=== PATIENT | male | born 1980 | race Caucasian/White ===

== ENCOUNTER → 2017-04-07 | Outpatient (CLI) | payer BC ==
--- NOTE | 2017-04-07 16:17 | CT ---
EXAMINATION TYPE: CT abdomen pelvis w con DATE OF EXAM: 04/07/2017 4:09 PM COMPARISON: NONE HISTORY: Patient complains of a pilonidal cyst with recurring infection. CT DLP: 2278 mGycm CONTRAST: CT scan of the abdomen and pelvis is performed without Oral Contrast and with IV Contrast, patient in jected with 100 mL of Omnipaque 300. FINDINGS: LUNG BASES-: No visible nodule. No infiltrate. Linear atelectasis left lung base. LIVER/GB: No calcified gallstones. No space occupying hepatic lesion. Biliary tree is of normal ca liber. PANCREAS: No inflammation. No distinct mass. SPLEEN: No splenic enlargement. No lesion seen. ADRENALS: No nodule. No thickening. KIDNEYS/BLADDER: No hydronephrosis. No nephrolithiasis. No disctinct renal mass. Urinary bladder g rossly unremarkable. BOWEL: Normal appendix. Normal bowel caliber. No inflammation. GENITAL ORGANS: Prostate calcifications identified. LYMPH NODES: No greater than 1cm abdominal or pelvic lymph nodes are appreciated. AORTA: No significant abnormality. OSSEOUS STRUCTURES: Mild degenerative change lower lumbar spine. OTHER: Mild stranding posterior to the sacrococcygeal junction without distinct cystic lesion. IMPRESSION: 1. Mild stranding posterior to the sacrococcygeal junction without distinct cystic lesion.
== END | disposition home or self-care (01) ==
LOC: RADCTMAIN 15:40
PROVIDERS: ATTEND Surgery
DX: L05.91 Pilonidal cyst without abscess (principal)
CPT/HCPCS: 74177; Q9967

== ENCOUNTER 2017-04-23 10:37 | Day surgery (SDC) | payer BC ==
[2017-04-17 14:49] VITALS: BMI 42.8
[~2017-04-23 10:37] MED LIST: CLINDAMYCIN 900 MG in DEXTROSE 5% IN WATER 50 ML IVPB ONE; DEXAMETHASONE SOD PHOSPHATE 10 MG/ML 1 ML VIAL IV ONE; HYDROmorphone 1 MG/ML 1 ML SYRINGE IVP PRN; LACTATED RINGERS 1,000 ML IV SCH; LIDOCAINE 1% 20 ML VIAL (10MG/ML) FOR IV START INTRADERMA PRN; ONDANSETRON 4 MG/2 ML VIAL IVP ONE; Pre Op ABX Message 1 EACH MISC MISCELLANE ONE; SCOPOLAMINE 1.5MG/72HR PATCH TRANSDERM ONE
[2017-04-23 11:01] VITALS: TEMP 97.8
[2017-04-23] MEDS ORDERED: MIDAZOLAM 2 MG/2 ML VIAL ONE (12:36)
[2017-04-23] MEDS ORDERED: PROPOFOL 10 MG/ML 20 ML VIAL IV ONE (12:36)
[2017-04-23] MEDS ORDERED: LIDOCAINE 1% INJ 10MG/ML (20 ML MDV) ONE (12:36)
[2017-04-23] MEDS ORDERED: fentaNYL (PF) 50 MCG/ML 2 ML AMP ONE (12:36)
[2017-04-23] MEDS ORDERED: SUCCINYLCHOLINE CHLORIDE VIAL 200 MG/10 ML VIAL IV ONE (12:36)
[2017-04-23] MEDS ORDERED: PHENYLEPHRINE-0.9% NACL SYG 1 MG/10 ML SYRINGE ONE (12:36)
[2017-04-23] MEDS ORDERED: GLYCOPYRROLATE 0.2 MG/ML 2 ML VIAL ONE (12:36)
[2017-04-23] MEDS ORDERED: LACTATED RINGERS 1,000 ML IV ONE ×2 (12:43→14:54)
[2017-04-23] MEDS ORDERED: BUPIVACAIN-EPI 0.25%-1:200,000 30 ML VIAL SQ ONE (13:04)
[2017-04-23 14:04] VITALS: RESP 20
--- NOTE | 2017-04-23 14:16 | P.OP ---
Date of Procedure: 04/23/17 Preoperative Diagnosis: Pilonidal abscess with sinus Postoperative Diagnosis: Pilonidal sinus with abscess Sebaceous cyst Procedure(s) Performed: Excision of the Pilonidal abscess and cyst Excision of sebaceous cyst Implants: Anesthesia: ALBERTO Surgeon: Evan Claros Pathology: other Condition: stable Disposition: PACU Indications for Procedure: painful lower back abscess that drain intermittently Operative Findings: Infected pilonidal cyst with abscess Mulitple Sinus openings Small sebaceous cyst (initially thought to be another sinus opening) Description of Procedure: Demetrio Taylor is a 36-year-old male who has had problems with draining pilonidal abscesses who is not responding to antibiotics and his symptoms have been worsening. Patient also had multiple sinus openings within the beth cleft as well as another laterally indurated area which potentially be a closed cyst. Patient has been recommended excision of the pilonidal abscess insists due to his worsening symptoms. Patient was identified in the preoperative operating holding area informed consent was obtained he was taken the operating room placed supine position and given general anesthesia with endotracheal intubation. The patient was then rolled over to be placed in a prone jackknife position after which the buttock cheeks were retracted with tape. The area was prepped and draped in the usual sterile surgical fashion. Appropriate timeout was called confirming SCDs for thromboprophylaxis and clindamycin for skin prophylaxis. The area was prepped and draped in the usual sterile surgical fashion. Elliptical incision was made starting superior to the area of indurated and draining infection and carried inferiorly just lateral on the left side of the nasal cleft. This was extended into place with the flow as to excise the sinus tracts. The deep and the skin and subcutaneous tissue all the way to the fascia and excised. Incision was made in the skin flaps itself was to advance it and decrease the acute angle of the beth cleft. Hemostasis was secured with the help of electrocautery. Wound was irrigated thoroughly. There is a small induration infralaterally and initially was thought to be a sinus tract and was excised it was found to be a sebaceous cyst once it was handed off. Subcu tissues tissue was partially closed with 0 Vicryl and 2-0 nylon. The cavity itself was packed with 45 x 2 cm Aquacel silver packing 4 x 4 and ABDs applied. Local anesthesia was infiltrated patient ordered procedure well though no complications and was extubated and taken to recovery room in stable condition. The wound itself measured 4 x 4 0.5 cm x 3.5 cm with 2 cm of undermining inferiorly and extends to the fascia. A second wound measured 1.5 x 0.8 cm x 0.3 cm Plan - Discharge Summary New Discharge Prescriptions: New HYDROcodone/APAP 7.5-325MG [[place] 7.5-325] 1 tab PO Q4H PRN #35 tab PRN Reason: Pain Ibuprofen [Motrin] 800 mg PO Q8HR PRN #40 tab PRN Reason: Pain Magnesium Hydroxide [Milk of Magnesia] 800 mg PO Q24HR PRN #600 ml PRN Reason: Constipation Discharge Medication List HYDROcodone/APAP 7.5-325MG [[place] 7.5-325] 1 tab PO Q4H PRN #35 tab 04/23/17 [Rx ] Ibuprofen [Motrin] 800 mg PO Q8HR PRN #40 tab 04/23/17 [Rx] Magnesium Hydroxide [Milk of Magnesia] 800 mg PO Q24HR PRN #600 ml 04/23/17 [Rx] Follow up Appointment(s)/Referral(s): Evan Claros MD [STAFF PHYSICIAN] - 04/28/17 (Patient to be seen in [facility] clinic at 1030 am) Patient Instructions/Handouts: Pilonidal Cyst (GEN) Activity/Diet/Wound Care/Special Instructions: Regular diet Use inflatable donut to sit on. Ok to use ice packs Ok to shower with wound covered Discharge Disposition: HOME SELF-CARE
[2017-04-23] MEDS ORDERED: ONDANSETRON 4 MG/2 ML VIAL IVP ONE (14:26)
[2017-04-23 16:09] VITALS: BP 116/64; PULSE 88
== END 2017-04-23 16:11 | disposition home or self-care (01) ==
LOC: OR 10:37
PROVIDERS: ATTEND Surgery
DX: L05.01 Pilonidal cyst with abscess (principal); L72.0 Epidermal cyst; F17.200 Nicotine dependence, unspecified, uncomplicated; Z79.2 Long term (current) use of antibiotics; Z88.0 Allergy status to penicillin
CPT/HCPCS: 88304; 87070; 87205; 87075; 11771; J2250; J0330; J1100; J2405; J2001; J3010; J1170; J2370; J2704

== ENCOUNTER → 2017-05-07 | Outpatient (CLI) | payer BC ==
--- NOTE | 2017-05-08 06:41 | MR ---
EXAMINATION TYPE: MR brain wo con, MR angio head wo con DATE OF EXAM: 05/07/2017 COMPARISON: None HISTORY: Syncope and TIA per order. Dizziness and fainting with possible seizures per patient. TECHNIQUE: Multiplanar, multisequence imaging of the brain and brainstem is performed without IV cont rast. [id number] images focusing on cervical of Alonso are performed without contrast. 2-D and 3- D postprocessing is required. FINDINGS: Diffusion weighted images demonstrate no evidence of a recent infarct or other diffusion abnormality. There is no extraaxial fluid collection or significant white matter signal abnormality. The ventricu lar system and cisternal spaces are normal in size and appearance. The brain volume is age appropria te. T2 coronal weighted images show hippocampal gyri to appear symmetric and felt within normal limit s. Midline structures demonstrate normal morphology. The craniocervical junction appears within normal limits. Normal vascular flow voids are present. The visualized sinuses are clear and the globes are i ntact. MRA imaging shows codominant vertebral basilar system. Vertebral arteries are patent to basilar junct ion. There is no significant focal stenosis or aneurysmal change in the posterior circulation. There is hypoplastic right posterior communicating artery. There is patent left posterior communicating art jevon identified. Images of the anterior circulation show patent anterior communicating artery. There is no significant focal stenosis or aneurysmal change seen. IMPRESSION: Unremarkable MRI/MRA of the brain.
== END | disposition home or self-care (01) ==
LOC: RADMRIMAIN 21:16
PROVIDERS: ATTEND Psychiatry & Neurology Neurology
DX: R55 Syncope and collapse (principal); G45.9 Transient cerebral ischemic attack, unspecified; Z88.0 Allergy status to penicillin
CPT/HCPCS: 70544; 70551

== ENCOUNTER 2017-06-09 13:04 | Day surgery (SDC) | payer BC ==
[2017-06-04 14:19] VITALS: BMI 44.1
[~2017-06-09 13:04] MED LIST changes: -CLINDAMYCIN 900 MG in DEXTROSE 5% IN WATER 50 ML IVPB ONE; +HEPARIN SODIUM,PORCINE 5,000 UNIT/ML 1 ML VIAL SQ ONE; -LIDOCAINE 1% 20 ML VIAL (10MG/ML) FOR IV START INTRADERMA PRN; -SCOPOLAMINE 1.5MG/72HR PATCH TRANSDERM ONE
[2017-06-09 13:21] VITALS: TEMP 97.9
[2017-06-09] MEDS ORDERED: LIDOCAINE 1% 20 ML VIAL (10MG/ML) FOR IV START INTRADERMA ONE (13:21)
[2017-06-09] MEDS ORDERED: PROPOFOL 10 MG/ML 20 ML VIAL IV ONE (14:40)
[2017-06-09] MEDS ORDERED: fentaNYL (PF) 50 MCG/ML 2 ML AMP ONE (14:40)
[2017-06-09] MEDS ORDERED: MIDAZOLAM 2 MG/2 ML VIAL ONE (14:40)
[2017-06-09] MEDS ORDERED: KETAMINE 10 MG/ML 20 ML VIAL ONE (14:40)
[2017-06-09] MEDS ORDERED: BUPIVACAINE (PF) 0.25% 30 ML VIAL SQ ONE ×3 (15:02)
[2017-06-09] MEDS ORDERED: SODIUM CHLORIDE 0.9% 50 ML with CLINDAMYCIN 900 MG IV ONE ×2 (15:06)
[2017-06-09] MEDS ORDERED: LACTATED RINGERS 1,000 ML IV ONE (15:14)
[2017-06-09 16:05] VITALS: RESP 16
--- NOTE | 2017-06-09 16:11 | P.OP ---
Date of Procedure: 06/09/17 Preoperative Diagnosis: Sebacesou cyst of the thigh (right medial thigh) Postoperative Diagnosis: Hidraadenitis Supparitiva of the thigh Procedure(s) Performed: Excision of hidraadenitis,with scalpel and electrocautery Implants: Anesthesia: MAC, local Surgeon: Evan Claros Estimated Blood Loss (ml): 20 Pathology: other Condition: stable Disposition: PACU Indications for Procedure: Operative Findings: Description of Procedure: 36-year-old gentleman who presents with right posterior thigh swelling which is intermittent and draining. It looked like distinct subcu sebaceous cysts on clinical exam. After placing him in antibiotics including of the infection he was recommended an excision. This was recommended because of the recurrence. The patient understood and gave consent. Patient underwent further preoperative operating holding area to the operating placement position given IV sedation. Areas were draped in usual scissors surgical fashion of appropriate timeout was called. He was anesthetized with 7 mL of local anesthesia and skin incision was made with the help of scalpel and deepened skin and subcutis tissue with the help of the electrocautery around the site of the swelling and the sinus pits. Dissection in the subcutaneous tissue and was taken off it but remained in the subcutaneous tissue plane and running medially the entire length of the cysts which were like a chain of lakes continued upwards and medially and posteriorly. The total length of the subcutaneous contiguous cysts measured approximately 10 cm. It was approximately 2 x 2 centimeters across and 0.5 cm deep. Posteriorly it extended even further but cyst was not transected site of previous scarring. Thoroughly irrigated irrigated and hemostasis secured. Subcu tissues tissue was closed with interrupted 2 and 3-0 Vicryl and skin was closed with 3-0 nylon. Patient will procedure well though no complications the patient awoke and was taken to recovery room stable condition Plan - Discharge Summary New Discharge Prescriptions: No Action HYDROcodone/APAP 7.5-325MG [[place] 7.5-325] 1 tab PO Q4H PRN #35 tab PRN Reason: Pain Divalproex [Depakote] 500 mg PO TID Sulfamethox-Tmp 800-160Mg [Bactrim DS 800-160 mg] 1 tab PO Q12HR Discharge Medication List HYDROcodone/APAP 7.5-325MG [[place] 7.5-325] 1 tab PO Q4H PRN #35 tab 04/23/17 [Rx ] Divalproex [Depakote] 500 mg PO TID 04/28/17 [History] Sulfamethox-Tmp 800-160Mg [Bactrim DS 800-160 mg] 1 tab PO Q12HR 06/02/17 [ History] Follow up Appointment(s)/Referral(s): Evan Claros MD [STAFF PHYSICIAN] - 1 Week Activity/Diet/Wound Care/Special Instructions: take off dressing in 48 hours. Keep clean and ddry , cover with 4x4 and tape. If it drains, becomes red please let physician know Complete antibiotic course as reccomended Discharge Disposition: HOME SELF-CARE
[2017-06-09] MEDS ORDERED: HYDROcodone/APAP 7.5-325MG 1 EACH TAB PO ONE (16:34)
[2017-06-09 17:05] VITALS: BP 114/65; PULSE 74
== END 2017-06-09 17:30 | disposition home or self-care (01) ==
LOC: OR 13:04
PROVIDERS: ATTEND Surgery
DX: L73.2 Hidradenitis suppurativa (principal); E66.01 Morbid (severe) obesity due to excess calories; Z88.0 Allergy status to penicillin; Z88.1 Allergy status to other antibiotic agents; Z87.891 Personal history of nicotine dependence
CPT/HCPCS: 11462; J2250; J1100; J2405; J3010; J2704; 88304

== ENCOUNTER → 2017-06-22 | Outpatient (CLI) | payer BC ==
[2017-06-22 13:09] LABS: ALT 30 U/L (21-72); AST 18 U/L (17-59); Alkaline Phosphatase 75 U/L (38-126); Anion Gap 11 mmol/L; Blood Urea Nitrogen 14 mg/dL (9-20); Calcium 9.2 mg/dL (8.4-10.2); Carbon Dioxide 25 mmol/L (22-30); Chloride 103 mmol/L (98-107); Cholesterol 204 mg/dL (<200); Glucose 101 mg/dL (74-99); HDL Cholesterol 40 mg/dL (40-60); Non-African American GFR(MDRD) >60 (>60 ml/min/1.73 sqM); Potassium 4.7 mmol/L (3.5-5.1); Sodium 139 mmol/L (137-145); Total Bilirubin 0.6 mg/dL (0.2-1.3); Total Protein 7.2 g/dL (6.3-8.2); Triglycerides 187 mg/dL (<150)
[2017-06-22 14:30] LABS: CH 29.3; CHCM 32.4; HCT 40.6 % (39.0-53.0); HDW 2.18; MCH 31.3 pg (25.0-35.0); MCHC 34.5 g/dL (31.0-37.0); MCV 90.7 fL (80.0-100.0); Mean Platelet Volume 8.8; RBC 4.47 m/uL (4.30-5.90); WBC 10.8 k/uL (3.8-10.6)
== END | disposition home or self-care (01) ==
LOC: LABWHC1 12:24
PROVIDERS: ATTEND Psychiatry & Neurology Neurology
DX: G45.9 Transient cerebral ischemic attack, unspecified (principal)
CPT/HCPCS: 36415; 80053; 80061; 83090; 85027

== ENCOUNTER 2017-07-01 18:28 | Emergency (ER) | payer BC ==
[2017-07-01] MEDS ORDERED: CLINDAMYCIN 600 MG in DEXTROSE 5% IN WATER 50 ML IVPB STA ×2 (19:44)
[2017-07-01] MEDS ORDERED: SODIUM CHLORIDE 0.9% 1,000 ML IV ONE (20:34)
--- NOTE | 2017-07-01 20:35 | ED ---
Wound/Laceration HPI - General Chief Complaint: Wound/Laceration Stated Complaint: rt thigh pain post op Time Seen by Provider: 07/01/17 19:26 Source: patient, RN notes reviewed, old records reviewed Mode of arrival: ambulatory Limitations: no limitations - History of Present Illness Initial Comments: 36-year-old male presents emergency Department chief complaint of pain over his incision site. Patient reports that he had an abscess and cyst removed from the right medial thigh. He was pulling up with the wound clinic. Reports that he missed his appointment 2 weeks ago. He states that he did have a visiting nurse come and they're concerned it might be infected. He was treated on Bactrim but didn't discontinue the Bactrim approximately 2 weeks ago as well. Patient states that he's had some fever and chills. Couple episodes of vomiting. - Related Data Home Medications Medication Instructions Recorded Confirmed Divalproex [Depakote] 500 mg PO TID 04/28/17 07/01/17 Divalproex [Depakote] 250 mg PO TID 07/01/17 07/01/17 Previous Rx's Medication Instructions Recorded Sulfamethox-Tmp 800-160Mg [Bactrim 1 tab PO Q12HR #20 tab 07/01/17 DS 800-160 mg] Allergies Allergy/AdvReac Type Severity Reaction Status Date / Time amoxicillin Allergy Anaphylaxis Verified 07/01/17 19:48 Penicillins Allergy Anaphylaxis Verified 07/01/17 19:48 Review of Systems ROS Statement: Those systems with pertinent positive or pertinent negative responses have been documented in the HPI. ROS Other: All systems not noted in ROS Statement are negative. Past Medical History Past Medical History: Pneumonia Additional Past Medical History / Comment(s): PILONIDAL CYST EXC 04/23/17, Has a small open wound that is covered. KIDNEY STONE PASSED X2 2016. rt sup,medial thigh abcess. History of Any Multi-Drug Resistant Organisms: None Reported Past Surgical History: Orthopedic Surgery, Tonsillectomy Additional Past Surgical History / Comment(s): RT KNEE SURG X3. EXC INFECTED PILONIDAL CYST W/ ABSCESS. last surgery was in April 2017. SURGICAL I& D RT SUP, MED THIGH 06/04/17 Past Anesthesia/Blood Transfusion Reactions: Motion Sickness Additional Past Anesthesia/Blood Transfusion Reaction / Comment(s): States size of his throat is smaller than normal. States anesthesia usually does not have any problem intubating him. Past Psychological History: Panic Disorder Smoking Status: Never smoker Past Alcohol Use History: Rare Past Drug Use History: None Reported - Past Family History Mother Family Medical History: No Reported History General Exam - General Exam Comments Initial Comments: Physical is a 36-year-old male. No acute distress. Limitations: no limitations General appearance: alert, in no apparent distress Head exam: Present: atraumatic, normocephalic, normal inspection Eye exam: Present: normal appearance, PERRL, EOMI. Absent: scleral icterus, conjunctival injection, periorbital swelling ENT exam: Present: normal exam, mucous membranes moist Neck exam: Present: normal inspection. Absent: tenderness, meningismus, lymphadenopathy Respiratory exam: Present: normal lung sounds bilaterally. Absent: respiratory distress, wheezes, rales, rhonchi, stridor Cardiovascular Exam: Present: regular rate, normal rhythm, normal heart sounds. Absent: systolic murmur, diastolic murmur, rubs, gallop, clicks GI/Abdominal exam: Present: soft, normal bowel sounds. Absent: distended, tenderness, guarding, rebound, rigid Extremities exam: Present: normal inspection, full ROM, normal capillary refill. Absent: tenderness, pedal edema, joint swelling, calf tenderness Back exam: Present: normal inspection Neurological exam: Present: alert, oriented X3, CN II-XII intact Psychiatric exam: Present: normal affect, normal mood Skin exam: Present: warm, dry, intact, normal color. Absent: rash Course Vital Signs 07/01/17 07/01/17 18:41 20:37 Temperature 98.4 F 97.6 F Pulse Rate 79 79 Respiratory 20 18 Rate Blood Pressure 132/76 118/66 O2 Sat by Pulse 98 98 Oximetry Medical Decision Making - Medical Decision Making 36-year-old male presents emergency Department chief complaint of pain over his incision site. Patient reports that he had an abscess and cyst removed from the right medial thigh. He was pulling up with the wound clinic. Reports that he missed his appointment 2 weeks ago. Patient's remaining sutures within the laceration. Worse post removed a week and a half ago. Discussed hysterectomy. Patient did receive 1 dose of clindamycin IV for concern for skin infection within the sutures. - Lab Data Result diagrams: 07/01/17 20:25 07/01/17 20:25 Lab Results 07/01/17 07/01/17 07/01/17 Range/Units 20:25 20:25 20:25 WBC 11.4 H (3.8-10.6) k/uL RBC 4.10 L (4.30-5.90) m/uL Hgb 12.3 L (13.0-17.5) gm/dL Hct 38.4 L (39.0-53.0) % MCV 93.9 (80.0-100.0) fL MCH 30.0 (25.0-35.0) pg MCHC 31.9 (31.0-37.0) g/dL RDW 15.2 (11.5-15.5) % Plt Count 224 (150-450) k/uL Neutrophils % 55 % Lymphocytes % 36 % Monocytes % 5 % Eosinophils % 2 % Basophils % 1 % Neutrophils # 6.3 (1.3-7.7) k/uL Lymphocytes # 4.1 (1.0-4.8) k/uL Monocytes # 0.6 (0-1.0) k/uL Eosinophils # 0.2 (0-0.7) k/uL Basophils # 0.1 (0-0.2) k/uL Sodium 141 (137-145) mmol/L Potassium 4.4 (3.5-5.1) mmol/L Chloride 109 H (98-107) mmol/L Carbon Dioxide 24 (22-30) mmol/L Anion Gap 8 mmol/L BUN 16 (9-20) mg/dL Creatinine 0.95 (0.66-1.25) mg/dL Est GFR (MDRD) Af Amer >60 (>60 ml/min/1.73 sqM) Est GFR (MDRD) Non-Af >60 (>60 ml/min/1.73 sqM) Glucose 105 H (74-99) mg/dL Plasma Lactic Acid [place] 1.2 (0.7-2.0) mmol/L Calcium 8.5 (8.4-10.2) mg/dL Total Bilirubin 0.3 (0.2-1.3) mg/dL AST 18 (17-59) U/L ALT 27 (21-72) U/L Alkaline Phosphatase 61 (38-126) U/L Total Protein 6.4 (6.3-8.2) g/dL Albumin 3.5 (3.5-5.0) g/dL Disposition Clinical Impression: Incisional pain Disposition: HOME SELF-CARE Condition: Good Instructions: Acute Wound Care (ED), Chronic Wound Care (ED) Additional Instructions: Patient has a follow-up appointment ocular care technician. Keep it covered. Take antibiotics as directed. Prescriptions: Sulfamethox-Tmp 800-160Mg [Bactrim DS 800-160 mg] 1 tab PO Q12HR #20 tab Referrals: Raysa Kline MD [Primary Care Provider] - 1-2 days Time of Disposition: 21:18
[2017-07-01 20:40] LABS: Basophils # (A) 0.1 k/uL (0-0.2); Basophils % (A) 1 %; CH 30.4; CHCM 32.5; Eosinophils # (A) 0.2 k/uL (0-0.7); Eosinophils % (A) 2 %; HCT 38.4 % (39.0-53.0); HDW 2.21; HGB 12.3 gm/dL (13.0-17.5); Luc # (Auto) 0.23; Luc % (Auto) 2; Lymphocytes # (A) 4.1 k/uL (1.0-4.8); Lymphocytes % (A) 36 %; MCHC 31.9 g/dL (31.0-37.0); MCV 93.9 fL (80.0-100.0); Mean Platelet Volume 8.4; Monocytes # (A) 0.6 k/uL (0-1.0); Monocytes % (A) 5 %; Neutrophils # (A) 6.3 k/uL (1.3-7.7); Neutrophils % (A) 55 %; RDW 15.2 % (11.5-15.5); WBC 11.4 k/uL (3.8-10.6); WBC (Perox) 11.67
[2017-07-01 20:42] VITALS: RESP 18
[2017-07-01 20:52] LABS: ALT 27 U/L (21-72); AST 18 U/L (17-59); Alkaline Phosphatase 61 U/L (38-126); Anion Gap 8 mmol/L; Blood Urea Nitrogen 16 mg/dL (9-20); Calcium 8.5 mg/dL (8.4-10.2); Carbon Dioxide 24 mmol/L (22-30); Chloride 109 mmol/L (98-107); Glucose 105 mg/dL (74-99); Non-African American GFR(MDRD) >60 (>60 ml/min/1.73 sqM); Potassium 4.4 mmol/L (3.5-5.1); Sodium 141 mmol/L (137-145); Total Bilirubin 0.3 mg/dL (0.2-1.3); Total Protein 6.4 g/dL (6.3-8.2)
[2017-07-01 21:40] VITALS: BP 118/58; PULSE 67; TEMP 98.2
== END 2017-07-01 21:48 | disposition home or self-care (01) ==
LOC: EC 18:28
DX: M79.651 Pain in right thigh (principal); G89.18 Other acute postprocedural pain; Z79.899 Other long term (current) drug therapy; Z88.0 Allergy status to penicillin
CPT/HCPCS: 36415; 80053; 83605; 85025; 87040; 96365; 99284

== ENCOUNTER 2017-08-08 14:28 | Emergency (ER) | payer OTHER, BC ==
[2017-08-08 14:40] VITALS: RESP 18
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
[2017-08-08 15:31] VITALS: BP 132/61; PULSE 80
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
[2017-08-08] MEDS ORDERED: KETOROLAC 30 MG/ML 1 ML VIAL IM STA (15:53)
[2017-08-08 16:09] VITALS: TEMP 98
== END 2017-08-08 16:09 | disposition home or self-care (01) ==
LOC: EC 14:28
DX: S51.811A Laceration without foreign body of right forearm, initial encounter (principal); S16.1XXA Strain of muscle, fascia and tendon at neck level, initial encounter; S09.90XA Unspecified injury of head, initial encounter; F41.0 Panic disorder [episodic paroxysmal anxiety]; Z79.82 Long term (current) use of aspirin; Z79.899 Other long term (current) drug therapy; Z88.0 Allergy status to penicillin; V87.7XXA Person injured in collision between other specified motor vehicles (traffic), initial encounter; Y92.410 Unspecified street and highway as the place of occurrence of the external cause
CPT/HCPCS: 71020; 73090; 72125; 70450; 99284; 96372; J1885

== ENCOUNTER 2017-08-10 18:53 | Emergency (ER) | payer OTHER, BC ==
[2017-08-10 19:07] VITALS: TEMP 98.2
[2017-08-10] MEDS ORDERED: ONDANSETRON 4 MG/2 ML VIAL IVP STA (19:25)
[2017-08-10] MEDS ORDERED: SODIUM CHLORIDE 0.9% 500 ML IV STA (19:25)
[2017-08-10] MEDS ORDERED: RX INFO: IV CONTRAST WAS GIVEN 1 EACH MISC MISCELLANE PRN (19:25)
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
[2017-08-10 20:12] LABS: Appearance,Urine Clear (Clear); Bilirubin,Urine Negative (Negative); Glucose,Urine (UA) Negative (Negative); Ketones,Urine 1+ (Negative); Leukocyte Esterase,Urine Negative (Negative); Nitrite,Urine Negative (Negative); Protein,Urine Trace (Negative); Specific Gravity,Urine 1.025 (1.001-1.035); UA Billing (MACRO vs. MICRO) CHEM
[2017-08-10 20:13] LABS: Basophils # (A) 0.1 k/uL (0-0.2); Basophils % (A) 1 %; CH 29.7; CHCM 32.5; Eosinophils # (A) 0.3 k/uL (0-0.7); Eosinophils % (A) 2 %; HDW 2.27; HGB 13.6 gm/dL (13.0-17.5); Luc # (Auto) 0.17; Luc % (Auto) 1; Lymphocytes # (A) 4.3 k/uL (1.0-4.8); Lymphocytes % (A) 34 %; MCH 31.2 pg (25.0-35.0); MCV 91.8 fL (80.0-100.0); Mean Platelet Volume 9.1; Monocytes # (A) 0.7 k/uL (0-1.0); Monocytes % (A) 5 %; Neutrophils # (A) 7.4 k/uL (1.3-7.7); Neutrophils % (A) 57 %; RBC 4.36 m/uL (4.30-5.90); RDW 13.9 % (11.5-15.5); WBC 12.9 k/uL (3.8-10.6); WBC (Perox) 12.64
[2017-08-10 20:21] LABS: ALT 49 U/L (21-72); AST 30 U/L (17-59); Alkaline Phosphatase 65 U/L (38-126); Amylase <30 U/L (30-110); Anion Gap 9 mmol/L; Blood Urea Nitrogen 14 mg/dL (9-20); Calcium 9.3 mg/dL (8.4-10.2); Carbon Dioxide 26 mmol/L (22-30); Chloride 104 mmol/L (98-107); Glucose 118 mg/dL (74-99); Non-African American GFR(MDRD) >60 (>60 ml/min/1.73 sqM); Potassium 4.2 mmol/L (3.5-5.1); Sodium 139 mmol/L (137-145); Total Bilirubin 0.3 mg/dL (0.2-1.3); Total Protein 6.6 g/dL (6.3-8.2)
[2017-08-10 20:22] LABS: Partial Thromboplastin Time 24.8 sec (22.0-30.0); Prothrombin Time 10.2 sec (9.0-12.0)
[2017-08-10] MEDS ORDERED: MORPHINE SULFATE 2 MG/ML SYRINGE IVP ONE (20:27)
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
[2017-08-10] MEDS ORDERED: ONDANSETRON 4 MG ODT STARTER PACK 2 TAB BTL PO STA (21:17)
[2017-08-10 21:23] VITALS: BP 129/58; PULSE 73; RESP 17
== END 2017-08-10 21:29 | disposition home or self-care (01) ==
LOC: EC 18:53
DX: S23.41XD Sprain of ribs, subsequent encounter (principal); R10.11 Right upper quadrant pain; R11.0 Nausea; Z79.82 Long term (current) use of aspirin; Z79.899 Other long term (current) drug therapy; Z88.0 Allergy status to penicillin; V89.2XXD Person injured in unspecified motor-vehicle accident, traffic, subsequent encounter; Y92.410 Unspecified street and highway as the place of occurrence of the external cause
CPT/HCPCS: 36415; 80053; 82150; 83690; 85025; 85610; 85730; 81003; 74177; 99284; 96374; 96375; 96361; J2405; J2270; Q9967; S0119

== ENCOUNTER → 2017-08-17 | Outpatient (CLI) | payer BC ==
[2017-08-17 11:00] LABS: ALT 86 U/L (21-72); AST 45 U/L (17-59); Alkaline Phosphatase 79 U/L (38-126); Anion Gap 11 mmol/L; Blood Urea Nitrogen 11 mg/dL (9-20); Calcium 9.4 mg/dL (8.4-10.2); Carbon Dioxide 22 mmol/L (22-30); Chloride 106 mmol/L (98-107); Cholesterol 197 mg/dL (<200); Glucose 110 mg/dL (74-99); HDL Cholesterol 37 mg/dL (40-60); Non-African American GFR(MDRD) >60 (>60 ml/min/1.73 sqM); Potassium 4.8 mmol/L (3.5-5.1); Sodium 139 mmol/L (137-145); Total Bilirubin 0.4 mg/dL (0.2-1.3); Total Protein 6.9 g/dL (6.3-8.2)
== END | disposition home or self-care (01) ==
LOC: LABWHC1 09:38
PROVIDERS: ATTEND Internal Medicine Cardiovascular Disease
DX: E78.2 Mixed hyperlipidemia (principal); G40.909 Epilepsy, unspecified, not intractable, without status epilepticus; Z51.81 Encounter for therapeutic drug level monitoring
CPT/HCPCS: 36415; 80053; 80061; 80164

== ENCOUNTER → 2017-09-05 | Outpatient (CLI) | payer BC ==
[2017-09-05 13:01] LABS: Hemoglobin A1C 6.2 % (4.2-6.1)
[2017-09-05 17:59] LABS: Treponemal Ab Non-Reactive (Non-Reactive)
[2017-09-05 20:24] LABS: HSV I IgG Interp NEGATIVE (NEGATIVE); HSV II IgG Interp NEGATIVE (NEGATIVE)
== END | disposition home or self-care (01) ==
LOC: LABWHC1 12:27
PROVIDERS: ATTEND Internal Medicine
DX: R79.89 Other specified abnormal findings of blood chemistry (principal); E66.9 Obesity, unspecified; Z20.2 Contact with and (suspected) exposure to infections with a predominantly sexual mode of transmission
CPT/HCPCS: 36415; 80074; 82947; 83036; 84439; 84443; 84481; 86695; 86696; 86780; 87390

== ENCOUNTER → 2018-01-16 | Outpatient (CLI) | payer BC, OTHER ==
[2018-01-16 08:02] LABS: Basophils # (A) 0.1 k/uL (0-0.2); Basophils % (A) 1 %; Eosinophils # (A) 0.2 k/uL (0-0.7); Eosinophils % (A) 2 %; HGB 13.6 gm/dL (13.0-17.5); Lymphocytes # (A) 4.3 k/uL (1.0-4.8); Lymphocytes % (A) 44 %; MCH 29.1 pg (25.0-35.0); MCHC 31.6 g/dL (31.0-37.0); MCV 92.1 fL (80.0-100.0); Mean Platelet Volume 8.3; Monocytes # (A) 0.6 k/uL (0-1.0); Monocytes % (A) 6 %; Neutrophils # (A) 4.6 k/uL (1.3-7.7); Neutrophils % (A) 46 %; Platelet Count 182 k/uL (150-450); RBC 4.67 m/uL (4.30-5.90); RDW 13.8 % (11.5-15.5); WBC 9.9 k/uL (3.8-10.6)
[2018-01-16 11:53] LABS: ALT 22 U/L (21-72); AST 13 U/L (17-59); Albumin 3.4 g/dL (3.5-5.0); Alkaline Phosphatase 63 U/L (38-126); Anion Gap 11 mmol/L; Blood Urea Nitrogen 13 mg/dL (9-20); Calcium 8.7 mg/dL (8.4-10.2); Carbon Dioxide 26 mmol/L (22-30); Chloride 105 mmol/L (98-107); Glucose 107 mg/dL (74-99); Potassium 4.2 mmol/L (3.5-5.1); Sodium 142 mmol/L (137-145); Total Bilirubin 0.3 mg/dL (0.2-1.3); Total Protein 6.4 g/dL (6.3-8.2)
[2018-01-16 12:11] LABS: T4, Free (Free Thyroxine) 1.47 ng/dL (0.78-2.19)
== END | disposition home or self-care (01) ==
LOC: LABWHC1 07:34
PROVIDERS: ATTEND Physician Assistant
DX: G40.909 Epilepsy, unspecified, not intractable, without status epilepticus (principal); R41.3 Other amnesia
CPT/HCPCS: 36415; 80053; 80164; 82607; 84439; 84443; 84481; 85025

== ENCOUNTER → 2020-02-07 | Outpatient (CLI) | payer BC, OTHER ==
--- NOTE | 2020-02-07 14:58 | MM ---
Reason for exam: clinical finding. Physical Findings: Nurse did not find any significant physical abnormalities on exam. MG Diagnostic Mammo w CAD JUAN LUIS Bilateral CC and MLO view(s) were taken. There are scattered fibroglandular densities. Benign bilateral axillary lymph nodes. These results were verbally communicated with the patient and result sheet given to the patient on 02/07/20. ASSESSMENT: Benign, BI-RAD 2 RECOMMENDATION: Clinical management. Manage patient on a clinical basis.
--- NOTE | 2020-02-07 15:00 | USB ---
Reason for exam: clinical finding. US Breast LT Left complete breast ultrasound includes all four quadrants, the retroareolar region and axilla. Finding demonstrates a 1.3 x 1.5 x 0.4cm oval, lobular, solid, hypoechoic lesion at axilla, inferior, medial, palpable. Benign subcentimeter lymph node. These results were verbally communicated with the patient and result sheet given to the patient on 02/07/20. ASSESSMENT: Benign, BI-RAD 2 RECOMMENDATION: Clinical management. Manage patient on a clinical basis.
== END | disposition home or self-care (01) ==
LOC: RADMAMWWP 13:24
PROVIDERS: ATTEND Family Medicine
DX: N63.20 Unspecified lump in the left breast, unspecified quadrant (principal)
CPT/HCPCS: 77066

== ENCOUNTER → 2021-11-05 | Outpatient (CLI) | payer OTHER ==
--- NOTE | 2021-11-05 16:15 | XR ---
EXAM TYPE: LUMBAR SPINE X RAY SERIES COMPARISON: NONE HISTORY: Pain TECHNIQUE: 3 views are submitted. FINDINGS: Alignment is anatomic. The pedicles are intact. The transverse processes are intact. There is no s pondylolisthesis. Surgical clips in the right upper quadrant. Facet arthropathy lower lumbar spine. No compression deformities. IMPRESSION: 1. No acute process. If symptoms persist consider MRI.
== END | disposition home or self-care (01) ==
LOC: RADXRMAIN 15:57
PROVIDERS: ATTEND Emergency Medicine
DX: M54.50 Low back pain, unspecified (principal)
CPT/HCPCS: 72100

== ENCOUNTER 2021-11-07 13:51 | Emergency (ER) | payer BC, OTHER ==
[2021-11-07 14:16] VITALS: TEMP 98.2
[2021-11-07] MEDS ORDERED: MORPHINE SULFATE 4 MG/ML SYRINGE IV STA (14:55)
[2021-11-07 15:33] LABS: Basophils # (A) 0.1 k/uL (0-0.2); Basophils % (A) 0 %; Eosinophils # (A) 0.2 k/uL (0-0.7); Eosinophils % (A) 1 %; HGB 14.3 gm/dL (13.0-17.5); Lymphocytes # (A) 4.6 k/uL (1.0-4.8); Lymphocytes % (A) 35 %; MCH 28.6 pg (25.0-35.0); MCHC 31.8 g/dL (31.0-37.0); MCV 89.9 fL (80.0-100.0); Mean Platelet Volume 8.6; Monocytes # (A) 0.6 k/uL (0-1.0); Monocytes % (A) 4 %; Neutrophils # (A) 7.5 k/uL (1.3-7.7); Neutrophils % (A) 57 %; Platelet Count 237 k/uL (150-450); RBC 5.01 m/uL (4.30-5.90); RDW 13.5 % (11.5-15.5)
[2021-11-07 16:04] LABS: ALT 22 U/L (4-49); AST 24 U/L (17-59); African American GFR (CKD) >90 (>60 ml/min/1.73 sqM); Albumin 3.9 g/dL (3.5-5.0); Alkaline Phosphatase 106 U/L (38-126); Anion Gap 9 mmol/L; Blood Urea Nitrogen 16 mg/dL (9-20); C Reactive Protein 1.8 mg/dL (<1.0); Calcium 9.3 mg/dL (8.4-10.2); Carbon Dioxide 24 mmol/L (22-30); Chloride 104 mmol/L (98-107); Glucose 104 mg/dL (74-99); Non-African American GFR(CKD) >90 (>60 ml/min/1.73 sqM); Potassium 4.1 mmol/L (3.5-5.1); Sodium 137 mmol/L (137-145); Total Bilirubin 0.4 mg/dL (0.2-1.3); Total Protein 7.2 g/dL (6.3-8.2)
--- NOTE | 2021-11-07 16:14 | ED ---
Back Pain HPI - General Source: patient, family, RN notes reviewed Limitations: no limitations <Leandro Ferguson - Last Filed: 11/07/21 16:47> <Jonathan Stoll - Last Filed: 11/07/21 17:49> - General Chief Complaint: Back Pain/Injury Stated Complaint: [facility]-Back Injury Time Seen by Provider: 11/07/21 14:36 - History of Present Illness Initial Comments: Patient is a 40-year-old male that presents to the emergency department complaining of a strained back injury at work on Thursday. He notes he was seen at [facility] on Thursday and was informed to return to work. He notes that today he started have some tingling in his testicles and has lost his bowel control. He notes that he came to the emergency room for further evaluation. He notes that his pain is approximate 7 out of 10 with no relief. He notes that it feels like his groin and pelvic region are tingly. Patient noted that his mechanism of injury was bending over and picking up objects. He notes this is typical for his daily work. He denied any other issues or complaints. He denied chest pain shortness of breath headache nausea vomiting diarrhea constipation fever fatigue chills. Patient notes that he is able to ambulate with no issue. He denied any weakness in his bilateral lower extremities. (Leandro Ferguson) - Related Data Home Medications Medication Instructions Recorded Confirmed Divalproex [Depakote] 500 mg PO TID 04/28/17 08/10/17 Divalproex [Depakote] 250 mg PO TID 07/01/17 08/10/17 Aspirin EC [Ecotrin Low Dose] 81 mg PO DAILY 08/08/17 08/10/17 Previous Rx's Medication Instructions Recorded HYDROcodone/APAP 5-325MG [[place] 1 tab PO Q6HR PRN #12 tab 08/08/17 5-325] Ibuprofen [Motrin] 600 mg PO Q8HR PRN #24 tab 08/08/17 Allergies Allergy/AdvReac Type Severity Reaction Status Date / Time amoxicillin Allergy Anaphylaxis Verified 11/07/21 14:16 Penicillins Allergy Anaphylaxis Verified 11/07/21 14:16 Review of Systems ROS Other: All systems not noted in ROS Statement are negative. <Leandro Ferguson - Last Filed: 11/07/21 16:47> ROS Other: All systems not noted in ROS Statement are negative. <Jonathan Stoll - Last Filed: 11/07/21 17:49> ROS Statement: Those systems with pertinent positive or pertinent negative responses have been documented in the HPI. Past Medical History Past Medical History: Pneumonia Additional Past Medical History / Comment(s): PILONIDAL CYST EXC 04/23/17, Has a small open wound that is covered. KIDNEY STONE PASSED X2 2015. rt sup,medial thigh abcess. History of Any Multi-Drug Resistant Organisms: None Reported Past Surgical History: Cholecystectomy, Orthopedic Surgery, Tonsillectomy Additional Past Surgical History / Comment(s): RT KNEE SURG X3. EXC INFECTED PILONIDAL CYST W/ ABSCESS. last surgery was in April 2017. SURGICAL I& D RT SUP,MED THIGH 06/04/17 Past Anesthesia/Blood Transfusion Reactions: Motion Sickness, Motion Sickness Additional Past Anesthesia/Blood Transfusion Reaction / Comment(s): States size of his throat is smaller than normal. States anesthesia usually does not have any problem intubating him. Past Psychological History: Anxiety, Depression, Panic Disorder, PTSD Smoking Status: Current every day smoker Past Alcohol Use History: None Reported Past Drug Use History: None Reported - Past Family History Mother Family Medical History: No Reported History <Leandro Ferguson - Last Filed: 11/07/21 16:47> General Exam Limitations: no limitations General appearance: alert, in no apparent distress, obese Head exam: Present: atraumatic, normocephalic, normal inspection Eye exam: Present: normal appearance, PERRL, EOMI. Absent: scleral icterus, conjunctival injection, periorbital swelling ENT exam: Present: normal exam, mucous membranes moist Neck exam: Present: normal inspection Respiratory exam: Present: normal lung sounds bilaterally. Absent: respiratory distress, wheezes, rales, rhonchi, stridor Cardiovascular Exam: Present: regular rate, normal rhythm, normal heart sounds. Absent: systolic murmur, diastolic murmur, rubs, gallop, clicks GI/Abdominal exam: Present: soft, normal bowel sounds. Absent: distended, tenderness, guarding, rebound, rigid Rectal exam: Present: normal inspection, decreased rectal tone. Absent: heme (- ) stool, black stool, bloody stool, fecal impaction, hemorrhoids, mass, tenderness Extremities exam: Present: normal inspection, full ROM, normal capillary refill. Absent: tenderness, pedal edema, joint swelling, calf tenderness Neurological exam: Present: alert, oriented X3 Psychiatric exam: Present: normal affect, normal mood Skin exam: Present: warm, dry, intact, normal color. Absent: rash <Leandro Ferguson - Last Filed: 11/07/21 16:47> Course Vital Signs 11/07/21 14:11 Temperature 98.2 F Pulse Rate 77 Respiratory 18 Rate Blood Pressure 144/82 O2 Sat by Pulse 98 Oximetry Medical Decision Making - Lab Data Result diagrams: 11/07/21 15:18 11/07/21 15:18 <Leandro Ferguson - Last Filed: 11/07/21 16:47> - Lab Data Result diagrams: 11/07/21 15:18 11/07/21 15:18 <Jonathan Stoll - Last Filed: 11/07/21 17:49> - Medical Decision Making 40-year-old male presents to the emergency department with low back pain injury on Thursday, numbness and tingling in his testicles and decreased rectal tone. Labs, 4 mg morphine, MRI of the lumbar spine ordered. Labs are unremarkable. Case and that also Dr. Stoll (Leandro Ferguson) Patient is sent out to me by previous shift physician contact center assistant, Clifford Ferguson. Briefly, patient is a 40-year-old male strained his back recently. Couple days after straining his back he developed symptoms of scrotal and groin paresthesias. Patient is evaluated by Clifford Ferguson's found to have symptoms concerning for saddle anesthesia and poor rectal tone. Plan cyanosis to follow- up with pending MRI. MRI was ordered and reviewed. There appears to be degenerative changes L5-S1 otherwise unremarkable study. No signs to suggest conus medullaris or cauda equina syndrome. Patient reevaluated bedside he does not have true saddle anesthesia but only has some scrotal tingling. He does feel me pinched when I pinch his scrotum states that he does feel it just feels strange. Patient has no urinary retention. His postvoid residual was 0. Patient not having any symptoms of stool incontinence. Case is discussed with orthopedic surgery, Dr. Samaniego who requests that patient follow up with spine surgery. Patient ambulating at bedside without any complications. He does not appear to be in significant distress. Patient agreeable with discharge. (Jonathan Stoll) - Lab Data Lab Results 11/07/21 11/07/21 Range/Units 15:18 15:18 WBC 13.0 H (3.8-10.6) k/uL RBC 5.01 (4.30-5.90) m/uL Hgb 14.3 (13.0-17.5) gm/dL Hct 45.0 (39.0-53.0) % MCV 89.9 (80.0-100.0) fL MCH 28.6 (25.0-35.0) pg MCHC 31.8 (31.0-37.0) g/dL RDW 13.5 (11.5-15.5) % Plt Count 237 (150-450) k/uL MPV 8.6 Neutrophils % 57 % Lymphocytes % 35 % Monocytes % 4 % Eosinophils % 1 % Basophils % 0 % Neutrophils # 7.5 (1.3-7.7) k/uL Lymphocytes # 4.6 (1.0-4.8) k/uL Monocytes # 0.6 (0-1.0) k/uL Eosinophils # 0.2 (0-0.7) k/uL Basophils # 0.1 (0-0.2) k/uL Sodium 137 (137-145) mmol/L Potassium 4.1 (3.5-5.1) mmol/L Chloride 104 (98-107) mmol/L Carbon Dioxide 24 (22-30) mmol/L Anion Gap 9 mmol/L BUN 16 (9-20) mg/dL Creatinine 0.73 (0.66-1.25) mg/dL Est GFR (CKD-EPI)AfAm >90 (>60 ml/min/1.73 sqM) Est GFR (CKD-EPI)NonAf >90 (>60 ml/min/1.73 sqM) Glucose 104 H (74-99) mg/dL Calcium 9.3 (8.4-10.2) mg/dL Total Bilirubin 0.4 (0.2-1.3) mg/dL AST 24 (17-59) U/L ALT 22 (4-49) U/L Alkaline Phosphatase 106 (38-126) U/L C-Reactive Protein 1.8 H (<1.0) mg/dL Total Protein 7.2 (6.3-8.2) g/dL Albumin 3.9 (3.5-5.0) g/dL Disposition <Leandro Ferguson - Last Filed: 11/07/21 16:47> Is patient prescribed a controlled substance at d/c from ED?: No <Jonathan Stoll - Last Filed: 11/07/21 17:49> Clinical Impression: Back pain Disposition: HOME SELF-CARE Condition: Fair Instructions (If sedation given, give patient instructions): Acute Low Back Pain (ED) Referrals: Quinten Aj DO [Doctor of Osteopathic Medicine] - 1-2 days
--- NOTE | 2021-11-07 16:50 | MR ---
EXAMINATION TYPE: MR lumbar spine wo con DATE OF EXAM: 11/07/2021 COMPARISON: Lumbar spine x-ray 2 days ago. HISTORY: Lower back pain/injury, decreased rectal tone. TECHNIQUE: Multiplanar, multisequence imaging of the lumbar spine is performed without IV contrast. FINDINGS: Sagittal images of the lumbar spine show vertebral body heights and alignment to appear sat isfactory. Disc desiccation with mild to moderate disc space narrowing L5-S1 level otherwise the inte rvertebral discs demonstrate normal heights and hydration. The conus medullaris is normal in positio n and signal ending at T12-L1 disc space level. The bone marrow signal intensity is within normal li mits. Tiny posterior disc herniation L5-S1 level axial image 3. Spinal canal preserved. Neural foramina pat ent bilaterally at all lumbar levels. Paraspinal muscle bulk is maintained. IMPRESSION: Some degenerative changes L5-S1 level otherwise unremarkable study.
[2021-11-07 18:07] VITALS: BP 144/88; PULSE 70; RESP 14
== END 2021-11-07 18:13 | disposition home or self-care (01) ==
LOC: EC 13:51
DX: M54.50 Low back pain, unspecified (principal); R20.2 Paresthesia of skin; E66.9 Obesity, unspecified; F32.A Depression, unspecified; F41.9 Anxiety disorder, unspecified; F17.200 Nicotine dependence, unspecified, uncomplicated; Z79.82 Long term (current) use of aspirin; Z79.1 Long term (current) use of non-steroidal anti-inflammatories (NSAID); Z79.899 Other long term (current) drug therapy; Z68.41 Body mass index [BMI] 40.0-44.9, adult
CPT/HCPCS: 36415; 80053; 85025; 86140; 72148; 99284; 96374; J2270

== ENCOUNTER 2021-12-16 12:32 | Emergency (ER) | payer BC, OTHER ==
--- NOTE | 2021-12-16 13:18 | ED ---
General Adult HPI - General Chief complaint: Upper Respiratory Infection Stated complaint: Covid exposure Time Seen by Provider: 12/16/21 12:40 Source: patient, RN notes reviewed, old records reviewed Mode of arrival: ambulatory Limitations: no limitations - History of Present Illness Initial comments: this is a 41-year-old male who presents emergency Department complaining of being exposed to cold last week and said he started having a fever and chills. Patient states took an at-home COVID test that was positive. Patient states he comes in today to get a real covert test because his work requires it. Patient also is interested in the monoclonal antibodies. Patient denies any difficulty breathing first breath per patient states he does have a cough. Patient denies any chest pain or palpitations. Patient denies any abdominal pain. - Related Data Home Medications Medication Instructions Recorded Confirmed Omeprazole 20 mg PO BID 11/07/21 12/16/21 Sertraline [Zoloft] 25 mg PO DAILY 11/07/21 12/16/21 Sertraline [Zoloft] 50 mg PO DAILY 11/07/21 12/16/21 Allergies Allergy/AdvReac Type Severity Reaction Status Date / Time amoxicillin Allergy Anaphylaxis Verified 12/16/21 13:53 Penicillins Allergy Anaphylaxis Verified 12/16/21 13:53 artificial sugar AdvReac seizure Uncoded 12/16/21 13:53 Review of Systems ROS Statement: Those systems with pertinent positive or pertinent negative responses have been documented in the HPI. ROS Other: All systems not noted in ROS Statement are negative. Past Medical History Past Medical History: Pneumonia Additional Past Medical History / Comment(s): PILONIDAL CYST EXC 04/23/17, Has a small open wound that is covered. KIDNEY STONE PASSED X2 2015. rt sup,medial thigh abcess. History of Any Multi-Drug Resistant Organisms: None Reported Past Surgical History: Cholecystectomy, Orthopedic Surgery, Tonsillectomy Additional Past Surgical History / Comment(s): RT KNEE SURG X3. EXC INFECTED PILONIDAL CYST W/ ABSCESS. last surgery was in April 2017. SURGICAL I& D RT SUP,MED THIGH 06/04/17 Past Anesthesia/Blood Transfusion Reactions: Motion Sickness, Motion Sickness Additional Past Anesthesia/Blood Transfusion Reaction / Comment(s): States size of his throat is smaller than normal. States anesthesia usually does not have any problem intubating him. Past Psychological History: Anxiety, Depression, Panic Disorder, PTSD Smoking Status: Current every day smoker Past Alcohol Use History: None Reported Past Drug Use History: None Reported - Past Family History Mother Family Medical History: No Reported History General Exam - General Exam Comments Initial Comments: GENERAL: Patient is well-developed and well-nourished. Patient is nontoxic and well- hydrated and is in mild distress. ENT: Neck is soft and supple. No significant lymphadenopathy is noted. Oropharynx is clear. Moist mucous membranes. Neck has full range of motion without eliciting any pain. EYES: The sclera were anicteric and conjunctiva were pink and moist. Extraocular movements were intact and pupils were equal round and reactive to light. Eyelids were unremarkable. PULMONARY: Unlabored respirations. Good breath sounds bilaterally. No audible rales rhonchi or wheezing was noted. CARDIOVASCULAR: There is a regular rate and rhythm without any murmurs gallops or rubs. ABDOMEN: Soft and nontender with normal bowel sounds. SKIN: Skin is clear with no lesions or rashes and otherwise unremarkable. NEUROLOGIC: Patient is alert and oriented x3. Cranial nerves II through XII are grossly intact. Motor and sensory are also intact. Normal speech, volume and content. Symmetrical smile. MUSCULOSKELETAL: Normal extremities with adequate strength and full range of motion. LYMPHATICS: No significant lymphadenopathy is noted PSYCHIATRIC: Normal psychiatric evaluation. Limitations: no limitations Course Vital Signs 12/16/21 12/16/21 12:39 15:33 Temperature 98.5 F 98.8 F Pulse Rate 94 76 Respiratory 20 18 Rate Blood Pressure 120/79 113/62 O2 Sat by Pulse 95 94 L Oximetry Medical Decision Making - Medical Decision Making Patient received monoclonal antibodies in the emergency department - Lab Data Lab Results 12/16/21 Range/Units 12:44 Coronavirus (PCR) Detected A (Not Detectd) Disposition Clinical Impression: COVID-19 Disposition: HOME SELF-CARE Instructions (If sedation given, give patient instructions): Coronavirus Disease 2019 (COVID-19) Is patient prescribed a controlled substance at d/c from ED?: No Referrals: Jose Hassan MD [Primary Care Provider] - 1-2 days
[2021-12-16] MEDS ORDERED: SODIUM CHLORIDE 0.9% 50 ML IVPB ONE (13:45)
[2021-12-16] MEDS ORDERED: SOTROVIMAB (EUA) 500 MG in SODIUM CHLORIDE 0.9% 100 ML IVPB ONE (13:45)
[2021-12-16 15:33] VITALS: BP 113/62; PULSE 76; RESP 18; TEMP 98.8
== END 2021-12-16 13:30 | disposition home or self-care (01) ==
LOC: EC 12:32
DX: U07.1 COVID-19 (principal); F41.9 Anxiety disorder, unspecified; F32.A Depression, unspecified; F43.10 Post-traumatic stress disorder, unspecified; F17.200 Nicotine dependence, unspecified, uncomplicated; Z88.0 Allergy status to penicillin; Z87.442 Personal history of urinary calculi; Z90.49 Acquired absence of other specified parts of digestive tract
CPT/HCPCS: 99283; 87635; Q0247

== ENCOUNTER 2022-08-30 16:01 | Emergency (ER) | payer OTHER ==
[2022-08-30 16:13] VITALS: RESP 16; TEMP 97.9
--- NOTE | 2022-08-30 17:03 | ED ---
SOB HPI - General Chief Complaint: Shortness of Breath Stated Complaint: SOB numbness Time Seen by Provider: 08/30/22 16:34 Source: patient Mode of arrival: wheelchair Limitations: no limitations - History of Present Illness Initial Comments: This is a pleasant 41-year-old male presents to emergency department stating that he has generalized body aching, fatigue, and generalized tingling sensation. Patient states this started earlier today after his daughter's birthday democrat. Patient really denying any pain. No cough. No fever. No ill contacts. No headache, no fever or chills, no changes in vision or hearing, no sore throat or difficulty with speech, no neck pain, no chest pain, no abdominal pain, no nausea or vomiting, no changes in urination or bowel movements,, no extremity pain, no skin rashes or lesions. Past medical, surgical, social, and family history reviewed. - Related Data Home Medications Medication Instructions Recorded Confirmed Omeprazole 20 mg PO BID 11/07/21 12/16/21 Sertraline [Zoloft] 25 mg PO DAILY 11/07/21 12/16/21 Sertraline [Zoloft] 50 mg PO DAILY 11/07/21 12/16/21 Previous Rx's Medication Instructions Recorded Levofloxacin [Levaquin] 750 mg PO DAILY 1 Days #4 tab 08/30/22 metroNIDAZOLE [Flagyl] 500 mg PO TID #15 tab 08/30/22 Allergies Allergy/AdvReac Type Severity Reaction Status Date / Time amoxicillin Allergy Anaphylaxis Verified 08/30/22 16:11 Penicillins Allergy Anaphylaxis Verified 08/30/22 16:11 artificial sugar AdvReac seizure Uncoded 08/30/22 16:11 Review of Systems ROS Statement: Those systems with pertinent positive or pertinent negative responses have been documented in the HPI. ROS Other: All systems not noted in ROS Statement are negative. Past Medical History Past Medical History: Pneumonia Additional Past Medical History / Comment(s): PILONIDAL CYST EXC 04/23/17, Has a small open wound that is covered. KIDNEY STONE PASSED X2 2016. rt sup,medial thigh abcess. History of Any Multi-Drug Resistant Organisms: None Reported Past Surgical History: Cholecystectomy, Orthopedic Surgery, Tonsillectomy Additional Past Surgical History / Comment(s): RT KNEE SURG X3. EXC INFECTED PILONIDAL CYST W/ ABSCESS. last surgery was in April 2017. SURGICAL I& D RT LEW P,MED THIGH 06/04/17 Past Anesthesia/Blood Transfusion Reactions: Motion Sickness, Motion Sickness Additional Past Anesthesia/Blood Transfusion Reaction / Comment(s): States size of his throat is smaller than normal. States anesthesia usually does not have any problem intubating him. Past Psychological History: Anxiety, Depression, Panic Disorder, PTSD Smoking Status: Current every day smoker Past Alcohol Use History: None Reported Past Drug Use History: None Reported - Past Family History Mother Family Medical History: No Reported History General Exam - General Exam Comments Initial Comments: Patient does not appear to be ill or toxic. Does not appear to be in any significant distress. However false oximetry in triage was 93% on room air. Patient also has feeling of shortness of breath. No adventitious lung sounds noted Limitations: no limitations General appearance: alert, in no apparent distress Head exam: Present: atraumatic, normocephalic, normal inspection Eye exam: Present: normal appearance, PERRL, EOMI. Absent: scleral icterus, conjunctival injection, periorbital swelling ENT exam: Present: normal exam, mucous membranes moist Neck exam: Present: normal inspection. Absent: tenderness, meningismus, lymphadenopathy Respiratory exam: Present: normal lung sounds bilaterally. Absent: respiratory distress, wheezes, rales, rhonchi, stridor Cardiovascular Exam: Present: regular rate, normal rhythm, normal heart sounds. Absent: systolic murmur, diastolic murmur, rubs, gallop, clicks GI/Abdominal exam: Present: soft, normal bowel sounds. Absent: distended, tenderness, guarding, rebound, rigid Extremities exam: Present: normal inspection, full ROM, normal capillary refill. Absent: tenderness, pedal edema, joint swelling, calf tenderness Back exam: Present: normal inspection Neurological exam: Present: alert, oriented X3, CN II-XII intact Psychiatric exam: Present: normal affect, normal mood Skin exam: Present: warm, dry, intact, normal color. Absent: rash Course Vital Signs 08/30/22 08/30/22 08/30/22 16:11 17:14 18:45 Temperature 97.9 F 97.9 F Pulse Rate 74 75 75 Respiratory 16 16 16 Rate Blood Pressure 138/90 134/79 115/64 O2 Sat by Pulse 93 L 100 100 Oximetry - Reevaluation(s) Reevaluation #1: 10/08/22 20:39 Medical record is reviewed Symptoms are improved here in the emergency department Patient is informed of results and questions answered Patient in no distress Patient then tells me he wonders if his diverticulitis could be a problem. Apparently the patient had diverticulitis a few years ago and has had pain ever since. However he states the pain is not increased from usual. Given that finding, I was going to place the patient antibiotics for possible atypical pneumonia. We'll use Levaquin and metronidazole for 5 days. I did reevaluate the patient's abdomen, no specific tenderness out of ordinary for the patient. Patient states it definitely is not increased from baseline. We'll have the patient follow up with both his oncologist who is been following with 4 leukocy tosis and anemia. Patient's hemoglobin today was normal. White blood cell count was somewhat elevated from previously. There was also evidence of elevated lymphocytes. Patient instructed to follow-up with his oncologist and his regular physician. Patient was told to return to the ER for any signs or symptoms worsen. Told to return immediately if any other problems arise. All questions answered. Treatment plan discussed. Patient in agreement Every effort has been made to ensure accuracy of this dictation. However, due to the limitations of electronic medical records and dictation devices, errors in charting still occur. The case was discussed in detail with ED attending physician. Presentation, findings, treatment plan discussed in detail. Retail Helper Dr. Saleem Medical Decision Making - Medical Decision Making Patient presents with nonspecific symptomology of body aching, generalized feeling of "tingling. "Pulse oximetry of 93% on room air in triage. However the remainder of the vital signs are essentially stable. Including heart rate. Patient's COVID-19 test was negative. Repeat pulse oximetry on room air was 100% - Lab Data Result diagrams: 08/30/22 17:24 08/30/22 17:24 Lab Results 08/30/22 08/30/22 08/30/22 Range/Units 17:05 17:05 17:24 WBC 17.4 H (3.8-10.6) k/uL RBC 4.91 (4.30-5.90) m/uL Hgb 14.0 (13.0-17.5) gm/dL Hct 43.3 (39.0-53.0) % MCV 88.1 (80.0-100.0) fL MCH 28.4 (25.0-35.0) pg MCHC 32.3 (31.0-37.0) g/dL RDW 13.6 (11.5-15.5) % Plt Count 200 (150-450) k/uL MPV 9.8 Neutrophils % 63 % Lymphocytes % 29 % Monocytes % 5 % Eosinophils % 1 % Basophils % 0 % Neutrophils # 11.0 H (1.3-7.7) k/uL Lymphocytes # 5.0 H (1.0-4.8) k/uL Monocytes # 0.8 (0-1.0) k/uL Eosinophils # 0.2 (0-0.7) k/uL Basophils # 0.1 (0-0.2) k/uL D-Dimer (<0.60) mg/L FEU Sodium (137-145) mmol/L Potassium (3.5-5.1) mmol/L Chloride (98-107) mmol/L Carbon Dioxide (22-30) mmol/L Anion Gap mmol/L BUN (9-20) mg/dL Creatinine (0.66-1.25) mg/dL Est GFR (CKD-EPI)AfAm (>60 ml/min/1.73 sqM) Est GFR (CKD-EPI)NonAf (>60 ml/min/1.73 sqM) Glucose (74-99) mg/dL Calcium (8.4-10.2) mg/dL Magnesium (1.6-2.3) mg/dL Total Bilirubin (0.2-1.3) mg/dL AST (17-59) U/L ALT (4-49) U/L Alkaline Phosphatase (38-126) U/L Troponin I (0.000-0.034) ng/mL C-Reactive Protein (<1.0) mg/dL NT-Pro-B Natriuret Pep pg/mL Total Protein (6.3-8.2) g/dL Albumin (3.5-5.0) g/dL Coronavirus (PCR) Not Detected (Not Detectd) Influenza Type A RNA Not Detected (Not Detectd) Influenza Type B (PCR) Not Detected (Not Detectd) 08/30/22 08/30/22 08/30/22 Range/Units 17:24 17:24 17:24 WBC (3.8-10.6) k/uL RBC (4.30-5.90) m/uL Hgb (13.0-17.5) gm/dL Hct (39.0-53.0) % MCV (80.0-100.0) fL MCH (25.0-35.0) pg MCHC (31.0-37.0) g/dL RDW (11.5-15.5) % Plt Count (150-450) k/uL MPV Neutrophils % % Lymphocytes % % Monocytes % % Eosinophils % % Basophils % % Neutrophils # (1.3-7.7) k/uL Lymphocytes # (1.0-4.8) k/uL Monocytes # (0-1.0) k/uL Eosinophils # (0-0.7) k/uL Basophils # (0-0.2) k/uL D-Dimer (<0.60) mg/L FEU Sodium 139 (137-145) mmol/L Potassium 4.3 (3.5-5.1) mmol/L Chloride 106 (98-107) mmol/L Carbon Dioxide 22 (22-30) mmol/L Anion Gap 11 mmol/L BUN 13 (9-20) mg/dL Creatinine 0.73 (0.66-1.25) mg/dL Est GFR (CKD-EPI)AfAm >90 (>60 ml/min/1.73 sqM) Est GFR (CKD-EPI)NonAf >90 (>60 ml/min/1.73 sqM) Glucose 99 (74-99) mg/dL Calcium 9.3 (8.4-10.2) mg/dL Magnesium 2.0 (1.6-2.3) mg/dL Total Bilirubin 0.2 (0.2-1.3) mg/dL AST 22 (17-59) U/L ALT 23 (4-49) U/L Alkaline Phosphatase 81 (38-126) U/L Troponin I <0.012 (0.000-0.034) ng/mL C-Reactive Protein 1.9 H (<1.0) mg/dL NT-Pro-B Natriuret Pep 28 pg/mL Total Protein 6.9 (6.3-8.2) g/dL Albumin 3.9 (3.5-5.0) g/dL Coronavirus (PCR) (Not Detectd) Influenza Type A RNA (Not Detectd) Influenza Type B (PCR) (Not Detectd) 08/30/22 Range/Units 17:24 WBC (3.8-10.6) k/uL RBC (4.30-5.90) m/uL Hgb (13.0-17.5) gm/dL Hct (39.0-53.0) % MCV (80.0-100.0) fL MCH (25.0-35.0) pg MCHC (31.0-37.0) g/dL RDW (11.5-15.5) % Plt Count (150-450) k/uL MPV Neutrophils % % Lymphocytes % % Monocytes % % Eosinophils % % Basophils % % Neutrophils # (1.3-7.7) k/uL Lymphocytes # (1.0-4.8) k/uL Monocytes # (0-1.0) k/uL Eosinophils # (0-0.7) k/uL Basophils # (0-0.2) k/uL D-Dimer 1.08 H (<0.60) mg/L FEU Sodium (137-145) mmol/L Potassium (3.5-5.1) mmol/L Chloride (98-107) mmol/L Carbon Dioxide (22-30) mmol/L Anion Gap mmol/L BUN (9-20) mg/dL Creatinine (0.66-1.25) mg/dL Est GFR (CKD-EPI)AfAm (>60 ml/min/1.73 sqM) Est GFR (CKD-EPI)NonAf (>60 ml/min/1.73 sqM) Glucose (74-99) mg/dL Calcium (8.4-10.2) mg/dL Magnesium (1.6-2.3) mg/dL Total Bilirubin (0.2-1.3) mg/dL AST (17-59) U/L ALT (4-49) U/L Alkaline Phosphatase (38-126) U/L Troponin I (0.000-0.034) ng/mL C-Reactive Protein (<1.0) mg/dL NT-Pro-B Natriuret Pep pg/mL Total Protein (6.3-8.2) g/dL Albumin (3.5-5.0) g/dL Coronavirus (PCR) (Not Detectd) Influenza Type A RNA (Not Detectd) Influenza Type B (PCR) (Not Detectd) 08/30/22 17:09 EKG done at 1704 and repetitive ED attending physician reveals sinus rhythm with a rate of 72. Normal intervals. Normal axis. No acute ST or T-wave changes. Normal QRS morphology. No comparison study. Disposition Clinical Impression: Dyspnea, Leukocytosis, Chronic abdominal pain, History of diverticulitis Disposition: HOME SELF-CARE Condition: Good Additional Instructions: Follow-up with your regular physician as directed. Return to the ER immediately if any symptoms worsen, new symptoms arise, or any other problems develop. Call at 8 AM Thursday morning for follow-up appointment with your regular doctor. Also follow-up with your game author within the next 3-4 days. Is patient prescribed a controlled substance at d/c from ED?: No Referrals: Jose Hassan MD [Primary Care Provider] - 1-2 days Time of Disposition: 20:41
[2022-08-30 17:14] VITALS: PULSE 75
--- NOTE | 2022-08-30 17:49 | XR ---
EXAMINATION TYPE: XR chest 1V portable DATE OF EXAM: 08/30/2022 COMPARISON: 08/08/2017 HISTORY: Short of breath TECHNIQUE: Single view FINDINGS: There is no heart failure nor confluent pneumonic infiltrate. Costophrenic angles are clear . There are no hilar masses. Bony thorax is intact. IMPRESSION: No active cardiopulmonary disease. Normal heart. No adverse change.
[2022-08-30 18:06] LABS: ALT 23 U/L (4-49); AST 22 U/L (17-59); African American GFR (CKD) >90 (>60 ml/min/1.73 sqM); Albumin 3.9 g/dL (3.5-5.0); Alkaline Phosphatase 81 U/L (38-126); Anion Gap 11 mmol/L; Blood Urea Nitrogen 13 mg/dL (9-20); C Reactive Protein 1.9 mg/dL (<1.0); Calcium 9.3 mg/dL (8.4-10.2); Carbon Dioxide 22 mmol/L (22-30); Chloride 106 mmol/L (98-107); Glucose 99 mg/dL (74-99); Non-African American GFR(CKD) >90 (>60 ml/min/1.73 sqM); Potassium 4.3 mmol/L (3.5-5.1); Sodium 139 mmol/L (137-145); Total Bilirubin 0.2 mg/dL (0.2-1.3); Total Protein 6.9 g/dL (6.3-8.2)
[2022-08-30 18:07] LABS: Basophils # (A) 0.1 k/uL (0-0.2); Basophils % (A) 0 %; Eosinophils # (A) 0.2 k/uL (0-0.7); Eosinophils % (A) 1 %; HCT 43.3 % (39.0-53.0); Lymphocytes % (A) 29 %; MCH 28.4 pg (25.0-35.0); MCHC 32.3 g/dL (31.0-37.0); MCV 88.1 fL (80.0-100.0); Mean Platelet Volume 9.8; Monocytes # (A) 0.8 k/uL (0-1.0); Monocytes % (A) 5 %; Neutrophils % (A) 63 %; Platelet Count 200 k/uL (150-450); RBC 4.91 m/uL (4.30-5.90); RDW 13.6 % (11.5-15.5); WBC 17.4 k/uL (3.8-10.6)
[2022-08-30 18:45] VITALS: BP 115/64
--- NOTE | 2022-08-30 20:09 | CT ---
EXAMINATION TYPE: CT chest angio for PE DATE OF EXAM: 08/30/2022 COMPARISON: None HISTORY: chest pain, SOB CT DLP: 944.3 mGycm Automated exposure control for dose reduction was used. CONTRAST: Performed with IV Contrast, patient injected with 100 mL of Isovue 370. Images obtained from the thoracic inlet to the diaphragm with the IV contrast. There are Three-D post processed images. The lungs are clear of infiltrate. No pulmonary mass. No pleural effusion. There is mild subsegmental atelectasis in the posterior lung delaney. Heart size is normal. No pericardial effusion. There are n o hilar masses. No mediastinal adenopathy. No pericardial effusion There is no evidence of filling defect in the pulmonary arteries. The thoracic aorta is intact. No an eurysm or dissection. The thoracic spine is intact. Sternum is intact. IMPRESSION: No evidence of pulmonary embolism. Minimal subsegmental atelectasis at the lung bases.
[2022-08-30] MEDS ORDERED: metroNIDAZOLE 500 MG TAB PO STA (20:36)
[2022-08-30] MEDS ORDERED: LEVOFLOXACIN 750 MG TAB PO STA (20:36)
== END 2022-08-30 20:58 | disposition home or self-care (01) ==
LOC: EC 16:01
DX: R06.00 Dyspnea, unspecified (principal); D72.829 Elevated white blood cell count, unspecified; R10.9 Unspecified abdominal pain; G89.29 Other chronic pain; Z88.0 Allergy status to penicillin; Z88.1 Allergy status to other antibiotic agents; Z91.048 Other nonmedicinal substance allergy status; Z87.19 Personal history of other diseases of the digestive system; Z20.822 Contact with and (suspected) exposure to COVID-19
CPT/HCPCS: 36415; 93005; 85379; 83880; 80053; 83735; 84484; 85025; 86140; 87502; 87635; 71045; 71275; 99285; Q9967

== ENCOUNTER → 2022-10-08 | Outpatient (CLI) | payer OTHER ==
[2022-10-08 09:40] VITALS: BP 136/95; PULSE 82; RESP 18; TEMP 98
--- NOTE | 2022-10-08 14:41 | P.PAINPG ---
PQRS Measure Charge Sheet Comment: HISTORY OF PRESENT ILLNESS: 41 yr old male as a referral from Dr Jacobs presents today w severe and chronic secondary to for evaluation. Pt states pain level is at 8/10 in intensity, constant, localized in the lumbar spine, burning in character w shooting pain towards the BLEs. Pain is provoked by walking/standing for periods of 20 min, or sitting for periods of 2 hrs or more. Pain is alleviated by PT x 8 wks which ended 6mo ago, home exercise regimen, heat, ice, meds (Ibu, Lidocaine topical), laying supine, repositioning and rest. PMH: Pneumonia, Anxiety, Depression, Panic Disorder, PTSD PSH: Pilonidal Cycstectomy (2017) w would debridement, Nephrolithasis x 2 (2016), Cholecystectomy, R Knee Surgery x3, Tonsillectomy, LESIs (02/11, 03/14) SH: Daily tobacco user, FH: Mo- No Reported History All: See list Meds: See list REVIEW OF ORGAN SYSTEMS: CONSTITUTIONAL: No fevers or chills. No recent weight loss. NEUROLOGICAL: + numbness and tingling along the distal extremities. No seizure disorders or headaches. MUSCULOSKELETAL: + pain PSYCHIATRIC: Denies current depression or suicidal thoughts. Physical Examinations : Constitutional : Cooperative , not in acute distress . Neurologic : Cranial nerve II to XII intact. No focal neurological deficits. Psychiatric : alert & oriented x 3. Matching mood & appropriate affect. Judgment & insight intact. Musculoskeletal : Cervical Spine Motor strength in the deltoid and biceps: Normal right side. Normal Left side Motor strength biceps and the wrist extensors: Normal right side . Normal left side Motor strength in the triceps muscle: Normal right side. Normal left side Deep tendon reflexes: Normal at the biceps. Normal at Brachioradialis. Normal at triceps Vertebral body tenderness to deep palpation over Cervical facet loading test: positive bilaterally Spurling test: positive bilaterally Neck distraction test: positive bilaterally Margaret sign: positive bilaterally Lumbar spine Motor strength lower extremities ,thigh and legs 5/5 Right side , 5/5 Left side Deep tendon reflexes : Normal Knee Jerk. Normal Ankle Jerk Vertebral body tenderness over L5 Lumbar facet Loading Test: positive Right / positive Left Range of motion of the lumbar spine Flexion 30 degrees, extension 10 degrees Straight Leg Raise test: Left/ Right positive at degree Devante test: positive right / positive left. Severe tenderness over the Sacroiliac joint on the Right / Left sides Gaenslen test: positive bilaterally Seated flexion test: positive bilaterally. Sacral spine : Severe tenderness over the Sacroiliac joint: right side / left side Range of motion: Flexion of the lumbar spine <60 degrees Range of motion: Extension of the lumbar spine <20 degrees Gaenslen's Test positive Jim's Test positive Devante test: positive right side / left side Thigh Thrust Test Sacral Thrust Test Imaging: MRI without contrast of the lumbar spine from 11/07/21 reviewed Assessment/ Plan : Lumbar DDD, Lumbar spondylosis Recommendation of R TFESI L5-S1. May need a series of injections, up to 4 wihtin a 12 mo period, for optimal pain relief. Risks, benefits of procedure discussed and patient verbalized understanding. Admits to aspirin or anti- coagulant use or medical history of diabetes. Protocol for discontinuation/ continuation of medications becca procedure discussed. All questions answered. I have spent greater than 30 minutes on patient care today. Dr Alonso was available by phone for the evaluation of this patient. The time was used to review the medical records including relevant urine studies and Prescription history (MAPs), review of the available imaging, evaluation and examination of the patient, coordination of care with the medical staff and if applicable referring physicians, as well as creation of the medical record PQRS Narrative: Smoking Status Never smoker Home Medications: Ambulatory Orders Omeprazole 20 mg PO BID 11/07/21 Sertraline [Zoloft] 100 mg PO DAILY 09/17/22 Controlled Substance Measures - Controlled Substance Measures Is patient prescribed a controlled substance at discharge?: No
== END | disposition home or self-care (01) ==
LOC: PNWHC3 08:49
PROVIDERS: ATTEND Specialist
DX: M47.896 Other spondylosis, lumbar region (principal); M51.36 Other intervertebral disc degeneration, lumbar region
CPT/HCPCS: 99211

== ENCOUNTER 2022-10-18 20:47 | Emergency (ER) | payer OTHER ==
[2022-10-18] MEDS ORDERED: MORPHINE SULFATE 4 MG/ML SYRINGE IV STA (22:40)
[2022-10-18] MEDS ORDERED: ONDANSETRON 4 MG/2 ML VIAL IVP STA (22:40)
[2022-10-18] MEDS ORDERED: SODIUM CHLORIDE 0.9% 1,000 ML IV STA (22:40)
[2022-10-18] MEDS ORDERED: KETOROLAC 15 MG/ML 1 ML VIAL IVP STA (22:40)
--- NOTE | 2022-10-18 22:40 | ED ---
Abdominal Pain HPI - General Chief Complaint: Abdominal Pain Stated Complaint: Abd pain Time Seen by Provider: 10/18/22 22:39 Source: patient, RN notes reviewed, old records reviewed Mode of arrival: ambulatory Limitations: no limitations - History of Present Illness Initial Comments: This is a 41-year-old male to the emergency department for evaluation. Patient resents today for evaluation regards to severe abdominal pain epigastric abdominal pain left lower quadrant abdominal pain shortness of breath. Fever. Patient has history of diverticulitis, has had his gallbladder removed. Otherwise patient has no travel history no sick contacts no other known complaints. Positive nausea no active vomiting. MD Complaint: abdominal pain -: days(s) Location: diffuse, LLQ, epigastric Radiation: epigastric, L flank Migration to: L flank Severity: moderate Severity scale (1-10): 7 Quality: fullness, sharp Consistency: intermittent Improves With: nothing Worsens With: vomiting Associated Symptoms: nausea, vomiting Treatments Prior to Arrival: other (0) - Related Data Home Medications Medication Instructions Recorded Confirmed Omeprazole 20 mg PO BID 11/07/21 10/08/22 Sertraline [Zoloft] 100 mg PO DAILY 09/17/22 10/08/22 Allergies Allergy/AdvReac Type Severity Reaction Status Date / Time amoxicillin Allergy Anaphylaxis Verified 10/18/22 21:01 Penicillins Allergy Anaphylaxis Verified 10/18/22 21:01 artificial sugar AdvReac seizure Uncoded 10/18/22 21:01 Review of Systems ROS Statement: Those systems with pertinent positive or pertinent negative responses have been documented in the HPI. ROS Other: All systems not noted in ROS Statement are negative. Past Medical History Past Medical History: Pneumonia Additional Past Medical History / Comment(s): PILONIDAL CYST EXC 04/23/17, Has a small open wound that is covered. KIDNEY STONE PASSED X2 2016. rt sup,medial thigh abcess. History of Any Multi-Drug Resistant Organisms: None Reported Past Surgical History: Cholecystectomy, Orthopedic Surgery, Tonsillectomy Additional Past Surgical History / Comment(s): RT KNEE SURG X3. EXC INFECTED PILONIDAL CYST W/ ABSCESS. last surgery was in April 2017. SURGICAL I& D RT SUP,MED THIGH 06/04/17 Past Anesthesia/Blood Transfusion Reactions: Motion Sickness, Motion Sickness Additional Past Anesthesia/Blood Transfusion Reaction / Comment(s): States size of his throat is smaller than normal. States anesthesia usually does not have any problem intubating him. Past Psychological History: Anxiety, Depression, Panic Disorder, PTSD Smoking Status: Current every day smoker Past Alcohol Use History: None Reported Past Drug Use History: None Reported - Past Family History Mother Family Medical History: No Reported History General Exam Limitations: no limitations General appearance: alert, in no apparent distress, obese Head exam: Present: atraumatic, normocephalic, normal inspection Eye exam: Present: normal appearance, PERRL, EOMI. Absent: scleral icterus, conjunctival injection, periorbital swelling ENT exam: Present: normal exam, mucous membranes dry Neck exam: Present: normal inspection. Absent: tenderness, meningismus, lymphadenopathy Respiratory exam: Present: normal lung sounds bilaterally. Absent: respiratory distress, wheezes, rales, rhonchi, stridor Cardiovascular Exam: Present: normal rhythm, tachycardia, normal heart sounds. Absent: systolic murmur, diastolic murmur, rubs, gallop, clicks GI/Abdominal exam: Present: soft, normal bowel sounds. Absent: distended, tenderness, guarding, rebound, rigid Extremities exam: Present: normal inspection, full ROM, normal capillary refill. Absent: tenderness, pedal edema, joint swelling, calf tenderness Back exam: Present: normal inspection Neurological exam: Present: alert, oriented X3, CN II-XII intact Psychiatric exam: Present: normal affect, normal mood Skin exam: Present: warm, dry, intact, normal color. Absent: rash Course Vital Signs 10/18/22 10/18/22 10/18/22 21:02 23:15 23:25 Temperature 99.7 F H 102.4 F H Pulse Rate 114 H 103 H Respiratory 24 22 Rate Blood Pressure 127/73 134/82 O2 Sat by Pulse 94 L 87 L 93 L Oximetry 10/19/22 00:29 Temperature 99.4 F Pulse Rate 82 Respiratory 24 Rate Blood Pressure 135/84 O2 Sat by Pulse 94 L Oximetry - Reevaluation(s) Reevaluation #1: 10/18/22 23:36 Medical record is reviewed Reevaluation #2: 10/19/22 02:10 Patient symptoms are improved here in the ER Reevaluation #3: 10/19/22 02:10 patient informed of results and questions answered Medical Decision Making - Medical Decision Making 41 male DEL with abdominal pain and fever. Patient is negative for flu negative computed tomography scan of abdomen and pelvis labwork is normal. Symptoms improved here in the ER patient still with fever likely viral in nature patient can be discharged home - Lab Data Result diagrams: 10/18/22 23:15 10/18/22 23:15 Lab Results 10/18/22 10/18/22 10/18/22 Range/Units 23:15 23:15 23:15 WBC 13.5 H (3.8-10.6) k/uL RBC 5.48 (4.30-5.90) m/uL Hgb 16.0 (13.0-17.5) gm/dL Hct 48.0 (39.0-53.0) % MCV 87.7 (80.0-100.0) fL MCH 29.2 (25.0-35.0) pg MCHC 33.3 (31.0-37.0) g/dL RDW 14.6 (11.5-15.5) % Plt Count 163 (150-450) k/uL MPV 8.7 Neutrophils % 82 % Lymphocytes % 11 % Monocytes % 3 % Eosinophils % 2 % Basophils % 1 % Neutrophils # 11.1 H (1.3-7.7) k/uL Lymphocytes # 1.5 (1.0-4.8) k/uL Monocytes # 0.5 (0-1.0) k/uL Eosinophils # 0.2 (0-0.7) k/uL Basophils # 0.1 (0-0.2) k/uL Sodium 134 L (137-145) mmol/L Potassium 3.9 (3.5-5.1) mmol/L Chloride 101 (98-107) mmol/L Carbon Dioxide 22 (22-30) mmol/L Anion Gap 11 mmol/L BUN 10 (9-20) mg/dL Creatinine 0.92 (0.66-1.25) mg/dL Est GFR (CKD-EPI)AfAm >90 (>60 ml/min/1.73 sqM) Est GFR (CKD-EPI)NonAf >90 (>60 ml/min/1.73 sqM) Glucose 153 H (74-99) mg/dL Plasma Lactic Acid Gaetano 1.1 (0.7-2.0) mmol/L Calcium 8.8 (8.4-10.2) mg/dL Total Bilirubin 0.6 (0.2-1.3) mg/dL AST 39 (17-59) U/L ALT 39 (4-49) U/L Alkaline Phosphatase 99 (38-126) U/L Total Protein 7.5 (6.3-8.2) g/dL Albumin 4.2 (3.5-5.0) g/dL Amylase <30 L (30-110) U/L Lipase 29 (23-300) U/L Influenza Type A RNA (Not Detectd) Influenza Type B (PCR) (Not Detectd) 10/19/22 Range/Units 01:48 WBC (3.8-10.6) k/uL RBC (4.30-5.90) m/uL Hgb (13.0-17.5) gm/dL Hct (39.0-53.0) % MCV (80.0-100.0) fL MCH (25.0-35.0) pg MCHC (31.0-37.0) g/dL RDW (11.5-15.5) % Plt Count (150-450) k/uL MPV Neutrophils % % Lymphocytes % % Monocytes % % Eosinophils % % Basophils % % Neutrophils # (1.3-7.7) k/uL Lymphocytes # (1.0-4.8) k/uL Monocytes # (0-1.0) k/uL Eosinophils # (0-0.7) k/uL Basophils # (0-0.2) k/uL Sodium (137-145) mmol/L Potassium (3.5-5.1) mmol/L Chloride (98-107) mmol/L Carbon Dioxide (22-30) mmol/L Anion Gap mmol/L BUN (9-20) mg/dL Creatinine (0.66-1.25) mg/dL Est GFR (CKD-EPI)AfAm (>60 ml/min/1.73 sqM) Est GFR (CKD-EPI)NonAf (>60 ml/min/1.73 sqM) Glucose (74-99) mg/dL Plasma Lactic Acid Gaetano (0.7-2.0) mmol/L Calcium (8.4-10.2) mg/dL Total Bilirubin (0.2-1.3) mg/dL AST (17-59) U/L ALT (4-49) U/L Alkaline Phosphatase (38-126) U/L Total Protein (6.3-8.2) g/dL Albumin (3.5-5.0) g/dL Amylase (30-110) U/L Lipase (23-300) U/L Influenza Type A RNA Not Detected (Not Detectd) Influenza Type B (PCR) Not Detected (Not Detectd) - Radiology Data Radiology results: report reviewed (CT of the abdomen and pelvis negative for acute disease), image reviewed Disposition Clinical Impression: Abdominal pain, Fever, Viral infection Disposition: HOME SELF-CARE Condition: Good Instructions (If sedation given, give patient instructions): Abdominal Pain (ED), Fever in Adults (ED) Is patient prescribed a controlled substance at d/c from ED?: No Referrals: Jose Hassan MD [Primary Care Provider] - 1-2 days Time of Disposition: 02:10
[2022-10-18 23:31] LABS: Basophils # (A) 0.1 k/uL (0-0.2); Basophils % (A) 1 %; Eosinophils # (A) 0.2 k/uL (0-0.7); Eosinophils % (A) 2 %; Lymphocytes # (A) 1.5 k/uL (1.0-4.8); Lymphocytes % (A) 11 %; MCH 29.2 pg (25.0-35.0); MCHC 33.3 g/dL (31.0-37.0); MCV 87.7 fL (80.0-100.0); Mean Platelet Volume 8.7; Monocytes # (A) 0.5 k/uL (0-1.0); Monocytes % (A) 3 %; Neutrophils # (A) 11.1 k/uL (1.3-7.7); Neutrophils % (A) 82 %; Platelet Count 163 k/uL (150-450); RBC 5.48 m/uL (4.30-5.90); RDW 14.6 % (11.5-15.5); WBC 13.5 k/uL (3.8-10.6)
[2022-10-18] MEDS ORDERED: ACETAMINOPHEN IV (For NPO) 1,000 MG in EMPTY BAG 1 BAG IVPB STA (23:33)
[2022-10-18 23:40] LABS: ALT 39 U/L (4-49); AST 39 U/L (17-59); African American GFR (CKD) >90 (>60 ml/min/1.73 sqM); Albumin 4.2 g/dL (3.5-5.0); Alkaline Phosphatase 99 U/L (38-126); Amylase <30 U/L (30-110); Anion Gap 11 mmol/L; Blood Urea Nitrogen 10 mg/dL (9-20); Calcium 8.8 mg/dL (8.4-10.2); Carbon Dioxide 22 mmol/L (22-30); Chloride 101 mmol/L (98-107); Glucose 153 mg/dL (74-99); Lipase 29 U/L (23-300); Non-African American GFR(CKD) >90 (>60 ml/min/1.73 sqM); Potassium 3.9 mmol/L (3.5-5.1); Sodium 134 mmol/L (137-145); Total Bilirubin 0.6 mg/dL (0.2-1.3); Total Protein 7.5 g/dL (6.3-8.2)
--- NOTE | 2022-10-19 00:29 | CT ---
EXAMINATION TYPE: CT abdomen pelvis w con DATE OF EXAM: 10/19/2022 COMPARISON: 08/10/2017 HISTORY: abd pain & fever since . h/o cholecystectomy CT DLP: 2952.1 mGycm Automated exposure control for dose reduction was used. CONTRAST: Performed with IV Contrast, patient injected with 100 mL of Isovue 300. Images obtained from the diaphragm to the floor the pelvis with the IV contrast. There is some patchy atelectasis at the lung bases. Heart size is probably normal. There is some fatt y infiltration of the liver. There are clips from cholecystectomy. The bile ducts are not dilated. Sp clay stomach and pancreas appear intact. There is no adrenal mass. Kidneys show satisfactory contrast opacification. No hydronephrosis. Append ix is posterior and appears normal. No retroperitoneal adenopathy. Ureters are not dilated. Bladder d istends smoothly. No inguinal hernia. No free fluid in the pelvis. There are numerous sigmoid diverti cula. No diverticulitis. The lumbar vertebrae have normal alignment. No compression fracture. Bony pelvis is intact. The hip j oints are intact. Sacroiliac joints are intact. There is no mesenteric edema. No ascites or free air. No sign of a bowel obstruction. IMPRESSION: There is atelectasis at the lung bases which is new compared to old exam. There is fatty infiltration of the liver which is mostly new compared to the old exam.
--- NOTE | 2022-10-19 00:31 | XR ---
EXAMINATION TYPE: XR chest 1V portable DATE OF EXAM: 10/19/2022 COMPARISON: 09/09/2022 HISTORY: Hypoxemia TECHNIQUE: FINDINGS: Heart and mediastinum are normal. There is some mild linear infiltrate and atelectasis at the lung ba ses. No pleural effusion. No heart failure. IMPRESSION: Some mild infiltrate and atelectasis at the lung bases which is increased compared to old exam. Normal heart.
[2022-10-19 00:32] VITALS: PULSE 82
[2022-10-19 02:31] VITALS: BP 124/82; RESP 20; TEMP 98.2
== END 2022-10-19 02:31 | disposition home or self-care (01) ==
LOC: EC 20:47
DX: B34.9 Viral infection, unspecified (principal); F17.200 Nicotine dependence, unspecified, uncomplicated; Z88.1 Allergy status to other antibiotic agents; Z88.0 Allergy status to penicillin; Z91.018 Allergy to other foods
CPT/HCPCS: 36415; 80053; 82150; 83605; 83690; 85025; 87040; 87502; 71045; 74177; 99284; 96374; 96375; 96361; J2270; J2405; J0131; J1885; Q9967

== ENCOUNTER 2022-10-19 10:20 | Inpatient (IN) | payer OTHER ==
--- NOTE | 2022-10-19 11:04 | ED ---
General Adult HPI - General Chief complaint: Abdominal Pain Stated complaint: Vomiting, revisit Time Seen by Provider: 10/19/22 10:39 Source: patient Mode of arrival: ambulatory Limitations: no limitations - History of Present Illness Initial comments: Dictation was produced using [employer] dictation software. please excuse any grammatical, word or spelling errors. Chief Complaint: 41-year-old male presents to the emergency department for epigastric abdominal pain History of Present Illness: Patient is 41-year-old male presents to emergency department again for epigastric abdominal pain. Patient was seen here last night where extensive work was performed. Yesterday he had normal labs and normal CT. Patient states he is here today because he feels like his pain is worse. Patient states that his pain has not gone away. States that this pain is chronic and ongoing for several months. He reports that he had a endoscopy recently for evaluation of GI bleed. Case was told that his endoscopy results were normal. The ROS documented in this emergency department record has been reviewed and confirmed by me. Those systems with pertinent positive or negative responses have been documented in the HPI. All other systems are other negative and/or noncontributory. PHYSICAL EXAM: General Impression: Alert and oriented x3, not in acute distress HEENT: Normocephalic atraumatic, extra-ocular movements intact, pupils equal and reactive to light bilaterally, mucous membranes moist. Cardiovascular: Heart regular rate and rhythm Chest: Able to complete full sentences, no retractions, no tachypnea Abdomen: abdomen soft, non-tender, non-distended, no organomegaly Musculoskeletal: Pulses present and equal in all extremities, no peripheral edema Motor: no focal deficits noted Neurological: CN II-XII grossly intact, no focal motor or sensory deficits noted Skin: Intact with no visualized rashes Psych: Normal affect and mood ED course: 41-year-old male presents emergency department again for abdominal pain. He states reason for coming here was his symptoms not improving. [Vital signs upon arrival are within acceptable limits. Chart review was performed Previous visit shows that he had workup and CT imaging performed ultrasound to be unremarkable for any emergent processes. There was comment about fatty liver . My EKG interpretation: Ventricular rate 93, sinus rhythm,. Interval 149, QS 110, QTc 400. No MT prolongation, no QTC prolongation, no ST or T-wave changes noted. EKG compared to 08/30/2022 showing no changes. Overall, this EKG is unremarkable Laboratory evaluation obtained. Patient has a leukocytosis of 17.0. Rest of labs unremarkable. Lipase and abdominal labs are otherwise normal. Given the patient is leukocytosis U be admitted observation with consultation to general surgery. This point is not clear what is causing patient's symptoms. Patient agreeable to plan[facility] - Related Data Home Medications Medication Instructions Recorded Confirmed Omeprazole 20 mg PO BID 11/07/21 10/08/22 Sertraline [Zoloft] 100 mg PO DAILY 09/17/22 10/08/22 Allergies Allergy/AdvReac Type Severity Reaction Status Date / Time amoxicillin Allergy Anaphylaxis Verified 10/18/22 21:01 Penicillins Allergy Anaphylaxis Verified 10/18/22 21:01 artificial sugar AdvReac seizure Uncoded 10/18/22 21:01 Review of Systems ROS Statement: Those systems with pertinent positive or pertinent negative responses have been documented in the HPI. ROS Other: All systems not noted in ROS Statement are negative. Past Medical History Past Medical History: Pneumonia Additional Past Medical History / Comment(s): PILONIDAL CYST EXC 04/23/17, Has a small open wound that is covered. KIDNEY STONE PASSED X2 2016. rt sup,medial thigh abcess. History of Any Multi-Drug Resistant Organisms: None Reported Past Surgical History: Cholecystectomy, Orthopedic Surgery, Tonsillectomy Additional Past Surgical History / Comment(s): RT KNEE SURG X3. EXC INFECTED PILONIDAL CYST W/ ABSCESS. last surgery was in April 2017. SURGICAL I& D RT SUP,MED THIGH 06/04/17 Past Anesthesia/Blood Transfusion Reactions: Motion Sickness, Motion Sickness Additional Past Anesthesia/Blood Transfusion Reaction / Comment(s): States size of his throat is smaller than normal. States anesthesia usually does not have any problem intubating him. Past Psychological History: Anxiety, Depression, Panic Disorder, PTSD Smoking Status: Current every day smoker Past Alcohol Use History: None Reported Past Drug Use History: None Reported - Past Family History Mother Family Medical History: No Reported History General Exam Limitations: no limitations Course Vital Signs 10/19/22 10/19/22 10:34 11:33 Temperature 98.9 F 98.1 F Pulse Rate 103 H 90 Respiratory 22 18 Rate Blood Pressure 134/73 112/76 O2 Sat by Pulse 95 90 L Oximetry Medical Decision Making - Lab Data Result diagrams: 10/19/22 11:16 10/19/22 11:16 Lab Results 10/19/22 10/19/22 Range/Units 11:16 11:16 WBC 17.0 H (3.8-10.6) k/uL RBC 5.10 (4.30-5.90) m/uL Hgb 15.2 (13.0-17.5) gm/dL Hct 45.0 (39.0-53.0) % MCV 88.3 (80.0-100.0) fL MCH 29.8 (25.0-35.0) pg MCHC 33.8 (31.0-37.0) g/dL RDW 14.7 (11.5-15.5) % Plt Count 129 L (150-450) k/uL MPV 8.8 Neutrophils % 93 % Lymphocytes % 4 % Monocytes % 2 % Eosinophils % 1 % Basophils % 0 % Neutrophils # 15.7 H (1.3-7.7) k/uL Lymphocytes # 0.6 L (1.0-4.8) k/uL Monocytes # 0.3 (0-1.0) k/uL Eosinophils # 0.2 (0-0.7) k/uL Basophils # 0.0 (0-0.2) k/uL Sodium 134 L (137-145) mmol/L Potassium 3.2 L (3.5-5.1) mmol/L Chloride 104 (98-107) mmol/L Carbon Dioxide 22 (22-30) mmol/L Anion Gap 8 mmol/L BUN 13 (9-20) mg/dL Creatinine 0.93 (0.66-1.25) mg/dL Est GFR (CKD-EPI)AfAm >90 (>60 ml/min/1.73 sqM) Est GFR (CKD-EPI)NonAf >90 (>60 ml/min/1.73 sqM) Glucose 224 H (74-99) mg/dL Calcium 8.6 (8.4-10.2) mg/dL Total Bilirubin 0.9 (0.2-1.3) mg/dL AST 58 (17-59) U/L ALT 52 H (4-49) U/L Alkaline Phosphatase 112 (38-126) U/L Total Protein 6.9 (6.3-8.2) g/dL Albumin 3.9 (3.5-5.0) g/dL Lipase 34 (23-300) U/L Disposition Clinical Impression: Abdominal pain Disposition: ADMITTED IP TO THIS HOSP Condition: Fair Referrals: Jose Hassan MD [Primary Care Provider] - 1-2 days Decision Time: 13:18
[2022-10-19 11:41] LABS: Basophils % (A) 0 %; Eosinophils # (A) 0.2 k/uL (0-0.7); Eosinophils % (A) 1 %; HGB 15.2 gm/dL (13.0-17.5); Lymphocytes # (A) 0.6 k/uL (1.0-4.8); Lymphocytes % (A) 4 %; MCH 29.8 pg (25.0-35.0); MCHC 33.8 g/dL (31.0-37.0); MCV 88.3 fL (80.0-100.0); Mean Platelet Volume 8.8; Monocytes # (A) 0.3 k/uL (0-1.0); Monocytes % (A) 2 %; Neutrophils # (A) 15.7 k/uL (1.3-7.7); Neutrophils % (A) 93 %; Platelet Count 129 k/uL (150-450); RDW 14.7 % (11.5-15.5)
[2022-10-19 11:48] LABS: Potassium 3.2 mmol/L (3.5-5.1)
[2022-10-19 11:49] LABS: ALT 52 U/L (4-49); AST 58 U/L (17-59); African American GFR (CKD) >90 (>60 ml/min/1.73 sqM); Albumin 3.9 g/dL (3.5-5.0); Alkaline Phosphatase 112 U/L (38-126); Anion Gap 8 mmol/L; Blood Urea Nitrogen 13 mg/dL (9-20); Calcium 8.6 mg/dL (8.4-10.2); Carbon Dioxide 22 mmol/L (22-30); Chloride 104 mmol/L (98-107); Glucose 224 mg/dL (74-99); Lipase 34 U/L (23-300); Non-African American GFR(CKD) >90 (>60 ml/min/1.73 sqM); Sodium 134 mmol/L (137-145); Total Bilirubin 0.9 mg/dL (0.2-1.3); Total Protein 6.9 g/dL (6.3-8.2)
[2022-10-19] MEDS ORDERED: NALOXONE 0.4 MG/ML 1 ML VIAL IV PRN (13:15)
--- NOTE | 2022-10-19 13:22 | P.HPIM ---
History of Present Illness This is a pleasant 41 years old male with no significant past medical history. He has past psychiatric history of depression, anxiety, PTSD. He is every day smoker. He had previous cholecystectomy. He presents because of abdominal pain and fever 2 nights ago, he had CT of the abdomen and discharge home Her chest today with nausea vomiting and diarrhea with generalized abdominal pain and fever and chills at home Patient states that his pain in the epigastrium about 7/10 since yesterday felt like sharp, nonradiating associated with vomiting was this morning with no blood. Patient has poor appetite not eating and drinking well over the last 2 days. He has watery bowel movement about twice today. No blood. Associated with little headache. He denies any other symptoms, no dysuria or urgency. No chest pain or dyspnea or coughing. No weakness or numbness or dizziness. Usually he smokes half pack per day and he was counseled to quit and he agrees but declines nicotine patch. No alcohol or illicit drugs. Vitals are stable, afebrile here, however yesterday he had a fever of 102 Lap showing leukocytosis of 17,000 however patient has chronic leukocytosis of 10-17,000. W see yesterday were 13.5. Rest of CBC is unremarkable Mild hyponatremic with 34 and hypokalemic 3.2. Creatinine normal at 0.9. Glucose elevated 2-4. Platelet count slightly low at 129 EKG showing normal sinus rhythm at 90 mL with no significant ST-T changes. amylase and lipase yesterday were negative and the flow was at this was negative liver enzymes not elevated CT of the abdomen and pelvis done with contrast yesterday showing atelectasis of the lung bases which is new compared to old exam. There is fatty infiltration of the liver which was fully new compared to old exam. There is cholecystectomy. Numerous sigmoid diverticula with no diverticulitis. No signs of bowel obstruction Review of Systems Review of systems CONSTITUTIONAL: No fever, no malaise, no fatigue. HEENT: No recent visual problems or hearing problems. Denied any sore throat. CARDIOVASCULAR: No orthopnea, PND, no palpitations, no syncope. PULMONARY: No shortness of breath, no cough, no hemoptysis. GASTROINTESTINAL: As above NEUROLOGICAL: No headaches, no weakness, no numbness. HEMATOLOGICAL: Denies any bleeding or petechiae. GENITOURINARY: Denies any burning micturition, frequency, or urgency. MUSCULOSKELETAL/RHEUMATOLOGICAL: Denies any joint pain, swelling, or any muscle pain. ENDOCRINE: Denies any polyuria or polydipsia. Past Medical History Past Medical History: Pneumonia Additional Past Medical History / Comment(s): PILONIDAL CYST EXC 04/23/17, Has a small open wound that is covered. KIDNEY STONE PASSED X2 2016. rt sup,medial thigh abcess. History of Any Multi-Drug Resistant Organisms: None Reported Past Surgical History: Cholecystectomy, Orthopedic Surgery, Tonsillectomy Additional Past Surgical History / Comment(s): RT KNEE SURG X3. EXC INFECTED PILONIDAL CYST W/ ABSCESS. last surgery was in April 2017. SURGICAL I& D RT SUP,MED THIGH 06/04/17 Past Anesthesia/Blood Transfusion Reactions: Motion Sickness, Motion Sickness Additional Past Anesthesia/Blood Transfusion Reaction / Comment(s): States size of his throat is smaller than normal. States anesthesia usually does not have any problem intubating him. Past Psychological History: Anxiety, Depression, Panic Disorder, PTSD Smoking Status: Current every day smoker Past Alcohol Use History: None Reported Past Drug Use History: None Reported - Past Family History Mother Family Medical History: No Reported History Medications and Allergies Home Medications Medication Instructions Recorded Confirmed Type Omeprazole 20 mg PO BID 11/07/21 10/08/22 History Sertraline [Zoloft] 100 mg PO DAILY 09/17/22 10/08/22 History Allergies Allergy/AdvReac Type Severity Reaction Status Date / Time amoxicillin Allergy Anaphylaxis Verified 10/18/22 21:01 Penicillins Allergy Anaphylaxis Verified 10/18/22 21:01 artificial sugar AdvReac seizure Uncoded 10/18/22 21:01 Physical Exam Vitals: Vital Signs Temp Pulse Resp BP Pulse Ox 10/19/22 11:33 98.1 F 90 18 112/76 90 L 10/19/22 10:34 98.9 F 103 H 22 134/73 95 Intake and Output 10/18/22 10/19/22 10/19/22 22:59 06:59 14:59 Other: Weight 149.685 kg GENERAL: The patient is alert and oriented x3, not in any acute distress. Well developed, well nourished. HEENT: Pupils are round and equally reacting to light. EOMI. No scleral icterus. No conjunctival pallor. Normocephalic, atraumatic. No pharyngeal erythema. No thyromegaly. CARDIOVASCULAR: S1 and S2 present. No murmurs, rubs, or gallops. PULMONARY: Chest is clear to auscultation, no wheezing or crackles. -ABDOMEN: Soft, epigastric tenderness, no guarding or rebound tenderness, nondistended, normoactive bowel sounds. No palpable organomegaly. MUSCULOSKELETAL: No joint swelling or deformity. EXTREMITIES: No cyanosis, clubbing, or pedal edema. NEUROLOGICAL: Gross neurological examination did not reveal any focal deficits. SKIN: No rashes. no petechiae. Results CBC & Chem 7: 10/19/22 11:16 10/19/22 11:16 Labs: Abnormal Lab Results - Last 24 Hours (Table) 10/19/22 10/19/22 Range/Units 11:16 11:16 WBC 17.0 H (3.8-10.6) k/uL Plt Count 129 L (150-450) k/uL Neutrophils # 15.7 H (1.3-7.7) k/uL Lymphocytes # 0.6 L (1.0-4.8) k/uL Sodium 134 L (137-145) mmol/L Potassium 3.2 L (3.5-5.1) mmol/L Glucose 224 H (74-99) mg/dL ALT 52 H (4-49) U/L Assessment and Plan Assessment: Abdominal pain, most likely acute infectious gastroenteritis, infectious since nature Sepsis with worsening leukocytosis and fever Nicotine dependence History of depression, PTSD and bipolar, not an active issue Plan: start Cipro and Flagyl Continue with bowel rest IV hydration Pain medication Surgery team consult Check stool studies and C. diff. Labs and medication were reviewed.. Continue same treatment. Continue with symptomatic treatment. Resume home medication. Monitor labs and vitals. DVT and GI prophylaxis. Further recommendations as per clinical course of the patient DVT prophylaxis: Subcutaneous heparin GI Prophylaxis: Pepcid Prognosis is guarded
[2022-10-19] MEDS: SODIUM CHLORIDE 0.9% 1,000 ML IV SCH ×2 (14:11→23:01)
[2022-10-19] MEDS: metroNIDAZOLE-NS PMX 500 MG in SALINE 1 100ML.BAG IVPB SCH ×2 (14:11→23:01)
[2022-10-19] MEDS: FAMOTIDINE 20 MG/2 ML VIAL IV SCH ×2 (14:30→21:30)
[2022-10-19] MEDS: LEVOFLOXACIN 500MG-D5W PMX 500 MG in DEXTROSE/WATER 1 100ML.BAG IVPB SCH (14:31)
--- NOTE | 2022-10-19 15:02 | XR ---
EXAMINATION TYPE: XR chest 2V DATE OF EXAM: 10/19/2022 COMPARISON: The HISTORY: Pain TECHNIQUE: 2 views FINDINGS: There is some infiltrate and atelectasis at both lung bases. No heart failure. Heart size i s normal. There are no hilar masses. No pleural effusion. IMPRESSION: Bilateral pulmonary basilar infiltrates and atelectasis. Normal heart. No change compared to exam earlier today.
--- NOTE | 2022-10-19 15:03 | XR ---
EXAMINATION TYPE: XR abdomen 1V DATE OF EXAM: 10/19/2022 COMPARISON: NONE HISTORY: Abdominal pain TECHNIQUE: 2 views upright FINDINGS: There is no sign of intestinal obstruction or pneumoperitoneum. Fecal pattern is normal. No sign of a mass. No pathologic calcification over the kidneys. There are clips from cholecystectomy. IMPRESSION: Nonacute abdomen.
[2022-10-19] MEDS: ACETAMINOPHEN TAB 325 MG TAB PO PRN (18:27)
[2022-10-19] MEDS: HYDROcodone/APAP 5-325MG 1 EACH TAB PO PRN (18:53)
[2022-10-19] MEDS: HEPARIN SODIUM,PORCINE/PF 5,000 UNIT/0.5 ML SYRINGE SQ SCH (21:30)
[2022-10-19] MEDS ORDERED: Potassium Replacement Protocol 1 EACH MISC MISCELLANE PRN (22:07)
[2022-10-19] MEDS ORDERED: Magnesium Replacement Protocol 1 EACH MISC MISCELLANE PRN (22:07)
[2022-10-19] MEDS: POTASSIUM CHLORIDE ER 20 MEQ TAB.ER PO SCH (23:01)
[2022-10-20] MEDS: POTASSIUM CHLORIDE ER 20 MEQ TAB.ER PO SCH (00:08)
[2022-10-20] MEDS: HYDROcodone/APAP 5-325MG 1 EACH TAB PO PRN ×2 (01:28→10:04)
[2022-10-20] MEDS: SODIUM CHLORIDE 0.9% 1,000 ML IV SCH ×3 (06:22→21:33)
[2022-10-20] MEDS: FAMOTIDINE 20 MG/2 ML VIAL IV SCH ×2 (07:56→21:34)
[2022-10-20] MEDS: SERTRALINE 100 MG TAB PO SCH (07:56)
[2022-10-20] MEDS: metroNIDAZOLE-NS PMX 500 MG in SALINE 1 100ML.BAG IVPB SCH ×2 (07:56→17:51)
[2022-10-20] MEDS: HEPARIN SODIUM,PORCINE/PF 5,000 UNIT/0.5 ML SYRINGE SQ SCH ×2 (07:56→21:33)
[2022-10-20] MEDS: SERTRALINE 25 MG TAB PO SCH (07:56)
[2022-10-20 10:44] LABS: Basophils # (A) 0.02 X 10*3/uL (0.00-0.10); Basophils % (A) 0.2 %; Eosinophils # (A) 0 X 10*3/uL (0.04-0.35); Eosinophils % (A) 0 %; HCT 43.7 % (39.6-50.0); HGB 13.8 g/dL (13.0-17.0); Immature Grans, Automated 0.7 %; Lymphocytes % (A) 6.2 %; MCHC 31.6 g/dL (32.0-37.0); MCV 88.6 fL (80.0-97.0); Mean Platelet Volume 11.8 fL (9.5-12.2); Monocytes # (A) 0.74 X 10*3/uL (0.20-1.00); Monocytes % (A) 5.8 %; NRBC Per 100 WBC 0 /100 WBCS (0.0-0.0); Neutrophils # (A) 11.18 X 10*3/uL (1.80-7.70); Neutrophils % (A) 87.1 %; Platelet Count 117 X 10*3/uL (140-440); RBC 4.93 X 10*6/uL (4.40-5.60); RDW 16.5 % (11.5-14.5); WBC 12.83 X 10*3/uL (4.50-10.00)
[2022-10-20 11:07] LABS: African American GFR (CKD) 124.3 (60.0-200.0); Anion Gap 14.2 mmol/L (10.00-18.00); BUN/Creat Ratio 14.56 Ratio (12.00-20.00); Blood Urea Nitrogen 13.1 mg/dL (9.0-27.0); Calcium 8.5 mg/dL (8.7-10.3); Carbon Dioxide 18.8 mmol/L (20.0-27.5); Magnesium 1.7 mg/dL (1.5-2.4); Non-African American GFR(CKD) 107.2 (60.0-200.0); Potassium 3.6 mmol/L (3.5-5.5)
[2022-10-20] MEDS: HYDROmorphone 0.5 MG/0.5 ML SYRINGE IVP PRN ×2 (11:14→21:42)
--- NOTE | 2022-10-20 11:36 | P.PN ---
Subjective This is a pleasant 41 years old male with no significant past medical history. He has past psychiatric history of depression, anxiety, PTSD. He is every day smoker. He had previous cholecystectomy. He presents because of abdominal pain and fever 2 nights ago, he had CT of the abdomen and discharge home Her chest today with nausea vomiting and diarrhea with generalized abdominal pain and fever and chills at home Patient states that his pain in the epigastrium about 7/10 since yesterday felt like sharp, nonradiating associated with vomiting was this morning with no blood. Patient has poor appetite not eating and drinking well over the last 2 days. He has watery bowel movement about twice today. No blood. Associated with little headache. He denies any other symptoms, no dysuria or urgency. No chest pain or dyspnea or coughing. No weakness or numbness or dizziness. Usually he smokes half pack per day and he was counseled to quit and he agrees but declines nicotine patch. No alcohol or illicit drugs. Vitals are stable, afebrile here, however yesterday he had a fever of 102 Lap showing leukocytosis of 17,000 however patient has chronic leukocytosis of 10-17,000. W see yesterday were 13.5. Rest of CBC is unremarkable Mild hyponatremic with 34 and hypokalemic 3.2. Creatinine normal at 0.9. Glucose elevated 2-4. Platelet count slightly low at 129 EKG showing normal sinus rhythm at 90 mL with no significant ST-T changes. amylase and lipase yesterday were negative and the flow was at this was negative liver enzymes not elevated CT of the abdomen and pelvis done with contrast yesterday showing atelectasis of the lung bases which is new compared to old exam. There is fatty infiltration of the liver which was fully new compared to old exam. There is cholecystectomy. Numerous sigmoid diverticula with no diverticulitis. No signs of bowel obstruction 10/20/2012 Patient still nothing by mouth, he has mild infraumbilical pain and tenderness, [place] 5 does not control well therefore will increase it to [place] 10 mg, risks and benefits are explained for the patient and he agrees. Vitals were stable, he had 99.9 temperature this morning. He still has frequent diarrhea and triggers every 20 minutes as watery diarrhea as he states. Procalcitonin is elevated to 38.8 he is still nothing by mouth this morningm . Surgery team was consulted. Also consult GI team patient remains on normal saline with 30 mL per hour plus Levaquin and Flagyl. C. diff negative. Objective - Vital Signs Vital signs: Vital Signs Temp 99.9 F H 10/20/22 05:50 Pulse 114 H 10/20/22 05:50 Resp 20 10/20/22 05:50 BP 116/75 10/20/22 05:50 Pulse Ox 94 L 10/20/22 05:50 FiO2 Intake & Output 10/19/22 10/20/22 10/20/22 18:59 06:59 18:59 Intake Total 0 Balance 0 Weight 149.685 kg 149.685 kg Intake: Oral 0 Other: # Voids 4 - Exam -GENERAL: The patient is alert and oriented x3, not in any acute distress. Obese HEENT: Pupils are round and equally reacting to light. EOMI. No scleral icterus. No conjunctival pallor. Normocephalic, atraumatic. No pharyngeal erythema. No thyromegaly. CARDIOVASCULAR: S1 and S2 present. No murmurs, rubs, or gallops. PULMONARY: Chest is clear to auscultation, no wheezing or crackles. -ABDOMEN: Soft, mild periumbilical tenderness, nondistended, normoactive bowel sounds. No palpable organomegaly. MUSCULOSKELETAL: No joint swelling or deformity. EXTREMITIES: No cyanosis, clubbing, or pedal edema. NEUROLOGICAL: Gross neurological examination did not reveal any focal deficits. SKIN: No rashes. no petechiae. - Labs CBC & Chem 7: 10/20/22 06:13 10/20/22 06:13 Labs: Abnormal Lab Results - Last 24 Hours (Table) 10/19/22 10/19/22 10/20/22 Range/Units 11:16 11:16 06:13 WBC 17.0 H (3.8-10.6) k/uL MCHC (32.0-37.0) g/dL RDW (11.5-14.5) % Plt Count 129 L (150-450) k/uL Immature Gran # (0.00-0.04) X 10*3/uL Neutrophils # 15.7 H (1.3-7.7) k/uL Lymphocytes # 0.6 L (1.0-4.8) k/uL Eosinophils # (0.04-0.35) X 10*3/uL Sodium 134 L (137-145) mmol/L Potassium 3.2 L (3.5-5.1) mmol/L Carbon Dioxide (20.0-27.5) mmol/L Glucose 224 H (74-99) mg/dL Hemoglobin A1c (0.0-6.0) % Calcium (8.7-10.3) mg/dL ALT 52 H (4-49) U/L Procalcitonin 38.80 H (0.02-0.09) ng/mL 10/20/22 10/20/22 10/20/22 Range/Units 06:13 06:13 06:13 WBC 12.83 H (3.8-10.6) k/uL MCHC 31.6 L (32.0-37.0) g/dL RDW 16.5 H (11.5-14.5) % Plt Count 117 L (150-450) k/uL Immature Gran # 0.09 H (0.00-0.04) X 10*3/uL Neutrophils # 11.18 H (1.3-7.7) k/uL Lymphocytes # 0.80 L (1.0-4.8) k/uL Eosinophils # 0 L (0.04-0.35) X 10*3/uL Sodium (137-145) mmol/L Potassium (3.5-5.1) mmol/L Carbon Dioxide 18.8 L (20.0-27.5) mmol/L Glucose 149 H (74-99) mg/dL Hemoglobin A1c 7.6 H (0.0-6.0) % Calcium 8.5 L (8.7-10.3) mg/dL ALT (4-49) U/L Procalcitonin (0.02-0.09) ng/mL Microbiology - Last 24 Hours (Table) 10/19/22 17:01 Stool Culture - Preliminary Stool Assessment and Plan Assessment: Abdominal pain, most likely acute infectious gastroenteritis, infectious since nature Sepsis with worsening leukocytosis and fever Nicotine dependence History of depression, PTSD and bipolar, not an active issue Plan: start Cipro and Flagyl , follow-up stool studies Continue with bowel rest IV hydration Pain medication Surgery and GI team consult Labs and medication were reviewed.. Continue same treatment. Continue with symptomatic treatment. Resume home medication. Monitor labs and vitals. DVT and GI prophylaxis. Further recommendations as per clinical course of the patient DVT prophylaxis: Subcutaneous heparin GI Prophylaxis: Pepcid Prognosis is guarded
--- NOTE | 2022-10-20 12:06 | P.CONS ---
History of Present Illness - Reason for Consult Consult date: 10/20/22 Gastroenteritis Requesting physician: Navdeep E Sheet - Chief Complaint Abdominal pain - History of Present Illness This is a pleasant 41-year-old male who presented to the emergency department yesterday morning then again yesterday evening with complaints of severe abdomin al pain. Patient was initially seen in the emergency department had workup with a CT of the abdomen and pelvis with no acute findings and sent home. Patient states pain worsened and he returned back to the emergency department. He states symptoms initially started on Thursday with abdominal pain, diarrhea and nausea and vomiting. He also states he has severe degenerative disease in his back and is supposed to have epidural injection. States he has severe pain in his back makes it difficult for him to walk at times. He also states abdominal pain has been chronic going on for several months including diarrhea up to 6-7 times a day, abdominal pain usually occurs after eating however doesn't matter what he eats. He does have a history of previous cholecystectomy for gallbladder disease. He did have some nausea with vomiting initially but none since. Abdominal pain is intermittent, sharp. States diarrhea is watery was a dark green yellow. He denies any fevers or chills. States he was having some shaking this morning possibly due to pain. This morning patient did have a low-grade temp of 99.9. Yesterday patient had a white count of 17, repeat today 12.8. Influenza, coronavirus and C. diff were all negative. Patient recently underwent EGD and colonoscopy for evaluation of chronic abdominal pain, diarrhea with Dr. Valentin at [facility] on 09/26/2022 according to the patient everything was normal. No report available at this time. He denies any recent sick contacts or recent travel. Labs WBC 12.8 hemoglobin 13.8 hematocrit 43 platelet count 117,000, neutrophils 11 sodium 137 potassium 3.6E 113 creatinine 0.9 glucose 149 total bilirubin 0.9 AST 58 ALT 52 alkaline phosphatase 112 lipase 34 pro calcitonin 38 Imaging Abdominal x-ray: Nonacute abdomen CT abdomen and pelvis with contrast: Atelectasis in the lung bases which is new compared to old exam. Fatty infiltration of the liver which is mostly new compared to old exam Review of Systems REVIEW OF SYSTEMS: CARDIOPULMONARY: No chest pain or shortness of breath. Gastrointestinal: Upper abdominal pain that radiated down to mid and lower abdomen. Intermittent, sharp. No nausea or vomiting. No hematemesis, coffee- ground emesis. No rectal bleeding, or melena. GENITOURINARY: No dysuria or hematuria. MUSCULOSKELETAL: Reports normal range of motion. SKIN: No rashes. No jaundice. ENDOCRINE: No chills, fevers. No excessive weight gain or loss. No polydipsia or polyuria. PSYCHIATRIC: Unremarkable. NEUROLOGY: No change in mental status. Denies dizziness, headache. Degenerative joint disease in his back, severe pain. ENT: Vision unremarkable. CONSTITUTIONAL: No recent weight loss. No fever, chills, night sweats. Past Medical History Past Medical History: Pneumonia Additional Past Medical History / Comment(s): PILONIDAL CYST EXC 04/23/17, Has a small open wound that is covered. KIDNEY STONE PASSED X2 2015. rt sup,medial thigh abcess. Diverticulitis. Iron deficient anemia-recent EGD/Colonoscopy on 10/14/22. History of Any Multi-Drug Resistant Organisms: None Reported Past Surgical History: Cholecystectomy, Orthopedic Surgery, Tonsillectomy Additional Past Surgical History / Comment(s): RT KNEE SURG X3. EXC INFECTED PILONIDAL CYST W/ ABSCESS. last surgery was in April 2017. SURGICAL I& D RT SUP,MED THIGH 06/04/17. EGD/Colonoscopy 10/14/22-negative for bleeding. Past Anesthesia/Blood Transfusion Reactions: No Reported Reaction, Motion Sickness, Motion Sickness Additional Past Anesthesia/Blood Transfusion Reaction / Comm: States size of his throat is smaller than normal. States anesthesia usually does not have any problem intubating him. Smoking Status: Current every day smoker - Past Family History Mother Family Medical History: Thyroid Disorder Father History Unknown: Yes Medications and Allergies Home Medications Medication Instructions Recorded Confirmed Type Omeprazole 20 mg PO BID 11/07/21 10/19/22 History Sertraline [Zoloft] 100 mg PO DAILY 09/17/22 10/19/22 History Acetaminophen Tab [Tylenol Tab] 1,000 mg PO Q6HR PRN 10/19/22 10/19/22 History Ferrous Sulfate [Feosol] 325 mg PO DAILY 10/19/22 10/19/22 History Ibuprofen [Advil] 600 mg PO Q8HR PRN 10/19/22 10/19/22 History Sertraline [Zoloft] 25 mg PO DAILY 10/19/22 10/19/22 History Allergies Allergy/AdvReac Type Severity Reaction Status Date / Time amoxicillin Allergy Anaphylaxis Verified 10/19/22 13:23 Penicillins Allergy Anaphylaxis Verified 10/19/22 13:23 artificial sugar AdvReac seizure Uncoded 10/18/22 21:01 Physical Exam Vitals: Vital Signs Temp Pulse Pulse Pulse Resp BP BP 10/20/22 05:50 99.9 F H 114 H 20 116/75 10/20/22 00:10 82 10/19/22 20:00 99.1 F 124 H 20 134/83 10/19/22 17:41 97.2 F L 81 20 121/78 10/19/22 17:05 84 18 109/56 10/19/22 16:00 83 24 130/89 10/19/22 15:00 81 24 125/69 10/19/22 14:00 89 24 124/79 10/19/22 13:00 86 24 10/19/22 12:00 89 24 112/76 Pulse Ox 10/20/22 05:50 94 L 10/20/22 00:10 97 10/19/22 20:00 93 L 10/19/22 17:41 97 10/19/22 17:05 95 10/19/22 16:00 90 L 10/19/22 15:00 90 L 10/19/22 14:00 90 L 10/19/22 13:00 89 L 10/19/22 12:00 89 L Intake and Output 10/19/22 10/20/22 10/20/22 22:59 06:59 14:59 Intake Total 0 Balance 0 Intake: Oral 0 Other: # Voids 4 Weight 149.685 kg General appearance: The patient is alert, oriented, appears in no acute dist ress. Obese. HET: Head is normocephalic and atraumatic. Conjunctiva pink. Sclera anicteric. Neck: Supple without lymphadenopathy. Trachea midline. Heart: S1 S2. Regular rate and rhythm. Lungs: Clear to auscultation. Abdomen: Soft, obese, nontender, nondistended with bowel sounds. No guarding or rigidity. Skin: No rashes. No jaundice. Extremities: Normal skin color and turgor. No pedal edema. Neurological: No focal deficits. Alert and oriented x3. Results CBC & Chem 7: 10/20/22 06:13 10/20/22 06:13 Labs: Abnormal Lab Results - Last 24 Hours (Table) 10/19/22 10/19/22 10/20/22 Range/Units 11:16 11:16 06:13 WBC 17.0 H (3.8-10.6) k/uL MCHC (32.0-37.0) g/dL RDW (11.5-14.5) % Plt Count 129 L (150-450) k/uL Immature Gran # (0.00-0.04) X 10*3/uL Neutrophils # 15.7 H (1.3-7.7) k/uL Lymphocytes # 0.6 L (1.0-4.8) k/uL Eosinophils # (0.04-0.35) X 10*3/uL Sodium 134 L (137-145) mmol/L Potassium 3.2 L (3.5-5.1) mmol/L Carbon Dioxide (20.0-27.5) mmol/L Glucose 224 H (74-99) mg/dL Hemoglobin A1c (0.0-6.0) % Calcium (8.7-10.3) mg/dL ALT 52 H (4-49) U/L Procalcitonin 38.80 H (0.02-0.09) ng/mL 10/20/22 10/20/22 10/20/22 Range/Units 06:13 06:13 06:13 WBC 12.83 H (3.8-10.6) k/uL MCHC 31.6 L (32.0-37.0) g/dL RDW 16.5 H (11.5-14.5) % Plt Count 117 L (150-450) k/uL Immature Gran # 0.09 H (0.00-0.04) X 10*3/uL Neutrophils # 11.18 H (1.3-7.7) k/uL Lymphocytes # 0.80 L (1.0-4.8) k/uL Eosinophils # 0 L (0.04-0.35) X 10*3/uL Sodium (137-145) mmol/L Potassium (3.5-5.1) mmol/L Carbon Dioxide 18.8 L (20.0-27.5) mmol/L Glucose 149 H (74-99) mg/dL Hemoglobin A1c 7.6 H (0.0-6.0) % Calcium 8.5 L (8.7-10.3) mg/dL ALT (4-49) U/L Procalcitonin (0.02-0.09) ng/mL Microbiology - Last 24 Hours (Table) 10/19/22 17:01 Stool Culture - Preliminary Stool Assessment and Plan (1) Gastroenteritis Narrative/Plan: 41-year-old male presented to the emergency department with complaints of abdominal pain and diarrhea. Patient is having 6-7 loose stools daily and severe intermittent abdominal pain. Initially associated with some nausea and vomiting but none in the last day or so. He also states that this abdominal pain has been going on for the past several months as well as diarrhea. He recently underwent EGD and colonoscopy last week with Dr. Valentin at [facility] with findings of mild mild gastritis on EGD and normal colonoscopy. Biopsy results just showing some mild inflammation, gastritis. Patient did present with leukocytosis, has elevated [id number] with slight temp of 99.9 this morning. Patient likely has underlying gastroenteritis, likely infectious. Stool for C. diff was negative, rotavirus as well as influenza negative. No plans at this time for any endoscopic evaluation continue IV Levaquin and Flagyl. Current Visit: Yes Status: Acute Code(s): K52.9 - NONINFECTIVE GA STROENTERITIS AND COLITIS, UNSPECIFIED SNOMED Code(s): 79823218 (2) Abdominal pain Narrative/Plan: Patient likely has some underlying IBS, exacerbated at this time by a possible infectious gastroenteritis. Current Visit: Yes Status: Acute Code(s): R10.9 - UNSPECIFIED ABDOMINAL PAIN SNOMED Code(s): 63767708 Plan: 1. Continue symptomatic and supportive care 2. Patient may have clear liquid diet 3. Will attempt to get records from [facility] for EGD colonoscopy 4. Continue IV antibiotics 5. Antiemetics as needed 6. Protonix 40 mg daily for GI prophylaxis 7. Stool cultures pending 8. Imodium as needed Thank you for this consultation, we'll continue to follow. Dr. Saleem Valentin I agree with the dictator's note, documented as a scribe by Felicita Jacome.
[2022-10-20] MEDS ORDERED: LOPERAMIDE 2 MG CAP PO PRN (12:08)
--- NOTE | 2022-10-20 12:31 | P.GSCN ---
History of Present Illness Consult date: 10/20/22 History of present illness: CHIEF COMPLAINT: Abdominal pain and diarrhea HISTORY OF PRESENT ILLNESS: This is a 41-year-old male with a known history of chronic diarrhea. He presents to the hospital with complaints of initially epigastric pain that moved to lower abdominal pain. Patient reports the pain started after Thanksgiving dinner. He does report having chills with nausea. He is having loose, watery stools every 15 minutes. He reports no blood in the stools. He denies any sick contacts. He recently had EGD and colonoscopy at [facility] with Dr. Valentin last Thursday for evaluation of anemia. Per patient results were normal. Patient did have elevated white count, tachycardic and low grade temp of 99.9. Computed tomography scan abdomen revealed fatty liver. Stool for C. diff negative. Stool cultures pending. Patient denies any history of colitis. He is on IV antibiotics. PAST MEDICAL HISTORY: See below PAST SURGICAL HISTORY: See below MEDICATIONS: See below ALLERGIES: See below SOCIAL HISTORY: No illicit drug use. REVIEW OF SYSTEMS: CONSTITUTIONAL: Denies fever or chills. HEENT: Denies blurred vision, vision changes, or eye pain. Denies hemoptysis CARDIOVASCULAR: Denies chest pain or pressure. RESPIRATORY: No shortness of breath. GASTROINTESTINAL: See HPI for pertinent findings HEMATOLOGIC: Denies bleeding disorders. GENITOURINARY: Denies any blood in urine or increased urinary frequency. SKIN: Denies pruitis. Denies rash. PHYSICAL EXAM: VITAL SIGNS: Reviewed GENERAL: Well-developed in no acute distress. HEENT: No sclera icterus. Extraocular movements grossly intact. Moist buccal mucosa. Head is atraumatic, normocephalic. No nasal drainage. ABDOMEN: Soft. Obese. Nondistended. Diffuse tenderness NEUROLOGIC: Alert and oriented. Cranial nerves II through XII grossly intact. LABORATORY DATA: WBC 17-12.8 hgb 13.8 plt 117 Sodium is 137 potassium 3.6 creatinine 0.9 A1c 7.6 Total bilirubin 0.9 AST 58 ALT 52 alk phos 112 Lipase 34 Procalcitonin level 38.8 Stool lactoferrin positive C. diff negative COVID-19 not detected IMAGING: Computed tomography scan abdomen and pelvis from 10/19/2022 there is atelectasis at the lung bases which is new compared to old exam. There is fatty infiltration of the liver which is mostly new compared to old exam Abdominal x-ray nonacute abdomen ASSESSMENT: 1. Abdominal pain with diarrhea 2. Possible gastroenteritis 3. Leukocytosis PLAN: -Further recommendations forthcoming per surgeon -Follow up on stool cultures -Obtain prior EGD and colonoscopy results from last week -Continue antibiotics -Continue IV fluids -Continue supportive care -Continue with pain medication as needed Physician Joiner Apprentice note has been reviewed by physician. Signing provider agrees with the documented findings, assessment, and plan of care. I have personally seen and examined the patient, reviewed the ONLINE [employer]IA [employer]ER /PAs history, exam and MDM and agree with the assessment and plan as written. Based on total visit time, I have performed more than 50% of the visit. As above: Patient with abdominal pain and diarrhea. On presentation patient had white blood cell count of 17 and elevated pro-calcitonin level. Stool cultures negative thus far. One blood culture positive for gram-positive cocci. Patient with history of chronic abdominal pain and chronic diarrhea. Underwent recent endoscopy by GI. CAT scan reviewed. There may be mild thickening of the mid sigmoid colon. When asked however the patient says his pain is more in the left upper to mid abdomen. Etiology for the patient's symptoms certainly includes gastroenteritis, localized colitis, mild diverticulitis. Patient on appropriate antibiotics. Await stool studies. We'll follow. Past Medical History Past Medical History: Pneumonia Additional Past Medical History / Comment(s): PILONIDAL CYST EXC 04/23/17, Has a small open wound that is covered. KIDNEY STONE PASSED X2 2016. rt sup,medial thigh abcess. Diverticulitis. Iron deficient anemia-recent EGD/Colonoscopy on 10/14/22. History of Any Multi-Drug Resistant Organisms: None Reported Past Surgical History: Cholecystectomy, Orthopedic Surgery, Tonsillectomy Additional Past Surgical History / Comment(s): RT KNEE SURG X3. EXC INFECTED PILONIDAL CYST W/ ABSCESS. last surgery was in April 2017. SURGICAL I& D RT SUP,MED THIGH 06/04/17. EGD/Colonoscopy 10/14/22-negative for bleeding. Past Anesthesia/Blood Transfusion Reactions: No Reported Reaction, Motion Sickness, Motion Sickness Additional Past Anesthesia/Blood Transfusion Reaction / Comm: States size of his throat is smaller than normal. States anesthesia usually does not have any problem intubating him. Smoking Status: Current every day smoker - Past Family History Mother Family Medical History: Thyroid Disorder Father History Unknown: Yes Medications and Allergies Home Medications Medication Instructions Recorded Confirmed Type Omeprazole 20 mg PO BID 11/07/21 10/19/22 History Sertraline [Zoloft] 100 mg PO DAILY 09/17/22 10/19/22 History Acetaminophen Tab [Tylenol Tab] 1,000 mg PO Q6HR PRN 10/19/22 10/19/22 History Ferrous Sulfate [Feosol] 325 mg PO DAILY 10/19/22 10/19/22 History Ibuprofen [Advil] 600 mg PO Q8HR PRN 10/19/22 10/19/22 History Sertraline [Zoloft] 25 mg PO DAILY 10/19/22 10/19/22 History Allergies Allergy/AdvReac Type Severity Reaction Status Date / Time amoxicillin Allergy Anaphylaxis Verified 10/19/22 13:23 Penicillins Allergy Anaphylaxis Verified 10/19/22 13:23 artificial sugar AdvReac seizure Uncoded 10/18/22 21:01 Surgical - Exam Vital Signs Temp Pulse Resp BP Pulse Ox 98.9 F 103 H 22 134/73 95 10/19/22 10:34 10/19/22 10:34 10/19/22 10:34 10/19/22 10:34 10/19/22 10:34 Results - Labs 10/20/22 06:13 10/20/22 06:13 Abnormal Lab Results - Last 24 Hours (Table) 10/19/22 10/19/22 Range/Units 11:16 11:16 WBC 17.0 H (3.8-10.6) k/uL Plt Count 129 L (150-450) k/uL Neutrophils # 15.7 H (1.3-7.7) k/uL Lymphocytes # 0.6 L (1.0-4.8) k/uL Sodium 134 L (137-145) mmol/L Potassium 3.2 L (3.5-5.1) mmol/L Glucose 224 H (74-99) mg/dL ALT 52 H (4-49) U/L Microbiology - Last 24 Hours (Table) 10/19/22 17:01 Stool Culture - Preliminary Stool Diabetes panel 10/19/22 Range/Units 11:16 Sodium 134 L (137-145) mmol/L Potassium 3.2 L (3.5-5.1) mmol/L Chloride 104 (98-107) mmol/L Carbon Dioxide 22 (22-30) mmol/L BUN 13 (9-20) mg/dL Creatinine 0.93 (0.66-1.25) mg/dL Glucose 224 H (74-99) mg/dL Calcium 8.6 (8.4-10.2) mg/dL AST 58 (17-59) U/L ALT 52 H (4-49) U/L Alkaline Phosphatase 112 (38-126) U/L Total Protein 6.9 (6.3-8.2) g/dL Albumin 3.9 (3.5-5.0) g/dL Calcium panel 10/19/22 Range/Units 11:16 Calcium 8.6 (8.4-10.2) mg/dL Albumin 3.9 (3.5-5.0) g/dL Pituitary panel 10/19/22 Range/Units 11:16 Sodium 134 L (137-145) mmol/L Potassium 3.2 L (3.5-5.1) mmol/L Chloride 104 (98-107) mmol/L Carbon Dioxide 22 (22-30) mmol/L BUN 13 (9-20) mg/dL Creatinine 0.93 (0.66-1.25) mg/dL Glucose 224 H (74-99) mg/dL Calcium 8.6 (8.4-10.2) mg/dL Adrenal panel 10/19/22 Range/Units 11:16 Sodium 134 L (137-145) mmol/L Potassium 3.2 L (3.5-5.1) mmol/L Chloride 104 (98-107) mmol/L Carbon Dioxide 22 (22-30) mmol/L BUN 13 (9-20) mg/dL Creatinine 0.93 (0.66-1.25) mg/dL Glucose 224 H (74-99) mg/dL Calcium 8.6 (8.4-10.2) mg/dL Total Bilirubin 0.9 (0.2-1.3) mg/dL AST 58 (17-59) U/L ALT 52 H (4-49) U/L Alkaline Phosphatase 112 (38-126) U/L Total Protein 6.9 (6.3-8.2) g/dL Albumin 3.9 (3.5-5.0) g/dL
[2022-10-20] MEDS ORDERED: DICYCLOMINE 20 MG TAB PO PRN (13:05)
[2022-10-20] MEDS: LEVOFLOXACIN 500MG-D5W PMX 500 MG in DEXTROSE/WATER 1 100ML.BAG IVPB SCH (13:21)
[2022-10-20] MEDS: MAGNESIUM SULFATE-D5W PMX 1 GM in DEXTROSE/WATER 1 100ML.BAG IVPB SCH ×2 (14:43→16:14)
[2022-10-20] MEDS ORDERED: POTASSIUM CHLORIDE ER 20 MEQ TAB.ER PO SCH (15:00)
[2022-10-20] MEDS: HYDROcodone/APAP 10-325MG 1 EACH TAB PO PRN ×2 (16:17→23:00)
--- NOTE | 2022-10-20 22:52 | P.CONS ---
History of Present Illness - Reason for Consult Consult date: 10/20/22 Bacteremia Requesting physician: Navdeep E Sheet - Chief Complaint Abdominal pain x few days - History of Present Illness Patient is a 41-year-old male with a past medical he significant for anxiety depression PTSD presenting to the ER yesterday morning for evaluation of abdominal pain and fever patient symptom has been going on for 2 days before presentation to the hospital describing the pain to be in the mid lower abdominal area describing it to be more of a sharp pain intensity 7-8 out of 10 no radiation patient did have associated nausea but denies any vomiting and did have some diarrhea patient on presentation to the hospital was afebrile he did have a low-grade fever of 99.9 F this morning patient is afebrile since then patient did have white count of 17,000 which is down to 12,000 creatinine has been normal stool for C. difficile was negative COVID testing was negative patient did have blood culture drawn coming back positive with gram-positive cocci that has prompted this infectious disease consultation patient did have a chest x-ray bilateral pulmonary basilar infiltrate atelectasis normal heart patient did have a CT abdominal pelvis on the at the left lung base red infiltration of the liver no acute interabdominal pathology patient is currently being treated with the Levaquin and Flagyl because of his penicillin allergy Review of Systems Positive point has been mentioned in the HPI rest of the systems are negative Past Medical History Past Medical History: Pneumonia Additional Past Medical History / Comment(s): PILONIDAL CYST EXC 04/23/17, Has a small open wound that is covered. KIDNEY STONE PASSED X2 2016. rt sup,medial thigh abcess. Diverticulitis. Iron deficient anemia-recent EGD/Colonoscopy on 10/14/22. History of Any Multi-Drug Resistant Organisms: None Reported Past Surgical History: Cholecystectomy, Orthopedic Surgery, Tonsillectomy Additional Past Surgical History / Comment(s): RT KNEE SURG X3. EXC INFECTED PILONIDAL CYST W/ ABSCESS. last surgery was in April 2017. SURGICAL I& D RT SUP,MED THIGH 06/04/17. EGD/Colonoscopy 10/14/22-negative for bleeding. Past Anesthesia/Blood Transfusion Reactions: No Reported Reaction, Motion Sickness, Motion Sickness Additional Past Anesthesia/Blood Transfusion Reaction / Comm: States size of his throat is smaller than normal. States anesthesia usually does not have any problem intubating him. Smoking Status: Current every day smoker - Past Family History Mother Family Medical History: Thyroid Disorder Father History Unknown: Yes Medications and Allergies Home Medications Medication Instructions Recorded Confirmed Type Omeprazole 20 mg PO BID 11/07/21 10/19/22 History Sertraline [Zoloft] 100 mg PO DAILY 09/17/22 10/19/22 History Acetaminophen Tab [Tylenol] 1,000 mg PO Q6HR PRN 10/19/22 10/19/22 History Ferrous Sulfate [Iron (65 MG 325 mg PO DAILY 10/19/22 10/19/22 History Elemental)] Sertraline [Zoloft] 25 mg PO DAILY 10/19/22 10/19/22 History Ciprofloxacin HCl [Cipro] 500 mg PO Q12HR 7 Days #14 tab 10/24/22 Rx metroNIDAZOLE [Flagyl] 500 mg PO TID #30 tab 10/24/22 Rx Allergies Allergy/AdvReac Type Severity Reaction Status Date / Time amoxicillin Allergy Anaphylaxis Verified 10/19/22 13:23 Penicillins Allergy Anaphylaxis Verified 10/19/22 13:23 artificial sugar AdvReac seizure Uncoded 10/18/22 21:01 Physical Exam Vitals: Vital Signs Temp Pulse Resp BP Pulse Ox 10/20/22 19:20 98.1 F 96 17 127/77 92 L 10/20/22 12:25 98.2 F 110 H 20 117/74 96 10/20/22 05:50 99.9 F H 114 H 20 116/75 94 L 10/20/22 00:10 82 97 Intake and Output 10/20/22 10/20/22 10/20/22 06:59 14:59 22:59 Intake Total 0 240 Balance 0 240 Intake: Oral 0 240 Other: # Voids 4 2 GENERAL DESCRIPTION: Middle-aged male lying in bed, no distress. No tachypnea or accessory muscle of respiration use. HEENT: Shows Pallor , no scleral icterus. Oral mucous membrane is dry. No pharyngeal erythema or thrush NECK: Trachea central, no thyromegaly. LUNGS: Unlabored breathing. Clear to auscultation anteriorly. No wheeze or crackle. HEART: S1, S2, regular rate and rhythm. No loud murmur ABDOMEN: Soft, mild abdominal tenderness , no guarding or rigidity, no organomegaly EXTREMITIES: No edema of feet. SKIN: No rash, no masses palpable. NEUROLOGICAL: The patient is awake, alert, oriented x3, mood and affect normal. Results CBC & Chem 7: 10/24/22 05:48 10/24/22 05:48 Labs: Abnormal Lab Results - Last 24 Hours (Table) 10/19/22 10/20/22 10/20/22 Range/Units 17:01 06:13 06:13 WBC (4.50-10.00) X 10*3/uL MCHC (32.0-37.0) g/dL RDW (11.5-14.5) % Plt Count (140-440) X 10*3/uL Immature Gran # (0.00-0.04) X 10*3/uL Neutrophils # (1.80-7.70) X 10*3/uL Lymphocytes # (0.90-5.00) X 10*3/uL Eosinophils # (0.04-0.35) X 10*3/uL Carbon Dioxide (20.0-27.5) mmol/L Glucose (70-110) mg/dL Hemoglobin A1c 7.6 H (0.0-6.0) % Calcium (8.7-10.3) mg/dL Procalcitonin 38.80 H (0.02-0.09) ng/mL Stool Lactoferrin POSITIVE A (NEGATIVE) 10/20/22 10/20/22 Range/Units 06:13 06:13 WBC 12.83 H (4.50-10.00) X 10*3/uL MCHC 31.6 L (32.0-37.0) g/dL RDW 16.5 H (11.5-14.5) % Plt Count 117 L (140-440) X 10*3/uL Immature Gran # 0.09 H (0.00-0.04) X 10*3/uL Neutrophils # 11.18 H (1.80-7.70) X 10*3/uL Lymphocytes # 0.80 L (0.90-5.00) X 10*3/uL Eosinophils # 0 L (0.04-0.35) X 10*3/uL Carbon Dioxide 18.8 L (20.0-27.5) mmol/L Glucose 149 H (70-110) mg/dL Hemoglobin A1c (0.0-6.0) % Calcium 8.5 L (8.7-10.3) mg/dL Procalcitonin (0.02-0.09) ng/mL Stool Lactoferrin (NEGATIVE) Microbiology - Last 24 Hours (Table) 10/18/22 23:15 Blood Culture Gram Stain - Preliminary Blood Blood Culture - Preliminary 10/19/22 13:58 Blood Culture - Preliminary Blood No Growth after 24 hours 10/19/22 13:58 Blood Culture - Preliminary Blood No Growth after 24 hours 10/19/22 17:01 Stool Culture - Preliminary Stool Assessment and Plan (1) Bacteremia Current Visit: Yes Status: Acute Code(s): R78.81 - BACTEREMIA SNOMED Code(s): 5082350 Plan: 1patient with a positive blood culture with gram-positive cocci with ID sensitivities pending patient presented to hospital predominantly with GI symptoms abdominal pain and nausea vomiting and diarrhea with question of possible gastroenteritis with a gram-positive cocci possible skin contamination versus true pathogen. However patient seem to have shown clinical improvement with white count trending down with the Levaquin and Flagyl 2blood cultures will be repeated to document clearance of bacteremia 3stool cultures will be requested 4continue the patient on Levaquin and Flagyl in view of clinical response We will follow on clinical condition and cultures to further adjust medication if needed Thank you for this consultation will follow this patient along with you Time with Patient: Greater than 30
[2022-10-21] MEDS: HYDROmorphone 0.5 MG/0.5 ML SYRINGE IVP PRN ×2 (01:36→13:16)
[2022-10-21] MEDS: metroNIDAZOLE-NS PMX 500 MG in SALINE 1 100ML.BAG IVPB SCH ×4 (01:44→23:45)
[2022-10-21] MEDS: SODIUM CHLORIDE 0.9% 1,000 ML IV SCH ×3 (06:26→21:37)
[2022-10-21] MEDS ORDERED: ONDANSETRON 4 MG/2 ML VIAL IVP PRN (08:08)
[2022-10-21] MEDS: SERTRALINE 25 MG TAB PO SCH (08:09)
[2022-10-21] MEDS: PANTOPRAZOLE 40 MG/10 ML VIAL IVP SCH (08:09)
[2022-10-21] MEDS: SERTRALINE 100 MG TAB PO SCH (08:09)
[2022-10-21] MEDS: HEPARIN SODIUM,PORCINE/PF 5,000 UNIT/0.5 ML SYRINGE SQ SCH ×2 (08:42→21:33)
[2022-10-21 09:17] LABS: African American GFR (CKD) 109.4 (60.0-200.0); Anion Gap 12.5 mmol/L (10.00-18.00); BUN/Creat Ratio 12.3 Ratio (12.00-20.00); Blood Urea Nitrogen 12.3 mg/dL (9.0-27.0); Calcium 8.4 mg/dL (8.7-10.3); Carbon Dioxide 21.5 mmol/L (20.0-27.5); Non-African American GFR(CKD) 94.4 (60.0-200.0); Potassium 3.4 mmol/L (3.5-5.5)
[2022-10-21] MEDS: POTASSIUM CHLORIDE ER 20 MEQ TAB.ER PO SCH ×2 (09:50→11:41)
[2022-10-21 10:32] LABS: Basophils # (A) 0.15 X 10*3/uL (0.00-0.10); Basophils % (A) 0.7 %; Eosinophils # (A) 0.04 X 10*3/uL (0.04-0.35); Eosinophils % (A) 0.2 %; HCT 44.8 % (39.6-50.0); HGB 13.7 g/dL (13.0-17.0); Lymphocytes % (A) 3.9 %; MCH 28.1 pg (27.0-32.0); MCHC 30.6 g/dL (32.0-37.0); MCV 91.8 fL (80.0-97.0); Mean Platelet Volume 12.6 fL (9.5-12.2); Monocytes # (A) 0.55 X 10*3/uL (0.20-1.00); Monocytes % (A) 2.7 %; NRBC Per 100 WBC 0 /100 WBCS (0.0-0.0); Neutrophils # (A) 18.81 X 10*3/uL (1.80-7.70); Neutrophils % (A) 91.5 %; Platelet Count 100 X 10*3/uL (140-440); RBC 4.88 X 10*6/uL (4.40-5.60); RDW 17.4 % (11.5-14.5); WBC 20.55 X 10*3/uL (4.50-10.00)
--- NOTE | 2022-10-21 13:12 | P.PN ---
Subjective Progress Note Date: 10/21/22 CHIEF COMPLAINT: Abdominal pain and diarrhea HISTORY OF PRESENT ILLNESS: Patient reports improvement in his abdominal pain and diarrhea. He reports that his stools are coming less frequent and more formed. He reports that his abdominal pain is better than yesterday. He does report some pain on the right side of the abdomen near the umbilicus. He denies any nausea or vomiting. He complains of more lower back pain and has a history of degenerative disc disease of lumbar spine. He is tolerating full liquids. Afebrile. Tachycardia improved. WBC did go up from 12.83-20.55. Hgb 13.7 platelets 100 sodium 133 potassium is 4.2 creatinine 1.0 magnesium 2.0. Stool cultures pending. Repeat blood cultures showing no growth. Patient did have one positive blood culture with gram-positive cocci likely contamination. Followed by infectious disease. GI service added imodium. PHYSICAL EXAM: VITAL SIGNS: Reviewed. GENERAL: Well-developed in no acute distress. HEENT: No sclera icterus. Extraocular movements grossly intact. Moist buccal mucosa. Head is atraumatic, normocephalic. ABDOMEN: Soft. Nondistended. Mild tenderness with the patient of the right side mid abdomen NEUROLOGIC: Alert and oriented. Cranial nerves II through XII grossly intact. ASSESSMENT: 1. Abdominal pain with diarrhea 2. Possible gastroenteritis, colitis or diverticulitis 3. Leukocytosis 4. Mild thickening mid sigmoid colon noted on CAT scan PLAN: -Continue antibiotics -Continue IV fluids -GI service advance diet to full liquids -Follow up on stool cultures -Repeat CBC -Obtain EGD and Colonoscopy from [facility] from last week Physician Exhaust And Muff[employer] Fitter note has been reviewed by physician. Signing provider agrees with the documented findings, assessment, and plan of care. I have personally seen and examined the patient, reviewed the [employer]ER /PAs history, exam and MDM and agree with the assessment and plan as written. Based on total visit time, I have performed more than 50% of the visit. As above: Patient still having some abdominal pain but improved. Tachycardia has resolved. Leukocytosis did increase however. Tolerating liquids. Stool cultures remain negative. Repeat blood cultures remain negative. Continue liquid diet. Follow cultures. If symptoms persist consider repeat CT abdomen and pelvis with oral and IV contrast. We'll follow. Objective - Vital Signs Vital signs: Vital Signs Temp 97.8 F 10/21/22 11:25 Pulse 82 10/21/22 11:25 Resp 18 10/21/22 11:25 BP 125/80 10/21/22 11:25 Pulse Ox 92 L 10/21/22 11:25 FiO2 Intake & Output 10/20/22 10/21/22 10/21/22 18:59 06:59 18:59 Intake Total 240 Output Total 2 Balance 240 -2 Intake: Oral 240 Output: Urine 2 Other: # Voids 2 - Labs CBC & Chem 7: 10/21/22 06:07 10/21/22 12:16 Labs: Abnormal Lab Results - Last 24 Hours (Table) 10/21/22 10/21/22 Range/Units 06:07 06:07 WBC 20.55 H (4.50-10.00) X 10*3/uL MCHC 30.6 L (32.0-37.0) g/dL RDW 17.4 H (11.5-14.5) % Plt Count 100 L (140-440) X 10*3/uL Plt Count Comment DECREASED A MPV 12.6 H (9.5-12.2) fL Immature Gran # 0.20 H (0.00-0.04) X 10*3/uL Neutrophils # 18.81 H (1.80-7.70) X 10*3/uL Lymphocytes # 0.80 L (0.90-5.00) X 10*3/uL Basophils # 0.15 H (0.00-0.10) X 10*3/uL Sodium 133 L (135-145) mmol/L Potassium 3.4 L (3.5-5.5) mmol/L Glucose 147 H (70-110) mg/dL Calcium 8.4 L (8.7-10.3) mg/dL Microbiology - Last 24 Hours (Table) 10/18/22 23:15 Blood Culture Gram Stain - Preliminary Blood Blood Culture - Preliminary 10/19/22 13:58 Blood Culture - Preliminary Blood No Growth after 24 hours 10/19/22 13:58 Blood Culture - Preliminary Blood No Growth after 24 hours
[2022-10-21] MEDS: LEVOFLOXACIN 500MG-D5W PMX 500 MG in DEXTROSE/WATER 1 100ML.BAG IVPB SCH (13:15)
--- NOTE | 2022-10-21 13:35 | P.PN ---
Subjective Progress Note Date: 10/21/22 Principal diagnosis: Abdominal pain Patient seen and examined today in for follow-up for abdominal pain, likely infectious gastroenteritis. Patient states abdominal pain improving. Now pain is only in his back. Diarrhea has significantly improved as well. He'll he states he had one episode this morning. Nonbloody. Patient is afebrile. White count was elevated today 20.5, hemoglobin 13, platelet count 100,000, sodium 133 potassium 3.4. Blood cultures to come back with gram-positive cocci. Infectious disease is following, no changes to IV antibiotics as of yesterday. Objective - Vital Signs Vital signs: Vital Signs Temp 98.6 F 10/21/22 07:50 Pulse 95 10/21/22 07:50 Resp 16 10/21/22 07:50 BP 104/65 10/21/22 07:50 Pulse Ox 95 10/21/22 07:50 FiO2 Intake & Output 10/20/22 10/21/22 10/21/22 18:59 06:59 18:59 Intake Total 240 Output Total 2 Balance 240 -2 Intake: Oral 240 Output: Urine 2 Other: # Voids 2 - Exam General appearance: The patient is alert, oriented, appears in no acute distress. HET: Head is normocephalic and atraumatic. Conjunctiva pink. Sclera anicteric. Neck: Supple without lymphadenopathy. Abdomen: Soft, Obese, nontender, nondistended with bowel sounds. No guarding or rigidity. Extremities: Normal skin color and turgor. No pedal edema Skin: No rashes, no jaundice Neurological: No focal deficits. Alert and oriented. - Labs CBC & Chem 7: 10/21/22 06:07 10/21/22 12:16 Labs: Abnormal Lab Results - Last 24 Hours (Table) 10/19/22 10/20/22 10/20/22 Range/Units 17:01 06:13 06:13 WBC (4.50-10.00) X 10*3/uL MCHC (32.0-37.0) g/dL RDW (11.5-14.5) % Plt Count (140-440) X 10*3/uL Immature Gran # (0.00-0.04) X 10*3/uL Neutrophils # (1.80-7.70) X 10*3/uL Lymphocytes # (0.90-5.00) X 10*3/uL Eosinophils # (0.04-0.35) X 10*3/uL Carbon Dioxide (20.0-27.5) mmol/L Glucose (70-110) mg/dL Hemoglobin A1c 7.6 H (0.0-6.0) % Calcium (8.7-10.3) mg/dL Procalcitonin 38.80 H (0.02-0.09) ng/mL Stool Lactoferrin POSITIVE A (NEGATIVE) 10/20/22 10/20/22 Range/Units 06:13 06:13 WBC 12.83 H (4.50-10.00) X 10*3/uL MCHC 31.6 L (32.0-37.0) g/dL RDW 16.5 H (11.5-14.5) % Plt Count 117 L (140-440) X 10*3/uL Immature Gran # 0.09 H (0.00-0.04) X 10*3/uL Neutrophils # 11.18 H (1.80-7.70) X 10*3/uL Lymphocytes # 0.80 L (0.90-5.00) X 10*3/uL Eosinophils # 0 L (0.04-0.35) X 10*3/uL Carbon Dioxide 18.8 L (20.0-27.5) mmol/L Glucose 149 H (70-110) mg/dL Hemoglobin A1c (0.0-6.0) % Calcium 8.5 L (8.7-10.3) mg/dL Procalcitonin (0.02-0.09) ng/mL Stool Lactoferrin (NEGATIVE) Microbiology - Last 24 Hours (Table) 10/18/22 23:15 Blood Culture Gram Stain - Preliminary Blood Blood Culture - Preliminary 10/19/22 13:58 Blood Culture - Preliminary Blood No Growth after 24 hours 10/19/22 13:58 Blood Culture - Preliminary Blood No Growth after 24 hours Assessment and Plan (1) Gastroenteritis Narrative/Plan: 41-year-old male presented to the emergency department with complaints of abdominal pain and diarrhea. Patient is having 6-7 loose stools daily and severe intermittent abdominal pain. Initially associated with some nausea and vomiting but none in the last day or so. He also states that this abdominal pain has been going on for the past several months as well as diarrhea. He recently underwent EGD and colonoscopy last week with Dr. Valentin at [facility] with findings of mild mild gastritis on EGD and normal colonoscopy. Biopsy results just showing some mild inflammation, gastritis. Patient did present with leukocytosis, has elevated [id number] with slight temp of 99.9 this morning. Patient likely has underlying gastroenteritis, likely infectious. Stool for C. diff was negative, rotavirus as well as influenza negative. No plans at this time for any endoscopic evaluation continue IV Levaquin and Flagyl. Continue with recommendations from infectious disease. Patient showing gram-positive cocci growth and his blood cultures. Current Visit: Yes Status: Acute Code(s): K52.9 - NONINFECTIVE GASTROENTERITIS AND COLITIS, UNSPECIFIED SNOMED Code(s): 35049883 (2) Abdominal pain Narrative/Plan: Patient likely has some underlying IBS, exacerbated at this time by a possible infectious gastroenteritis. Current Visit: Yes Status: Acute Code(s): R10.9 - UNSPECIFIED ABDOMINAL PAIN SNOMED Code(s): 23237039 Plan: 1. Continue symptomatic and supportive care 2. Patient may advance to full liquid diet 3. Continue IV antibiotics 4. Antiemetics as needed 5. Protonix 40 mg daily for GI prophylaxis 6. Stool cultures pending 7. Agree with the potassium replacement, daily BMP Thank you for this consultation, we'll continue to follow. Dr. Saleem Valentin I agree with the dictator's note, documented as a scribe by Felicita Jacome.
[2022-10-21] MEDS: HYDROcodone/APAP 10-325MG 1 EACH TAB PO PRN ×2 (16:21→23:48)
[2022-10-21] MEDS: FAMOTIDINE 20 MG/2 ML VIAL IV SCH (21:33)
--- NOTE | 2022-10-21 22:05 | P.PN ---
Subjective This is a pleasant 41 years old male with no significant past medical history. He has past psychiatric history of depression, anxiety, PTSD. He is every day smoker. He had previous cholecystectomy. He presents because of abdominal pain and fever 2 nights ago, he had CT of the abdomen and discharge home Her chest today with nausea vomiting and diarrhea with generalized abdominal pain and fever and chills at home Patient states that his pain in the epigastrium about 7/10 since yesterday felt like sharp, nonradiating associated with vomiting was this morning with no blood. Patient has poor appetite not eating and drinking well over the last 2 days. He has watery bowel movement about twice today. No blood. Associated with little headache. He denies any other symptoms, no dysuria or urgency. No chest pain or dyspnea or coughing. No weakness or numbness or dizziness. Usually he smokes half pack per day and he was counseled to quit and he agrees but declines nicotine patch. No alcohol or illicit drugs. Vitals are stable, afebrile here, however yesterday he had a fever of 102 Lap showing leukocytosis of 17,000 however patient has chronic leukocytosis of 10-17,000. W see yesterday were 13.5. Rest of CBC is unremarkable Mild hyponatremic with 34 and hypokalemic 3.2. Creatinine normal at 0.9. Glucose elevated 2-4. Platelet count slightly low at 129 EKG showing normal sinus rhythm at 90 mL with no significant ST-T changes. amylase and lipase yesterday were negative and the flow was at this was negative liver enzymes not elevated CT of the abdomen and pelvis done with contrast yesterday showing atelectasis of the lung bases which is new compared to old exam. There is fatty infiltration of the liver which was fully new compared to old exam. There is cholecystectomy. Numerous sigmoid diverticula with no diverticulitis. No signs of bowel obstruction 10/20/2012 Patient still nothing by mouth, he has mild infraumbilical pain and tenderness, [place] 5 does not control well therefore will increase it to Sh[place] 10 mg, risks and benefits are explained for the patient and he agrees. Vitals were stable, he had 99.9 temperature this morning. He still has frequent diarrhea and triggers every 20 minutes as watery diarrhea as he states. Procalcitonin is elevated to 38.8 he is still nothing by mouth this morningm . Surgery team was consulted. Also consult GI team patient remains on normal saline with 30 mL per hour plus Levaquin and Flagyl. C. diff negative. 10/21/2022 Patient was with severe nausea this morning, Zofran is added. Diet is going to be advanced today into full liquid diet He had quite a bit of diarrhea yesterday however this morning looks better His abdominal pain looks controlled as well. Leukocytosis with 20,000, Hemoglobin A1c is 7.6%, patient with no history of diabetes and will be informed. ID team consult for gram-positive blood culture Continue with Flagyl and Levaquin and normal saline at 1:30 milliliter Objective - Vital Signs Vital signs: Vital Signs Temp 97.8 F 10/21/22 11:25 Pulse 82 10/21/22 11:25 Resp 18 10/21/22 11:25 BP 125/80 10/21/22 11:25 Pulse Ox 92 L 10/21/22 11:25 FiO2 Intake & Output 10/20/22 10/21/22 10/21/22 18:59 06:59 18:59 Intake Total 240 Output Total 2 Balance 240 -2 Intake: Oral 240 Output: Urine 2 Other: # Voids 2 - Exam -GENERAL: The patient is alert and oriented x3, not in any acute distress. Obese HEENT: Pupils are round and equally reacting to light. EOMI. No scleral icterus. No conjunctival pallor. Normocephalic, atraumatic. No pharyngeal erythema. No thyromegaly. CARDIOVASCULAR: S1 and S2 present. No murmurs, rubs, or gallops. PULMONARY: Chest is clear to auscultation, no wheezing or crackles. -ABDOMEN: Soft, mild periumbilical tenderness, nondistended, normoactive bowel sounds. No palpable organomegaly. MUSCULOSKELETAL: No joint swelling or deformity. EXTREMITIES: No cyanosis, clubbing, or pedal edema. NEUROLOGICAL: Gross neurological examination did not reveal any focal deficits. SKIN: No rashes. no petechiae. - Labs CBC & Chem 7: 10/21/22 06:07 10/21/22 12:16 Labs: Abnormal Lab Results - Last 24 Hours (Table) 10/21/22 10/21/22 Range/Units 06:07 06:07 WBC 20.55 H (4.50-10.00) X 10*3/uL MCHC 30.6 L (32.0-37.0) g/dL RDW 17.4 H (11.5-14.5) % Plt Count 100 L (140-440) X 10*3/uL Plt Count Comment DECREASED A MPV 12.6 H (9.5-12.2) fL Immature Gran # 0.20 H (0.00-0.04) X 10*3/uL Neutrophils # 18.81 H (1.80-7.70) X 10*3/uL Lymphocytes # 0.80 L (0.90-5.00) X 10*3/uL Basophils # 0.15 H (0.00-0.10) X 10*3/uL Sodium 133 L (135-145) mmol/L Potassium 3.4 L (3.5-5.5) mmol/L Glucose 147 H (70-110) mg/dL Calcium 8.4 L (8.7-10.3) mg/dL Microbiology - Last 24 Hours (Table) 10/18/22 23:15 Blood Culture Gram Stain - Preliminary Blood Blood Culture - Preliminary 10/19/22 13:58 Blood Culture - Preliminary Blood No Growth after 24 hours 10/19/22 13:58 Blood Culture - Preliminary Blood No Growth after 24 hours Assessment and Plan Assessment: acute infectious gastroenteritis Sepsis with worsening leukocytosis and fever Gram-positive bacteremia Possible new-onset diabetes with hemoglobin A1c 7.6% Nicotine dependence History of depression, PTSD and bipolar, not an active issue Plan: start Cipro and Flagyl , follow-up stool studies Continue with bowel rest advance diet as tolerated IV hydration Pain medication Surgery and GI team consult ID team consult for postoperative blood culture Labs and medication were reviewed.. Continue same treatment. Continue with symptomatic treatment. Resume home medication. Monitor labs and vitals. DVT and GI prophylaxis. Further recommendations as per clinical course of the patient DVT prophylaxis: Subcutaneous heparin GI Prophylaxis: Pepcid Prognosis is guarded
[2022-10-22] MEDS: SODIUM CHLORIDE 0.9% 1,000 ML IV SCH ×3 (02:08→19:52)
[2022-10-22] MEDS: ACETAMINOPHEN TAB 325 MG TAB PO PRN (02:10)
--- NOTE | 2022-10-22 07:15 | P.PN ---
Subjective Progress Note Date: 10/21/22 Principal diagnosis: Bacteremia Patient is a 41-year-old male presenting to the hospital with abdominal pain and fever 2 days and also have a positive blood culture. On today's evaluation that is 10/21/2022 patient denies having any fever or chills, patient did have improvement in his abdominal pain no further nausea or vomiting no chest pain shortness of breath or cough no urinary symptoms Objective - Vital Signs Vital signs: Vital Signs Temp 98.6 F 10/21/22 07:50 Pulse 95 10/21/22 07:50 Resp 16 10/21/22 07:50 BP 104/65 10/21/22 07:50 Pulse Ox 95 10/21/22 07:50 FiO2 Intake & Output 10/20/22 10/21/22 10/21/22 18:59 06:59 18:59 Intake Total 240 Output Total 2 Balance 240 -2 Intake: Oral 240 Output: Urine 2 Other: # Voids 2 - Exam GENERAL DESCRIPTION: Middle-aged male lying in bed in no distress RESPIRATORY SYSTEM: Unlabored breathing , decreased breath sounds at bases HEART: S1 S2 regular rate and rhythm , ABDOMEN: Soft , no tenderness EXTREMITIES: No edema feet - Labs CBC & Chem 7: 10/21/22 06:07 10/21/22 12:16 Labs: Abnormal Lab Results - Last 24 Hours (Table) 10/19/22 10/21/22 10/21/22 Range/Units 17:01 06:07 06:07 WBC 20.55 H (4.50-10.00) X 10*3/uL MCHC 30.6 L (32.0-37.0) g/dL RDW 17.4 H (11.5-14.5) % Plt Count 100 L (140-440) X 10*3/uL Plt Count Comment DECREASED A MPV 12.6 H (9.5-12.2) fL Immature Gran # 0.20 H (0.00-0.04) X 10*3/uL Neutrophils # 18.81 H (1.80-7.70) X 10*3/uL Lymphocytes # 0.80 L (0.90-5.00) X 10*3/uL Basophils # 0.15 H (0.00-0.10) X 10*3/uL Sodium 133 L (135-145) mmol/L Potassium 3.4 L (3.5-5.5) mmol/L Glucose 147 H (70-110) mg/dL Calcium 8.4 L (8.7-10.3) mg/dL Stool Lactoferrin POSITIVE A (NEGATIVE) Microbiology - Last 24 Hours (Table) 10/18/22 23:15 Blood Culture Gram Stain - Preliminary Blood Blood Culture - Preliminary 10/19/22 13:58 Blood Culture - Preliminary Blood No Growth after 24 hours 10/19/22 13:58 Blood Culture - Preliminary Blood No Growth after 24 hours Assessment and Plan (1) Bacteremia Current Visit: Yes Status: Acute Code(s): R78.81 - BACTEREMIA SNOMED Code(s): 2512710 Plan: 1patient with a positive blood culture with gram-positive cocci with ID sensitivities pending patient presented to hospital predominantly with GI symptoms abdominal pain and nausea vomiting and diarrhea with question of possi ble gastroenteritis with a gram-positive cocci possible skin contamination versus true pathogen. 2blood cultures has been repeated to document clearance of bacteremia 3stool cultures currently pending 4patient to continue the patient on Levaquin and Flagyl in view of clinical response Time with Patient: Less than 30
[2022-10-22] MEDS: metroNIDAZOLE-NS PMX 500 MG in SALINE 1 100ML.BAG IVPB SCH ×3 (08:41→23:20)
[2022-10-22] MEDS: HEPARIN SODIUM,PORCINE/PF 5,000 UNIT/0.5 ML SYRINGE SQ SCH ×2 (08:44→19:56)
[2022-10-22] MEDS: SERTRALINE 25 MG TAB PO SCH (08:44)
[2022-10-22] MEDS: PANTOPRAZOLE 40 MG/10 ML VIAL IVP SCH (08:44)
[2022-10-22] MEDS: SERTRALINE 100 MG TAB PO SCH (08:44)
[2022-10-22 09:01] LABS: Magnesium 1.7 mg/dL (1.5-2.4)
[2022-10-22 09:17] LABS: African American GFR (CKD) 124.3 (60.0-200.0); Anion Gap 13.2 mmol/L (10.00-18.00); BUN/Creat Ratio 12.33 Ratio (12.00-20.00); Blood Urea Nitrogen 11.1 mg/dL (9.0-27.0); Calcium 8.3 mg/dL (8.7-10.3); Carbon Dioxide 20.8 mmol/L (20.0-27.5); Non-African American GFR(CKD) 107.2 (60.0-200.0); Potassium 3.4 mmol/L (3.5-5.5)
[2022-10-22] MEDS: HYDROmorphone 0.5 MG/0.5 ML SYRINGE IVP PRN ×2 (09:35→23:21)
[2022-10-22 09:47] LABS: Basophils # (A) 0.06 X 10*3/uL (0.00-0.10); Basophils % (A) 0.3 %; Eosinophils # (A) 0.01 X 10*3/uL (0.04-0.35); Eosinophils % (A) 0.1 %; HCT 40.3 % (39.6-50.0); HGB 12.8 g/dL (13.0-17.0); Immature Grans, Automated 1.1 %; Immature Platelet Fraction 16.8 % (1.1-6.1); Lymphocytes # (A) 1.17 X 10*3/uL (0.90-5.00); Lymphocytes % (A) 6.1 %; MCH 28.6 pg (27.0-32.0); MCHC 31.8 g/dL (32.0-37.0); MCV 90.2 fL (80.0-97.0); Mean Platelet Volume 13.3 fL (9.5-12.2); Monocytes # (A) 0.93 X 10*3/uL (0.20-1.00); Monocytes % (A) 4.9 %; NRBC Per 100 WBC 0 /100 WBCS (0.0-0.0); Neutrophils # (A) 16.78 X 10*3/uL (1.80-7.70); Neutrophils % (A) 87.5 %; Platelet Count 75 X 10*3/uL (140-440); RBC 4.47 X 10*6/uL (4.40-5.60); RDW 17.6 % (11.5-14.5); WBC 19.16 X 10*3/uL (4.50-10.00)
[2022-10-22] MEDS: POTASSIUM CHLORIDE ER 20 MEQ TAB.ER PO SCH ×2 (10:19→12:00)
[2022-10-22] MEDS: MAGNESIUM SULFATE-D5W PMX 1 GM in DEXTROSE/WATER 1 100ML.BAG IVPB SCH ×2 (10:20→12:01)
[2022-10-22 11:24] LABS: Total Bilirubin 2.6 mg/dL (0.2-1.3)
[2022-10-22 11:46] LABS: Appearance,Urine Clear (Clear); Bilirubin,Urine 2+ (Negative); Blood,Urine Moderate (Negative); Color,Urine Dark Yellow; Glucose,Urine (UA) Negative (Negative); Ketones,Urine 2+ (Negative); Leukocyte Esterase,Urine Negative (Negative); Mucus,Urine Rare /hpf; Nitrite,Urine Negative (Negative); Protein,Urine 1+ (Negative); RBC,Urine 29 /hpf (0-5); Specific Gravity,Urine 1.022 (1.001-1.035); Squamous Epithelial Cell,Urine <1 /hpf (0-4); Urobilinogen,Urine <2.0 mg/dL (<2.0); WBC,Urine 1 /hpf (0-5)
[2022-10-22] MEDS: HYDROcodone/APAP 10-325MG 1 EACH TAB PO PRN ×2 (12:12→19:51)
--- NOTE | 2022-10-22 12:50 | P.PN ---
Subjective Progress Note Date: 10/22/22 Principal diagnosis: Abdominal pain Patient seen and examined today in for follow-up for abdominal pain and diarrhea. He states diarrhea has resolved his bowel movements are now formed. He states the abdominal pain has significantly improved. He states that he had a mild tenderness and discomfort in his right lower abdomen as well as more in the epigastric region. He denies any nausea or vomiting. He has been tolerating his diet. He remains on IV Levaquin and Flagyl. Today's labs WBC 19 hemoglobin 12.8 platelet count 75,000 sodium 133 potassium 3.4 BUN 11 creatinine 0.9 total bilirubin 2.6 AST 162 ALT 77 alkaline phosphatase 157. Patient denies any history of alcohol abuse or known liver disease. Objective - Vital Signs Vital signs: Vital Signs Temp 97.9 F 10/22/22 04:30 Pulse 93 10/22/22 04:30 Resp 19 10/22/22 04:30 BP 123/75 10/22/22 04:30 Pulse Ox 92 L 10/22/22 04:30 FiO2 Intake & Output 10/21/22 10/22/22 10/22/22 18:59 06:59 18:59 Intake Total 1860 560 Output Total 850 Balance 1860 -290 Intake: Intake, IV Titration 1860 Amount Levofloxacin 500Mg-D5w 100 Pmx 500 mg In Dextrose/ Water 1 100ml.bag @ 100 mls/hr IVPB DAILY@1400 [facility] Rx#:[id number] Sodium Chloride 0.9% 1, 1560 000 ml @ 130 mls/hr IV . Q7H42M [facility] Rx#:[id number] metroNIDAZOLE-NS PMX 500 200 mg In Saline 1 100ml.bag @ 100 mls/hr IVPB Q8HR [facility] Rx#:[id number] Oral 560 Output: Urine 850 Other: Voiding Method Toilet # Voids 4 # Bowel Movements 1 - Exam General appearance: The patient is alert, oriented, appears in no acute distress. HET: Head is normocephalic and atraumatic. Conjunctiva pink. Sclera anicteric. Neck: Supple without lymphadenopathy. Abdomen: Soft, Obese, mild tenderness right lower quadrant, right upper quadrant/epigastric, nondistended with bowel sounds. No guarding or rigidity. Extremities: Normal skin color and turgor. No pedal edema Skin: No rashes, no jaundice Neurological: No focal deficits. Alert and oriented. - Labs CBC & Chem 7: 10/22/22 03:20 10/22/22 03:20 Labs: Abnormal Lab Results - Last 24 Hours (Table) 10/22/22 10/22/22 10/22/22 Range/Units 03:20 03:20 03:20 WBC 19.16 H (4.50-10.00) X 10*3/uL Hgb 12.8 L (13.0-17.0) g/dL MCHC 31.8 L (32.0-37.0) g/dL RDW 17.6 H (11.5-14.5) % Plt Count 75 L (140-440) X 10*3/uL Plt Count Comment DECREASED A MPV 13.3 H (9.5-12.2) fL Immature Gran # 0.21 H (0.00-0.04) X 10*3/uL Neutrophils # 16.78 H (1.80-7.70) X 10*3/uL Eosinophils # 0.01 L (0.04-0.35) X 10*3/uL Immature Plt Fraction 16.8 H (1.1-6.1) % Sodium 133 L (135-145) mmol/L Potassium 3.4 L (3.5-5.5) mmol/L Glucose 144 H (70-110) mg/dL Calcium 8.3 L (8.7-10.3) mg/dL Procalcitonin 46.00 H (0.02-0.09) ng/mL Microbiology - Last 24 Hours (Table) 10/19/22 17:01 Stool Culture - Preliminary Stool 10/19/22 13:58 Blood Culture - Preliminary Blood No Growth after 48 hours 10/19/22 13:58 Blood Culture - Preliminary Blood No Growth after 48 hours Assessment and Plan (1) Gastroenteritis Narrative/Plan: 41-year-old male presented to the emergency department with complaints of abdominal pain and diarrhea. Patient is having 6-7 loose stools daily and severe intermittent abdominal pain. Initially associated with some nausea and vomiting but none in the last day or so. He also states that this abdominal pain has been going on for the past several months as well as diarrhea. He recently underwent EGD and colonoscopy last week with Dr. Valentin at [facility] with findings of mild mild gastritis on EGD and normal colonoscopy. Biopsy results just showing some mild inflammation, gastritis. Patient did present with leukocytosis, has elevated [id number] with slight temp of 99.9 this morning. Patient likely has underlying gastroenteritis, likely infectious. Stool for C. diff was negative, rotavirus as well as influenza negative. No plans at this time for any endoscopic evaluation continue IV Levaquin and Flagyl. Continue with recommendations from infectious disease. Patient showing gram-positive cocci growth and his blood cultures. Current Visit: Yes Status: Acute Code(s): K52.9 - NONINFECTIVE GASTROENTERITIS AND COLITIS, UNSPECIFIED SNOMED Code(s): 48406232 (2) Abdominal pain Narrative/Plan: Patient likely has some underlying IBS, exacerbated at this time by a possible infectious gastroenteritis. Current Visit: Yes Status: Acute Code(s): R10.9 - UNSPECIFIED ABDOMINAL PAIN SNOMED Code(s): 41689712 (3) Elevated LFTs Narrative/Plan: Patient with elevated LFTs, unclear etiology could be medication induced. Patient denies any previous history of alcohol abuse or underlying liver disease. Patient is obese Have some underlying hepatic steatosis. Will order liver ultrasound Current Visit: Yes Status: Acute Code(s): R79.89 - OTHER SPECIFIED ABNORMAL FINDINGS OF BLOOD CHEMISTRY SNOMED Code(s): 170642571 (4) Bacteremia Current Visit: Yes Status: Acute Code(s): R78.81 - BACTEREMIA SNOMED Code(s): 3636408 (5) Thrombocytopenia Narrative/Plan: Patient denies any history of underlying liver disease no alcohol history. Cons ider possible heparin-induced thrombocytopenia, patient has been on heparin since admission. Current Visit: Yes Status: Acute Code(s): D69.6 - THROMBOCYTOPENIA, UNSPECIFIED SNOMED Code(s): 555548991 Plan: 1. Continue symptomatic and supportive care 2. Continue full liquid diet, advance as tolerated 3. Continue IV antibiotics 4. Antiemetics as needed 5. Protonix 40 mg daily for GI prophylaxis 6. Stool cultures negative to date 7. Agree with the potassium replacement 8. Liver ultrasound ordered 9. Daily CBC CMP 10. Further recommendations forthcoming based on clinical course Thank you for this consultation, we'll continue to follow. Dr. Saleem Valentin I agree with the dictator's note, documented as a scribe by Felicita Hale
[2022-10-22 13:22] LABS: Amylase 73 U/L (30-110); Lipase 391 U/L (23-300)
--- NOTE | 2022-10-22 13:22 | P.PN ---
Subjective Progress Note Date: 10/22/22 CHIEF COMPLAINT: Abdominal pain and diarrhea HISTORY OF PRESENT ILLNESS: Patient reports overall still not feeling well. He complains of some mild epigastric pain this morning. His diarrhea has resolved. His stool was almost formed this morning. He denies any nausea or vomiting. His urine is very dark. Patient looked a little jaundiced. He complains mostly of lower back pain. He did have one episode of burning with urination yesterday. Afebrile. WBC is down from 20.55-19.16 platelets are 75 sodium 133 potassium 3.4 and magnesium 1.7 total bilirubin 2.6 AST 162 ALT 77 alk phos 157 pro calcitonin is up from 38 to 46. Stool culture negative so far. One positive blood culture likely a skin contaminant. Repeat blood cultures are negative PHYSICAL EXAM: VITAL SIGNS: Reviewed. GENERAL: Well-developed in no acute distress. HEENT: No sclera icterus. Extraocular movements grossly intact. Moist buccal mucosa. Head is atraumatic, normocephalic. ABDOMEN: Soft. Nondistended. Mild tenderness epigastric area NEUROLOGIC: Alert and oriented. Cranial nerves II through XII grossly intact. ASSESSMENT: 1. Abdominal pain with diarrhea 2. Possible gastroenteritis 3. Leukocytosis 4. Mild thickening mid sigmoid colon noted on CAT scan 5. Elevated LFTs and total bilirubin PLAN: -Liver ultrasound ordered due to elevated LFTs. Discussed with GI service. Patient has history of cholecystectomy -Check urinalysis -Continue antibiotics -Continue IV fluids -Continue full liquids -Follow up on stool cultures Physician Laborer [place] note has been reviewed by physician. Signing provider agrees with the documented findings, assessment, and plan of care. Patient doing better today. His pain is improved. His urine is darker in color and bilirubin and transaminases elevated. Pain has never been localized in the right upper quadrant. We will check liver and gallbladder ultrasound at this time. Objective - Vital Signs Vital signs: Vital Signs Temp 98.1 F 10/22/22 11:32 Pulse 95 10/22/22 11:32 Resp 18 10/22/22 11:32 BP 125/79 10/22/22 11:32 Pulse Ox 92 L 10/22/22 11:32 FiO2 Intake & Output 10/21/22 10/22/22 10/22/22 18:59 06:59 18:59 Intake Total 1860 560 Output Total 850 Balance 1860 -290 Intake: Intake, IV Titration 1860 Amount Levofloxacin 500Mg-D5w 100 Pmx 500 mg In Dextrose/ Water 1 100ml.bag @ 100 mls/hr IVPB DAILY@1400 [facility] Rx#:[id number] Sodium Chloride 0.9% 1, 1560 000 ml @ 130 mls/hr IV . Q7H42M [facility] Rx#:[id number] metroNIDAZOLE-NS PMX 500 200 mg In Saline 1 100ml.bag @ 100 mls/hr IVPB Q8HR [facility] Rx#:[id number] Oral 560 Output: Urine 850 Other: Voiding Method Toilet Toilet Urinal # Voids 4 # Bowel Movements 1 - Labs CBC & Chem 7: 10/22/22 03:20 10/22/22 14:25 Labs: Abnormal Lab Results - Last 24 Hours (Table) 10/22/22 10/22/22 10/22/22 Range/Units 03:20 03:20 03:20 WBC 19.16 H (4.50-10.00) X 10*3/uL Hgb 12.8 L (13.0-17.0) g/dL MCHC 31.8 L (32.0-37.0) g/dL RDW 17.6 H (11.5-14.5) % Plt Count 75 L (140-440) X 10*3/uL Plt Count Comment DECREASED A MPV 13.3 H (9.5-12.2) fL Immature Gran # 0.21 H (0.00-0.04) X 10*3/uL Neutrophils # 16.78 H (1.80-7.70) X 10*3/uL Eosinophils # 0.01 L (0.04-0.35) X 10*3/uL Immature Plt Fraction 16.8 H (1.1-6.1) % Sodium 133 L (135-145) mmol/L Potassium 3.4 L (3.5-5.5) mmol/L Glucose 144 H (70-110) mg/dL Calcium 8.3 L (8.7-10.3) mg/dL Total Bilirubin (0.2-1.3) mg/dL AST (17-59) U/L ALT (4-49) U/L Alkaline Phosphatase (38-126) U/L Procalcitonin 46.00 H (0.02-0.09) ng/mL Urine Protein (Negative) Urine Ketones (Negative) Urine Blood (Negative) Urine Bilirubin (Negative) Urine RBC (0-5) /hpf Urine Mucus (None) /hpf 10/22/22 10/22/22 Range/Units 03:20 11:15 WBC (4.50-10.00) X 10*3/uL Hgb (13.0-17.0) g/dL MCHC (32.0-37.0) g/dL RDW (11.5-14.5) % Plt Count (140-440) X 10*3/uL Plt Count Comment MPV (9.5-12.2) fL Immature Gran # (0.00-0.04) X 10*3/uL Neutrophils # (1.80-7.70) X 10*3/uL Eosinophils # (0.04-0.35) X 10*3/uL Immature Plt Fraction (1.1-6.1) % Sodium (135-145) mmol/L Potassium (3.5-5.5) mmol/L Glucose (70-110) mg/dL Calcium (8.7-10.3) mg/dL Total Bilirubin 2.6 H (0.2-1.3) mg/dL AST 162 H (17-59) U/L ALT 77 H (4-49) U/L Alkaline Phosphatase 157 H (38-126) U/L Procalcitonin (0.02-0.09) ng/mL Urine Protein 1+ H (Negative) Urine Ketones 2+ H (Negative) Urine Blood Moderate H (Negative) Urine Bilirubin 2+ H (Negative) Urine RBC 29 H (0-5) /hpf Urine Mucus Rare H (None) /hpf Microbiology - Last 24 Hours (Table) 10/19/22 17:01 Stool Culture - Preliminary Stool 10/19/22 13:58 Blood Culture - Preliminary Blood No Growth after 48 hours 10/19/22 13:58 Blood Culture - Preliminary Blood No Growth after 48 hours
--- NOTE | 2022-10-22 14:20 | US ---
EXAMINATION TYPE: US abdomen complete DATE OF EXAM: 10/22/2022 COMPARISON: CT abdomen and pelvis 4 days earlier CLINICAL HISTORY: elevated LFT. TECHNIQUE: Multiple sonographic images of the abdomen are obtained. FINDINGS: EXAM MEASUREMENTS: Liver Length: 22.9 cm Gallbladder Wall: Surgically absent CBD: Not visualized Spleen: 12.9 cm Right Kidney: Not well visualized Left Kidney: Not well visualized RECORD CENTER SPECIALIST NOTES: Severely limited by overlying bowel gas and body habitus. Pancreas: Obscured by bowel gas Liver: Increased attenuation, decreased visualization of vessels suggestive of fatty infiltrate. En larged right lobe Gallbladder: Surgically absent Evidence for sonographic [place]'s sign: No CBD: Obscured by overlying bowel gas Spleen: limited but wnl Right Kidney: Obscured by overlying bowel gas Left Kidney: Obscured by overlying bowel gas Upper IVC: Obscured by overlying bowel gas Abd Aorta: Obscured by overlying bowel gas Exam markedly suboptimal due to body habitus and overlying bowel gas. Suboptimal evaluation of the ao rta along with the pancreas and the abdominal aorta. Visualized liver markedly heterogeneously hypere choic. No obvious biliary dilatation. Gallbladder surgically absent. Nonvisualization of either kidne y. Only portion of spleen seen. IMPRESSION: Markedly suboptimal study. Diffuse fatty infiltration of liver noted on recent CT.
[2022-10-22] MEDS: LEVOFLOXACIN 500MG-D5W PMX 500 MG in DEXTROSE/WATER 1 100ML.BAG IVPB SCH (16:09)
[2022-10-22] MEDS ORDERED: POTASSIUM CHLORIDE ER 20 MEQ TAB.ER PO SCH (19:00)
[2022-10-22] MEDS ORDERED: DEXTROSE 50% SYRINGE 50 ML IVP PRN ×2 (19:28)
--- NOTE | 2022-10-22 19:31 | P.PN ---
Subjective This is a pleasant 41 years old male with no significant past medical history. He has past psychiatric history of depression, anxiety, PTSD. He is every day smoker. He had previous cholecystectomy. He presents because of abdominal pain and fever 2 nights ago, he had CT of the abdomen and discharge home Her chest today with nausea vomiting and diarrhea with generalized abdominal pain and fever and chills at home Patient states that his pain in the epigastrium about 7/10 since yesterday felt like sharp, nonradiating associated with vomiting was this morning with no blood. Patient has poor appetite not eating and drinking well over the last 2 days. He has watery bowel movement about twice today. No blood. Associated with little headache. He denies any other symptoms, no dysuria or urgency. No chest pain or dyspnea or coughing. No weakness or numbness or dizziness. Usually he smokes half pack per day and he was counseled to quit and he agrees but declines nicotine patch. No alcohol or illicit drugs. Vitals are stable, afebrile here, however yesterday he had a fever of 102 Lap showing leukocytosis of 17,000 however patient has chronic leukocytosis of 10-17,000. W see yesterday were 13.5. Rest of CBC is unremarkable Mild hyponatremic with 34 and hypokalemic 3.2. Creatinine normal at 0.9. Glucose elevated 2-4. Platelet count slightly low at 129 EKG showing normal sinus rhythm at 90 mL with no significant ST-T changes. amylase and lipase yesterday were negative and the flow was at this was negative liver enzymes not elevated CT of the abdomen and pelvis done with contrast yesterday showing atelectasis of the lung bases which is new compared to old exam. There is fatty infiltration of the liver which was fully new compared to old exam. There is cholecystectomy. Numerous sigmoid diverticula with no diverticulitis. No signs of bowel obstruction 10/20/2012 Patient still nothing by mouth, he has mild infraumbilical pain and tenderness, Bradley 5 does not control well therefore will increase it to Bradley 10 mg, risks and benefits are explained for the patient and he agrees. Vitals were stable, he had 99.9 temperature this morning. He still has frequent diarrhea and triggers every 20 minutes as watery diarrhea as he states. Procalcitonin is elevated to 38.8 he is still nothing by mouth this morningm . Surgery team was consulted. Also consult GI team patient remains on normal saline with 30 mL per hour plus Levaquin and Flagyl. C. diff negative. 10/21/2022 Patient was with severe nausea this morning, Zofran is added. Diet is going to be advanced today into full liquid diet He had quite a bit of diarrhea yesterday however this morning looks better His abdominal pain looks controlled as well. Leukocytosis with 20,000, Hemoglobin A1c is 7.6%, patient with no history of diabetes and will be informed. ID team consult for gram-positive blood culture Continue with Flagyl and Levaquin and normal saline at 1:30 milliliter 12/22/2021 Patient sitting in chair looks comfortable not in distress he is on liquid diet with no significant nausea vomiting, his abdominal pain and tenderness is mild but he still has frequent bowel movement about 4 times per day. Social culture are still pending. Patient labs shows slight worsening with persistent leukocytosis, thrombocytopenia at 75,000, with increased liver enzymes and bilirubin of 2.6. Therefore antibiotics were adjusted into Flagyl and Levaquin, Rocephin was added today. Blood culture come back positive for enterococcus Liver ultrasound was unremarkable, gallbladder absent, fatty liver, kidneys are secured it but a lot of gas. Hemoglobin A1c is elevated at 7.6%, patient does not have history of diabetes, he was informed he has new diagnosis of diabetes mellitus and new consult for dietitian and case loader operator for provision of glucometer is ordered and Continue with IV fluids. Review of systems CONSTITUTIONAL: No fever, no malaise, no fatigue. HEENT: No recent visual problems or hearing problems. Denied any sore throat. CARDIOVASCULAR: No orthopnea, PND, no palpitations, no syncope. PULMONARY: No shortness of breath, no cough, no hemoptysis. NEUROLOGICAL: No headaches, no weakness, no numbness. HEMATOLOGICAL: Denies any bleeding or petechiae. Active Medications Generic Name Dose Route Start Last Admin Trade Name Freq PRN Reason Stop Dose Admin Acetaminophen 325 mg 10/19/22 13:19 10/22/22 02:10 Acetaminophen Tab 325 Mg Tab PO 325 mg Q6HR PRN Administration Fever and/ or Pain Hydrocodone Bitart/Acetaminophen 1 each 10/20/22 11:32 10/22/22 12:12 Hydrocodone/Apap 10-325mg 1 Each Tab PO 1 each Q6HR PRN Administration Pain Dextrose/Water 25 ml 10/22/22 19:28 Dextrose 50% Syringe 50 Ml IVP PER PROTOCOL PRN Hypoglycemia Protocol Dextrose/Water 50 ml 10/22/22 19:28 Dextrose 50% Syringe 50 Ml IVP PER PROTOCOL PRN Hypoglycemia Protocol Famotidine 20 mg 10/20/22 21:00 10/21/22 21:33 Famotidine 20 Mg/2 Ml Vial IV 20 mg HS [facility] Administration Heparin Sodium (Porcine) 5,000 unit 10/19/22 21:00 10/22/22 08:44 Heparin Sodium,Porcine/Pf 5,000 Unit/0.5 Ml Syringe SQ 5,000 unit Q12HR [facility] Administration Hydromorphone HCl 0.5 mg 10/20/22 11:04 10/22/22 09:35 Hydromorphone 0.5 Mg/0.5 Ml Syringe IVP 0.5 mg Q4HR PRN Administration Pain Sodium Chloride 1,000 mls @ 130 mls/hr 10/19/22 13:15 10/22/22 10:24 Saline 0.9% IV 130 mls/hr .Q7H42M [facility] Administration Metronidazole 500 mg/ IV 100 mls @ 100 mls/hr 10/19/22 14:00 10/22/22 17:34 Solution IVPB 100 mls/hr Q8HR [facility] Administration Protocol Levofloxacin 500 mg/ IV 100 mls @ 100 mls/hr 10/19/22 14:00 10/22/22 16:09 Solution IVPB 100 mls/hr DAILY@1400 [facility] Administration Protocol Ceftriaxone Sodium 1 gm/ 50 mls @ 100 mls/hr 10/22/22 12:15 10/22/22 13:59 Sodium Chloride IVPB 100 mls/hr Q24HR [facility] Administration Protocol Insulin Aspart 0 unit 10/22/22 21:00 Insulin Aspart (Novolog) 100 Unit/Ml Vial SQ ACHS [facility] Protocol Loperamide HCl 2 mg 10/20/22 12:08 Loperamide 2 Mg Cap PO QID PRN Diarrhea Miscellaneous Information 1 each 10/19/22 22:07 Potassium Replacement Protocol 1 Each Misc MISCELLANE DAILY PRN Per Protocol Protocol Miscellaneous Information 1 each 10/19/22 22:07 Magnesium Replacement Protocol 1 Each Misc MISCELLANE DAILY PRN Per Protocol Protocol Naloxone HCl 0.2 mg 10/19/22 13:15 Naloxone 0.4 Mg/Ml 1 Ml Vial IV Q2M PRN Opioid Reversal Ondansetron HCl 4 mg 10/21/22 08:08 10/21/22 13:22 Ondansetron 4 Mg/2 Ml Vial IVP 4 mg Q6HR PRN Administration Nausea And Vomiting Pantoprazole Sodium 40 mg 10/21/22 09:00 10/22/22 08:44 Pantoprazole 40 Mg/10 Ml Vial IVP 40 mg DAILY [facility] Administration Sertraline HCl 25 mg 10/20/22 09:00 10/22/22 08:44 Sertraline 25 Mg Tab PO 25 mg DAILY [facility] Administration Sertraline HCl 100 mg 10/20/22 09:00 10/22/22 08:44 Sertraline 100 Mg Tab PO 100 mg DAILY [facility] Administration Objective - Vital Signs Vital signs: Vital Signs Temp 97.9 F 10/22/22 04:30 Pulse 93 10/22/22 04:30 Resp 19 10/22/22 04:30 BP 123/75 10/22/22 04:30 Pulse Ox 92 L 10/22/22 04:30 FiO2 Intake & Output 10/21/22 10/22/22 10/22/22 18:59 06:59 18:59 Intake Total 1860 560 Output Total 850 Balance 1860 -290 Intake: Intake, IV Titration 1860 Amount Levofloxacin 500Mg-D5w 100 Pmx 500 mg In Dextrose/ Water 1 100ml.bag @ 100 mls/hr IVPB DAILY@1400 [facility] Rx#:[id number] Sodium Chloride 0.9% 1, 1560 000 ml @ 130 mls/hr IV . Q7H42M [facility] Rx#:[id number] metroNIDAZOLE-NS PMX 500 200 mg In Saline 1 100ml.bag @ 100 mls/hr IVPB Q8HR [facility] Rx#:[id number] Oral 560 Output: Urine 850 Other: Voiding Method Toilet Toilet Urinal # Voids 4 # Bowel Movements 1 - Exam -GENERAL: The patient is alert and oriented x3, not in any acute distress. Obese HEENT: Pupils are round and equally reacting to light. EOMI. No scleral icterus. No conjunctival pallor. Normocephalic, atraumatic. No pharyngeal erythema. No thyromegaly. CARDIOVASCULAR: S1 and S2 present. No murmurs, rubs, or gallops. PULMONARY: Chest is clear to auscultation, no wheezing or crackles. -ABDOMEN: Soft, mild periumbilical tenderness, nondistended, normoactive bowel sounds. No palpable organomegaly. MUSCULOSKELETAL: No joint swelling or deformity. EXTREMITIES: No cyanosis, clubbing, or pedal edema. NEUROLOGICAL: Gross neurological examination did not reveal any focal deficits. SKIN: No rashes. no petechiae. - Labs CBC & Chem 7: 10/22/22 03:20 10/22/22 14:25 Labs: Abnormal Lab Results - Last 24 Hours (Table) 10/22/22 10/22/22 10/22/22 Range/Units 03:20 03:20 03:20 WBC 19.16 H (4.50-10.00) X 10*3/uL Hgb 12.8 L (13.0-17.0) g/dL MCHC 31.8 L (32.0-37.0) g/dL RDW 17.6 H (11.5-14.5) % Plt Count 75 L (140-440) X 10*3/uL Plt Count Comment DECREASED A MPV 13.3 H (9.5-12.2) fL Immature Gran # 0.21 H (0.00-0.04) X 10*3/uL Neutrophils # 16.78 H (1.80-7.70) X 10*3/uL Eosinophils # 0.01 L (0.04-0.35) X 10*3/uL Immature Plt Fraction 16.8 H (1.1-6.1) % Sodium 133 L (135-145) mmol/L Potassium 3.4 L (3.5-5.5) mmol/L Glucose 144 H (70-110) mg/dL Calcium 8.3 L (8.7-10.3) mg/dL Total Bilirubin (0.2-1.3) mg/dL AST (17-59) U/L ALT (4-49) U/L Alkaline Phosphatase (38-126) U/L Procalcitonin 46.00 H (0.02-0.09) ng/mL 10/22/22 Range/Units 03:20 WBC (4.50-10.00) X 10*3/uL Hgb (13.0-17.0) g/dL MCHC (32.0-37.0) g/dL RDW (11.5-14.5) % Plt Count (140-440) X 10*3/uL Plt Count Comment MPV (9.5-12.2) fL Immature Gran # (0.00-0.04) X 10*3/uL Neutrophils # (1.80-7.70) X 10*3/uL Eosinophils # (0.04-0.35) X 10*3/uL Immature Plt Fraction (1.1-6.1) % Sodium (135-145) mmol/L Potassium (3.5-5.5) mmol/L Glucose (70-110) mg/dL Calcium (8.7-10.3) mg/dL Total Bilirubin 2.6 H (0.2-1.3) mg/dL AST 162 H (17-59) U/L ALT 77 H (4-49) U/L Alkaline Phosphatase 157 H (38-126) U/L Procalcitonin (0.02-0.09) ng/mL Microbiology - Last 24 Hours (Table) 10/19/22 17:01 Stool Culture - Preliminary Stool 10/19/22 13:58 Blood Culture - Preliminary Blood No Growth after 48 hours 10/19/22 13:58 Blood Culture - Preliminary Blood No Growth after 48 hours Assessment and Plan Assessment: acute infectious gastroenteritis Sepsis with worsening leukocytosis and fever Gram-positive bacteremia secondary to earococcus Possible new-onset diabetes with hemoglobin A1c 7.6% Nicotine dependence History of depression, PTSD and bipolar, not an active issue Plan: start Levaquin and ceftriaxone added, and Flagyl , follow-up stool studies Continue with bowel rest advance diet as tolerated, currently on liquid diet IV hydration Pain medication Surgery and GI team consult ID team consult Labs and medication were reviewed.. Continue same treatment. Continue with symptomatic treatment. Resume home medication. Monitor labs and vitals. DVT and GI prophylaxis. Further recommendations as per clinical course of the patient DVT prophylaxis: Subcutaneous heparin GI Prophylaxis: Pepcid Prognosis is guarded
[2022-10-22] MEDS: FAMOTIDINE 20 MG/2 ML VIAL IV SCH (19:55)
[2022-10-22 21:06] LABS: Glucose,Whole Blood 152 mg/dL (70-110)
[2022-10-22] MEDS: INSULIN ASPART (NovoLOG) 100 UNIT/ML VIAL SQ SCH (21:08)
[2022-10-23] MEDS: SODIUM CHLORIDE 0.9% 1,000 ML IV SCH ×3 (05:08→17:14)
[2022-10-23 07:09] LABS: Glucose,Whole Blood 138 mg/dL (70-110)
--- NOTE | 2022-10-23 07:29 | XR ---
EXAMINATION TYPE: XR KUB DATE OF EXAM: 10/23/2022 7:09 AM CLINICAL HISTORY: Abdominal distention. TECHNIQUE: 3 portable supine KUB images of the abdomen are obtained. COMPARISON: CT abdomen and pelvis October 18, 2022. FINDINGS: Some paucity of bowel gas gas seen in nondistended stomach as well as scattered small and l arge bowel loops. Cholecystectomy clips are redemonstrated. There are pelvic phleboliths redemonstrat ed. Osseous structures are intact. Lung bases are not included. IMPRESSION: Overall nonspecific strongly favor nonobstructive bowel gas pattern. No significant medina e from recent CT.
[2022-10-23] MEDS: INSULIN ASPART (NovoLOG) 100 UNIT/ML VIAL SQ SCH ×4 (07:38→21:21)
[2022-10-23 11:01] LABS: Magnesium 1.9 mg/dL (1.5-2.4)
[2022-10-23] MEDS: SERTRALINE 25 MG TAB PO SCH (11:05)
[2022-10-23] MEDS: metroNIDAZOLE-NS PMX 500 MG in SALINE 1 100ML.BAG IVPB SCH ×3 (11:05→23:19)
[2022-10-23] MEDS: PANTOPRAZOLE 40 MG/10 ML VIAL IVP SCH (11:05)
[2022-10-23] MEDS: HEPARIN SODIUM,PORCINE/PF 5,000 UNIT/0.5 ML SYRINGE SQ SCH (11:05)
[2022-10-23] MEDS: SERTRALINE 100 MG TAB PO SCH (11:06)
[2022-10-23 11:19] LABS: Basophils # (A) 0.04 X 10*3/uL (0.00-0.10); Basophils % (A) 0.3 %; Eosinophils # (A) 0.04 X 10*3/uL (0.04-0.35); Eosinophils % (A) 0.3 %; HCT 36.8 % (39.6-50.0); HGB 12.2 g/dL (13.0-17.0); Immature Grans, Automated 1.9 %; Immature Platelet Fraction 19.5 % (1.1-6.1); Lymphocytes # (A) 1.85 X 10*3/uL (0.90-5.00); Lymphocytes % (A) 13.7 %; MCHC 33.2 g/dL (32.0-37.0); MCV 84.6 fL (80.0-97.0); Mean Platelet Volume 12.6 fL (9.5-12.2); Monocytes # (A) 1.02 X 10*3/uL (0.20-1.00); Monocytes % (A) 7.6 %; NRBC Per 100 WBC 0 /100 WBCS (0.0-0.0); Neutrophils # (A) 10.28 X 10*3/uL (1.80-7.70); Neutrophils % (A) 76.2 %; Platelet Count 67 X 10*3/uL (140-440); RBC 4.35 X 10*6/uL (4.40-5.60); RDW 17.5 % (11.5-14.5); WBC 13.48 X 10*3/uL (4.50-10.00)
[2022-10-23 11:22] LABS: Glucose,Whole Blood 127 mg/dL (70-110)
--- NOTE | 2022-10-23 11:38 | P.PN ---
Subjective Progress Note Date: 10/23/22 CHIEF COMPLAINT: Abdominal pain and diarrhea HISTORY OF PRESENT ILLNESS: Patient sitting in bedside chair. He reports that he is feeling better today. He denies any nausea or vomiting. Denies any abdominal pain. He reports having formed stool. Still reports his lower back pain. But reports that the pain is back to his usual pain. Afebrile. WBC 19.16 down to 13.48 hemoglobin 0.9 plt trending down 67 lipase 391 amylase 73 CMP for today pending. Urinalysis negative for infection. Abdominal ultrasound suboptimal study due to body habitus and overlying, bowel gas. Diffuse fatty infiltration of liver. Gallbladder surgically absent. KUB x-ray overall nonspecific nonobstructive bowel gas pattern. Stool studies negative. Patient does report his urine remains dark PHYSICAL EXAM: VITAL SIGNS: Reviewed. GENERAL: Well-developed in no acute distress. HEENT: No sclera icterus. Extraocular movements grossly intact. Moist buccal mucosa. Head is atraumatic, normocephalic. ABDOMEN: Soft. Nondistended. Nontender NEUROLOGIC: Alert and oriented. Cranial nerves II through XII grossly intact. ASSESSMENT: 1. Abdominal pain with diarrhea improving 2. Possible gastroenteritis 3. Leukocytosis 4. Mild thickening mid sigmoid colon noted on CAT scan 5. Elevated LFTs and total bilirubin 6. Thrombocytopenia on SC heparin PLAN: -Continue supportive care -Continue antibiotics -Advance diet to regular -Follow up on CMP Physician Tin Worker note has been reviewed by physician. Signing provider agrees with the documented findings, assessment, and plan of care. I have personally seen and examined the patient, reviewed the WELFARE VISITOR /PAs history, exam and MDM and agree with the assessment and plan as written. Based on total visit time, I have performed more than 50% of the visit. As above: Patient says he feels better. No abdominal pain at this time. Right upper quadrant ultrasound and today's labs reviewed. GI opinion noted. Agree with advancing diet. May discharge her tolerates. Objective - Vital Signs Vital signs: Vital Signs Temp 98 F 10/23/22 05:00 Pulse 100 10/23/22 05:00 Resp 16 10/23/22 05:00 BP 130/79 10/23/22 05:00 Pulse Ox 91 L 10/23/22 05:00 FiO2 Intake & Output 10/22/22 10/23/22 10/23/22 18:59 06:59 18:59 Intake Total 1800 Output Total 200 900 Balance -200 900 Intake: Intake, IV Titration 1500 Amount Sodium Chloride 0.9% 1, 1400 000 ml @ 130 mls/hr IV . Q7H42M [facility]OL Rx#:[id number] metroNIDAZOLE-NS PMX 500 100 mg In Saline 1 100ml.bag @ 100 mls/hr IVPB Q8HR K[facility]OL Rx#:[id number] Oral 300 Output: Urine 200 900 Other: Voiding Method Toilet Toilet Urinal Urinal # Voids 4 # Bowel Movements 1 - Labs CBC & Chem 7: 10/23/22 07:38 10/23/22 07:38 Labs: Abnormal Lab Results - Last 24 Hours (Table) 10/22/22 10/22/22 10/22/22 Range/Units 03:20 11:15 21:05 WBC (4.50-10.00) X 10*3/uL RBC (4.40-5.60) X 10*6/uL Hgb (13.0-17.0) g/dL Hct (39.6-50.0) % RDW (11.5-14.5) % Plt Count (140-440) X 10*3/uL MPV (9.5-12.2) fL Immature Gran # (0.00-0.04) X 10*3/uL Neutrophils # (1.80-7.70) X 10*3/uL Monocytes # (0.20-1.00) X 10*3/uL Immature Plt Fraction (1.1-6.1) % POC Glucose (mg/dL) 152 H (70-110) mg/dL Lipase 391 H (23-300) U/L Urine Protein 1+ H (Negative) Urine Ketones 2+ H (Negative) Urine Blood Moderate H (Negative) Urine Bilirubin 2+ H (Negative) Urine RBC 29 H (0-5) /hpf Urine Mucus Rare H (None) /hpf 10/23/22 10/23/22 10/23/22 Range/Units 07:07 07:38 11:21 WBC 13.48 H (4.50-10.00) X 10*3/uL RBC 4.35 L (4.40-5.60) X 10*6/uL Hgb 12.2 L (13.0-17.0) g/dL Hct 36.8 L (39.6-50.0) % RDW 17.5 H (11.5-14.5) % Plt Count 67 L (140-440) X 10*3/uL MPV 12.6 H (9.5-12.2) fL Immature Gran # 0.25 H (0.00-0.04) X 10*3/uL Neutrophils # 10.28 H (1.80-7.70) X 10*3/uL Monocytes # 1.02 H (0.20-1.00) X 10*3/uL Immature Plt Fraction 19.5 H (1.1-6.1) % POC Glucose (mg/dL) 138 H 127 H (70-110) mg/dL Lipase (23-300) U/L Urine Protein (Negative) Urine Ketones (Negative) Urine Blood (Negative) Urine Bilirubin (Negative) Urine RBC (0-5) /hpf Urine Mucus (None) /hpf Microbiology - Last 24 Hours (Table) 10/19/22 13:58 Blood Culture - Preliminary Blood No Growth after 72 hours 10/19/22 13:58 Blood Culture - Preliminary Blood No Growth after 72 hours 10/19/22 17:01 Stool Culture - Final Stool 10/18/22 23:15 Blood Culture Gram Stain - Final Blood Blood Culture - Final Aerococcus species
[2022-10-23 11:47] LABS: INR 1.01 (0.90-1.11); Prothrombin Time 11.4 sec (9.9-11.9)
[2022-10-23 12:00] LABS: African American GFR (CKD) 137.8 (60.0-200.0); Albumin 2.7 g/dL (3.8-4.9); Albumin/Globulin Ratio 1.13 (1.60-3.17); Anion Gap 10.4 mmol/L (10.00-18.00); BUN/Creat Ratio 14.14 Ratio (12.00-20.00); Bilirubin, Conjugated 2.99 mg/dL (0.20-0.40); Bilirubin,Unconjugated 0.31 mg/dL (0.20-1.00); Blood Urea Nitrogen 9.9 mg/dL (9.0-27.0); Calcium 7.8 mg/dL (8.7-10.3); Carbon Dioxide 22.6 mmol/L (20.0-27.5); Globulin 2.4 g/dL (1.6-3.3); Non-African American GFR(CKD) 118.9 (60.0-200.0); Potassium 3.4 mmol/L (3.5-5.5); Total Bilirubin 3.3 mg/dL (0.30-1.20); Total Protein 5.1 g/dL (6.2-8.2)
[2022-10-23] MEDS: LEVOFLOXACIN 500MG-D5W PMX 500 MG in DEXTROSE/WATER 1 100ML.BAG IVPB SCH (13:41)
[2022-10-23] MEDS: HYDROmorphone 0.5 MG/0.5 ML SYRINGE IVP PRN (13:51)
--- NOTE | 2022-10-23 14:40 | P.PN ---
Subjective Progress Note Date: 10/23/22 Principal diagnosis: Abdominal pain Patient was seen and examined today as a follow-up for diarrhea and abdominal pain. Patient's blood culture had come back positive for Aerococcus species, he remains on IV Levaquin, Flagyl and also was started on Rocephin by infectious disease. Patient had increase in LFTs today total bilirubin 3.3 up from 2.6 conjugated bili 2.9 unconjugated 0.3 AST 122 ALT 71 alk phosphatase 145. Patient states he's feeling much better today. Pending continues with no diarrhea. He is passing gas no bowel movement today. No abdominal pain no nausea or vomiting. He's been afebrile. Yesterday's ultrasound of the liver showed diffuse fatty infiltration of liver noted Objective - Vital Signs Vital signs: Vital Signs Temp 98 F 10/23/22 05:00 Pulse 100 10/23/22 05:00 Resp 16 10/23/22 05:00 BP 130/79 10/23/22 05:00 Pulse Ox 91 L 10/23/22 05:00 FiO2 Intake & Output 10/22/22 10/23/22 10/23/22 18:59 06:59 18:59 Intake Total 1800 Output Total 200 900 Balance -200 900 Intake: Intake, IV Titration 1500 Amount Sodium Chloride 0.9% 1, 1400 000 ml @ 130 mls/hr IV . Q7H42M K[facility]OL Rx#:[id number] metroNIDAZOLE-NS PMX 500 100 mg In Saline 1 100ml.bag @ 100 mls/hr IVPB Q8HR K[facility]OL Rx#:[id number] Oral 300 Output: Urine 200 900 Other: Voiding Method Toilet Toilet Urinal Urinal # Voids 4 # Bowel Movements 1 - Exam General appearance: The patient is alert, oriented, appears in no acute distress. HET: Head is normocephalic and atraumatic. Conjunctiva pink. Sclera anicteric. Neck: Supple without lymphadenopathy. Abdomen: Soft, Obese, nontender, nondistended with bowel sounds. No guarding or rigidity. Extremities: Normal skin color and turgor. No pedal edema Skin: No rashes, no jaundice Neurological: No focal deficits. Alert and oriented. - Labs CBC & Chem 7: 10/23/22 07:38 10/23/22 07:38 Labs: Abnormal Lab Results - Last 24 Hours (Table) 11/30/22 11/30/22 11/30/22 Range/Units 03:20 03:20 03:20 WBC 19.16 H (4.50-10.00) X 10*3/uL Hgb 12.8 L (13.0-17.0) g/dL MCHC 31.8 L (32.0-37.0) g/dL RDW 17.6 H (11.5-14.5) % Plt Count 75 L (140-440) X 10*3/uL Plt Count Comment DECREASED A MPV 13.3 H (9.5-12.2) fL Immature Gran # 0.21 H (0.00-0.04) X 10*3/uL Neutrophils # 16.78 H (1.80-7.70) X 10*3/uL Eosinophils # 0.01 L (0.04-0.35) X 10*3/uL Immature Plt Fraction 16.8 H (1.1-6.1) % Sodium 133 L (135-145) mmol/L Potassium 3.4 L (3.5-5.5) mmol/L Glucose 144 H (70-110) mg/dL POC Glucose (mg/dL) (70-110) mg/dL Calcium 8.3 L (8.7-10.3) mg/dL Total Bilirubin (0.2-1.3) mg/dL AST (17-59) U/L ALT (4-49) U/L Alkaline Phosphatase (38-126) U/L Lipase (23-300) U/L Procalcitonin 46.00 H (0.02-0.09) ng/mL Urine Protein (Negative) Urine Ketones (Negative) Urine Blood (Negative) Urine Bilirubin (Negative) Urine RBC (0-5) /hpf Urine Mucus (None) /hpf 10/22/22 10/22/22 10/22/22 Range/Units 03:20 03:20 11:15 WBC (4.50-10.00) X 10*3/uL Hgb (13.0-17.0) g/dL MCHC (32.0-37.0) g/dL RDW (11.5-14.5) % Plt Count (140-440) X 10*3/uL Plt Count Comment MPV (9.5-12.2) fL Immature Gran # (0.00-0.04) X 10*3/uL Neutrophils # (1.80-7.70) X 10*3/uL Eosinophils # (0.04-0.35) X 10*3/uL Immature Plt Fraction (1.1-6.1) % Sodium (135-145) mmol/L Potassium (3.5-5.5) mmol/L Glucose (70-110) mg/dL POC Glucose (mg/dL) (70-110) mg/dL Calcium (8.7-10.3) mg/dL Total Bilirubin 2.6 H (0.2-1.3) mg/dL AST 162 H (17-59) U/L ALT 77 H (4-49) U/L Alkaline Phosphatase 157 H (38-126) U/L Lipase 391 H (23-300) U/L Procalcitonin (0.02-0.09) ng/mL Urine Protein 1+ H (Negative) Urine Ketones 2+ H (Negative) Urine Blood Moderate H (Negative) Urine Bilirubin 2+ H (Negative) Urine RBC 29 H (0-5) /hpf Urine Mucus Rare H (None) /hpf 10/22/22 10/23/22 Range/Units 21:05 07:07 WBC (4.50-10.00) X 10*3/uL Hgb (13.0-17.0) g/dL MCHC (32.0-37.0) g/dL RDW (11.5-14.5) % Plt Count (140-440) X 10*3/uL Plt Count Comment MPV (9.5-12.2) fL Immature Gran # (0.00-0.04) X 10*3/uL Neutrophils # (1.80-7.70) X 10*3/uL Eosinophils # (0.04-0.35) X 10*3/uL Immature Plt Fraction (1.1-6.1) % Sodium (135-145) mmol/L Potassium (3.5-5.5) mmol/L Glucose (70-110) mg/dL POC Glucose (mg/dL) 152 H 138 H (70-110) mg/dL Calcium (8.7-10.3) mg/dL Total Bilirubin (0.2-1.3) mg/dL AST (17-59) U/L ALT (4-49) U/L Alkaline Phosphatase (38-126) U/L Lipase (23-300) U/L Procalcitonin (0.02-0.09) ng/mL Urine Protein (Negative) Urine Ketones (Negative) Urine Blood (Negative) Urine Bilirubin (Negative) Urine RBC (0-5) /hpf Urine Mucus (None) /hpf Microbiology - Last 24 Hours (Table) 10/19/22 13:58 Blood Culture - Preliminary Blood No Growth after 72 hours 10/19/22 13:58 Blood Culture - Preliminary Blood No Growth after 72 hours 10/19/22 17:01 Stool Culture - Final Stool 10/18/22 23:15 Blood Culture Gram Stain - Final Blood Blood Culture - Final Aerococcus species Assessment and Plan (1) Gastroenteritis Narrative/Plan: 41-year-old male presented to the emergency department with complaints of abdominal pain and diarrhea. Patient is having 6-7 loose stools daily and severe intermittent abdominal pain. Initially associated with some nausea and vomiting but none in the last day or so. He also states that this abdominal pain has been going on for the past several months as well as diarrhea. He recently underwent EGD and colonoscopy last week with Dr. Valentin at [facility] with findings of mild mild gastritis on EGD and normal colonoscopy. Biopsy results just showing some mild inflammation, gastritis. Patient did present with leukocytosis, has elevated [id number] with slight temp of 99.9 this morning. Patient likely has underlying gastroenteritis, likely infectious. Stool for C. diff was negative, rotavirus as well as influenza negative. No plans at this time for any endoscopic evaluation continue IV Levaquin and Flagyl. Continue with recommendations from infectious disease. Patient showing gram-positive cocci growth and his blood cultures. Symptoms have resolved. Recommend discontinuation of IV antibiotics when able due to elevated LFTs Current Visit: Yes Status: Acute Code(s): K52.9 - NONINFECTIVE GASTROENTERITIS AND COLITIS, UNSPECIFIED SNOMED Code(s): 82768158 (2) Abdominal pain Narrative/Plan: Patient likely has some underlying IBS, exacerbated at this time by a possible infectious gastroenteritis. Symptoms are resolved. Current Visit: Yes Status: Acute Code(s): R10.9 - UNSPECIFIED ABDOMINAL PAIN SNOMED Code(s): 98263858 (3) Elevated LFTs Narrative/Plan: Patient with elevated LFTs, unclear etiology could be medication induced. Patient denies any previous history of alcohol abuse or underlying liver disease. Patient is obese Have some underlying hepatic steatosis. Will order liver ultrasound Liver ultrasound reviewed with diffuse fatty liver. Patient likely has underlying fatty liver disease with superimposed LFTs likely due to antibiotic therapy. I would recommend discontinuation or switching antibiotics to non- hepatotoxic medications when possible. Current Visit: Yes Status: Acute Code(s): R79.89 - OTHER SPECIFIED ABNORMAL FINDINGS OF BLOOD CHEMISTRY SNOMED Code(s): 402444055 (4) Bacteremia Current Visit: Yes Status: Acute Code(s): R78.81 - BACTEREMIA SNOMED Code(s): 2188045 (5) Thrombocytopenia Narrative/Plan: Patient denies any history of underlying liver disease no alcohol history. Consider possible heparin-induced thrombocytopenia, patient has been on heparin since admission. Consider consult hematology Current Visit: Yes Status: Acute Code(s): D69.6 - THROMBOCYTOPENIA, UNSPECIFIED SNOMED Code(s): 851977145 Plan: 1. Continue symptomatic and supportive care 2. Continue full liquid diet, advance as tolerated 3. Recommend judicial use of antibiotics due to elevated LFTs, recommend nonhepatotoxic antibiotics if possible 4. Antiemetics as needed 5. Protonix 40 mg daily for GI prophylaxis 6. Stool cultures negative to date 7. Consider hematology consult for thrombocytopenia 8. Liver ultrasound ordered and reviewed 9. Daily CBC CMP 10. Avoid hepatotoxic medications 11. Recommend outpatient follow-up for continued surveillance of LFTs, fatty liver disease Thank you for this consultation, we'll continue to follow. Dr. Saleem Valentin I agree with the dictator's note, documented as a scribe by Felicita Jacome.
[2022-10-23 17:06] LABS: Glucose,Whole Blood 116 mg/dL (70-110)
[2022-10-23] MEDS: POTASSIUM CHLORIDE ER 20 MEQ TAB.ER PO SCH ×2 (18:00→19:34)
[2022-10-23 20:57] LABS: Glucose,Whole Blood 159 mg/dL (70-110)
[2022-10-23] MEDS: FAMOTIDINE 20 MG/2 ML VIAL IV SCH (21:33)
[2022-10-23] MEDS ORDERED: POTASSIUM CHLORIDE ER 20 MEQ TAB.ER PO STA (22:04)
[2022-10-23 22:15] VITALS: RESP 18
--- NOTE | 2022-10-23 22:25 | P.PN ---
Subjective This is a pleasant 41 years old male with no significant past medical history. He has past psychiatric history of depression, anxiety, PTSD. He is every day smoker. He had previous cholecystectomy. He presents because of abdominal pain and fever 2 nights ago, he had CT of the abdomen and discharge home Her chest today with nausea vomiting and diarrhea with generalized abdominal pain and fever and chills at home Patient states that his pain in the epigastrium about 7/10 since yesterday felt like sharp, nonradiating associated with vomiting was this morning with no blood. Patient has poor appetite not eating and drinking well over the last 2 days. He has watery bowel movement about twice today. No blood. Associated with little headache. He denies any other symptoms, no dysuria or urgency. No chest pain or dyspnea or coughing. No weakness or numbness or dizziness. Usually he smokes half pack per day and he was counseled to quit and he agrees but declines nicotine patch. No alcohol or illicit drugs. Vitals are stable, afebrile here, however yesterday he had a fever of 102 Lap showing leukocytosis of 17,000 however patient has chronic leukocytosis of 10-17,000. W see yesterday were 13.5. Rest of CBC is unremarkable Mild hyponatremic with 34 and hypokalemic 3.2. Creatinine normal at 0.9. Glucose elevated 2-4. Platelet count slightly low at 129 EKG showing normal sinus rhythm at 90 mL with no significant ST-T changes. amylase and lipase yesterday were negative and the flow was at this was negative liver enzymes not elevated CT of the abdomen and pelvis done with contrast yesterday showing atelectasis of the lung bases which is new compared to old exam. There is fatty infiltration of the liver which was fully new compared to old exam. There is cholecystectomy. Numerous sigmoid diverticula with no diverticulitis. No signs of bowel obstruction 10/20/2012 Patient still nothing by mouth, he has mild infraumbilical pain and tenderness, [place] 5 does not control well therefore will increase it to [place] 10 mg, risks and benefits are explained for the patient and he agrees. Vitals were stable, he had 99.9 temperature this morning. He still has frequent diarrhea and triggers every 20 minutes as watery diarrhea as he states. Procalcitonin is elevated to 38.8 he is still nothing by mouth this morningm . Surgery team was consulted. Also consult GI team patient remains on normal saline with 30 mL per hour plus Levaquin and Flagyl. C. diff negative. 10/21/2022 Patient was with severe nausea this morning, Zofran is added. Diet is going to be advanced today into full liquid diet He had quite a bit of diarrhea yesterday however this morning looks better His abdominal pain looks controlled as well. Leukocytosis with 20,000, Hemoglobin A1c is 7.6%, patient with no history of diabetes and will be informed. ID team consult for gram-positive blood culture Continue with Flagyl and Levaquin and normal saline at 1:30 milliliter 12/22/2021 Patient sitting in chair looks comfortable not in distress he is on liquid diet with no significant nausea vomiting, his abdominal pain and tenderness is mild but he still has frequent bowel movement about 4 times per day. Social culture are still pending. Patient labs shows slight worsening with persistent leukocytosis, thrombocytopenia at 75,000, with increased liver enzymes and bilirubin of 2.6. Therefore antibiotics were adjusted into Flagyl and Levaquin, Rocephin was added today. Blood culture come back positive for enterococcus Liver ultrasound was unremarkable, gallbladder absent, fatty liver, kidneys are secured it but a lot of gas. Hemoglobin A1c is elevated at 7.6%, patient does not have history of diabetes, he was informed he has new diagnosis of diabetes mellitus and new consult for dietitian and returned case inspector for provision of glucometer is ordered and Continue with IV fluids. 10/23/2022 Better today and he was doing well with diet and wanted to be advanced, abdominal pain was mild with no vomiting and very mild abdominal pain. He had 2 bowel movements per day and it looks soft but not completely formed He did not have more bowel movements since then. His vitals are stable, no more fever. Deliveries improved down to 13,000. Platelet count came down to 67, hemoglobin stable at 12. Liver enzymes elevated with AST 120-1 ALT 7.1 and there was 3.3. Levofloxacin was discontinued for possible hepatotoxicity and patient continued with ceftriaxone and Flagyl upon recommendation of consultants. Sugar is controlled with diet. Patient told me he has glucometer at home when I told him he needs to check his sugar However 3 today patient did not tolerate the diet, we'll keep monitoring closely. Also patient has evidence of fatty liver Review of systems CONSTITUTIONAL: No fever, no malaise, no fatigue. HEENT: No recent visual problems or hearing problems. Denied any sore throat. CARDIOVASCULAR: No orthopnea, PND, no palpitations, no syncope. PULMONARY: No shortness of breath, no cough, no hemoptysis. NEUROLOGICAL: No headaches, no weakness, no numbness. HEMATOLOGICAL: Denies any bleeding or petechiae. Active Medications Generic Name Dose Route Start Last Admin Trade Name Freq PRN Reason Stop Dose Admin Acetaminophen 325 mg 10/19/22 13:19 10/22/22 02:10 Acetaminophen Tab 325 Mg Tab PO 325 mg Q6HR PRN Administration Fever and/ or Pain Hydrocodone Bitart/Acetaminophen 1 each 10/20/22 11:32 10/22/22 19:51 Hydrocodone/Apap 10-325mg 1 Each Tab PO 1 each Q6HR PRN Administration Pain Dextrose/Water 25 ml 10/22/22 19:28 Dextrose 50% Syringe 50 Ml IVP PER PROTOCOL PRN Hypoglycemia Protocol Dextrose/Water 50 ml 10/22/22 19:28 Dextrose 50% Syringe 50 Ml IVP PER PROTOCOL PRN Hypoglycemia Protocol Famotidine 20 mg 10/20/22 21:00 10/23/22 21:33 Famotidine 20 Mg/2 Ml Vial IV 20 mg HS KAROL Administration Hydromorphone HCl 0.5 mg 10/20/22 11:04 10/23/22 13:51 Hydromorphone 0.5 Mg/0.5 Ml Syringe IVP 0.5 mg Q4HR PRN Administration Pain Sodium Chloride 1,000 mls @ 130 mls/hr 10/19/22 13:15 10/23/22 17:14 Saline 0.9% IV Not Given .Q7H42M KAROL Metronidazole 500 mg/ IV 100 mls @ 100 mls/hr 10/19/22 14:00 10/23/22 17:15 Solution IVPB 100 mls/hr Q8HR KAROL Administration Protocol Ceftriaxone Sodium 2 gm/ 50 mls @ 100 mls/hr 10/24/22 09:00 Sodium Chloride IVPB Q24HR KAROL Protocol Insulin Aspart 0 unit 10/22/22 21:00 10/23/22 21:21 Insulin Aspart (Novolog) 100 Unit/Ml Vial SQ Not Given ACHS KAROL Protocol Loperamide HCl 2 mg 10/20/22 12:08 Loperamide 2 Mg Cap PO QID PRN Diarrhea Miscellaneous Information 1 each 10/19/22 22:07 Potassium Replacement Protocol 1 Each [facility] [place] PRN Per Protocol Protocol Miscellaneous Information 1 each 10/19/22 22:07 Magnesium Replacement Protocol 1 Each [facility] [place] PRN Per Protocol Protocol Naloxone HCl 0.2 mg 10/19/22 13:15 Naloxone 0.4 Mg/Ml 1 Ml Vial IV Q2M PRN Opioid Reversal Ondansetron HCl 4 mg 10/21/22 08:08 10/21/22 13:22 Ondansetron 4 Mg/2 Ml Vial IVP 4 mg Q6HR PRN Administration Nausea And Vomiting Pantoprazole Sodium 40 mg 10/21/22 09:00 10/23/22 11:05 Pantoprazole 40 Mg/10 Ml Vial IVP 40 mg DAILY KAROL Administration Sertraline HCl 25 mg 10/20/22 09:00 10/23/22 11:05 Sertraline 25 Mg Tab PO 25 mg DAILY KAROL Administration Sertraline HCl 100 mg 10/20/22 09:00 10/23/22 11:06 Sertraline 100 Mg Tab PO 100 mg DAILY KAROL Administration Objective - Vital Signs Vital signs: Vital Signs Temp 98.4 F 10/23/22 12:25 Pulse 89 10/23/22 12:25 Resp 20 10/23/22 12:25 BP 159/82 10/23/22 12:25 Pulse Ox 93 L 10/23/22 12:25 FiO2 Intake & Output 10/22/22 10/23/22 10/23/22 18:59 06:59 18:59 Intake Total 1800 Output Total 200 900 Balance -200 900 Intake: Intake, IV Titration 1500 Amount Sodium Chloride 0.9% 1, 1400 000 ml @ 130 mls/hr IV . Q7H42M KAROL Rx#:[id number] metroNIDAZOLE-NS PMX 500 100 mg In Saline 1 100ml.bag @ 100 mls/hr IVPB Q8HR KAROL Rx#:[id number] Oral 300 Output: Urine 200 900 Other: Voiding Method Toilet Toilet Urinal Urinal # Voids 4 # Bowel Movements 1 - Exam -GENERAL: The patient is alert and oriented x3, not in any acute distress. Obese HEENT: Pupils are round and equally reacting to light. EOMI. No scleral icterus. No conjunctival pallor. Normocephalic, atraumatic. No pharyngeal erythema. No thyromegaly. CARDIOVASCULAR: S1 and S2 present. No murmurs, rubs, or gallops. PULMONARY: Chest is clear to auscultation, no wheezing or crackles. -ABDOMEN: Soft, mild periumbilical tenderness, nondistended, normoactive bowel sounds. No palpable organomegaly. MUSCULOSKELETAL: No joint swelling or deformity. EXTREMITIES: No cyanosis, clubbing, or pedal edema. NEUROLOGICAL: Gross neurological examination did not reveal any focal deficits. SKIN: No rashes. no petechiae. - Labs CBC & Chem 7: 10/23/22 07:38 10/23/22 07:38 Labs: Abnormal Lab Results - Last 24 Hours (Table) 10/22/22 10/22/22 10/23/22 Range/Units 03:20 21:05 07:07 WBC (4.50-10.00) X 10*3/uL RBC (4.40-5.60) X 10*6/uL Hgb (13.0-17.0) g/dL Hct (39.6-50.0) % RDW (11.5-14.5) % Plt Count (140-440) X 10*3/uL MPV (9.5-12.2) fL Immature Gran # (0.00-0.04) X 10*3/uL Neutrophils # (1.80-7.70) X 10*3/uL Monocytes # (0.20-1.00) X 10*3/uL Immature Plt Fraction (1.1-6.1) % Sodium (135-145) mmol/L Potassium (3.5-5.5) mmol/L Glucose (70-110) mg/dL POC Glucose (mg/dL) 152 H 138 H (70-110) mg/dL Calcium (8.7-10.3) mg/dL Total Bilirubin (0.30-1.20) mg/dL Conjugated Bilirubin (0.20-0.40) mg/dL AST (14-35) U/L ALT (10-49) U/L Alkaline Phosphatase (41-126) U/L Total Protein (6.2-8.2) g/dL Albumin (3.8-4.9) g/dL Albumin/Globulin Ratio (1.60-3.17) g/dL Lipase 391 H (23-300) U/L 10/23/22 10/23/22 10/23/22 Range/Units 07:38 07:38 11:21 WBC 13.48 H (4.50-10.00) X 10*3/uL RBC 4.35 L (4.40-5.60) X 10*6/uL Hgb 12.2 L (13.0-17.0) g/dL Hct 36.8 L (39.6-50.0) % RDW 17.5 H (11.5-14.5) % Plt Count 67 L (140-440) X 10*3/uL MPV 12.6 H (9.5-12.2) fL Immature Gran # 0.25 H (0.00-0.04) X 10*3/uL Neutrophils # 10.28 H (1.80-7.70) X 10*3/uL Monocytes # 1.02 H (0.20-1.00) X 10*3/uL Immature Plt Fraction 19.5 H (1.1-6.1) % Sodium 131 L (135-145) mmol/L Potassium 3.4 L (3.5-5.5) mmol/L Glucose 140 H (70-110) mg/dL POC Glucose (mg/dL) 127 H (70-110) mg/dL Calcium 7.8 L (8.7-10.3) mg/dL Total Bilirubin 3.30 H (0.30-1.20) mg/dL Conjugated Bilirubin 2.99 H (0.20-0.40) mg/dL AST 122 H (14-35) U/L ALT 71 H (10-49) U/L Alkaline Phosphatase 145 H (41-126) U/L Total Protein 5.1 L (6.2-8.2) g/dL Albumin 2.7 L (3.8-4.9) g/dL Albumin/Globulin Ratio 1.13 L (1.60-3.17) g/dL Lipase (23-300) U/L Microbiology - Last 24 Hours (Table) 10/19/22 17:01 Stool Culture - Final Stool 10/19/22 13:58 Blood Culture - Preliminary Blood No Growth after 72 hours 10/19/22 13:58 Blood Culture - Preliminary Blood No Growth after 72 hours 10/18/22 23:15 Blood Culture Gram Stain - Final Blood Blood Culture - Final Aerococcus species Assessment and Plan Assessment: acute infectious gastroenteritis Sepsis with worsening leukocytosis and fever Gram-positive bacteremia secondary to earococcus Possible new-onset diabetes with hemoglobin A1c 7.6% Nicotine dependence History of depression, PTSD and bipolar, not an active issue Mostly drug-induced hepatotoxicity Plan: Continue with ceftriaxone added, and Flagyl , Levaquin was stopped for concerns of hepatotoxicity Continue with bowel rest advance diet as tolerated, currently on regular diet Lower IV hydration Pain medication Surgery and GI team consult ID team consult Labs and medication were reviewed.. Continue same treatment. Continue with symptomatic treatment. Resume home medication. Monitor labs and vitals. DVT and GI prophylaxis. Further recommendations as per clinical course of the patient DVT prophylaxis: Subcutaneous heparin GI Prophylaxis: Pepcid Prognosis is guarded
[2022-10-24] MEDS: SODIUM CHLORIDE 0.9% 1,000 ML IV SCH (03:59)
[2022-10-24 07:00] LABS: Glucose,Whole Blood 125 mg/dL (70-110)
--- NOTE | 2022-10-24 07:26 | P.PN ---
Subjective Progress Note Date: 10/24/22 Principal diagnosis: Abdominal pain Patient was seen and examined today as a follow-up for diarrhea and abdominal pain. Patient's blood culture had come back positive for Aerococcus species, Levaquin was discontinued due to possible hepatotoxicity. Patient is on Rocephin and Flagyl. Today he states he has no abdominal pain, he has tolerated his regular diet. Diarrhea has improved. He is having soft bowel movements. No blood. He's been afebrile. Labs are currently pending for today. He is complaining of thrush in his mouth. Repeat blood cultures preliminary negative to date. Stool cultures to come back negative as well as C. diff. Objective - Vital Signs Vital signs: Vital Signs Temp 98.9 F 10/24/22 04:01 Pulse 84 10/24/22 04:01 Resp 18 10/24/22 04:01 BP 136/75 10/24/22 04:01 Pulse Ox 92 L 10/24/22 04:01 FiO2 Intake & Output 10/23/22 10/24/22 10/24/22 18:59 06:59 18:59 Intake Total 1910 1500 Output Total 1000 Balance 1910 500 Intake: Intake, IV Titration 191 1000 Amount Levofloxacin 500Mg-D5w 100 Pmx 500 mg In Dextrose/ Water 1 100ml.bag @ 100 mls/hr IVPB DAILY@1400 KAROL Rx#:[id number] Sodium Chloride 0.9% 1, 1560 900 000 ml @ 75 mls/hr IV . [id number] KAROL Rx#:[id number] cefTRIAXone 2 gm In 50 Sodium Chloride 0.9% 50 ml @ 100 mls/hr IVPB Q24HR KAROL Rx#:[id number] metroNIDAZOLE-NS PMX 500 200 100 mg In Saline 1 100ml.bag @ 100 mls/hr IVPB Q8HR KAROL Rx#:[id number] Oral 500 Output: Urine 1000 Other: Voiding Method Toilet Urinal - Exam General appearance: The patient is alert, oriented, appears in no acute distress. HET: Head is normocephalic and atraumatic. Conjunctiva pink. Sclera anicteric. Oral elisha noted on patient's tongue. Neck: Supple without lymphadenopathy. Abdomen: Soft, Obese, nontender, nondistended with bowel sounds. No guarding or rigidity. Extremities: Normal skin color and turgor. No pedal edema Skin: No rashes, no jaundice Neurological: No focal deficits. Alert and oriented. - Labs CBC & Chem 7: 10/24/22 05:48 10/24/22 05:48 Labs: Abnormal Lab Results - Last 24 Hours (Table) 10/23/22 10/23/22 10/23/22 Range/Units 07:38 07:38 11:21 WBC 13.48 H (4.50-10.00) X 10*3/uL RBC 4.35 L (4.40-5.60) X 10*6/uL Hgb 12.2 L (13.0-17.0) g/dL Hct 36.8 L (39.6-50.0) % RDW 17.5 H (11.5-14.5) % Plt Count 67 L (140-440) X 10*3/uL MPV 12.6 H (9.5-12.2) fL Immature Gran # 0.25 H (0.00-0.04) X 10*3/uL Neutrophils # 10.28 H (1.80-7.70) X 10*3/uL Monocytes # 1.02 H (0.20-1.00) X 10*3/uL Immature Plt Fraction 19.5 H (1.1-6.1) % Sodium 131 L (135-145) mmol/L Potassium 3.4 L (3.5-5.5) mmol/L Glucose 140 H (70-110) mg/dL POC Glucose (mg/dL) 127 H (70-110) mg/dL Calcium 7.8 L (8.7-10.3) mg/dL Total Bilirubin 3.30 H (0.30-1.20) mg/dL Conjugated Bilirubin 2.99 H (0.20-0.40) mg/dL AST 122 H (14-35) U/L ALT 71 H (10-49) U/L Alkaline Phosphatase 145 H (41-126) U/L Total Protein 5.1 L (6.2-8.2) g/dL Albumin 2.7 L (3.8-4.9) g/dL Albumin/Globulin Ratio 1.13 L (1.60-3.17) g/dL 10/23/22 10/23/22 10/24/22 Range/Units 17:04 20:55 06:59 WBC (4.50-10.00) X 10*3/uL RBC (4.40-5.60) X 10*6/uL Hgb (13.0-17.0) g/dL Hct (39.6-50.0) % RDW (11.5-14.5) % Plt Count (140-440) X 10*3/uL MPV (9.5-12.2) fL Immature Gran # (0.00-0.04) X 10*3/uL Neutrophils # (1.80-7.70) X 10*3/uL Monocytes # (0.20-1.00) X 10*3/uL Immature Plt Fraction (1.1-6.1) % Sodium (135-145) mmol/L Potassium (3.5-5.5) mmol/L Glucose (70-110) mg/dL POC Glucose (mg/dL) 116 H 159 H 125 H (70-110) mg/dL Calcium (8.7-10.3) mg/dL Total Bilirubin (0.30-1.20) mg/dL Conjugated Bilirubin (0.20-0.40) mg/dL AST (14-35) U/L ALT (10-49) U/L Alkaline Phosphatase (41-126) U/L Total Protein (6.2-8.2) g/dL Albumin (3.8-4.9) g/dL Albumin/Globulin Ratio (1.60-3.17) g/dL Microbiology - Last 24 Hours (Table) 10/19/22 13:58 Blood Culture - Preliminary Blood No Growth after 96 hours 10/19/22 13:58 Blood Culture - Preliminary Blood No Growth after 96 hours 10/19/22 17:01 Stool Culture - Final Stool Assessment and Plan (1) Gastroenteritis Narrative/Plan: 41-year-old male presented to the emergency department with complaints of abdom inal pain and diarrhea. Patient is having 6-7 loose stools daily and severe intermittent abdominal pain. Initially associated with some nausea and vomiting but none in the last day or so. He also states that this abdominal pain has been going on for the past several months as well as diarrhea. He recently underwent EGD and colonoscopy last week with Dr. Valentin at [facility] with findings of mild mild gastritis on EGD and normal colonoscopy. Biopsy results just showing some mild inflammation, gastritis. Patient did present with leukocytosis, has elevated [id number] with slight temp of 99.9 this morning. Patient likely has underlying gastroenteritis, likely inf ectious. Stool for C. diff was negative, rotavirus as well as influenza negative. No plans at this time for any endoscopic evaluation continue IV Levaquin and Flagyl. Continue with recommendations from infectious disease. Patient showing gram-positive cocci growth and his blood cultures. Symptoms have resolved. Recommend discontinuation of IV antibiotics when able due to elevated LFTs Current Visit: Yes Status: Acute Code(s): K52.9 - NONINFECTIVE GASTROENTERITIS AND COLITIS, UNSPECIFIED SNOMED Code(s): 43529604 (2) Abdominal pain Narrative/Plan: Patient likely has some underlying IBS, exacerbated at this time by a possible infectious gastroenteritis. Symptoms are resolved. Current Visit: Yes Status: Acute Code(s): R10.9 - UNSPECIFIED ABDOMINAL PAIN SNOMED Code(s): 33723872 (3) Elevated LFTs Narrative/Plan: Patient with elevated LFTs, unclear etiology could be medication induced. Patient denies any previous history of alcohol abuse or underlying liver disease. Patient is obese Have some underlying hepatic steatosis. Will order liver ultrasound Liver ultrasound reviewed with diffuse fatty liver. Patient likely has underlying fatty liver disease with superimposed LFTs likely due to antibiotic therapy. I would recommend discontinuation or switching antibiotics to non-he patotoxic medications when possible. LFTs are trending down, Levaquin was discontinued. Likely LFTs elevated related to medication. Current Visit: Yes Status: Acute Code(s): R79.89 - OTHER SPECIFIED ABNORMAL FINDINGS OF BLOOD CHEMISTRY SNOMED Code(s): 595157076 (4) Bacteremia Current Visit: Yes Status: Acute Code(s): R78.81 - BACTEREMIA SNOMED Code(s): 9994759 (5) Thrombocytopenia Current Visit: Yes Status: Acute Code(s): D69.6 - THROMBOCYTOPENIA, UNSPECIFIED SNOMED Code(s): 678725537 (6) Oral elisha Current Visit: Yes Status: Acute Code(s): B37.0 - CANDIDAL STOMATITIS SNOMED Code(s): 96346267 Plan: 1. Continue symptomatic and supportive care 2. Diabetes tolerated 3. Recommend judicial use of antibiotics due to elevated LFTs, recommend nonhepatotoxic antibiotics if possible 4. Antiemetics as needed 5. Protonix 40 mg daily for GI prophylaxis 6. Stool cultures negative to date 7. Consider hematology consult for thrombocytopenia 8. Liver ultrasound ordered and reviewed 9. Daily CBC CMP 10. Avoid hepatotoxic medications 11. Recommend outpatient follow-up for continued surveillance of LFTs, fatty liver disease 12. Nystatin started for thrush Thank you for this consultation, patient is cleared from gastroenterology for discharge. We will sign off at this time. Dr. Saleem Valentin I agree with the dictator's note, documented as a scribe by Felicita Jacome.
[2022-10-24] MEDS: INSULIN ASPART (NovoLOG) 100 UNIT/ML VIAL SQ SCH ×2 (08:11→12:38)
[2022-10-24] MEDS: PANTOPRAZOLE 40 MG/10 ML VIAL IVP SCH (08:14)
[2022-10-24] MEDS: NYSTATIN 100,000 UNIT/ML SUSP 500,000 UNIT/5 ML CUP PO SCH ×2 (08:15→13:17)
[2022-10-24] MEDS: SERTRALINE 25 MG TAB PO SCH (08:15)
[2022-10-24] MEDS: SERTRALINE 100 MG TAB PO SCH (08:15)
[2022-10-24] MEDS: metroNIDAZOLE-NS PMX 500 MG in SALINE 1 100ML.BAG IVPB SCH (09:02)
[2022-10-24 09:51] LABS: Magnesium 1.9 mg/dL (1.5-2.4)
[2022-10-24 09:54] LABS: African American GFR (CKD) 142.3 (60.0-200.0); Albumin 2.4 g/dL (3.8-4.9); BUN/Creat Ratio 14.88 Ratio (12.00-20.00); Bilirubin, Conjugated 1.9 mg/dL (0.20-0.40); Bilirubin,Unconjugated 0.7 mg/dL (0.20-1.00); Blood Urea Nitrogen 9.6 mg/dL (9.0-27.0); Calcium 7.6 mg/dL (8.7-10.3); Carbon Dioxide 22.7 mmol/L (20.0-27.5); Globulin 2.4 g/dL (1.6-3.3); Non-African American GFR(CKD) 122.8 (60.0-200.0); Potassium 3.4 mmol/L (3.5-5.5); Total Bilirubin 2.6 mg/dL (0.30-1.20); Total Protein 4.9 g/dL (6.2-8.2)
[2022-10-24 10:19] LABS: Basophils # (A) 0.05 X 10*3/uL (0.00-0.10); Basophils % (A) 0.3 %; Eosinophils # (A) 0.05 X 10*3/uL (0.04-0.35); Eosinophils % (A) 0.3 %; HCT 36.2 % (39.6-50.0); HGB 11.9 g/dL (13.0-17.0); Immature Grans, Automated 2.7 %; Lymphocytes # (A) 2.88 X 10*3/uL (0.90-5.00); Lymphocytes % (A) 19.5 %; MCH 27.7 pg (27.0-32.0); MCHC 32.9 g/dL (32.0-37.0); MCV 84.2 fL (80.0-97.0); Monocytes # (A) 1.44 X 10*3/uL (0.20-1.00); Monocytes % (A) 9.7 %; NRBC Per 100 WBC 0 /100 WBCS (0.0-0.0); Neutrophils # (A) 9.98 X 10*3/uL (1.80-7.70); Neutrophils % (A) 67.5 %; Platelet Count 106 X 10*3/uL (140-440); RDW 17.6 % (11.5-14.5)
[2022-10-24 11:46] VITALS: BP 137/78; PULSE 82; TEMP 98
[2022-10-24 12:10] LABS: Glucose,Whole Blood 131 mg/dL (70-110)
[2022-10-24] MEDS ORDERED: methylPREDNISolone SOD SUCCI 125 MG/2 ML VIAL IV STA (13:00)
[2022-10-24] MEDS ORDERED: diphenhydrAMINE 50 MG/ML 1 ML VIAL IVP PRN (13:00)
[2022-10-24] MEDS ORDERED: FAMOTIDINE 20 MG/2 ML VIAL IV ONE (13:05)
[2022-10-24] MEDS ORDERED: diphenhydrAMINE 50 MG/ML 1 ML VIAL IVP ONE (13:05)
--- NOTE | 2022-10-24 13:10 | P.PN ---
Subjective This is a pleasant 41 years old male with no significant past medical history. He has past psychiatric history of depression, anxiety, PTSD. He is every day smoker. He had previous cholecystectomy. He presents because of abdominal pain and fever 2 nights ago, he had CT of the abdomen and discharge home Her chest today with nausea vomiting and diarrhea with generalized abdominal pain and fever and chills at home Patient states that his pain in the epigastrium about 7/10 since yesterday felt like sharp, nonradiating associated with vomiting was this morning with no blood. Patient has poor appetite not eating and drinking well over the last 2 days. He has watery bowel movement about twice today. No blood. Associated with little headache. He denies any other symptoms, no dysuria or urgency. No chest pain or dyspnea or coughing. No weakness or numbness or dizziness. Usually he smokes half pack per day and he was counseled to quit and he agrees but declines nicotine patch. No alcohol or illicit drugs. Vitals are stable, afebrile here, however yesterday he had a fever of 102 Lap showing leukocytosis of 17,000 however patient has chronic leukocytosis of 10-17,000. W see yesterday were 13.5. Rest of CBC is unremarkable Mild hyponatremic with 34 and hypokalemic 3.2. Creatinine normal at 0.9. Glucose elevated 2-4. Platelet count slightly low at 129 EKG showing normal sinus rhythm at 90 mL with no significant ST-T changes. amylase and lipase yesterday were negative and the flow was at this was negative liver enzymes not elevated CT of the abdomen and pelvis done with contrast yesterday showing atelectasis of the lung bases which is new compared to old exam. There is fatty infiltration of the liver which was fully new compared to old exam. There is cholecystectomy. Numerous sigmoid diverticula with no diverticulitis. No signs of bowel obstruction 10/20/2012 Patient still nothing by mouth, he has mild infraumbilical pain and tenderness, [place] 5 does not control well therefore will increase it to [place] 10 mg, risks and benefits are explained for the patient and he agrees. Vitals were stable, he had 99.9 temperature this morning. He still has frequent diarrhea and triggers every 20 minutes as watery diarrhea as he states. Procalcitonin is elevated to 38.8 he is still nothing by mouth this morningm . Surgery team was consulted. Also consult GI team patient remains on normal saline with 30 mL per hour plus Levaquin and Flagyl. C. diff negative. 10/21/2022 Patient was with severe nausea this morning, Zofran is added. Diet is going to be advanced today into full liquid diet He had quite a bit of diarrhea yesterday however this morning looks better His abdominal pain looks controlled as well. Leukocytosis with 20,000, Hemoglobin A1c is 7.6%, patient with no history of diabetes and will be informed. ID team consult for gram-positive blood culture Continue with Flagyl and Levaquin and normal saline at 1:30 milliliter 12/22/2021 Patient sitting in chair looks comfortable not in distress he is on liquid diet with no significant nausea vomiting, his abdominal pain and tenderness is mild but he still has frequent bowel movement about 4 times per day. Social culture are still pending. Patient labs shows slight worsening with persistent leukocytosis, thrombocytopenia at 75,000, with increased liver enzymes and bilirubin of 2.6. Therefore antibiotics were adjusted into Flagyl and Levaquin, Rocephin was added today. Blood culture come back positive for enterococcus Liver ultrasound was unremarkable, gallbladder absent, fatty liver, kidneys are secured it but a lot of gas. Hemoglobin A1c is elevated at 7.6%, patient does not have history of diabetes, he was informed he has new diagnosis of diabetes mellitus and new consult for dietitian and corrections caseworker for provision of glucometer is ordered and Continue with IV fluids. 10/23/2022 Better today and he was doing well with diet and wanted to be advanced, abdominal pain was mild with no vomiting and very mild abdominal pain. He had 2 bowel movements per day and it looks soft but not completely formed He did not have more bowel movements since then. His vitals are stable, no more fever. Deliveries improved down to 13,000. Platelet count came down to 67, hemoglobin stable at 12. Liver enzymes elevated with AST 120-1 ALT 7.1 and there was 3.3. Levofloxacin was discontinued for possible hepatotoxicity and patient continued with ceftriaxone and Flagyl upon recommendation of consultants. Sugar is controlled with diet. Patient told me he has glucometer at home when I told him he needs to check his sugar However 3 today patient did not tolerate the diet, we'll keep monitoring closely. Also patient has evidence of fatty liver 10/24/2022 Today patient reports no abdominal pain and tenderness diet well, he is telling me he is eating very good however When i am reviewing the records shows that he did not eat his dinner last night and he is eating 25% of his breakfast. He is eating between 0-50% of his medial, history reports having 6 bowel movements a day and he states that's his normal and he was to be discharged home. I told patient's I'm going to review everything bouts I don't think he is ready for discharge 8. His WBC still increased and high at 14,000, liver enzymes are trending down with AST down to 92 on 2061 and bilirubin down to 2.6 after supper Levaquin. Decreased with place him on Flagyl and IV ceftriaxone with ID team on the case. His platelet count also improved 67 up to 106 after stopping his heparin. [employer] team were consulted and still pending. However the patient after rounds I got a call from the nurse stating patient was developing a rash in the upper abdomen however he denies any breathing difficulty or dizziness or airway swelling, patient has a history of penicillin ALLERGY causing anaphylaxis, however patient's vitals are stable now, we gave him 1 time dose of IV Solu-Medrol 60 mg, Pepcid 1 and Benadryl IV 1. Also discussed with staff will need close monitoring for now. Vital showing no fever today. He is still on normal saline 75 mL/h Review of systems CONSTITUTIONAL: No fever, no malaise, no fatigue. HEENT: No recent visual problems or hearing problems. Denied any sore throat. CARDIOVASCULAR: No orthopnea, PND, no palpitations, no syncope. PULMONARY: No shortness of breath, no cough, no hemoptysis. NEUROLOGICAL: No headaches, no weakness, no numbness. HEMATOLOGICAL: Denies any bleeding or petechiae. Active Medications Generic Name Dose Route Start Last Admin Trade Name Freq PRN Reason Stop Dose Admin Acetaminophen 325 mg 10/19/22 13:19 10/22/22 02:10 Acetaminophen Tab 325 Mg Tab PO 325 mg Q6HR PRN Administration Fever and/ or Pain Hydrocodone Bitart/Acetaminophen 1 each 10/20/22 11:32 10/22/22 19:51 Hydrocodone/Apap 10-325mg 1 Each Tab PO 1 each Q6HR PRN Administration Pain Dextrose/Water 25 ml 10/22/22 19:28 Dextrose 50% Syringe 50 Ml IVP PER PROTOCOL PRN Hypoglycemia Protocol Dextrose/Water 50 ml 10/22/22 19:28 Dextrose 50% Syringe 50 Ml IVP PER PROTOCOL PRN Hypoglycemia Protocol Famotidine 20 mg 10/20/22 21:00 10/23/22 21:33 Famotidine 20 Mg/2 Ml Vial IV 20 mg HS [facility] Administration Hydromorphone HCl 0.5 mg 10/20/22 11:04 10/23/22 13:51 Hydromorphone 0.5 Mg/0.5 Ml Syringe IVP 0.5 mg Q4HR PRN Administration Pain Sodium Chloride 1,000 mls @ 75 mls/hr 10/19/22 13:15 10/24/22 03:59 Saline 0.9% IV 75 mls/hr .[id number] [facility] Administration Metronidazole 500 mg/ IV 100 mls @ 100 mls/hr 10/19/22 14:00 10/24/22 09:02 Solution IVPB 100 mls/hr Q8HR [facility] Administration Protocol Ceftriaxone Sodium 2 gm/ 50 mls @ 100 mls/hr 10/24/22 09:00 10/24/22 08:14 Sodium Chloride IVPB 100 mls/hr Q24HR [facility] Administration Protocol Insulin Aspart 0 unit 10/22/22 21:00 10/24/22 12:38 Insulin Aspart (Novolog) 100 Unit/Ml Vial SQ Not Given ACHS [facility] Protocol Loperamide HCl 2 mg 10/20/22 12:08 Loperamide 2 Mg Cap PO QID PRN Diarrhea Miscellaneous Information 1 each 10/19/22 22:07 Potassium Replacement Protocol 1 Each Misc MISCELLANE DAILY PRN Per Protocol Protocol Miscellaneous Information 1 each 10/19/22 22:07 Magnesium Replacement Protocol 1 Each Misc MISCELLANE DAILY PRN Per Protocol Protocol Naloxone HCl 0.2 mg 10/19/22 13:15 Naloxone 0.4 Mg/Ml 1 Ml Vial IV Q2M PRN Opioid Reversal Nystatin 500,000 unit 10/24/22 09:00 10/24/22 08:15 Nystatin 100,000 Unit/Ml Susp 500,000 Unit/5 Ml Cup PO 500,000 unit QID [facility] Administration Protocol Ondansetron HCl 4 mg 10/21/22 08:08 10/21/22 13:22 Ondansetron 4 Mg/2 Ml Vial IVP 4 mg Q6HR PRN Administration Nausea And Vomiting Pantoprazole Sodium 40 mg 10/21/22 09:00 10/24/22 08:14 Pantoprazole 40 Mg/10 Ml Vial IVP 40 mg DAILY [facility] Administration Sertraline HCl 25 mg 10/20/22 09:00 10/24/22 08:15 Sertraline 25 Mg Tab PO 25 mg DAILY [facility] Administration Sertraline HCl 100 mg 10/20/22 09:00 10/24/22 08:15 Sertraline 100 Mg Tab PO 100 mg DAILY [facility] Administration Objective - Vital Signs Vital signs: Vital Signs Temp 98.0 F 10/24/22 11:03 Pulse 82 10/24/22 11:03 Resp 18 10/24/22 11:03 BP 137/78 10/24/22 11:03 Pulse Ox 92 L 10/24/22 11:03 FiO2 Intake & Output 10/23/22 10/24/22 10/24/22 18:59 06:59 18:59 Intake Total 1910 1500 Output Total 1000 Balance 1910 500 Intake: Intake, IV Titration 1909 1000 Amount Levofloxacin 500Mg-D5w 100 Pmx 500 mg In Dextrose/ Water 1 100ml.bag @ 100 mls/hr IVPB DAILY@1400 [facility] Rx#:[id number] Sodium Chloride 0.9% 1, 1560 900 000 ml @ 75 mls/hr IV . [id number] [facility] Rx#:[id number] cefTRIAXone 2 gm In 50 Sodium Chloride 0.9% 50 ml @ 100 mls/hr IVPB Q24HR [facility] Rx#:[id number] metroNIDAZOLE-NS PMX 500 200 100 mg In Saline 1 100ml.bag @ 100 mls/hr IVPB Q8HR [facility] Rx#:[id number] Oral 500 Output: Urine 1000 Other: Voiding Method Toilet Toilet Urinal Urinal - Exam -GENERAL: The patient is alert and oriented x3, not in any acute distress. Obese HEENT: Pupils are round and equally reacting to light. EOMI. No scleral icterus. No conjunctival pallor. Normocephalic, atraumatic. No pharyngeal erythema. No thyromegaly. CARDIOVASCULAR: S1 and S2 present. No murmurs, rubs, or gallops. PULMONARY: Chest is clear to auscultation, no wheezing or crackles. -ABDOMEN: Soft, mild periumbilical tenderness, nondistended, normoactive bowel sounds. No palpable organomegaly. MUSCULOSKELETAL: No joint swelling or deformity. EXTREMITIES: No cyanosis, clubbing, or pedal edema. NEUROLOGICAL: Gross neurological examination did not reveal any focal deficits. SKIN: No rashes. no petechiae. - Labs CBC & Chem 7: 10/24/22 05:48 10/24/22 05:48 Labs: Abnormal Lab Results - Last 24 Hours (Table) 10/23/22 10/23/22 10/24/22 Range/Units 17:04 20:55 05:48 WBC 14.80 H (4.50-10.00) X 10*3/uL RBC 4.30 L (4.40-5.60) X 10*6/uL Hgb 11.9 L (13.0-17.0) g/dL Hct 36.2 L (39.6-50.0) % RDW 17.6 H (11.5-14.5) % Plt Count 106 L (140-440) X 10*3/uL MPV 13.0 H (9.5-12.2) fL Immature Gran # 0.40 H (0.00-0.04) X 10*3/uL Neutrophils # 9.98 H (1.80-7.70) X 10*3/uL Monocytes # 1.44 H (0.20-1.00) X 10*3/uL Potassium (3.5-5.5) mmol/L Glucose (70-110) mg/dL POC Glucose (mg/dL) 116 H 159 H (70-110) mg/dL Calcium (8.7-10.3) mg/dL Total Bilirubin (0.30-1.20) mg/dL Conjugated Bilirubin (0.20-0.40) mg/dL AST (14-35) U/L ALT (10-49) U/L Alkaline Phosphatase (41-126) U/L Total Protein (6.2-8.2) g/dL Albumin (3.8-4.9) g/dL Albumin/Globulin Ratio (1.60-3.17) g/dL 10/24/22 10/24/22 10/24/22 Range/Units 05:48 06:59 12:04 WBC (4.50-10.00) X 10*3/uL RBC (4.40-5.60) X 10*6/uL Hgb (13.0-17.0) g/dL Hct (39.6-50.0) % RDW (11.5-14.5) % Plt Count (140-440) X 10*3/uL MPV (9.5-12.2) fL Immature Gran # (0.00-0.04) X 10*3/uL Neutrophils # (1.80-7.70) X 10*3/uL Monocytes # (0.20-1.00) X 10*3/uL Potassium 3.4 L (3.5-5.5) mmol/L Glucose 144 H (70-110) mg/dL POC Glucose (mg/dL) 125 H 131 H (70-110) mg/dL Calcium 7.6 L (8.7-10.3) mg/dL Total Bilirubin 2.60 H (0.30-1.20) mg/dL Conjugated Bilirubin 1.90 H (0.20-0.40) mg/dL AST 92 H (14-35) U/L ALT 62 H (10-49) U/L Alkaline Phosphatase 171 H (41-126) U/L Total Protein 4.9 L (6.2-8.2) g/dL Albumin 2.4 L (3.8-4.9) g/dL Albumin/Globulin Ratio 1.00 L (1.60-3.17) g/dL Microbiology - Last 24 Hours (Table) 10/19/22 13:58 Blood Culture - Preliminary Blood No Growth after 96 hours 10/19/22 13:58 Blood Culture - Preliminary Blood No Growth after 96 hours 10/19/22 17:01 Stool Culture - Final Stool Assessment and Plan Assessment: acute infectious gastroenteritis Sepsis with worsening leukocytosis and fever Gram-positive bacteremia secondary to earococcus Possible new-onset diabetes with hemoglobin A1c 7.6% Nicotine dependence History of depression, PTSD and bipolar, not an active issue Mostly drug-induced hepatotoxicity Plan: Continue with ceftriaxone added, and Flagyl , Levaquin was stopped for concerns of hepatotoxicity Continue with bowel rest advance diet as tolerated, currently on regular diet Continue with IV hydration Pain medication Surgery and GI team consult Monitor patient eating habits Monitor patient rash and other signs of ALLERGY. Discussed with staff to contact infectious disease team and updated them about these findings ID team consult on the case already Labs and medication were reviewed.. Continue same treatment. Continue with symptomatic treatment. Resume home medication. Monitor labs and vitals. DVT and GI prophylaxis. Further recommendations as per clinical course of the patient DVT prophylaxis: Subcutaneous heparin GI Prophylaxis: Pepcid Prognosis is guarded Discussed with staff
--- NOTE | 2022-10-24 13:27 | P.PN ---
Subjective Progress Note Date: 10/24/22 CHIEF COMPLAINT: Abdominal pain and diarrhea HISTORY OF PRESENT ILLNESS: Patient sitting in bedside chair. Patient did have one episode of vomiting this morning. Patient reports that the vomiting occurre d after he did the nystatin swish and swallow and swelling of the eggs for breakfast. He reports that he feels better now. No abdominal pain. He had regular bowel movements. He wants to be discharged. Afebrile. WBC 14.8 Hgb 11.9 platelets up from 67 to 106. Symptoms 135 potassium 3.4 creatinine 0.6 total bilirubin and LFTs trending downwards PHYSICAL EXAM: VITAL SIGNS: Reviewed. GENERAL: Well-developed in no acute distress. HEENT: No sclera icterus. Extraocular movements grossly intact. Moist buccal mucosa. Head is atraumatic, normocephalic. ABDOMEN: Soft. Nondistended. Nontender NEUROLOGIC: Alert and oriented. Cranial nerves II through XII grossly intact. ASSESSMENT: 1. Abdominal pain with diarrhea improving 2. Possible gastroenteritis 3. Leukocytosis 4. Mild thickening mid sigmoid colon noted on CAT scan 5. Elevated LFTs and total bilirubin likely medication induced and fatty liver 6. Thrombocytopenia PLAN: -Patient can be discharged from surgical standpoint when medically cleared -Antibiotics per infectious disease -Continue supportive care -Continue regular diet Physician Dairy Manager note has been reviewed by physician. Signing provider agrees with the documented findings, assessment, and plan of care. I have personally seen and examined the patient, reviewed the ACTIONSCRIPT DEVELOPER /PAs history, exam and MDM and agree with the assessment and plan as written. Based on total visit time, I have performed more than 50% of the visit. As above: Patient doing well at this time. Denies abdominal pain. No further nausea or vomiting. He would like to go home. Labs noted. No further surgical intervention or testing plan at this time. Agree with plans for discharge. Objective - Vital Signs Vital signs: Vital Signs Temp 98.9 F 10/24/22 04:01 Pulse 84 10/24/22 04:01 Resp 18 10/24/22 04:01 BP 136/75 10/24/22 04:01 Pulse Ox 92 L 10/24/22 04:01 FiO2 Intake & Output 10/23/22 10/24/22 10/24/22 18:59 06:59 18:59 Intake Total 1910 1500 Output Total 1000 Balance 1910 500 Intake: Intake, IV Titration 1910 1000 Amount Levofloxacin 500Mg-D5w 100 Pmx 500 mg In Dextrose/ Water 1 100ml.bag @ 100 mls/hr IVPB DAILY@1400 [facility] Rx#:[id number] Sodium Chloride 0.9% 1, 1560 900 000 ml @ 75 mls/hr IV . [id number] [facility] Rx#:[id number] cefTRIAXone 2 gm In 50 Sodium Chloride 0.9% 50 ml @ 100 mls/hr IVPB Q24HR [facility] Rx#:[id number] metroNIDAZOLE-NS PMX 500 200 100 mg In Saline 1 100ml.bag @ 100 mls/hr IVPB Q8HR [facility] Rx#:[id number] Oral 500 Output: Urine 1000 Other: Voiding Method Toilet Toilet Urinal Urinal - Labs CBC & Chem 7: 10/24/22 05:48 10/24/22 05:48 Labs: Abnormal Lab Results - Last 24 Hours (Table) 10/23/22 10/23/22 10/23/22 Range/Units 07:38 17:04 20:55 WBC (4.50-10.00) X 10*3/uL RBC (4.40-5.60) X 10*6/uL Hgb (13.0-17.0) g/dL Hct (39.6-50.0) % RDW (11.5-14.5) % Plt Count (140-440) X 10*3/uL MPV (9.5-12.2) fL Immature Gran # (0.00-0.04) X 10*3/uL Neutrophils # (1.80-7.70) X 10*3/uL Monocytes # (0.20-1.00) X 10*3/uL Sodium 131 L (135-145) mmol/L Potassium 3.4 L (3.5-5.5) mmol/L Glucose 140 H (70-110) mg/dL POC Glucose (mg/dL) 116 H 159 H (70-110) mg/dL Calcium 7.8 L (8.7-10.3) mg/dL Total Bilirubin 3.30 H (0.30-1.20) mg/dL Conjugated Bilirubin 2.99 H (0.20-0.40) mg/dL AST 122 H (14-35) U/L ALT 71 H (10-49) U/L Alkaline Phosphatase 145 H (41-126) U/L Total Protein 5.1 L (6.2-8.2) g/dL Albumin 2.7 L (3.8-4.9) g/dL Albumin/Globulin Ratio 1.13 L (1.60-3.17) g/dL 10/24/22 10/24/22 10/24/22 Range/Units 05:48 05:48 06:59 WBC 14.80 H (4.50-10.00) X 10*3/uL RBC 4.30 L (4.40-5.60) X 10*6/uL Hgb 11.9 L (13.0-17.0) g/dL Hct 36.2 L (39.6-50.0) % RDW 17.6 H (11.5-14.5) % Plt Count 106 L (140-440) X 10*3/uL MPV 13.0 H (9.5-12.2) fL Immature Gran # 0.40 H (0.00-0.04) X 10*3/uL Neutrophils # 9.98 H (1.80-7.70) X 10*3/uL Monocytes # 1.44 H (0.20-1.00) X 10*3/uL Sodium (135-145) mmol/L Potassium 3.4 L (3.5-5.5) mmol/L Glucose 144 H (70-110) mg/dL POC Glucose (mg/dL) 125 H (70-110) mg/dL Calcium 7.6 L (8.7-10.3) mg/dL Total Bilirubin 2.60 H (0.30-1.20) mg/dL Conjugated Bilirubin 1.90 H (0.20-0.40) mg/dL AST 92 H (14-35) U/L ALT 62 H (10-49) U/L Alkaline Phosphatase 171 H (41-126) U/L Total Protein 4.9 L (6.2-8.2) g/dL Albumin 2.4 L (3.8-4.9) g/dL Albumin/Globulin Ratio 1.00 L (1.60-3.17) g/dL Microbiology - Last 24 Hours (Table) 11/27/22 13:58 Blood Culture - Preliminary Blood No Growth after 96 hours 10/19/22 13:58 Blood Culture - Preliminary Blood No Growth after 96 hours 10/19/22 17:01 Stool Culture - Final Stool
--- NOTE | 2022-10-24 16:47 | P.PN ---
Subjective Progress Note Date: 10/22/22 Principal diagnosis: Bacteremia Patient is a 41-year-old male presenting to the hospital with abdominal pain and fever 2 days and also have a positive blood culture. On today's evaluation that is 10/22/2022 patient continues to be afebrile, patient abdominal pain has decreased in intensity denies any further nausea no vomiting no chest pain shortness of breath or cough Objective - Vital Signs Vital signs: Vital Signs Temp 97.9 F 10/22/22 04:30 Pulse 93 10/22/22 04:30 Resp 19 10/22/22 04:30 BP 123/75 10/22/22 04:30 Pulse Ox 92 L 10/22/22 04:30 FiO2 Intake & Output 10/21/22 10/22/22 10/22/22 18:59 06:59 18:59 Intake Total 1860 560 Output Total 850 Balance 1860 -290 Intake: Intake, IV Titration 1860 Amount Levofloxacin 500Mg-D5w 100 Pmx 500 mg In Dextrose/ Water 1 100ml.bag @ 100 mls/hr IVPB DAILY@1400 [facility] Rx#:[id number] Sodium Chloride 0.9% 1, 1560 000 ml @ 130 mls/hr IV . [id number] [facility] Rx#:[id number] metroNIDAZOLE-NS PMX 500 200 mg In Saline 1 100ml.bag @ 100 mls/hr IVPB Q8HR [facility] Rx#:[id number] Oral 560 Output: Urine 850 Other: Voiding Method Toilet Toilet Urinal # Voids 4 # Bowel Movements 1 - Exam GENERAL DESCRIPTION: Middle-aged male lying in bed in no distress RESPIRATORY SYSTEM: Unlabored breathing , decreased breath sounds at bases HEART: S1 S2 regular rate and rhythm , ABDOMEN: Soft , no tenderness EXTREMITIES: No edema feet - Labs CBC & Chem 7: 10/24/22 05:48 10/24/22 05:48 Labs: Abnormal Lab Results - Last 24 Hours (Table) 10/22/22 10/22/22 10/22/22 Range/Units 03:20 03:20 03:20 WBC 19.16 H (4.50-10.00) X 10*3/uL Hgb 12.8 L (13.0-17.0) g/dL MCHC 31.8 L (32.0-37.0) g/dL RDW 17.6 H (11.5-14.5) % Plt Count 75 L (140-440) X 10*3/uL Plt Count Comment DECREASED A MPV 13.3 H (9.5-12.2) fL Immature Gran # 0.21 H (0.00-0.04) X 10*3/uL Neutrophils # 16.78 H (1.80-7.70) X 10*3/uL Eosinophils # 0.01 L (0.04-0.35) X 10*3/uL Immature Plt Fraction 16.8 H (1.1-6.1) % Sodium 133 L (135-145) mmol/L Potassium 3.4 L (3.5-5.5) mmol/L Glucose 144 H (70-110) mg/dL Calcium 8.3 L (8.7-10.3) mg/dL Total Bilirubin (0.2-1.3) mg/dL AST (17-59) U/L ALT (4-49) U/L Alkaline Phosphatase (38-126) U/L Procalcitonin 46.00 H (0.02-0.09) ng/mL 10/22/22 Range/Units 03:20 WBC (4.50-10.00) X 10*3/uL Hgb (13.0-17.0) g/dL MCHC (32.0-37.0) g/dL RDW (11.5-14.5) % Plt Count (140-440) X 10*3/uL Plt Count Comment MPV (9.5-12.2) fL Immature Gran # (0.00-0.04) X 10*3/uL Neutrophils # (1.80-7.70) X 10*3/uL Eosinophils # (0.04-0.35) X 10*3/uL Immature Plt Fraction (1.1-6.1) % Sodium (135-145) mmol/L Potassium (3.5-5.5) mmol/L Glucose (70-110) mg/dL Calcium (8.7-10.3) mg/dL Total Bilirubin 2.6 H (0.2-1.3) mg/dL AST 162 H (17-59) U/L ALT 77 H (4-49) U/L Alkaline Phosphatase 157 H (38-126) U/L Procalcitonin (0.02-0.09) ng/mL Microbiology - Last 24 Hours (Table) 10/19/22 17:01 Stool Culture - Preliminary Stool 10/19/22 13:58 Blood Culture - Preliminary Blood No Growth after 48 hours 10/19/22 13:58 Blood Culture - Preliminary Blood No Growth after 48 hours Assessment and Plan (1) Bacteremia Current Visit: Yes Status: Acute Code(s): R78.81 - BACTEREMIA SNOMED Code(s): 4199332 Plan: 1patient with a positive blood culture with gram-positive cocci with ID sensitivities pending patient presented to hospital predominantly with GI symptoms abdominal pain and nausea vomiting and diarrhea with question of possible gastroenteritis with a gram-positive cocci possible skin contamination versus true pathogen. 2blood cultures has been repeated which has been negative so far 3patient did have a component of sigmoid diverticulitis on the CT, we will add Rocephin 1 g daily and continue with the Flagyl patient did have a penicillin ALLERGY however safe to use Rocephin, discussed with the pharmacist Time with Patient: Less than 30
--- NOTE | 2022-10-24 16:48 | P.PN ---
Subjective Progress Note Date: 10/23/22 Principal diagnosis: Bacteremia Patient is a 41-year-old male presenting to the hospital with abdominal pain and fever 2 days and also have a positive blood culture. On today's evaluation that is 10/23/2022 patient remains to be afebrile, patient abdominal pain has decreased in intensity , the patient denies nausea no vomiting no chest pain shortness of breath or cough Objective - Vital Signs Vital signs: Vital Signs Temp 98.4 F 10/23/22 12:25 Pulse 89 10/23/22 12:25 Resp 20 10/23/22 12:25 BP 159/82 10/23/22 12:25 Pulse Ox 93 L 10/23/22 12:25 FiO2 Intake & Output 10/22/22 10/23/22 10/23/22 18:59 06:59 18:59 Intake Total 1800 Output Total 200 900 Balance -200 900 Intake: Intake, IV Titration 1500 Amount Sodium Chloride 0.9% 1, 1400 000 ml @ 130 mls/hr IV . Q7H42M [facility] Rx#:[id number] metroNIDAZOLE-NS PMX 500 100 mg In Saline 1 100ml.bag @ 100 mls/hr IVPB Q8HR [facility] Rx#:[id number] Oral 300 Output: Urine 200 900 Other: Voiding Method Toilet Toilet Urinal Urinal # Voids 4 # Bowel Movements 1 - Exam GENERAL DESCRIPTION: Middle-aged male lying in bed in no distress RESPIRATORY SYSTEM: Unlabored breathing , decreased breath sounds at bases HEART: S1 S2 regular rate and rhythm , ABDOMEN: Soft , no tenderness EXTREMITIES: No edema feet - Labs CBC & Chem 7: 10/24/22 05:48 10/24/22 05:48 Labs: Abnormal Lab Results - Last 24 Hours (Table) 10/22/22 10/23/22 10/23/22 Range/Units 21:05 07:07 07:38 WBC (4.50-10.00) X 10*3/uL RBC (4.40-5.60) X 10*6/uL Hgb (13.0-17.0) g/dL Hct (39.6-50.0) % RDW (11.5-14.5) % Plt Count (140-440) X 10*3/uL MPV (9.5-12.2) fL Immature Gran # (0.00-0.04) X 10*3/uL Neutrophils # (1.80-7.70) X 10*3/uL Monocytes # (0.20-1.00) X 10*3/uL Immature Plt Fraction (1.1-6.1) % Sodium 131 L (135-145) mmol/L Potassium 3.4 L (3.5-5.5) mmol/L Glucose 140 H (70-110) mg/dL POC Glucose (mg/dL) 152 H 138 H (70-110) mg/dL Calcium 7.8 L (8.7-10.3) mg/dL Total Bilirubin 3.30 H (0.30-1.20) mg/dL Conjugated Bilirubin 2.99 H (0.20-0.40) mg/dL AST 122 H (14-35) U/L ALT 71 H (10-49) U/L Alkaline Phosphatase 145 H (41-126) U/L Total Protein 5.1 L (6.2-8.2) g/dL Albumin 2.7 L (3.8-4.9) g/dL Albumin/Globulin Ratio 1.13 L (1.60-3.17) g/dL 10/23/22 10/23/22 Range/Units 07:38 11:21 WBC 13.48 H (4.50-10.00) X 10*3/uL RBC 4.35 L (4.40-5.60) X 10*6/uL Hgb 12.2 L (13.0-17.0) g/dL Hct 36.8 L (39.6-50.0) % RDW 17.5 H (11.5-14.5) % Plt Count 67 L (140-440) X 10*3/uL MPV 12.6 H (9.5-12.2) fL Immature Gran # 0.25 H (0.00-0.04) X 10*3/uL Neutrophils # 10.28 H (1.80-7.70) X 10*3/uL Monocytes # 1.02 H (0.20-1.00) X 10*3/uL Immature Plt Fraction 19.5 H (1.1-6.1) % Sodium (135-145) mmol/L Potassium (3.5-5.5) mmol/L Glucose (70-110) mg/dL POC Glucose (mg/dL) 127 H (70-110) mg/dL Calcium (8.7-10.3) mg/dL Total Bilirubin (0.30-1.20) mg/dL Conjugated Bilirubin (0.20-0.40) mg/dL AST (14-35) U/L ALT (10-49) U/L Alkaline Phosphatase (41-126) U/L Total Protein (6.2-8.2) g/dL Albumin (3.8-4.9) g/dL Albumin/Globulin Ratio (1.60-3.17) g/dL Microbiology - Last 24 Hours (Table) 10/19/22 17:01 Stool Culture - Final Stool 10/19/22 13:58 Blood Culture - Preliminary Blood No Growth after 72 hours 10/19/22 13:58 Blood Culture - Preliminary Blood No Growth after 72 hours 10/18/22 23:15 Blood Culture Gram Stain - Final Blood Blood Culture - Final Aerococcus species Assessment and Plan (1) Bacteremia Current Visit: Yes Status: Acute Code(s): R78.81 - BACTEREMIA SNOMED Code(s): 9834900 Plan: 1patient with a positive blood culture with gram-positive cocci with ID sensiti vities pending patient presented to hospital predominantly with GI symptoms abdominal pain and nausea vomiting and diarrhea with question of possible gastroenteritis with a gram-positive cocci possible skin contamination versus true pathogen. 2blood cultures has been repeated which has been negative so far 3patient did have a component of sigmoid diverticulitis on the CT, patient has tolerated Rocephin and is to continue with Rocephin and Flagyl while the patient finishing therapy with oral Ceftin and Flagyl Time with Patient: Less than 30
--- NOTE | 2022-10-24 16:50 | P.PN ---
Subjective Progress Note Date: 10/24/22 Principal diagnosis: Bacteremia Patient is a 41-year-old male presenting to the hospital with abdominal pain and fever 2 days and also have a positive blood culture. On today's evaluation that is 10/24/2022 patient continues to be afebrile, patient abdominal pain has resolved and the patient has been tolerating his diet, the patient denies nausea no vomiting no chest pain shortness of breath or cough Objective - Vital Signs Vital signs: Vital Signs Temp 98.0 F 10/24/22 11:03 Pulse 82 10/24/22 11:03 Resp 18 10/24/22 11:03 BP 137/78 10/24/22 11:03 Pulse Ox 92 L 10/24/22 11:03 FiO2 Intake & Output 10/23/22 10/24/22 10/24/22 18:59 06:59 18:59 Intake Total 1910 1500 Output Total 1000 Balance 1910 500 Intake: Intake, IV Titration 1910 1000 Amount Levofloxacin 500Mg-D5w 100 Pmx 500 mg In Dextrose/ Water 1 100ml.bag @ 100 mls/hr IVPB DAILY@1400 [facility]END[facility] TO [facility] Rx#:[id number] Sodium Chloride 0.9% 1, 1560 900 000 ml @ 75 mls/hr IV . [id number] [facility] Rx#:[id number] cefTRIAXone 2 gm In 50 Sodium Chloride 0.9% 50 ml @ 100 mls/hr IVPB Q24HR [facility] Rx#:[id number] metroNIDAZOLE-NS PMX 500 200 100 mg In Saline 1 100ml.bag @ 100 mls/hr IVPB Q8HR [facility] Rx#:[id number] Oral 500 Output: Urine 1000 Other: Voiding Method Toilet Toilet Urinal Urinal - Exam GENERAL DESCRIPTION: Middle-aged male lying in bed in no distress RESPIRATORY SYSTEM: Unlabored breathing , decreased breath sounds at bases HEART: S1 S2 regular rate and rhythm , ABDOMEN: Soft , no tenderness EXTREMITIES: No edema feet - Labs CBC & Chem 7: 10/24/22 05:48 10/24/22 05:48 Labs: Abnormal Lab Results - Last 24 Hours (Table) 10/23/22 10/23/22 10/24/22 Range/Units 17:04 20:55 05:48 WBC 14.80 H (4.50-10.00) X 10*3/uL RBC 4.30 L (4.40-5.60) X 10*6/uL Hgb 11.9 L (13.0-17.0) g/dL Hct 36.2 L (39.6-50.0) % RDW 17.6 H (11.5-14.5) % Plt Count 106 L (140-440) X 10*3/uL MPV 13.0 H (9.5-12.2) fL Immature Gran # 0.40 H (0.00-0.04) X 10*3/uL Neutrophils # 9.98 H (1.80-7.70) X 10*3/uL Monocytes # 1.44 H (0.20-1.00) X 10*3/uL Potassium (3.5-5.5) mmol/L Glucose (70-110) mg/dL POC Glucose (mg/dL) 116 H 159 H (70-110) mg/dL Calcium (8.7-10.3) mg/dL Total Bilirubin (0.30-1.20) mg/dL Conjugated Bilirubin (0.20-0.40) mg/dL AST (14-35) U/L ALT (10-49) U/L Alkaline Phosphatase (41-126) U/L Total Protein (6.2-8.2) g/dL Albumin (3.8-4.9) g/dL Albumin/Globulin Ratio (1.60-3.17) g/dL 10/24/22 10/24/22 10/24/22 Range/Units 05:48 06:59 12:04 WBC (4.50-10.00) X 10*3/uL RBC (4.40-5.60) X 10*6/uL Hgb (13.0-17.0) g/dL Hct (39.6-50.0) % RDW (11.5-14.5) % Plt Count (140-440) X 10*3/uL MPV (9.5-12.2) fL Immature Gran # (0.00-0.04) X 10*3/uL Neutrophils # (1.80-7.70) X 10*3/uL Monocytes # (0.20-1.00) X 10*3/uL Potassium 3.4 L (3.5-5.5) mmol/L Glucose 144 H (70-110) mg/dL POC Glucose (mg/dL) 125 H 131 H (70-110) mg/dL Calcium 7.6 L (8.7-10.3) mg/dL Total Bilirubin 2.60 H (0.30-1.20) mg/dL Conjugated Bilirubin 1.90 H (0.20-0.40) mg/dL AST 92 H (14-35) U/L ALT 62 H (10-49) U/L Alkaline Phosphatase 171 H (41-126) U/L Total Protein 4.9 L (6.2-8.2) g/dL Albumin 2.4 L (3.8-4.9) g/dL Albumin/Globulin Ratio 1.00 L (1.60-3.17) g/dL Microbiology - Last 24 Hours (Table) 10/19/22 13:58 Blood Culture - Preliminary Blood No Growth after 96 hours 10/19/22 13:58 Blood Culture - Preliminary Blood No Growth after 96 hours 10/19/22 17:01 Stool Culture - Final Stool Assessment and Plan (1) Bacteremia Current Visit: Yes Status: Acute Code(s): R78.81 - BACTEREMIA SNOMED Code(s): 2713099 Plan: 1patient with a positive blood culture with gram-positive cocci with ID sensitivities pending patient presented to hospital predominantly with GI symptoms abdominal pain and nausea vomiting and diarrhea with question of possible gastroenteritis with a gram-positive cocci possible skin contamination versus true pathogen. 2blood cultures has been repeated which has been negative so far 3patient did have a component of sigmoid diverticulitis on the CT, patient had shown clinical improvement some rash was described with the assistance of however it was not diffuse maculopapular rash suggestive of ALLERGY, we will prescribe Cipro and Flagyl for discharge and close outpatient follow-up patient has been educated about diverticulitis and prevent recurrent episodes Time with Patient: Less than 30
[2022-10-24 17:22] LABS: Glucose,Whole Blood 133 mg/dL (70-110)
--- NOTE | 2022-10-24 18:12 | P.CONS ---
History of Present Illness - Reason for Consult Consult date: 10/24/22 Thrombo cytopenia, chronic leukocytosis - History of Present Illness The patient is a 41-year-old white male, well known to myself. He has been followed for some years now for a chronic mild leukocytosis. His WBC is typ ically in the 11-16,000 range. He has had an extensive workup that has been negative and it is felt that this is most likely a mild reactive phenomenon from smoking. His labs have a possibility of a mild iron deficiency for which he has been on iron supplementation. He has been referred to GI for workup, but has not had that yet. The patient was admitted this time because of new onset of generalized abdominal pain, and diarrhea. His workup during this admission revealed positive blood cultures for gram-positive cocci. The patient is on antibiotics, and has had improvement in his symptoms. During this admission he was noted to have elevation of liver enzymes, and has had abdominal imaging including abdominal ultrasound that shows hepatomegaly with significant hepatic steatosis. Elevation in the liver enzyme occurred during this admission, and is trending downwards. During this admission his WBC increased to a high of 19,000 and then came down to 14.8 which is within his normal range. His platelets were 120 on admission and decreased into the 60,000 range yesterday. Today they're back up to 106,000. Coags have been normal. Review of Systems Constitutional: Reports fever, Reports poor appetite, Reports weakness Eyes: denies blurred vision, denies pain Ears: deny: decreased hearing, ear discharge, earache, tinnitus Ears, nose, mouth and throat: Denies headache, Denies sore throat Cardiovascular: Denies chest pain, Denies shortness of breath Respiratory: Denies cough Gastrointestinal: Reports abdominal pain, Reports diarrhea, Reports loss of appetite Genitourinary: Reports as per HPI Musculoskeletal: Denies myalgias Integumentary: Denies pruritus, Denies rash Neurological: Reports weakness, Denies numbness Psychiatric: Denies anxiety, Denies depression Endocrine: Reports fatigue Hematologic/Lymphatic: Reports as per HPI Past Medical History Past Medical History: Pneumonia Additional Past Medical History / Comment(s): PILONIDAL CYST EXC 04/23/17, Has a small open wound that is covered. KIDNEY STONE PASSED X2 2015. rt sup,medial thigh abcess. Diverticulitis. Iron deficient anemia-recent EGD/Colonoscopy on 10/14/22. History of Any Multi-Drug Resistant Organisms: None Reported Past Surgical History: Cholecystectomy, Orthopedic Surgery, Tonsillectomy Additional Past Surgical History / Comment(s): RT KNEE SURG X3. EXC INFECTED PILONIDAL CYST W/ ABSCESS. last surgery was in April 2017. SURGICAL I& D RT SUP,MED THIGH 06/04/17. EGD/Colonoscopy 10/14/22-negative for bleeding. Past Anesthesia/Blood Transfusion Reactions: No Reported Reaction, Motion Sickness, Motion Sickness Additional Past Anesthesia/Blood Transfusion Reaction / Comm: States size of his throat is smaller than normal. States anesthesia usually does not have any problem intubating him. Smoking Status: Current every day smoker - Past Family History Mother Family Medical History: Thyroid Disorder Father History Unknown: Yes Medications and Allergies Home Medications Medication Instructions Recorded Confirmed Type Omeprazole 20 mg PO BID 11/07/21 10/19/22 History Sertraline [Zoloft] 100 mg PO DAILY 09/17/22 10/19/22 History Acetaminophen Tab [Tylenol] 1,000 mg PO Q6HR PRN 10/19/22 10/19/22 History Ferrous Sulfate [Iron (65 MG 325 mg PO DAILY 10/19/22 10/19/22 History Elemental)] Sertraline [Zoloft] 25 mg PO DAILY 10/19/22 10/19/22 History Ciprofloxacin HCl [Cipro] 500 mg PO Q12HR 7 Days #14 tab 10/24/22 Rx metroNIDAZOLE [Flagyl] 500 mg PO TID #30 tab 10/24/22 Rx Allergies Allergy/AdvReac Type Severity Reaction Status Date / Time amoxicillin Allergy Anaphylaxis Verified 10/19/22 13:23 Penicillins Allergy Anaphylaxis Verified 10/19/22 13:23 artificial sugar AdvReac seizure Uncoded 10/18/22 21:01 Physical Exam Vitals: Vital Signs Temp Pulse Resp BP Pulse Ox 10/24/22 11:03 98.0 F 82 18 137/78 92 L 10/24/22 04:01 98.9 F 84 18 136/75 92 L 10/23/22 21:55 98.0 F 84 18 138/83 93 L 10/23/22 19:45 18 Intake and Output 10/24/22 10/24/22 10/24/22 06:59 14:59 22:59 Intake Total 1500 Output Total 1000 Balance 500 Intake: Intake, IV Titration 1000 Amount Sodium Chloride 0.9% 1, 900 000 ml @ 75 mls/hr IV . [id number] [facility] Rx#:[id number] metroNIDAZOLE-NS PMX 500 100 mg In Saline 1 100ml.bag @ 100 mls/hr IVPB Q8HR [facility] Rx#:[id number] Oral 500 Output: Urine 1000 Other: Voiding Method Toilet Urinal - Constitutional General appearance: no acute distress - EENT Eyes: EOMI, PERRLA ENT: hearing grossly normal, normal oropharynx - Neck Neck: no lymphadenopathy Thyroid: bilateral: normal size - Respiratory Respiratory: bilateral: CTA - Cardiovascular Rhythm: regular Heart sounds: normal: S1, S2 - Gastrointestinal General gastrointestinal: normal bowel sounds, soft - Integumentary Integumentary: normal - Neurologic Neurologic: CNII-XII intact - Musculoskeletal Musculoskeletal: strength equal bilaterally - Psychiatric Psychiatric: A&O x's 3, appropriate affect Results CBC & Chem 7: 10/24/22 05:48 10/24/22 05:48 Labs: Abnormal Lab Results - Last 24 Hours (Table) 10/23/22 10/24/22 10/24/22 Range/Units 20:55 05:48 05:48 WBC 14.80 H (4.50-10.00) X 10*3/uL RBC 4.30 L (4.40-5.60) X 10*6/uL Hgb 11.9 L (13.0-17.0) g/dL Hct 36.2 L (39.6-50.0) % RDW 17.6 H (11.5-14.5) % Plt Count 106 L (140-440) X 10*3/uL MPV 13.0 H (9.5-12.2) fL Immature Gran # 0.40 H (0.00-0.04) X 10*3/uL Neutrophils # 9.98 H (1.80-7.70) X 10*3/uL Monocytes # 1.44 H (0.20-1.00) X 10*3/uL Potassium 3.4 L (3.5-5.5) mmol/L Glucose 144 H (70-110) mg/dL POC Glucose (mg/dL) 159 H (70-110) mg/dL Calcium 7.6 L (8.7-10.3) mg/dL Total Bilirubin 2.60 H (0.30-1.20) mg/dL Conjugated Bilirubin 1.90 H (0.20-0.40) mg/dL AST 92 H (14-35) U/L ALT 62 H (10-49) U/L Alkaline Phosphatase 171 H (41-126) U/L Total Protein 4.9 L (6.2-8.2) g/dL Albumin 2.4 L (3.8-4.9) g/dL Albumin/Globulin Ratio 1.00 L (1.60-3.17) g/dL 10/24/22 10/24/22 10/24/22 Range/Units 06:59 12:04 17:18 WBC (4.50-10.00) X 10*3/uL RBC (4.40-5.60) X 10*6/uL Hgb (13.0-17.0) g/dL Hct (39.6-50.0) % RDW (11.5-14.5) % Plt Count (140-440) X 10*3/uL MPV (9.5-12.2) fL Immature Gran # (0.00-0.04) X 10*3/uL Neutrophils # (1.80-7.70) X 10*3/uL Monocytes # (0.20-1.00) X 10*3/uL Potassium (3.5-5.5) mmol/L Glucose (70-110) mg/dL POC Glucose (mg/dL) 125 H 131 H 133 H (70-110) mg/dL Calcium (8.7-10.3) mg/dL Total Bilirubin (0.30-1.20) mg/dL Conjugated Bilirubin (0.20-0.40) mg/dL AST (14-35) U/L ALT (10-49) U/L Alkaline Phosphatase (41-126) U/L Total Protein (6.2-8.2) g/dL Albumin (3.8-4.9) g/dL Albumin/Globulin Ratio (1.60-3.17) g/dL Microbiology - Last 24 Hours (Table) 10/19/22 13:58 Blood Culture - Preliminary Blood No Growth after 120 hours 10/19/22 13:58 Blood Culture - Preliminary Blood No Growth after 120 hours Comments: EKG image reviewed Chest x-ray: report reviewed Abdominal x-ray: report reviewed US - abdomen: report reviewed Assessment and Plan (1) Thrombocytopenia Narrative/Plan: The thrombopenia is a new phenomenon for him. However this is already showing improvement during this hospitalization itself. Given the clinical course this most likely represents increase consumption from infection. - The patient was found to have evidence of significant hepatic steatosis during this admission. This was not a known diagnosis for him. 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 In this situation any additional stress such as sepsis could also decreased platelet production in addition to the direct effect of the sepsis itself. - Platelets remain in the safe range, and I'll already starting to improve. The patient is himself eating better. No acute intervention is required. I will check fibrinogen for completion of workup. Status: Acute Code(s): D69.6 - THROMBOCYTOPENIA, UNSPECIFIED SNOMED Code(s): 714287667 (2) Gastroenteritis Narrative/Plan: This is felt to be infectious, with positive blood cultures. The patient is improved significantly with ongoing treatment. Status: Acute Code(s): K52.9 - NONINFECTIVE GASTROENTERITIS AND COLITIS, UNSPECIFIED SNOMED Code(s): 67461053 Plan: He has chronic leukocytosis, which is felt to be reactive, and is stable. He will continue follow-up as an outpatient for the same.
--- NOTE | 2022-10-26 11:11 | P.DS ---
Providers Date of admission: 10/21/22 08:33 Attending physician: Navdeep Schneider MD Consults: 10/19/22 13:15 Consult Physician Routine Consulting Provider: David Mares Consult Reason/Comments: abdominal pain Do you want consulting provider notified?: Yes 10/20/22 10:07 Consult Physician Routine Consulting Provider: Marychuy Valentin Consult Reason/Comments: gastroenteritis Do you want consulting provider notified?: Yes 10/20/22 14:37 Consult Physician Routine Consulting Provider: Yoseph Ortega Consult Reason/Comments: positive blood cultures-gram + cocci in clusters Do you want consulting provider notified?: Yes 10/23/22 22:11 Consult Physician Routine Consulting Provider: Kyle Seay Consult Reason/Comments: thrombocytopenia Do you want consulting provider notified?: Yes, Notify in am Primary care physician: Jose Rickettsqvi Hospital Course: Diagnoses: acute infectious gastroenteritis Sepsis with worsening leukocytosis and fever Gram-positive bacteremia secondary to earococcus Possible new-onset diabetes with hemoglobin A1c 7.6% Nicotine dependence History of depression, PTSD and bipolar, not an active issue Mostly drug-induced hepatotoxicity Mild upper trunk rash, improving Hospital course: This is a pleasant 41 years old male with no significant past medical history. He has past psychiatric history of depression, anxiety, PTSD. He is every day smoker. He had previous cholecystectomy. He presents because of abdominal pain and fever 2 nights ago, he came to the emergency room when day earlier where he had CT of the abdomen and discharge home. Presents with similar symptoms. He was Found to have infectious gastroenteritis with positive blood culture for enterococcus. Several consultants evaluated the patient including surgery GI and infectious disease team as well as hospice clinical manager for mild thrombocytopenia. He was treated with IV antibiotic Levaquin and Flagyl, he developed hepatotoxicity with elevated liver enzymes. Levaquin was stopped and he was started on ceftriaxone. His liver enzymes were improving. His symptoms also improved on the day of discharge she tolerates diet well, he has no abdominal pain and he rated as 0/10, just area improved breath patient states that yesterday at 6 bowel movement but that is normal for him and he wants to be discharged today actually he was soaking and his to be discharged today and follow up outpatient. He denies any other symptoms no chest pain or dyspnea, no headache or weakness or dizziness or numbness. No urinary complaints. No coughing. No fever which is subsided. Patient and at bedside were very keen to be discharged he does not want to stay in the hospital and Monitored. Also I got called by the bedside nurse the patient developing some mild chest rash in his trunk so SOLU-MEDROL and Pepcid and Benadryl provided for him. Then I discussed the case with infectious disease doctor who examined the patient and he does not think the patient had dark rash, I went to see the patient again and he has some mild erythema around his neck but does not seem maculopapular rash also refer to some rash in his wrist which is resolved completely now and I looked at the area. He didn't have any other symptoms, his airway is patent, no wheezing, no dyspnea, no dizziness and vitals are blood pressure is stable. Health Administration Teacher evaluated the patient for thrombocytopenia is improving. I discussed the case with infectious disease team during for discharge. Patient will be discharged on antibiotics per Dr. Ortega (who will send the prescription for antibiotics to the pharmacy by himself) Other than that patient also was cleared by all 4 consultants see him here including infectious disease team, frog shaker, Gen. surgery and hospice clinical manager On the top of the patient and are aware of the rash and they want to monitor as an outpatient. Patient informed to return to the hospital and called 911 if he develops any worsening symptoms of dyspnea coughing breathing difficulty dizziness or any other worsening symptoms and he verbalized understanding and acceptance. Problems and management plan were discussed with the patient and he verbalized understanding and acceptance Patient was found stable and can be discharged home in guarded prognosis however he needs follow-up as an outpatient. Patient was instructed to follow up with PCP Dr. Northin one week and patient agrees. I called Dr. Hassan office to make an appointment, they told me they don't to call the patient for an appointment and patient informed with this recommendation. I requested to Dr. Hassan, he was not available in the office this day so that his nurse Mrs. Blunt (patient gave me verbal consent to talk to her ) and she is going to informed Dr. Hassan with the recommendation, I discussed the case with her including abnormal labs of elevated WBC , low platelet count, elevated liver enzymes and bilirubin that need to be rechecked in one week, and she currently took note of these Patient was instructed to follow up with his surgeon Dr. Mares in one week, with the GI service Dr. Valentin in one week and Dr. zheng in one week and he agrees to call and make his own appointments Physical exam -Gen: patient is a AAOx3, no distress. Obese CVS: S1-S2, RRR, no murmur Lungs: B/L CTA, no wheezing Abdomen: soft, no distention, no tenderness, positive bowel sounds Extremity: no leg edema or induration -skin: No petechiae, mild upper trunk rash around the trunk in the form of erythema no papules, tone, improving Time spent more than 35 minutes Patient Condition at Discharge: Fair Plan - Discharge Summary Discharge Rx Participant: Yes New Discharge Prescriptions: New Ciprofloxacin HCl [Cipro] 500 mg PO Q12HR 7 Days #14 tab metroNIDAZOLE [Flagyl] 500 mg PO TID #30 tab Continue Omeprazole 20 mg PO BID Ferrous Sulfate [Iron (65 MG Elemental)] 325 mg PO DAILY Sertraline [Zoloft] 100 mg PO DAILY Acetaminophen Tab [Tylenol] 1,000 mg PO Q6HR PRN PRN Reason: Pain Or Fever > 100.5 Sertraline [Zoloft] 25 mg PO DAILY Discontinued Ibuprofen [Advil] 600 mg PO Q8HR PRN PRN Reason: Pain Or Fever > 100.5 Discharge Medication List Omeprazole 20 mg PO BID 11/07/21 [History] Sertraline [Zoloft] 100 mg PO DAILY 09/17/22 [History] Acetaminophen Tab [Tylenol] 1,000 mg PO Q6HR PRN 10/19/22 [History] Ferrous Sulfate [Iron (65 MG Elemental)] 325 mg PO DAILY 10/19/22 [History] Sertraline [Zoloft] 25 mg PO DAILY 10/19/22 [History] Ciprofloxacin HCl [Cipro] 500 mg PO Q12HR 7 Days #14 tab 10/24/22 [Rx] metroNIDAZOLE [Flagyl] 500 mg PO TID #30 tab 10/24/22 [Rx] Follow up Appointment(s)/Referral(s): David Mares MD [Medical Doctor] - 1 Week Marychuy Valentin MD [STAFF PHYSICIAN] - 1 Week Yoseph Ortega MD [STAFF PHYSICIAN] - 1 Week Jose Hassan MD [Primary Care Provider] - 1-2 days (we recommend to moitor your liver function test and enzymes, and white cell count with your doctor within one week the office will call you for an appointment within one week) Ambulatory/Diagnostic Orders: ALT [LAB.AMB] Location: None Selected AST [LAB.AMB] Time Frame: 3 Days, Location: None Selected Complete Blood Count w/diff [LAB.AMB] Time Frame: 3 Days, Location: None Selected Patient Instructions/Handouts: Gastroenteritis (DC), Bacteremia (DC) Activity/Diet/Wound Care/Special Instructions: heart healthy diet activity is restricted till you see your doctor Discharge Disposition: HOME SELF-CARE
== END 2022-10-24 17:40 | disposition home or self-care (01) | DRG 872 ==
LOC: EC 10:20 → 6NMEDSUR 13:15 → 5NMEDONC 16:49 → OBSVTOIN 10-21 08:33
PROVIDERS: ADMIT Internal Medicine; ATTEND Internal Medicine
DX: A41.89 Other specified sepsis (principal); E87.1 Hypo-osmolality and hyponatremia; B37.0 Candidal stomatitis; J98.11 Atelectasis; Z68.41 Body mass index [BMI] 40.0-44.9, adult; A09 Infectious gastroenteritis and colitis, unspecified; K76.0 Fatty (change of) liver, not elsewhere classified; E66.9 Obesity, unspecified; E11.9 Type 2 diabetes mellitus without complications; F31.9 Bipolar disorder, unspecified; D75.829 Heparin-induced thrombocytopenia, unspecified; R16.0 Hepatomegaly, not elsewhere classified; B96.89 Other specified bacterial agents as the cause of diseases classified elsewhere; F17.210 Nicotine dependence, cigarettes, uncomplicated; E87.6 Hypokalemia; K57.30 Diverticulosis of large intestine without perforation or abscess without bleeding; F41.0 Panic disorder [episodic paroxysmal anxiety]; F43.10 Post-traumatic stress disorder, unspecified; K58.0 Irritable bowel syndrome with diarrhea; G89.29 Other chronic pain; R79.89 Other specified abnormal findings of blood chemistry; T45.515A Adverse effect of anticoagulants, initial encounter; T50.905A Adverse effect of unspecified drugs, medicaments and biological substances, initial encounter; R63.0 Anorexia; R30.9 Painful micturition, unspecified; R21 Rash and other nonspecific skin eruption; M51.36 Other intervertebral disc degeneration, lumbar region; Z20.822 Contact with and (suspected) exposure to COVID-19; Z28.310 Unvaccinated for COVID-19; Z79.899 Other long term (current) drug therapy; Z88.0 Allergy status to penicillin; Z91.018 Allergy to other foods; Z90.49 Acquired absence of other specified parts of digestive tract
CPT/HCPCS: 36415; 71046; 74018; 76700; 80048; 80053; 80076; 81001; 82150; 82247; 82248; 83036; 83630; 83690; 83735; 84075; 84132; 84145; 84450; 84460; 85025; 85610; 87040; 87045; 87046; 87324; 87635; 93005; 96365; 96375; 99285

== ENCOUNTER 2022-10-25 11:45 | Inpatient (IN) | payer OTHER ==
[2022-10-25] MEDS ORDERED: PANTOPRAZOLE 40 MG/10 ML VIAL IVP STA (12:25)
[2022-10-25] MEDS ORDERED: SODIUM CHLORIDE 0.9% 1,000 ML IV STA (12:25)
[2022-10-25] MEDS ORDERED: ONDANSETRON 4 MG/2 ML VIAL IVP STA (12:25)
[2022-10-25] MEDS ORDERED: MORPHINE SULFATE 4 MG/ML SYRINGE IV STA (12:25)
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
[2022-10-25 13:10] LABS: Appearance,Urine Clear (Clear); Bilirubin,Urine Negative (Negative); Blood,Urine Trace (Negative); Color,Urine Yellow; Glucose,Urine (UA) Negative (Negative); Ketones,Urine Negative (Negative); Leukocyte Esterase,Urine Trace (Negative); Mucus,Urine Occasional /hpf; Nitrite,Urine Negative (Negative); Protein,Urine Trace (Negative); RBC,Urine 1 /hpf (0-5); Specific Gravity,Urine 1.021 (1.001-1.035); Urobilinogen,Urine <2.0 mg/dL (<2.0); WBC,Urine 3 /hpf (0-5)
[2022-10-25 13:17] LABS: ALT 58 U/L (4-49); AST 60 U/L (17-59); African American GFR (CKD) >90 (>60 ml/min/1.73 sqM); Albumin 2.8 g/dL (3.5-5.0); Alkaline Phosphatase 232 U/L (38-126); Amylase 85 U/L (30-110); Anion Gap 5 mmol/L; Blood Urea Nitrogen 14 mg/dL (9-20); Calcium 7.7 mg/dL (8.4-10.2); Carbon Dioxide 24 mmol/L (22-30); Chloride 109 mmol/L (98-107); Glucose 155 mg/dL (74-99); Lipase 462 U/L (23-300); Non-African American GFR(CKD) >90 (>60 ml/min/1.73 sqM); Potassium 3.4 mmol/L (3.5-5.1); Sodium 138 mmol/L (137-145); Total Bilirubin 1.6 mg/dL (0.2-1.3); Total Protein 5.7 g/dL (6.3-8.2)
[2022-10-25 13:31] LABS: Anisocytosis Slight; Basophils # (A) 0.2 k/uL (0-0.2); Basophils % (A) 1 %; Eosinophils # (A) 0.1 k/uL (0-0.7); Eosinophils % (A) 0 %; HCT 41.7 % (39.0-53.0); HGB 13.6 gm/dL (13.0-17.5); Lymphocytes % (A) 17 %; MCH 29.1 pg (25.0-35.0); MCHC 32.6 g/dL (31.0-37.0); MCV 89.4 fL (80.0-100.0); Mean Platelet Volume 10.9; Monocytes # (A) 1.2 k/uL (0-1.0); Monocytes % (A) 5 %; Neutrophils # (A) 17.4 k/uL (1.3-7.7); Neutrophils % (A) 74 %; Platelet Count 182 k/uL (150-450); RBC 4.66 m/uL (4.30-5.90); RDW 16.3 % (11.5-15.5); WBC 23.5 k/uL (3.8-10.6)
[2022-10-25 13:34] LABS: INR 1.1 (<1.2); Partial Thromboplastin Time 23.9 sec (22.0-30.0); Prothrombin Time 11.2 sec (9.0-12.0)
[2022-10-25] MEDS ORDERED: MORPHINE SULFATE 4 MG/ML SYRINGE IVP STA (13:56)
--- NOTE | 2022-10-25 14:08 | CT ---
EXAMINATION TYPE: CT abdomen pelvis w con CT DLP: 3585 mGycm, Automated exposure control for dose reduction was used. DATE OF EXAM: 10/25/2022 1:51 PM COMPARISON: CT abdomen pelvis most recent from 11/17/2022 CLINICAL INDICATION:Male, 41 years old with history of abdominal pain, acute BLLQ; Abdominal pain TECHNIQUE: Axial CT of the abdomen and pelvis. Sagittal and coronal reformats were created on a [employer] workstation. Contrast used:100 mL of Isovue 370 with IV Contrast, Oral contrast used: without Oral Contrast FINDINGS: LOWER CHEST: Unremarkable ABDOMEN LIVER: Diffusely hypoattenuating parenchyma. GALLBLADDER AND BILE DUCTS: Unremarkable. PANCREAS: Unremarkable. SPLEEN: Unremarkable. ADRENAL GLANDS: Unremarkable. KIDNEYS AND URETERS: No evidence of hydronephrosis or renal calculus. The ureters are unremarkable. PELVIS BLADDER: Unremarkable REPRODUCTIVE: Unremarkable. ABDOMEN & PELVIS STOMACH AND BOWEL:Circumferential wall thickening of the sigmoid colon with a few scattered diverticu la. Fat stranding changes extend up along the vasculature with multiple foci of portal venous gas pre sent. Inflammation changes track up along the lesser curvature with multiple lymph nodes present. Charly ewhat irregular and dilated appearance of the portal vein extending from the segment of sigmoid colon . No evidence of bowel obstruction. PERITONEUM: No evidence of pneumoperitoneum or free fluid. VASCULATURE: No evidence of aortic aneurysm. Multiple portal venous gas foci extending along the vasc ulature from the area of colitis with heterogenous and somewhat lower density than the venous vascula ture. MUSCULOSKELETAL: No acute osseous abnormalities LYMPH NODES: No gross evidence for lymphadenopathy. SOFT TISSUE/ABDOMINAL WALL: Unremarkable IMPRESSION: 1. There is acute colitis changes of the sigmoid colon with inflammatory changes tracking superiorly along the portal venous vasculature with multiple foci of gas within the portal venous vasculature. Findings suggest a ischemic colitis in the setting of thrombophlebitis with diverticulitis felt to be less likely given the portal venous gas and fat stranding changes extending up the vasculature. 2. Hepatic steatosis.
[2022-10-25] MEDS ORDERED: VANCOMYCIN IV PER PHARMACY 1 EACH MISC MISCELLANE PRN (14:30)
[2022-10-25] MEDS ORDERED: VANCOMYCIN 2,000 MG in SODIUM CHLORIDE 0.9% 500 ML 500 ML IVPB STA (14:41)
[2022-10-25] MEDS ORDERED: diphenhydrAMINE 50 MG/ML 1 ML VIAL IVP STA (14:48)
[2022-10-25] MEDS ORDERED: NALOXONE 0.4 MG/ML 1 ML VIAL IV PRN ×2 (14:49→15:56)
[2022-10-25] MEDS ORDERED: SODIUM CHLORIDE 0.9% 1,000 ML IV SCH (15:00)
--- NOTE | 2022-10-25 15:54 | P.GSHP ---
History of Present Illness H&P Date: 10/25/22 Chief Complaint: Progressive abdominal pain Patient is a 41-year-old gentleman who presents back to [facility] emergency Department 10/25/2022 of less than 24 hours after discharge from the hospital with abrupt worsening of right greater than left lower quad rant abdominal pain and a flushing sensation is started right after all loose bowel movement at around 11 AM today. He denies chills. Pain is grown progressively worse and in the afternoon. He tells me that these issues with pain have been becoming more unbearable over the past 1-2 months, goes on to tell me he's always had abdominal complaints throughout his entire life consisting of loose bowel movements and migratory cramping. This is yet to be fully explained. He was admitted to this hospital for what sounds like around a week with a diagnosis of infectious colitis. Clostridium difficile screen was negative. He had a terrible urticarial skin reaction to it sounds like Rocephin, has known history of penicillin ALLERGY. Eventually he was transitioned to [facility] and [facility], discharged home on the same. He had been assessed by the GI service with Dr. Valentin and a general surgery with Dr. Harvey. He tells me he underwent EGD and colonoscopy with Dr. Valentin around a week prior to this past Thanksgiving noting only mild gastritis, no significant findings on colonoscopy. He has no known personal history of inflammatory bowel disease, no known personal or family history of hypercoagulable states. Only previous abdominal surgery is that of laparoscopic cholecystectomy. On previous admission he was diagnosed with fatty liver disease, has never been diagnosed with cirrhosis. Apparently at some point on his previous admission and some issues with elevated liver function studies which eventually trended down. Today a computed tomography scan of the abdomen and pelvis are discloses what would appear to be thrombosis of the portal vein along the course of the left colon and regional inflammatory changes and several areas of portal venous gas throughout the portal system. There is brisk inflammatory changes about the sigmoid and associated I suspect reactive lymphadenopathy. There is no discrete abscess no free air no significant free fluid, no evidence of bowel obstruction. Liver has a fatty appearance as previously suggested. Laboratory studies show a markedly increased leukocytosis to 23,000. Apparently he has a chronic loose of leukocytosis between 11 and 14,000. Hemoglobin stable without evidence of iron deficiency on differential, platelet count is normal. Metabolic panel shows some trivial elevation of AST and MALT and more modest elevation of al kaline phosphatase and a total bilirubin just above the normal threshold of normal. Venous lactate was nonelevated, he has a hemodynamically stable appearance for now. No known history of cardiac arrhythmia or atrial fibrillation. Not maintained on oral anticoagulants as an outpatient. No known history of DVT or pulmonary emboli. Denies history of alcohol or drug use. - Constitutional Constitutional: Reports as per HPI Past Medical History Past Medical History: Pneumonia Additional Past Medical History / Comment(s): PILONIDAL CYST EXC 04/23/17, Has a small open wound that is covered. KIDNEY STONE PASSED X2 2016. rt sup,medial thigh abcess. Diverticulitis. Iron deficient anemia-recent EGD/Colonoscopy on 10/14/22. History of Any Multi-Drug Resistant Organisms: None Reported Past Surgical History: Cholecystectomy, Orthopedic Surgery, Tonsillectomy Additional Past Surgical History / Comment(s): RT KNEE SURG X3. EXC INFECTED PILONIDAL CYST W/ ABSCESS. last surgery was in April 2017. SURGICAL I& D RT SUP,MED THIGH 06/04/17. EGD/Colonoscopy 10/14/22-negative for bleeding. Past Anesthesia/Blood Transfusion Reactions: No Reported Reaction, Motion Sickness, Motion Sickness Additional Past Anesthesia/Blood Transfusion Reaction / Comment(s): States size of his throat is smaller than normal. States anesthesia usually does not have any problem intubating him. Past Psychological History: Anxiety, Depression, Panic Disorder, PTSD Smoking Status: Current every day smoker Past Alcohol Use History: None Reported Past Drug Use History: None Reported - Past Family History Mother Family Medical History: Thyroid Disorder Father History Unknown: Yes Medications and Allergies Home Medications Medication Instructions Recorded Confirmed Type Omeprazole 20 mg PO BID 11/07/21 10/25/22 History Sertraline [Zoloft] 100 mg PO DAILY 09/17/22 10/25/22 History Acetaminophen Tab [Tylenol] 1,000 mg PO Q6HR PRN 10/19/22 10/25/22 History Ferrous Sulfate [Iron (65 MG 325 mg PO DAILY 10/19/22 10/25/22 History Elemental)] Sertraline [Zoloft] 25 mg PO DAILY 10/19/22 10/25/22 History Ciprofloxacin HCl [Cipro] 500 mg PO Q12HR 7 Days #14 tab 12/02/22 12/03/22 Rx metroNIDAZOLE [Flagyl] 500 mg PO TID #30 tab 10/24/22 10/25/22 Rx Allergies Allergy/AdvReac Type Severity Reaction Status Date / Time amoxicillin Allergy Anaphylaxis Verified 10/25/22 12:09 Penicillins Allergy Anaphylaxis Verified 10/25/22 12:09 artificial sugar AdvReac seizure Uncoded 10/25/22 12:09 Surgical - Exam Osteopathic Statement: *. No significant issues noted on an osteopathic structural exam other than those noted in the History and Physical/Consult. Vital Signs Temp Pulse Resp BP Pulse Ox 98.5 F 83 26 H 125/82 96 10/25/22 12:07 10/25/22 12:07 10/25/22 12:07 10/25/22 12:07 10/25/22 12:07 - General well developed, obese - Eyes PERRL, normal ocular movement - ENT normal pinna, normal nares, normal mucosa - Respiratory normal expansion, normal respiratory effort, clear to auscultation - Cardiovascular Rhythm: regular - Abdomen There is a somewhat severe tenderness over the right lower quadrant, worse over the left lower quadrant with voluntary guarding and rebound tenderness apparent. Nondistended. - Integumentary Patient's entire body is covered with a diffuse urticarial rash. - Neurologic normal coordination, normal sensation - Psychiatric oriented to time, oriented to person, oriented to place, speech is normal, memory intact Results - Labs 10/25/22 12:46 10/25/22 12:46 Abnormal Lab Results - Last 24 Hours (Table) 10/25/22 10/25/22 10/25/22 Range/Units 12:46 12:46 12:46 WBC 23.5 H (3.8-10.6) k/uL RDW 16.3 H (11.5-15.5) % Neutrophils # 17.4 H (1.3-7.7) k/uL Monocytes # 1.2 H (0-1.0) k/uL Potassium 3.4 L (3.5-5.1) mmol/L Chloride 109 H (98-107) mmol/L Glucose 155 H (74-99) mg/dL Calcium 7.7 L (8.4-10.2) mg/dL Total Bilirubin 1.6 H (0.2-1.3) mg/dL AST 60 H (17-59) U/L ALT 58 H (4-49) U/L Alkaline Phosphatase 232 H (38-126) U/L Total Protein 5.7 L (6.3-8.2) g/dL Albumin 2.8 L (3.5-5.0) g/dL Lipase 462 H (23-300) U/L Urine Protein Trace H (Negative) Urine Blood Trace H (Negative) Ur Leukocyte Esterase Trace H (Negative) Urine Mucus Occasional H (None) /hpf Diabetes panel 10/25/22 Range/Units 12:46 Sodium 138 (137-145) mmol/L Potassium 3.4 L (3.5-5.1) mmol/L Chloride 109 H (98-107) mmol/L Carbon Dioxide 24 (22-30) mmol/L BUN 14 (9-20) mg/dL Creatinine 0.66 (0.66-1.25) mg/dL Glucose 155 H (74-99) mg/dL Calcium 7.7 L (8.4-10.2) mg/dL AST 60 H (17-59) U/L ALT 58 H (4-49) U/L Alkaline Phosphatase 232 H (38-126) U/L Total Protein 5.7 L (6.3-8.2) g/dL Albumin 2.8 L (3.5-5.0) g/dL Calcium panel 10/25/22 Range/Units 12:46 Calcium 7.7 L (8.4-10.2) mg/dL Albumin 2.8 L (3.5-5.0) g/dL Pituitary panel 10/25/22 Range/Units 12:46 Sodium 138 (137-145) mmol/L Potassium 3.4 L (3.5-5.1) mmol/L Chloride 109 H (98-107) mmol/L Carbon Dioxide 24 (22-30) mmol/L BUN 14 (9-20) mg/dL Creatinine 0.66 (0.66-1.25) mg/dL Glucose 155 H (74-99) mg/dL Calcium 7.7 L (8.4-10.2) mg/dL Adrenal panel 10/25/22 Range/Units 12:46 Sodium 138 (137-145) mmol/L Potassium 3.4 L (3.5-5.1) mmol/L Chloride 109 H (98-107) mmol/L Carbon Dioxide 24 (22-30) mmol/L BUN 14 (9-20) mg/dL Creatinine 0.66 (0.66-1.25) mg/dL Glucose 155 H (74-99) mg/dL Calcium 7.7 L (8.4-10.2) mg/dL Total Bilirubin 1.6 H (0.2-1.3) mg/dL AST 60 H (17-59) U/L ALT 58 H (4-49) U/L Alkaline Phosphatase 232 H (38-126) U/L Total Protein 5.7 L (6.3-8.2) g/dL Albumin 2.8 L (3.5-5.0) g/dL - Imaging CT scan - abdomen: report reviewed, image reviewed CT scan - pelvis: report reviewed, image reviewed Assessment and Plan Assessment: 35-year-old gentleman with progressive lower abdominal pain in the setting of what would appear to be infectious colitis. Relatively recent colonoscopy failed to disclose inflammatory bowel disease or etiology for significant chronic blood loss. Physical exam and consistent with localized peritonitis, computed tomography scan of abdomen and pelvis shows what would appear to be of portal vein thrombus along the course of the left colon with regional inflammatory changes and portal venous gas. Suspected degree of venous congestion and ischemia. Venous lactate paradoxically within normal limits. Has a hemodynamically stable appearance for now. Most likely relates to infection, unable to exclude hypercoagulable state for now. Recently on a variety of antibiotics with various sensitivities and ALLERGIES. Plan: Options for treatment were discussed with the patient. As he demonstrates peritonitis on exam and his pain is growing progressively worse in conjunction with his somewhat concerning imaging findings I feel that at least an initial laparoscopic exploration is warranted. If there is evidence of irreversible bowel ischemia he may require segmental resection and diverting ostomy. If there is no such evidence he'll need to be anticoagulated with heparin drip. In the meantime we will get the ball rolling on a hypercoagulable workup prior to starting heparin. Patient's in agreement and gave informed consent for the aforementioned interventions after discussion of risks, benefit and alternatives to treatment. He'll be admitted to my care to the ICU with customs import specialist, GI, infectious disease, and hematology consultation pending. We'll continue with IV Cipro Flagyl in the meantime, serial venous lactate, nothing by mouth except medications, resuscitative IV fluids. I suspect given his drug ALLERGIES may be appropriate for imipenem. Time with Patient: Greater than 30
[2022-10-25] MEDS: metroNIDAZOLE-NS PMX 500 MG in SALINE 1 100ML.BAG IVPB SCH ×2 (15:58→23:11)
[2022-10-25] MEDS ORDERED: LEVOFLOXACIN 500MG-D5W PMX 500 MG in DEXTROSE/WATER 1 100ML.BAG IVPB SCH ×2 (16:00→21:00)
[2022-10-25] MEDS ORDERED: HEPARIN SODIUM,PORCINE/PF 5,000 UNIT/0.5 ML SYRINGE SQ SCH (16:00)
[2022-10-25] MEDS ORDERED: CEFEPIME 2 GM in SODIUM CHLORIDE 0.9% 100 ML IVPB SCH (16:00)
[2022-10-25] MEDS ORDERED: GLYCOPYRROLATE 0.2 MG/ML 2 ML VIAL ONE (16:55)
[2022-10-25] MEDS ORDERED: PHENYLEPHRINE-0.9% NACL SYG 1,000 MCG/10 ML SYRINGE ONE (16:55)
[2022-10-25] MEDS ORDERED: SUCCINYLCHOLINE CHLORIDE 200 MG/10 ML VIAL IV ONE (16:55)
[2022-10-25] MEDS ORDERED: LACTATED RINGERS 1,000 ML IV ONE (16:55)
[2022-10-25] MEDS ORDERED: ONDANSETRON 4 MG/2 ML VIAL ONE (16:55)
[2022-10-25] MEDS ORDERED: PROPOFOL 10 MG/ML 20 ML VIAL IV ONE (16:55)
[2022-10-25] MEDS ORDERED: fentaNYL (PF) 50 MCG/ML 2 ML AMP ONE (16:55)
[2022-10-25] MEDS ORDERED: NEOSTIGMINE 1 MG/ML 10 ML VIAL ONE (16:55)
[2022-10-25] MEDS ORDERED: MIDAZOLAM 2 MG/2 ML VIAL ONE (16:55)
[2022-10-25] MEDS ORDERED: ROCURONIUM 10 MG/ML (5 ML VIAL) IV ONE (16:55)
[2022-10-25] MEDS ORDERED: BUPIVACAINE (PF) 0.25% 30 ML VIAL SQ ONE ×2 (17:03)
[2022-10-25] MEDS ORDERED: HEPARIN SODIUM 1,000 UN/ML (10ML VL) IV PRN (18:06)
[2022-10-25] MEDS ORDERED: HEPARIN SOD,PORK IN 0.45% NACL 25,000 UNIT in 0.45% NACL 1 250ML.BAG IV SCH (18:15)
--- NOTE | 2022-10-25 18:23 | P.OP ---
Date of Procedure: 10/25/22 Preoperative Diagnosis: Acute abdominal pain with localized peritonitis on exam, leukocytosis, portal venous gas and inferior mesenteric vein thrombophlebitis demonstrated on CT, suspected infectious colitis Postoperative Diagnosis: Segmental colitis of the distal descending colon and sigmoid without signs of perforation or necrosis Procedure(s) Performed: Diagnostic laparoscopy Anesthesia: ALBERTO Surgeon: Rod Jones Estimated Blood Loss (ml): 5 Pathology: none sent Condition: stable Disposition: ICU Indications for Procedure: Patient is a 41-year-old gentleman who presents to [facility] emergency department the afternoon of 10/25/2022 less than 24 hours of discharge from the same institution with progressive lower abdominal pain with sensation of flushing. He been admitted with the diagnosis of infectious colitis, had issues with multiple antibiotics and an associated urticarial rash. He was eventually discharged home on Cipro and Flagyl. He underwent EGD and colonoscopy within the past month without findings to explain this pain that h e's been suffering with for some time now. Laboratory studies on presentation showed a new brisk leukocytosis over 20,000 and computed tomography scan was concerning for thrombosis of the inferior mesenteric vein, associated thrombophlebitis, and air in the portal system along with segmental inflammation about the sigmoid. Physical exam was consistent with localized peritonitis. Given his overall clinical picture was felt that ischemic bowel or colon would need to be excluded prior to heparinizing the patient for portal vein thrombosis. The patient was in agreement and gave informed consent for the formation procedure after discussion of risks, benefit alternatives to treatment. Operative Findings: As above. Description of Procedure: Patient was again the operative suite and placed in supine position. Following induction of general endotracheal anesthesia he was prepped and draped in sterile fashion. Abdomen was entered in the left upper quadrant a Ventura's point with 5 mm trocar under laparoscopic visualization after anesthetizing incising the skin. Abdomen was insufflated and surveyed. No apparent injury or bleeding were noted. There was a small amount of serous free fluid no signs of perforated viscus or enteric succus. A second 5 mm port was placed under laparoscopic visualization at the umbilical position and a third at the suprapubic position after similarly anesthetizing incising the skin. Small bowel showed no evidence of vascular compromise or congestion. There is a focal segment of the sigmoid and distal descending that did show some thickening and congestion and medially along the sigmoid to the previously suggested thrombus was relatively readily identified along the mesial colon with an apparent region of inflammatory change extending along the course of the vein. The sigmoid was medialized slightly along the avascular plane at the left paracolic gutter and pelvis. There was no evidence of ischemia or necrosis, no evidence of perforation or complications of diverticulitis seen. There didn't appear to be any indication for resection. Hopefully this is something that will improve with antibiotics and heparinization. Abdomen was subsequently desufflated, all ports withdrawn and skin over each trocar site closed with interrupted inverted 3-0 Vicryl dermal suture and incisions dressed with Dermabond adhesive. He was transferred to the ICU, extubated, with Balderrama in place for strict intake and output monitoring. He'll be started on heparin drinks 6 hours postoperatively with no bolus. Labs for hypercoagulable states had been ordered stat in the ER. Instructor [employer], hematology, GI, and infectious disease service signs will be consulted. Findings were relayed with the patient's family and there were advised that there is still a chance he may end up needing resection if he shows interval worsening over the next few days. For now will continue to try to avoid a diverting ostomy.
[2022-10-25 19:00] LABS: Glucose,Whole Blood 136 mg/dL (70-110)
[2022-10-25 19:58] LABS: Anisocytosis Slight; Basophils # (A) 0.3 k/uL (0-0.2); Basophils % (A) 2 %; Eosinophils # (A) 0.1 k/uL (0-0.7); Eosinophils % (A) 0 %; HCT 43.5 % (39.0-53.0); HGB 13.2 gm/dL (13.0-17.5); Hypochromasia Marked; Lymphocytes # (A) 3.1 k/uL (1.0-4.8); Lymphocytes % (A) 15 %; MCH 29.1 pg (25.0-35.0); MCHC 30.4 g/dL (31.0-37.0); Mean Platelet Volume 10.3; Monocytes # (A) 0.8 k/uL (0-1.0); Monocytes % (A) 4 %; Neutrophils # (A) 15.4 k/uL (1.3-7.7); Neutrophils % (A) 75 %; Platelet Count 135 k/uL (150-450); RBC 4.54 m/uL (4.30-5.90); RDW 16.2 % (11.5-15.5); WBC 20.4 k/uL (3.8-10.6)
[2022-10-25 20:04] LABS: MCV 95.9 fL (80.0-100.0)
[2022-10-25 20:20] LABS: African American GFR (CKD) >90 (>60 ml/min/1.73 sqM); Anion Gap 6 mmol/L; Blood Urea Nitrogen 14 mg/dL (9-20); Calcium 7.3 mg/dL (8.4-10.2); Carbon Dioxide 22 mmol/L (22-30); Chloride 110 mmol/L (98-107); Glucose 147 mg/dL (74-99); Non-African American GFR(CKD) >90 (>60 ml/min/1.73 sqM); Sodium 138 mmol/L (137-145)
[2022-10-25 20:29] LABS: Magnesium 1.9 mg/dL (1.6-2.3); Potassium 3.8 mmol/L (3.5-5.1)
[2022-10-25] MEDS: LACTATED RINGERS 1,000 ML IV SCH ×2 (20:45→23:03)
[2022-10-25] MEDS: diphenhydrAMINE 50 MG/ML 1 ML VIAL IVP PRN (21:27)
[2022-10-25] MEDS ORDERED: PANTOPRAZOLE 40 MG/10 ML VIAL IVP ONE (23:35)
[2022-10-25 23:59] LABS: INR 1.1 (<1.2); Partial Thromboplastin Time 23.6 sec (22.0-30.0)
[2022-10-26] MEDS ORDERED: VANCOMYCIN 2,000 MG in SODIUM CHLORIDE 0.9% 500 ML 500 ML IVPB SCH ×2
[2022-10-26] MEDS: HEPARIN SOD,PORK IN 0.45% NACL 25,000 UNIT in 0.45% NACL 1 250ML.BAG IV SCH ×2 (00:06→10:01)
[2022-10-26] MEDS: HYDROmorphone 0.5 MG/0.5 ML SYRINGE IVP PRN ×6 (00:22→20:12)
[2022-10-26] MEDS: AZTREONAM 2 GM in SODIUM CHLORIDE 0.9% 100 ML IVPB SCH ×2 (00:24→09:23)
[2022-10-26] MEDS: diphenhydrAMINE 50 MG/ML 1 ML VIAL IVP PRN ×2 (03:33→09:22)
[2022-10-26 06:02] LABS: African American GFR (CKD) >90 (>60 ml/min/1.73 sqM); Anion Gap 4 mmol/L; Blood Urea Nitrogen 11 mg/dL (9-20); Carbon Dioxide 25 mmol/L (22-30); Chloride 110 mmol/L (98-107); Glucose 130 mg/dL (74-99); Non-African American GFR(CKD) >90 (>60 ml/min/1.73 sqM); Potassium 3.7 mmol/L (3.5-5.1); Sodium 139 mmol/L (137-145)
[2022-10-26] MEDS ORDERED: Potassium Replacement Protocol 1 EACH MISC MISCELLANE PRN (06:09)
[2022-10-26 06:10] LABS: Anisocytosis Slight; Basophils # (A) 0.1 k/uL (0-0.2); Basophils % (A) 1 %; Eosinophils # (A) 0.1 k/uL (0-0.7); Eosinophils % (A) 1 %; HCT 40.8 % (39.0-53.0); Hypochromasia Slight; Lymphocytes # (A) 4.3 k/uL (1.0-4.8); Lymphocytes % (A) 18 %; MCH 28.9 pg (25.0-35.0); MCHC 31.9 g/dL (31.0-37.0); Mean Platelet Volume 10.2; Monocytes # (A) 0.8 k/uL (0-1.0); Monocytes % (A) 3 %; Neutrophils % (A) 76 %; Platelet Count 197 k/uL (150-450); RBC 4.51 m/uL (4.30-5.90); RDW 16.5 % (11.5-15.5); WBC 23.7 k/uL (3.8-10.6)
[2022-10-26 06:14] LABS: MCV 90.5 fL (80.0-100.0)
[2022-10-26] MEDS: POTASSIUM CHLORIDE 10 MEQ in WATER FOR INJECTION 1 100ML.BAG IVPB SCH ×2 (06:27→07:41)
[2022-10-26] MEDS: LACTATED RINGERS 1,000 ML IV SCH ×4 (06:39→21:26)
[2022-10-26] MEDS: metroNIDAZOLE-NS PMX 500 MG in SALINE 1 100ML.BAG IVPB SCH (07:45)
[2022-10-26] MEDS: PANTOPRAZOLE 40 MG/10 ML VIAL IV SCH (09:23)
[2022-10-26] MEDS ORDERED: ONDANSETRON 4 MG/2 ML VIAL IVP PRN (09:42)
[2022-10-26] MEDS ORDERED: LIDOCAINE 1% (10MG/ML) FOR IV START INTRADERMA PRN (09:42)
[2022-10-26] MEDS ORDERED: HYDROmorphone 0.5 MG/0.5 ML SYRINGE IVP PRN (09:42)
[2022-10-26] MEDS ORDERED: DEXAMETHASONE SOD PHOSPHATE 4 MG/ML 1 ML VIAL IV ONE (09:42)
--- NOTE | 2022-10-26 12:09 | P.PN ---
Subjective Progress Note Date: 10/26/22 Principal diagnosis: Acute abdominal pain, suspected infectious colitis, inferior mesenteric vein thrombus, portal venous air. Patient seen and examined at bedside. He tells me he is feeling quite a bit better today than he did on initial presentation in the emergency department yesterday. Lower abdominal pain seems to be improving, manageable with current pain medication routine. He is starting to feel hungry, denies nausea or emesis. No reports of fever or chills. He's had a hemodynamically stable and afebrile appearance overnight. Heparin drip was started at midnight I, PTT shortly after starting treatment was in the low 30s, he is awaiting some repeat labs. CBC today shows a progressive leukocytosis at 23.7 thousand. Hemoglobin stable at 13.0, platelet count 197. Serum sodium was 139, potassium 3.7, CO2 of 25, creatinine of 0.64 and glucose of 130. Venous lactate this morning was 1.0. Antibiotics have been adjusted by infectious disease specialist to aztreonam and Flagyl. Still having issues with a total body rash and urticaria. Some relief with present Benadryl routine. Objective - Vital Signs Vital signs: Vital Signs Temp 98.0 F 10/26/22 08:00 Pulse 79 10/26/22 09:00 Resp 11 L 10/26/22 09:00 BP 119/72 10/26/22 09:00 Pulse Ox 93 L 10/26/22 09:00 FiO2 Intake & Output 10/25/22 10/26/22 10/26/22 18:59 06:59 18:59 Intake Total 950 1944.133 939.167 Output Total 205 1300 215 Balance 745 644.133 724.167 Weight 150.139 kg 160 kg Intake: IV 950 1600 833.3 Aztreonam 2 gm In Sodium 33.3 Chloride 0.9% 100 ml @ 33 .3 mls/hr IVPB Q8HR [facility] Rx#:[id number] Lactated Ringers 1,000 ml 1500 600 @ 150 mls/hr IV .[id number] [facility]OL Rx#:[id number] Potassium Chloride 10 meq 200 In Water For Injection 1 100ml.bag @ 100 mls/hr IVPB Q1H [facility] Rx#: [id number] metroNIDAZOLE-NS PMX 500 100 mg In Saline 1 100ml.bag @ 100 mls/hr IVPB Q8HR [facility]OL Rx#:[id number] Intake, IV Titration 344.133 105.867 Amount Aztreonam 2 gm In Sodium 100 Chloride 0.9% 100 ml @ 33 .3 mls/hr IVPB Q8HR K[facility]OL Rx#:[id number] Heparin Sod,Pork in 0.45% 144.133 105.867 NaCl 25,000 unit In 0.45 % NaCl 1 250ml.bag @ 15. 319 UNITS/KG/HR 23 mls/hr IV .[id number] [facility] Rx#: [id number] Levofloxacin 500Mg-D5w 100 Pmx 500 mg In Dextrose/ Water 1 100ml.bag @ 100 mls/hr IVPB Q24H [facility]OL Rx#: [id number] Output: Urine 200 1300 215 Estimated Blood Loss 5 Other: Voiding Method Indwelling Catheter - Constitutional General appearance: Present: average body habitus, cooperative - EENT Eyes: Present: EOMI, PERRLA ENT: Present: hearing grossly normal, NA/AT - Respiratory Respiratory: bilateral: CTA - Cardiovascular Rhythm: regular - Gastrointestinal Gastrointestinal Comment(s): Abdomen is soft, minimal incisional tenderness, no guarding rebound or distention. Bilateral lower quadrant tenderness has improved quite a bit since yesterday. He is no longer manifesting exam findings concerning for peritonitis. - Integumentary Integumentary Comment(s): Diffuse total-body urticarial rash. - Neurologic Neurologic: Present: CNII-XII intact - Psychiatric Psychiatric: Present: A&O x's 3, appropriate affect, intact judgment & insight - Labs CBC & Chem 7: 10/26/22 05:26 10/26/22 05:26 Labs: Abnormal Lab Results - Last 24 Hours (Table) 10/25/22 10/25/22 10/25/22 Range/Units 12:46 12:46 12:46 WBC 23.5 H (3.8-10.6) k/uL MCHC (31.0-37.0) g/dL RDW 16.3 H (11.5-15.5) % Plt Count (150-450) k/uL Neutrophils # 17.4 H (1.3-7.7) k/uL Monocytes # 1.2 H (0-1.0) k/uL Basophils # (0-0.2) k/uL APTT (22.0-30.0) sec Potassium 3.4 L (3.5-5.1) mmol/L Chloride 109 H (98-107) mmol/L Creatinine (0.66-1.25) mg/dL Glucose 155 H (74-99) mg/dL POC Glucose (mg/dL) (70-110) mg/dL Calcium 7.7 L (8.4-10.2) mg/dL Total Bilirubin 1.6 H (0.2-1.3) mg/dL AST 60 H (17-59) U/L ALT 58 H (4-49) U/L Alkaline Phosphatase 232 H (38-126) U/L Total Protein 5.7 L (6.3-8.2) g/dL Albumin 2.8 L (3.5-5.0) g/dL Lipase 462 H (23-300) U/L Urine Protein Trace H (Negative) Urine Blood Trace H (Negative) Ur Leukocyte Esterase Trace H (Negative) Urine Mucus Occasional H (None) /hpf 10/25/22 10/25/22 10/25/22 Range/Units 18:58 19:40 19:40 WBC 20.4 H (3.8-10.6) k/uL MCHC 30.4 L (31.0-37.0) g/dL RDW 16.2 H (11.5-15.5) % Plt Count 135 L (150-450) k/uL Neutrophils # 15.4 H (1.3-7.7) k/uL Monocytes # (0-1.0) k/uL Basophils # 0.3 H (0-0.2) k/uL APTT (22.0-30.0) sec Potassium (3.5-5.1) mmol/L Chloride 110 H (98-107) mmol/L Creatinine 0.64 L (0.66-1.25) mg/dL Glucose 147 H (74-99) mg/dL POC Glucose (mg/dL) 136 H (70-110) mg/dL Calcium 7.3 L (8.4-10.2) mg/dL Total Bilirubin (0.2-1.3) mg/dL AST (17-59) U/L ALT (4-49) U/L Alkaline Phosphatase (38-126) U/L Total Protein (6.3-8.2) g/dL Albumin (3.5-5.0) g/dL Lipase (23-300) U/L Urine Protein (Negative) Urine Blood (Negative) Ur Leukocyte Esterase (Negative) Urine Mucus (None) /hpf 10/26/22 10/26/22 10/26/22 Range/Units 05:26 05:26 05:26 WBC 23.7 H (3.8-10.6) k/uL MCHC (31.0-37.0) g/dL RDW 16.5 H (11.5-15.5) % Plt Count (150-450) k/uL Neutrophils # 18.0 H (1.3-7.7) k/uL Monocytes # (0-1.0) k/uL Basophils # (0-0.2) k/uL APTT 31.1 H (22.0-30.0) sec Potassium (3.5-5.1) mmol/L Chloride 110 H (98-107) mmol/L Creatinine 0.64 L (0.66-1.25) mg/dL Glucose 130 H (74-99) mg/dL POC Glucose (mg/dL) (70-110) mg/dL Calcium 7.0 L (8.4-10.2) mg/dL Total Bilirubin (0.2-1.3) mg/dL AST (17-59) U/L ALT (4-49) U/L Alkaline Phosphatase (38-126) U/L Total Protein (6.3-8.2) g/dL Albumin (3.5-5.0) g/dL Lipase (23-300) U/L Urine Protein (Negative) Urine Blood (Negative) Ur Leukocyte Esterase (Negative) Urine Mucus (None) /hpf Assessment and Plan Assessment: 35-year-old gentleman with progressive lower abdominal pain in the setting of what would appear to be infectious colitis. Relatively recent colonoscopy failed to disclose inflammatory bowel disease or etiology for significant chronic blood loss. Physical exam and consistent with localized peritonitis, computed tomography scan of abdomen and pelvis shows thrombosis of the inferior mesenteric vein with regional inflammatory changes and portal venous gas. Postoperative day 1 exploratory laparoscopy with no evidence of bowel ischemia, some mild edema and inflammation noted along the sigmoid and changes consistent with thrombophlebitis along the suspected course of the inferior mesenteric vein and tributaries along the alpha loop of the sigmoid. No evidence of bowel perforation or complicated diverticulitis. Most likely relates to infection, unable to exclude hypercoagulable state for now. Recently on a variety of antibiotics with various sensitivities and ALLERGIES. Plan: Awaiting formal input from infectious disease, wood scaler, ANN, and hematology consultants. Exploratory laparoscopy on date of presentation excluded bowel necrosis or free perforation. Hypercoagulable state labs were ordered prior to starting heparin drip. His exam and clinical picture are improved compared to yesterday. I suspect that the main factor in that as been antibiotic adjustments. Continue with heparin drip for now, may need to get him transitioned to oral Coumadin once comfortable that were out of the sarkar with respect to potential of postoperative bleeding. If he shows clinical deterioration over the coming days we may need to revisit potential laparotomy, sigmoid resection and temporizing ostomy. For now I am optimistic that we should be able to get him through this without need for additional surgery. Time with Patient: Greater than 30
--- NOTE | 2022-10-26 12:13 | P.CNPUL ---
History of Present Illness Consult date: 10/26/22 Requesting physician: Rod Jones Reason for consult: other (Hepatic portal vein gas HPVG) Chief complaint: Abdominal pain History of present illness: This is a 41-year-old white male, no previous significant past medical history, patient does have history of diverticulitis, history of iron deficiency anemia had EGD on 10/14/22, patient was recently admitted to the hospital on 10/19 and he was discharged home on 10/24 but readmitted on 10/25. Patient was found to have infectious gastroenteritis, and positive enterococcal blood cultures. Patient was seen by many consultants during his admission, including general surgery, gastroenterology, hematology, he was treated mostly with antibiotics in the form of Levaquin and Flagyl, developed hepatotoxicity and elevated liver enzymes. Patient was placed on ceftriaxone to replace Levaquin. His liver enzymes were improving, we were not involved in the patient's care on his last admission. Within 24 hours from discharge, patient was reevaluated in the ER with mostly worsening right greater than left lower quadrant pain and flushing sensation. Patient fell as he was having a bowel movement that something popped in his abdomen and he felt a very warm sensation and flushing sensation throughout. Then he developed severe pain, apparently these issues of abdominal pain have been going on for the last few months. Patient was admitted with the impression of infectious colitis. He had negative C. difficile screen, and upon his last discharge he was already taking ciprofloxacin and Flagyl. Patient was seen by Dr. Jones on consultation, and he reviewed his CT of the abdomen and pelvis, patient was found to have thrombosis of the portal vein along the course of the left colon. And the regional inflammatory changes and several areas of portal vein gas throughout the portal system. There was no evidence of discrete abscess or free air. No evidence of free fluid. No evidence of bowel obstruction. Liver was noted to be fatty liver. Patient was noted to have leukocytosis with WBC count of 23,000. He does normally have chronic leukocytosis. Patient had normal lactic acid level. And he was hemodynamically stable. Considering the abnormality noted, patient underwent exploratory laparotomy yesterday, he was found to have segmental colitis of the distal distending colon and sigmoid without signs of perforation or necrosis. No specific intervention was made, patient was sent back to the ICU extubated and now he is on antibiotics and heparin drip. Considering the findings and considering the potential seriousness of his condition, patient was admitted to the ICU, and is asked to see him on consultation. During my evaluation, patient is resting in bed, not in any distress, he is on 2 L nasal cannula, minimal abdominal pain, no fever no chills, no nausea no vomiting. Labs today showed leukocytosis about the same 23.7 WBC count, PT is subtherapeutic. Electrolytes are normal renal profile is normal liver enzymes were noted to be a bit elevated with alkaline phosphatase of 232 AST of 60 ALT of 58 lipase 462. Review of Systems CONSTITUTIONAL: Negative HEENT: Negative CARDIOVASCULAR: Negative PULMONARY: Negative GASTROINTESTINAL: As noted in HPI NEUROLOGICAL: Negative HEMATOLOGICAL: Negative GENITOURINARY: Negative MUSCULOSKELETAL/RHEUMATOLOGICAL: Negative. ENDOCRINE: Negative Past Medical History Past Medical History: Pneumonia Additional Past Medical History / Comment(s): PILONIDAL CYST EXC 04/23/17, Has a small open wound that is covered. KIDNEY STONE PASSED X2 2016. rt sup,medial thigh abcess. Diverticulitis. Iron deficient anemia-recent EGD/Colonoscopy on 10/14/22. History of Any Multi-Drug Resistant Organisms: None Reported Past Surgical History: Cholecystectomy, Orthopedic Surgery, Tonsillectomy Additional Past Surgical History / Comment(s): RT KNEE SURG X3. EXC INFECTED PILONIDAL CYST W/ ABSCESS. last surgery was in April 2017. SURGICAL I& D RT SUP,MED THIGH 06/04/17. EGD/Colonoscopy 10/14/22-negative for bleeding. Past Anesthesia/Blood Transfusion Reactions: No Reported Reaction, Motion Sickness, Motion Sickness Additional Past Anesthesia/Blood Transfusion Reaction / Comment(s): States size of his throat is smaller than normal. States anesthesia usually does not have any problem intubating him. Past Psychological History: Anxiety, Depression, Panic Disorder, PTSD Additional Psychological History / Comment(s): PANIC ATTACK PREVIOUSLY Smoking Status: Former smoker Past Alcohol Use History: None Reported Additional Past Alcohol Use History / Comment(s): SMOKED 1992, QUIT 04/22/17. Past Drug Use History: None Reported - Past Family History Mother Family Medical History: CVA/TIA, Diabetes Mellitus, Thyroid Disorder Father History Unknown: Yes Medications and Allergies Home Medications Medication Instructions Recorded Confirmed Type Omeprazole 20 mg PO BID 11/07/21 10/25/22 History Sertraline [Zoloft] 100 mg PO DAILY 09/17/22 10/25/22 History Acetaminophen Tab [Tylenol] 1,000 mg PO Q6HR PRN 10/19/22 10/25/22 History Ferrous Sulfate [Iron (65 MG 325 mg PO DAILY 10/19/22 10/25/22 History Elemental)] Sertraline [Zoloft] 25 mg PO DAILY 10/19/22 10/25/22 History Ciprofloxacin HCl [Cipro] 500 mg PO Q12HR 7 Days #14 tab 10/24/22 10/25/22 Rx metroNIDAZOLE [Flagyl] 500 mg PO TID #30 tab 10/24/22 10/25/22 Rx Allergies Allergy/AdvReac Type Severity Reaction Status Date / Time [facility] [[facility] Allergy Severe Rash/Hives Verified 10/25/22 18:14 amoxicillin Allergy Anaphylaxis Verified 10/25/22 12:09 Penicillins Allergy Anaphylaxis Verified 10/25/22 12:09 artificial sugar AdvReac seizure Uncoded 10/25/22 12:09 Physical Exam Vitals: Vital Signs Temp Pulse Pulse Resp BP BP Pulse Ox 10/26/22 09:00 79 11 L 119/72 93 L 10/26/22 08:00 98.0 F 79 14 116/66 91 L 10/26/22 07:53 91 L 10/26/22 07:00 79 27 H 128/66 91 L 10/26/22 06:00 96 28 H 137/94 94 L 10/26/22 05:00 84 21 137/76 93 L 10/26/22 04:00 98.1 F 82 75 12 133/60 92 L 10/26/22 03:00 83 16 118/66 94 L 10/26/22 02:00 85 23 116/66 92 L 10/26/22 01:00 90 28 H 108/59 91 L 10/26/22 00:00 97.9 F 81 22 141/87 93 L 10/25/22 23:00 77 27 H 129/81 95 10/25/22 22:00 79 24 129/81 93 L 10/25/22 21:30 82 12 142/77 96 10/25/22 21:15 76 14 136/76 95 10/25/22 21:00 79 18 133/72 94 L 10/25/22 20:54 98.3 F 75 16 129/75 95 10/25/22 20:45 75 15 130/74 95 10/25/22 20:30 77 18 128/73 94 L 10/25/22 20:15 74 18 129/75 94 L 10/25/22 20:00 98.3 F 78 20 128/74 93 L 10/25/22 19:45 79 18 122/72 94 L 10/25/22 19:30 78 21 124/72 92 L 10/25/22 19:15 77 16 93 L 10/25/22 19:00 76 18 89 L 10/25/22 18:36 76 16 127/61 95 10/25/22 18:16 84 16 144/71 92 L 10/25/22 18:01 98.4 F 88 16 143/74 96 10/25/22 16:22 97.8 F 80 18 141/84 93 L 10/25/22 12:07 98.5 F 83 26 H 125/82 96 Intake and Output 10/25/22 10/26/22 10/26/22 22:59 06:59 14:59 Intake Total 1350 1544.133 939.167 Output Total 655 850 215 Balance 695 694.133 724.167 Intake: IV 1250 1300 833.3 Aztreonam 2 gm In Sodium 33.3 Chloride 0.9% 100 ml @ 33 .3 mls/hr IVPB Q8HR [facility] Rx#:[id number] Lactated Ringers 1,000 ml 300 1200 600 @ 150 mls/hr IV .[id number] [facility] Rx#:[id number] Potassium Chloride 10 meq 200 In Water For Injection 1 100ml.bag @ 100 mls/hr IVPB Q1H [facility] Rx#: [id number] metroNIDAZOLE-NS PMX 500 100 mg In Saline 1 100ml.bag @ 100 mls/hr IVPB Q8HR [facility] Rx#:[id number] Intake, IV Titration 100 244.133 105.867 Amount Aztreonam 2 gm In Sodium 100 Chloride 0.9% 100 ml @ 33 .3 mls/hr IVPB Q8HR [facility] Rx#:[id number] Heparin Sod,Pork in 0.45% 144.133 105.867 NaCl 25,000 unit In 0.45 % NaCl 1 250ml.bag @ 15. 319 UNITS/KG/HR 23 mls/hr IV .[id number] PENDING SALE TO [facility] Rx#: [id number] Levofloxacin 500Mg-D5w 100 Pmx 500 mg In Dextrose/ Water 1 100ml.bag @ 100 mls/hr IVPB Q24H PENDING SALE TO [facility] Rx#: [id number] Output: Urine 650 850 215 Estimated Blood Loss 5 Other: Voiding Method Indwelling Catheter Indwelling Catheter Weight 164.4 kg 160 kg Physical Exam: Revealed a 41-year-old white male in no distress Head: Atraumatic, normocephalic. HEENT:[Neck is supple.] [No neck masses.] [No thyromegaly.] [No JVD.] Chest: [Clear throughout, no crackles, no rhonchi, no wheezes.] Cardiac Exam: [Normal S1 and S2, no S3 gallop, no murmur.] Abdomen: Postsurgical, soft, slightly tender to palpation, no rebound no guarding. Extremities: [No clubbing, no edema, no cyanosis.] Good pulses bilaterally Neurological Exam: [No focal neurologic deficit.] Alert oriented 3 no focal deficit Psychiatric: Normal mood affect and normal mental status examination. Skin: No rashes Results - Laboratory Findings CBC and BMP: 10/26/22 05:26 10/26/22 05:26 PT/INR, D-dimer PT 11.0 sec (9.0-12.0) 10/25/22 23:03 INR 1.1 (<1.2) 10/25/22 23:03 Abnormal lab findings: Abnormal Labs 10/25/22 10/25/22 10/25/22 12:46 12:46 12:46 WBC 23.5 H MCHC RDW 16.3 H Plt Count Neutrophils # 17.4 H Monocytes # 1.2 H Basophils # APTT Potassium 3.4 L Chloride 109 H Creatinine Glucose 155 H POC Glucose (mg/dL) Calcium 7.7 L Total Bilirubin 1.6 H AST 60 H ALT 58 H Alkaline Phosphatase 232 H Total Protein 5.7 L Albumin 2.8 L Lipase 462 H Urine Protein Trace H Urine Blood Trace H Ur Leukocyte Esterase Trace H Urine Mucus Occasional H 10/25/22 10/25/22 10/25/22 18:58 19:40 19:40 WBC 20.4 H MCHC 30.4 L RDW 16.2 H Plt Count 135 L Neutrophils # 15.4 H Monocytes # Basophils # 0.3 H APTT Potassium Chloride 110 H Creatinine 0.64 L Glucose 147 H POC Glucose (mg/dL) 136 H Calcium 7.3 L Total Bilirubin AST ALT Alkaline Phosphatase Total Protein Albumin Lipase Urine Protein Urine Blood Ur Leukocyte Esterase Urine Mucus 10/26/22 10/26/22 10/26/22 05:26 05:26 05:26 WBC 23.7 H MCHC RDW 16.5 H Plt Count Neutrophils # 18.0 H Monocytes # Basophils # APTT 31.1 H Potassium Chloride 110 H Creatinine 0.64 L Glucose 130 H POC Glucose (mg/dL) Calcium 7.0 L Total Bilirubin AST ALT Alkaline Phosphatase Total Protein Albumin Lipase Urine Protein Urine Blood Ur Leukocyte Esterase Urine Mucus - Diagnostic Findings Additional studies: CT of abdomen and pelvis as noted earlier in HPI. Assessment and Plan Assessment: Impression: Acute hepatic portal venous gas/HPVG Acute ischemic colitis/infectious colitis Recent history of colonoscopy and EGD 10/14 Acute portal vein thrombosis Recent history of infectious gastroenteritis Chronic leukocytosis Recent history of gram-positive bacteremia secondary to enterococcus Nicotine dependence New onset diabetes with hemoglobin A1c of 7.6% History of depression and posttraumatic stress disorder, history of bipolar disorder Status post exploratory laparotomy, postoperative day #1. Recommendation: Continue antibiotics as per infectious disease on the case. Continue heparin as per protocol for his portal vein thrombosis will eventually need to transition to oral treatment. Continue to monitor in the ICU for the next 24 hours Continue GI prophylaxis Resume home meds Prognosis is relatively guarded considering the diagnoses and considering the patient may have ischemic colitis We will continue to follow. Patient is critically ill but relatively stable Time with Patient: Greater than 30
[2022-10-26] MEDS: diphenhydrAMINE 25 MG CAP PO PRN ×2 (12:22→20:11)
[2022-10-26] MEDS: CALAMINE/ZINC OXIDE LOTION 177 ML BTL TOPICAL PRN ×2 (14:23→20:16)
[2022-10-26] MEDS ORDERED: VANCOMYCIN TROUGH DUE 1 EACH MISC MISCELLANE ONE (15:00)
--- NOTE | 2022-10-26 15:57 | P.CONS ---
History of Present Illness - Reason for Consult Consult date: 10/26/22 PVT Requesting physician: Rod Jones - Chief Complaint Abdominal pain - History of Present Illness Mr. Hare is a very pleasant 41-year-old male, follows with Dr. Seay for leukocytosis, chornic and mild, felt to be due to smoking, who is here for bilateral lower abdominal pain. He was recently hospitalized for GI evaluation, AP/N/V/fevers. Found to be bacteremic and treated with antibiotics. Seen by Dr. Seay on day of discharge, which was yesterday, for decreasing platelets, felt to be due to infection/antibiotics, and were improving. Improved and was di scharged yesterday only to return today with acute worsening lower abdominal pain. Work up this admission with CT AP showed WBC 23, Hgb 13.6, plt 182 from 106 yesterday, and CT AP with signs of acute colitis changes of sigmoid colon with inflammation tracking superiorly along portal venous vasculature with multiple foci of gas within portal venous vasculature. We were consulted for concerns of hypercoagulable state and PVT. During his recent admission, he had new onset of generalized abdominal pain, and diarrhea. His workup during this admission revealed positive blood cultures for gram-positive cocci. The patient was on antibiotics, and had improvement in his symptoms. During this admission he was noted to have elevation of liver enzymes, and has had abdominal imaging including abdominal ultrasound that shows hepatomegaly with significant hepatic steatosis. Elevation in the liver enzyme occurred during this admission, and is trending downwards. WBC had increased up to 19 and improved to 14.8 prior to discharge, which is where patient's WBC normally runs. Platelets were 120 on presentation and decreased to 60 couple days ago, up to 106 without any intervention yesterday prior to discharge. Patient denies any alcohol, or drug use. Does admit to smoking however states he quit on Thanksgiving week ago. No personal or family history of blood clots or autoimmune diseases. He does mention however his sister as well as his mother had multiple miscarriages. also his mother had a stroke in her 40s of unclear reason. He does not know his father's side of the family. Sister also with thyroid cancer in her 20s and maternal grandfather with testicular cancer possibly in his 60s. No other known family history of cancer. Past Medical History Past Medical History: Pneumonia Additional Past Medical History / Comment(s): PILONIDAL CYST EXC 04/23/17, Has a small open wound that is covered. KIDNEY STONE PASSED X2 2015. rt sup,medial thigh abcess. Diverticulitis. Iron deficient anemia-recent EGD/Colonoscopy on 10/14/22. History of Any Multi-Drug Resistant Organisms: None Reported Past Surgical History: Cholecystectomy, Orthopedic Surgery, Tonsillectomy Additional Past Surgical History / Comment(s): RT KNEE SURG X3. EXC INFECTED PILONIDAL CYST W/ ABSCESS. last surgery was in April 2017. SURGICAL I& D RT SUP,MED THIGH 06/04/17. EGD/Colonoscopy 10/14/22-negative for bleeding. Past Anesthesia/Blood Transfusion Reactions: No Reported Reaction, Motion Sickness, Motion Sickness Additional Past Anesthesia/Blood Transfusion Reaction / Comm: States size of his throat is smaller than normal. States anesthesia usually does not have any problem intubating him. Past Psychological History: Anxiety, Depression, Panic Disorder, PTSD Smoking Status: Current every day smoker Past Alcohol Use History: None Reported Past Drug Use History: None Reported - Past Family History Mother Family Medical History: Thyroid Disorder Father History Unknown: Yes Medications and Allergies Home Medications Medication Instructions Recorded Confirmed Type Omeprazole 20 mg PO BID 11/07/21 10/25/22 History Sertraline [Zoloft] 100 mg PO DAILY 09/17/22 10/25/22 History Acetaminophen Tab [Tylenol] 1,000 mg PO Q6HR PRN 10/19/22 10/25/22 History Ferrous Sulfate [Iron (65 MG 325 mg PO DAILY 10/19/22 10/25/22 History Elemental)] Sertraline [Zoloft] 25 mg PO DAILY 10/19/22 10/25/22 History Ciprofloxacin HCl [Cipro] 500 mg PO Q12HR 7 Days #14 tab 10/24/22 10/25/22 Rx metroNIDAZOLE [Flagyl] 500 mg PO TID #30 tab 10/24/22 10/25/22 Rx Allergies Allergy/AdvReac Type Severity Reaction Status Date / Time ceftriaxone [From Rocephin] Allergy Severe Rash/Hives Verified 10/25/22 18:14 amoxicillin Allergy Anaphylaxis Verified 10/25/22 12:09 Penicillins Allergy Anaphylaxis Verified 10/25/22 12:09 artificial sugar AdvReac seizure Uncoded 10/25/22 12:09 Physical Exam Vitals: Vital Signs Temp Pulse Pulse Resp BP BP Pulse Ox 10/25/22 18:36 76 16 127/61 95 10/25/22 18:16 84 16 144/71 92 L 10/25/22 18:01 98.4 F 88 16 143/74 96 10/25/22 16:22 97.8 F 80 18 141/84 93 L 10/25/22 12:07 98.5 F 83 26 H 125/82 96 Intake and Output 10/25/22 10/25/22 10/25/22 06:59 14:59 22:59 Intake Total 950 Output Total 205 Balance 745 Intake: IV 950 Output: Urine 200 Estimated Blood Loss 5 Other: Weight 150.139 kg Gen.: No acute distress. HEENT: No conjunctival pallor mucosa moist. Lungs: No respiratory distress. Heart: Regular rate. Abdomen: Soft. Neuro: Alert and oriented 3. Skin: No jaundice. Psych: Appropriate affect. Results CBC & Chem 7: 10/26/22 05:26 10/26/22 05:26 Labs: Abnormal Lab Results - Last 24 Hours (Table) 10/25/22 10/25/22 10/25/22 Range/Units 12:46 12:46 12:46 WBC 23.5 H (3.8-10.6) k/uL RDW 16.3 H (11.5-15.5) % Neutrophils # 17.4 H (1.3-7.7) k/uL Monocytes # 1.2 H (0-1.0) k/uL Potassium 3.4 L (3.5-5.1) mmol/L Chloride 109 H (98-107) mmol/L Glucose 155 H (74-99) mg/dL POC Glucose (mg/dL) (70-110) mg/dL Calcium 7.7 L (8.4-10.2) mg/dL Total Bilirubin 1.6 H (0.2-1.3) mg/dL AST 60 H (17-59) U/L ALT 58 H (4-49) U/L Alkaline Phosphatase 232 H (38-126) U/L Total Protein 5.7 L (6.3-8.2) g/dL Albumin 2.8 L (3.5-5.0) g/dL Lipase 462 H (23-300) U/L Urine Protein Trace H (Negative) Urine Blood Trace H (Negative) Ur Leukocyte Esterase Trace H (Negative) Urine Mucus Occasional H (None) /hpf 10/25/22 Range/Units 18:58 WBC (3.8-10.6) k/uL RDW (11.5-15.5) % Neutrophils # (1.3-7.7) k/uL Monocytes # (0-1.0) k/uL Potassium (3.5-5.1) mmol/L Chloride (98-107) mmol/L Glucose (74-99) mg/dL POC Glucose (mg/dL) 136 H (70-110) mg/dL Calcium (8.4-10.2) mg/dL Total Bilirubin (0.2-1.3) mg/dL AST (17-59) U/L ALT (4-49) U/L Alkaline Phosphatase (38-126) U/L Total Protein (6.3-8.2) g/dL Albumin (3.5-5.0) g/dL Lipase (23-300) U/L Urine Protein (Negative) Urine Blood (Negative) Ur Leukocyte Esterase (Negative) Urine Mucus (None) /hpf CT scan - abdomen: report reviewed CT scan - pelvis: report reviewed Assessment and Plan Assessment: 1. Acute colitiis 2. Acute on chronic leukocytosis, reactive 3. Gas in portal venous vasculature with surrounding inflammatory changes Plan: Mr. Hare is a very pleasant 41 yo male, pt of Dr. Seay with chronic mild reactive leukocytosis felt to be due to mild iron deficiency and smoking, who is here for acute bilateral lower abdominal pain after being discharged a day prior to admission. He was hospitalized and discharged 1 day prior to admission due to abdominal pain, vomiting, and fevers, found to be bacteremic, with increase in WBC to 19 and decrease in plt to 60. Plt improved and WBC went back to baseline on day of discharge. Here now with CT AP findings of acute colitis and inflammatory changes extending from sigmoid colon up to portal vasculature with multiple foci of gas in the vasculature. Taken to OR on 10/25/22, and found to inflammation around vasculature correlating with imaging findings, no resection felt to be necessary of the affected bowels. I suspect in the setting of recent bacteremia and infection as well as inflammatory changes seen, pt likely has infection contributing to his condition and less likely hypercoagulable state causing this, however he would benefit from hypercoagulable workup, especially since he does have chronic leukocytosis as well as family history of miscarriages and malignancy. He is not due for any cancer screening testing at this age. He will need antiphospholipid panel as well as JAK2 and BCR checked. He does not know his father's side of family and might benefit from factor V Leiden and prothrombin gene mutation testing as well, which will need to be done outpatient. Acute increase in leukocytosis compared to 10/24/22 is likely reactive due to infection. He is at risk of thrombosis with recent liver injury (AST and bilirubin downtrending, however alk phos increasing as well as lipase increasing), as well as recent hospitalization. Agree with antibiotics and if symptoms of abdominal pain do not improve, then would treat with anticoagulation. ID consulted as well. Will continue to follow pt with you. Discussed with pt and his at bedside and they are greeable to the plan. All of their questions were answered.
[2022-10-26] MEDS: SODIUM CHLORIDE 0.9% IVPB SCH (21:26)
[2022-10-26] MEDS: ERAVACYCLINE DI HYDROCHLORIDE IVPB SCH (21:26)
--- NOTE | 2022-10-26 22:23 | P.CONS ---
History of Present Illness - Reason for Consult Consult date: 10/26/22 - History of Present Illness Patient is a 41-year-old male who was recently admitted at this facility with abdominal pain thought to be related to sigmoid diverticulitis patient was treated with Levaquin and Flagyl as the patient did have penicillin allergy and a questionable reaction to the Rocephin patient was discharged home on oral Cipro and Flagyl on 10/24/2022 patient mention he was doing okay on Thursday and Thursday morning Thursday afternoon and patient was having a bowel movement and the patient was straining patient mention subsequently he noticed a pop and then subsequently developed significant abdominal pain, with the patient describing it to be sharp almost 10 out of 10 in severity with associated nausea and vomiting with the symptoms the patient was brought into the ER on arrival to the ER patient was afebrile and no fever have been recorded subsequently patient did have white count of 20,000 with a left shift kidney function was normal patient did have a CT abdominal pelvis which mention acute colitis changes of the sigmoid colon with inflammatory changes tracking superiorly along the portal venous vasculature with multiple foci of gas within the portal venous vasculature concerning for ischemic colitis in the setting of thrombophlebitis with diverticulitis felt to be less likely patient was evaluated by general surgery patient was taken to the OR with diagnostic laparoscopy evidence of segmental colitis of the distal descending colon and sigmoid without signs of perforation or necrosis no intervention was done patient was admitted to the ICU he was started on Levaquin Flagyl and vancomycin I was able to switch him over to Azactam for better gram-negative coverage patient apparently has developed a generalized maculopapular rash which the nursing staff was mentioning started after he was started on Azactam patient been complaining of itching because of the rash but denies having any difficulty swallowing tongue swelling or difficulty breathing Past Medical History Past Medical History: Pneumonia Additional Past Medical History / Comment(s): PILONIDAL CYST EXC 04/23/17, Has a small open wound that is covered. KIDNEY STONE PASSED X2 2016. rt sup,medial thigh abcess. Diverticulitis. Iron deficient anemia-recent EGD/Colonoscopy on 10/14/22. History of Any Multi-Drug Resistant Organisms: None Reported Past Surgical History: Cholecystectomy, Orthopedic Surgery, Tonsillectomy Additional Past Surgical History / Comment(s): RT KNEE SURG X3. EXC INFECTED PILONIDAL CYST W/ ABSCESS. last surgery was in April 2017. SURGICAL I& D RT SUP,MED THIGH 06/04/17. EGD/Colonoscopy 10/14/22-negative for bleeding. Past Anesthesia/Blood Transfusion Reactions: No Reported Reaction, Motion Sickness, Motion Sickness Additional Past Anesthesia/Blood Transfusion Reaction / Comm: States size of his throat is smaller than normal. States anesthesia usually does not have any problem intubating him. Past Psychological History: Anxiety, Depression, Panic Disorder, PTSD Additional Psychological History / Comment(s): PANIC ATTACK PREVIOUSLY Smoking Status: Former smoker Past Alcohol Use History: None Reported Additional Past Alcohol Use History / Comment(s): SMOKED 1992, QUIT 04/22/17. Past Drug Use History: None Reported - Past Family History Mother Family Medical History: CVA/TIA, Diabetes Mellitus, Thyroid Disorder Father History Unknown: Yes Medications and Allergies Home Medications Medication Instructions Recorded Confirmed Type Omeprazole 20 mg PO BID 11/07/21 10/25/22 History Sertraline [Zoloft] 100 mg PO DAILY 09/17/22 10/25/22 History Acetaminophen Tab [Tylenol] 1,000 mg PO Q6HR PRN 10/19/22 10/25/22 History Ferrous Sulfate [Iron (65 MG 325 mg PO DAILY 10/19/22 10/25/22 History Elemental)] Sertraline [Zoloft] 25 mg PO DAILY 10/19/22 10/25/22 History Ciprofloxacin HCl [Cipro] 500 mg PO Q12HR 7 Days #14 tab 10/24/22 10/25/22 Rx metroNIDAZOLE [Flagyl] 500 mg PO TID #30 tab 10/24/22 10/25/22 Rx Allergies Allergy/AdvReac Type Severity Reaction Status Date / Time ceftriaxone [From Rocephin] Allergy Severe Rash/Hives Verified 10/25/22 18:14 amoxicillin Allergy Anaphylaxis Verified 10/25/22 12:09 aztreonam [From Azactam] Allergy Rash/Hives Verified 10/26/22 19:47 Penicillins Allergy Anaphylaxis Verified 10/25/22 12:09 artificial sugar AdvReac seizure Uncoded 10/25/22 12:09 Physical Exam Vitals: Vital Signs Temp Pulse Pulse Resp BP BP Pulse Ox 10/26/22 09:00 79 11 L 119/72 93 L 10/26/22 08:00 98.0 F 79 14 116/66 91 L 10/26/22 07:53 91 L 10/26/22 07:00 79 27 H 128/66 91 L 10/26/22 06:00 96 28 H 137/94 94 L 10/26/22 05:00 84 21 137/76 93 L 10/26/22 04:00 98.1 F 82 75 12 133/60 92 L 10/26/22 03:00 83 16 118/66 94 L 10/26/22 02:00 85 23 116/66 92 L 10/26/22 01:00 90 28 H 108/59 91 L 10/26/22 00:00 97.9 F 81 22 141/87 93 L 10/25/22 23:00 77 27 H 129/81 95 10/25/22 22:00 79 24 129/81 93 L 10/25/22 21:30 82 12 142/77 96 10/25/22 21:15 76 14 136/76 95 10/25/22 21:00 79 18 133/72 94 L 10/25/22 20:54 98.3 F 75 16 129/75 95 10/25/22 20:45 75 15 130/74 95 10/25/22 20:30 77 18 128/73 94 L 10/25/22 20:15 74 18 129/75 94 L 10/25/22 20:00 98.3 F 78 20 128/74 93 L 10/25/22 19:45 79 18 122/72 94 L 10/25/22 19:30 78 21 124/72 92 L 10/25/22 19:15 77 16 93 L 10/25/22 19:00 76 18 89 L 10/25/22 18:36 76 16 127/61 95 10/25/22 18:16 84 16 144/71 92 L 10/25/22 18:01 98.4 F 88 16 143/74 96 10/25/22 16:22 97.8 F 80 18 141/84 93 L 10/25/22 12:07 98.5 F 83 26 H 125/82 96 Intake and Output 10/25/22 10/26/22 10/26/22 22:59 06:59 14:59 Intake Total 1350 1544.133 939.167 Output Total 655 850 215 Balance 695 694.133 724.167 Intake: IV 1250 1300 833.3 Aztreonam 2 gm In Sodium 33.3 Chloride 0.9% 100 ml @ 33 .3 mls/hr IVPB Q8HR [facility] Rx#:[id number] Lactated Ringers 1,000 ml 300 1200 600 @ 150 mls/hr IV .Q6H40M [facility] Rx#:[id number] Potassium Chloride 10 meq 200 In Water For Injection 1 100ml.bag @ 100 mls/hr IVPB Q1H [facility] Rx#: [id number] metroNIDAZOLE-NS PMX 500 100 mg In Saline 1 100ml.bag @ 100 mls/hr IVPB Q8HR [facility] Rx#:[id number] Intake, IV Titration 100 244.133 105.867 Amount Aztreonam 2 gm In Sodium 100 Chloride 0.9% 100 ml @ 33 .3 mls/hr IVPB Q8HR [facility] Rx#:[id number] Heparin Sod,Pork in 0.45% 144.133 105.867 NaCl 25,000 unit In 0.45 % NaCl 1 250ml.bag @ 15. 319 UNITS/KG/HR 23 mls/hr IV .[id number] [facility] Rx#: [id number] Levofloxacin 500Mg-D5w 100 Pmx 500 mg In Dextrose/ Water 1 100ml.bag @ 100 mls/hr IVPB Q24H [facility] Rx#: [id number] Output: Urine 650 850 215 Estimated Blood Loss 5 Other: Voiding Method Indwelling Catheter Indwelling Catheter Weight 164.4 kg 160 kg Results CBC & Chem 7: 10/26/22 05:26 10/26/22 05:26 Labs: Abnormal Lab Results - Last 24 Hours (Table) 10/25/22 10/25/22 10/25/22 Range/Units 12:46 12:46 12:46 WBC 23.5 H (3.8-10.6) k/uL MCHC (31.0-37.0) g/dL RDW 16.3 H (11.5-15.5) % Plt Count (150-450) k/uL Neutrophils # 17.4 H (1.3-7.7) k/uL Monocytes # 1.2 H (0-1.0) k/uL Basophils # (0-0.2) k/uL APTT (22.0-30.0) sec Potassium 3.4 L (3.5-5.1) mmol/L Chloride 109 H (98-107) mmol/L Creatinine (0.66-1.25) mg/dL Glucose 155 H (74-99) mg/dL POC Glucose (mg/dL) (70-110) mg/dL Calcium 7.7 L (8.4-10.2) mg/dL Total Bilirubin 1.6 H (0.2-1.3) mg/dL AST 60 H (17-59) U/L ALT 58 H (4-49) U/L Alkaline Phosphatase 232 H (38-126) U/L Total Protein 5.7 L (6.3-8.2) g/dL Albumin 2.8 L (3.5-5.0) g/dL Lipase 462 H (23-300) U/L Urine Protein Trace H (Negative) Urine Blood Trace H (Negative) Ur Leukocyte Esterase Trace H (Negative) Urine Mucus Occasional H (None) /hpf 10/25/22 10/25/22 10/25/22 Range/Units 18:58 19:40 19:40 WBC 20.4 H (3.8-10.6) k/uL MCHC 30.4 L (31.0-37.0) g/dL RDW 16.2 H (11.5-15.5) % Plt Count 135 L (150-450) k/uL Neutrophils # 15.4 H (1.3-7.7) k/uL Monocytes # (0-1.0) k/uL Basophils # 0.3 H (0-0.2) k/uL APTT (22.0-30.0) sec Potassium (3.5-5.1) mmol/L Chloride 110 H (98-107) mmol/L Creatinine 0.64 L (0.66-1.25) mg/dL Glucose 147 H (74-99) mg/dL POC Glucose (mg/dL) 136 H (70-110) mg/dL Calcium 7.3 L (8.4-10.2) mg/dL Total Bilirubin (0.2-1.3) mg/dL AST (17-59) U/L ALT (4-49) U/L Alkaline Phosphatase (38-126) U/L Total Protein (6.3-8.2) g/dL Albumin (3.5-5.0) g/dL Lipase (23-300) U/L Urine Protein (Negative) Urine Blood (Negative) Ur Leukocyte Esterase (Negative) Urine Mucus (None) /hpf 10/26/22 10/26/22 10/26/22 Range/Units 05:26 05:26 05:26 WBC 23.7 H (3.8-10.6) k/uL MCHC (31.0-37.0) g/dL RDW 16.5 H (11.5-15.5) % Plt Count (150-450) k/uL Neutrophils # 18.0 H (1.3-7.7) k/uL Monocytes # (0-1.0) k/uL Basophils # (0-0.2) k/uL APTT 31.1 H (22.0-30.0) sec Potassium (3.5-5.1) mmol/L Chloride 110 H (98-107) mmol/L Creatinine 0.64 L (0.66-1.25) mg/dL Glucose 130 H (74-99) mg/dL POC Glucose (mg/dL) (70-110) mg/dL Calcium 7.0 L (8.4-10.2) mg/dL Total Bilirubin (0.2-1.3) mg/dL AST (17-59) U/L ALT (4-49) U/L Alkaline Phosphatase (38-126) U/L Total Protein (6.3-8.2) g/dL Albumin (3.5-5.0) g/dL Lipase (23-300) U/L Urine Protein (Negative) Urine Blood (Negative) Ur Leukocyte Esterase (Negative) Urine Mucus (None) /hpf Assessment and Plan Plan: 1patient present to hospital with sepsis in this patient with significant abdominal pain elevated white count concerning for sigmoid colitis questionable ischemic and will need to cover for enteric gram-negative both aerobes and anaerobes. 2patient with a penicillin and cephalosporin allergy now developing a rash possibly to his rectum limiting the number of antibiotics safe to use 3-we will discontinue Azactam and Flagyl 4patient will be started on Eravacycline 5IV fluid and the patient has been started on heparin for possible ischemic colitis by surgery and hematology is on board We will follow on clinical condition and cultures to further adjust medication if needed Thank you for this consultation will follow this patient along with you Time with Patient: Greater than 30
[2022-10-27] MEDS: HYDROmorphone 0.5 MG/0.5 ML SYRINGE IVP PRN ×2 (00:38→04:48)
[2022-10-27] MEDS: diphenhydrAMINE 25 MG CAP PO PRN ×3 (00:38→22:41)
[2022-10-27] MEDS: LACTATED RINGERS 1,000 ML IV SCH ×4 (02:00→20:02)
[2022-10-27] MEDS: HEPARIN SOD,PORK IN 0.45% NACL 25,000 UNIT in 0.45% NACL 1 250ML.BAG IV SCH ×3 (02:33→19:49)
[2022-10-27 07:31] LABS: Anisocytosis Slight; HCT 38.7 % (39.0-53.0); Hypochromasia Slight; MCH 28.4 pg (25.0-35.0); MCHC 31.1 g/dL (31.0-37.0); MCV 91.3 fL (80.0-100.0); Mean Platelet Volume 9.7; Platelet Count 209 k/uL (150-450); RBC 4.23 m/uL (4.30-5.90); RDW 16.4 % (11.5-15.5); WBC 20.9 k/uL (3.8-10.6)
[2022-10-27 08:08] LABS: ALT 30 U/L (4-49); AST 24 U/L (17-59); African American GFR (CKD) >90 (>60 ml/min/1.73 sqM); Albumin 2.2 g/dL (3.5-5.0); Alkaline Phosphatase 156 U/L (38-126); Anion Gap 1 mmol/L; Blood Urea Nitrogen 11 mg/dL (9-20); Calcium 7.3 mg/dL (8.4-10.2); Carbon Dioxide 25 mmol/L (22-30); Chloride 106 mmol/L (98-107); Glucose 151 mg/dL (74-99); Non-African American GFR(CKD) >90 (>60 ml/min/1.73 sqM); Potassium 3.6 mmol/L (3.5-5.1); Sodium 132 mmol/L (137-145); Total Bilirubin 1.3 mg/dL (0.2-1.3)
[2022-10-27] MEDS: PANTOPRAZOLE 40 MG/10 ML VIAL IV SCH (08:19)
[2022-10-27] MEDS: MORPHINE SULFATE 4 MG/ML SYRINGE IV PRN ×5 (08:19→21:45)
[2022-10-27 09:26] LABS: Band Neutrophils % 3 %; Lymphocytes # (M) 2.09 k/uL (1.0-4.8); Metamyelocytes # (M) 0.21 k/uL (0); Metamyelocytes % 1 %; Monocytes # (M) 1.05 k/uL (0-1.0); Myelocytes # (M) 0.42 k/uL (0); Myelocytes % 2 %; Neutrophils % (M) 81 %; Nucleated Red Blood Cells 0 /100 WBC (0-0); Total Cells Counted 200
[2022-10-27] MEDS: SODIUM CHLORIDE 0.9% IVPB SCH ×2 (09:34→21:44)
[2022-10-27] MEDS: ERAVACYCLINE DI HYDROCHLORIDE IVPB SCH ×2 (09:34→21:44)
--- NOTE | 2022-10-27 10:36 | P.PN ---
Subjective Progress Note Date: 10/27/22 Principal diagnosis: Acute abdominal pain, suspected infectious colitis, inferior mesenteric vein thrombus, portal venous air. Patient seen and examined at bedside. Improved quite a bit today compared to yesterday. Lower abdominal pain is nearly completely resolved. Tolerated clear liquids, feeling hungry, positive bowel movement today. No reports of GI bleeding. No reports of fever, chills, chest pain, shortness of breath or orthostatic symptoms. He is up and about ambulatory this morning. He's had a hemodynamically stable and afebrile appearance overnight. Laboratory still reflects significant leukocytosis at 20.9 thousand bodies starting to trend down. Hemoglobin essentially stable at 12.0 from 13 yesterday, platelet count 209. Conference of metabolic panel shows a mild hyponatremia with sodium of 132, potassium normal at 3.6, CO2 25, creatinine 0.61, glucose of 151. Repeat venous lactate this morning was normal at 0.8. Liver function studies show nor mal transaminases, mild elevation of alkaline phosphatase at 156, total bilirubin normal at 1.3. Seen and assessed by infectious disease, medical grain grader, and hematology. Notes and recommendations were reviewed and appreciated. His antibiotics have been further adjusted due to apparent good e ffect. Blood cultures obtained on presentation are negative to date. Objective - Vital Signs Vital signs: Vital Signs Temp 98.0 F 10/27/22 08:00 Pulse 84 10/27/22 09:00 Resp 21 10/27/22 09:00 BP 117/85 10/27/22 09:00 Pulse Ox 91 L 10/27/22 09:00 FiO2 Intake & Output 10/26/22 10/27/22 10/27/22 18:59 06:59 18:59 Intake Total 2355.767 2660 800 Output Total 795 1048 400 Balance 3392.972 3422 400 Intake: IV 2249.9 2360 800 Aztreonam 2 gm In Sodium 99.9 Chloride 0.9% 100 ml @ 33 .3 mls/hr IVPB Q8HR [facility] Rx#:[id number] Eravacycline Di- 500 500 Hydrochloride 160 mg In Sodium Chloride 0.9% 500 ml 500 ml @ 500 mls/hr IVPB Q12HR [facility] Rx#: [id number] KVO 60 Lactated Ringers 1,000 ml 1950 1800 300 @ 150 mls/hr IV .Q6H40M [facility] Rx#:[id number] Potassium Chloride 10 meq 200 In Water For Injection 1 100ml.bag @ 100 mls/hr IVPB Q1H [facility] Rx#: [id number] Intake, IV Titration 105.867 250 Amount Heparin Sod,Pork in 0.45% 105.867 250 NaCl 25,000 unit In 0.45 % NaCl 1 250ml.bag @ 15. 319 UNITS/KG/HR 23 mls/hr IV .[id number] [facility] Rx#: [id number] Oral 50 Output: Urine 795 1048 400 Other: Voiding Method Indwelling Catheter Indwelling Catheter Indwelling Catheter # Bowel Movements 1 - Constitutional General appearance: Present: cooperative, no acute distress, obese - EENT Eyes: Present: PERRLA ENT: Present: hearing grossly normal, normal oropharynx - Respiratory Respiratory: bilateral: CTA - Cardiovascular Rhythm: regular - Gastrointestinal Gastrointestinal Comment(s): Abdomen soft, nontender to palpation, no guarding rebound or distention. Incisions clean dry and intact. Exam markedly improved compared to the time of initial presentation. - Neurologic Neurologic: Present: CNII-XII intact - Musculoskeletal Musculoskeletal: Present: gait normal - Psychiatric Psychiatric: Present: A&O x's 3, appropriate affect, intact judgment & insight - Labs CBC & Chem 7: 10/27/22 07:13 10/27/22 07:13 Labs: Abnormal Lab Results - Last 24 Hours (Table) 10/26/22 10/27/22 10/27/22 Range/Units 11:59 07:13 07:13 WBC 20.9 H (3.8-10.6) k/uL RBC 4.23 L (4.30-5.90) m/uL Hgb 12.0 L (13.0-17.5) gm/dL Hct 38.7 L (39.0-53.0) % RDW 16.4 H (11.5-15.5) % Neutrophils # (Manual) 17.50 H (1.3-7.7) k/uL Monocytes # (Manual) 1.05 H (0-1.0) k/uL Metamyelocytes # (Man) 0.21 H (0) k/uL Myelocytes # (Manual) 0.42 H (0) k/uL APTT 57.9 H (22.0-30.0) sec Sodium 132 L (137-145) mmol/L Creatinine 0.61 L (0.66-1.25) mg/dL Glucose 151 H (74-99) mg/dL Calcium 7.3 L (8.4-10.2) mg/dL Alkaline Phosphatase 156 H (38-126) U/L Total Protein 5.0 L (6.3-8.2) g/dL Albumin 2.2 L (3.5-5.0) g/dL 10/27/22 Range/Units 07:13 WBC (3.8-10.6) k/uL RBC (4.30-5.90) m/uL Hgb (13.0-17.5) gm/dL Hct (39.0-53.0) % RDW (11.5-15.5) % Neutrophils # (Manual) (1.3-7.7) k/uL Monocytes # (Manual) (0-1.0) k/uL Metamyelocytes # (Man) (0) k/uL Myelocytes # (Manual) (0) k/uL APTT 55.5 H (22.0-30.0) sec Sodium (137-145) mmol/L Creatinine (0.66-1.25) mg/dL Glucose (74-99) mg/dL Calcium (8.4-10.2) mg/dL Alkaline Phosphatase (38-126) U/L Total Protein (6.3-8.2) g/dL Albumin (3.5-5.0) g/dL Microbiology - Last 24 Hours (Table) 10/25/22 15:35 Blood Culture - Preliminary Blood No Growth after 24 hours 10/25/22 15:50 Blood Culture - Preliminary Blood No Growth after 24 hours Assessment and Plan Assessment: 35-year-old gentleman with progressive lower abdominal pain in the setting of w hat would appear to be infectious colitis. Relatively recent colonoscopy failed to disclose inflammatory bowel disease or etiology for significant chronic blood loss. Initial Physical exam consistent with localized peritonitis, computed tomography scan of abdomen and pelvis shows thrombosis of the inferior mesenteric vein with regional inflammatory changes and portal venous gas. Postoperative day 1 exploratory laparoscopy with no evidence of bowel ischemia, some mild edema and inflammation noted along the sigmoid and changes consistent with thrombophlebitis along the suspected course of the inferior mesenteric vein and tributaries from the alpha loop of the sigmoid. No evidence of bowel perforation or complicated diverticulitis. Most likely relates to infection, unable to exclude hypercoagulable state for now. Recently on a variety of antibiotics with various sensitivities and ALLERGIES. Clinically improving. Plan: Notes from grain grader, infectious disease, and hematology were reviewed and appreciated. In agreement that a potential hypercoagulable state workup can be pursued further on an outpatient basis. Hypercoagulable state labs were ordered prior to starting heparin drip. Agree with de-escalation out of the ICU to [facility]. Present antibiotic regimen seems to be efficacious. Advance to regular diet as tolerated, titrate resuscitative IV fluids. Exploratory laparoscopy on date of presentation excluded bowel necrosis or free perforation. His exam and clinical picture are improved compared to yesterday. Continue with heparin drip for now, may need to get him transitioned to oral Coumadin once comfortable that were out of the sarkar with respect to potential of postoperative bleeding. If he shows clinical deterioration over the coming days we may need to revisit potential laparotomy, sigmoid resection and temporizing ostomy. For now I am optimistic that we should be able to get him through this without need for additional surgery. Time with Patient: Greater than 30
[2022-10-27] MEDS ORDERED: ACETAMINOPHEN TAB 500 MG TAB PO PRN (10:37)
--- NOTE | 2022-10-27 11:27 | P.PN ---
Subjective Progress Note Date: 10/27/22 This is a 41-year-old white male, no previous significant past medical history, patient does have history of diverticulitis, history of iron deficiency anemia had EGD on 10/14/22, patient was recently admitted to the hospital on 10/19 and he was discharged home on 10/24 but readmitted on 10/25. Patient was found to have infectious gastroenteritis, and positive enterococcal blood cultures. Patient was seen by many consultants during his admission, including general surgery, gastroenterology, hematology, he was treated mostly with antibiotics in the form of Levaquin and Flagyl, developed hepatotoxicity and elevated liver enzymes. Patient was placed on ceftriaxone to replace Levaquin. His liver enz ymes were improving, we were not involved in the patient's care on his last admission. Within 24 hours from discharge, patient was reevaluated in the ER with mostly worsening right greater than left lower quadrant pain and flushing sensation. Patient fell as he was having a bowel movement that something popped in his abdomen and he felt a very warm sensation and flushing sensation throughout. Then he developed severe pain, apparently these issues of abdominal pain have been going on for the last few months. Patient was admitted with the impression of infectious colitis. He had negative C. difficile screen, and upon his last discharge he was already taking ciprofloxacin and Flagyl. Patient was seen by Dr. Jones on consultation, and he reviewed his CT of the abdomen and pelvis, patient was found to have thrombosis of the portal vein along the course of the left colon. And the regional inflammatory changes and several areas of portal vein gas throughout the portal system. There was no evidence of discrete abscess or free air. No evidence of free fluid. No evidence of bowel obstruction. Liver was noted to be fatty liver. Patient was noted to have leukocytosis with WBC count of 23,000. He does normally have chronic leukocytosis. Patient had normal lactic acid level. And he was hemodynamically stable. Considering the abnormality noted, patient underwent exploratory laparotomy yesterday, he was found to have segmental colitis of the distal distending colon and sigmoid without signs of perforation or necrosis. No specific intervention was made, patient was sent back to the ICU extubated and now he is on antibiotics and heparin drip. Considering the findings and considering the potential seriousness of his condition, patient was admitted to the ICU, and is asked to see him on consultation. During my evaluation, patient is resting in bed, not in any distress, he is on 2 L nasal cannula, minimal abdominal pain, no fever no chills, no nausea no vomiting. Labs today showed leukocytosis about the same 23.7 WBC count, PT is subtherapeutic. Electrolytes are normal renal profile is normal liver enzymes were noted to be a bit elevated with alkaline phosphatase of 232 AST of 60 ALT of 58 lipase 462. The patient is seen today 10/27/2022 in follow-up in the intensive care unit. He is awake and alert in no acute distress. Maintaining good O2 saturations in the 90s on 2 L/m per nasal cannula. Postoperative day #2 of an exploratory laparotomy. No ischemic changes noted. There was segmental colitis of the distal descending colon and sigmoid without signs of perforation or necrosis. Blood cultures revealing no growth. White count 20.9. Hemoglobin 12.0. Platelets 209. Sodium 132. Potassium 3.6. BUN 11. Creatinine 0.61. AST 24. ALT 30. Alk phos 156. He remains on antibiotics in the form of Eravacycline. Heparin drip continues. Lactated Ringer's 150 ML's per hour. Objective - Vital Signs Vital signs: Vital Signs Temp 98.0 F 10/27/22 08:00 Pulse 84 10/27/22 09:00 Resp 21 10/27/22 09:00 BP 117/85 10/27/22 09:00 Pulse Ox 91 L 10/27/22 09:00 FiO2 Intake & Output 10/26/22 10/27/22 10/27/22 18:59 06:59 18:59 Intake Total 2355.767 2660 800 Output Total 795 1048 400 Balance 5170.803 8243 400 Weight 157.2 kg Intake: IV 2249.9 2360 800 Aztreonam 2 gm In Sodium 99.9 Chloride 0.9% 100 ml @ 33 .3 mls/hr IVPB Q8HR [facility] Rx#:[id number] Eravacycline Di- 500 500 Hydrochloride 160 mg In Sodium Chloride 0.9% 500 ml 500 ml @ 500 mls/hr IVPB Q12HR [facility] Rx#: [id number] KVO 60 Lactated Ringers 1,000 ml 1950 1800 300 @ 150 mls/hr IV .[id number] [facility] Rx#:[id number] Potassium Chloride 10 meq 200 In Water For Injection 1 100ml.bag @ 100 mls/hr IVPB Q1H [facility] Rx#: [id number] Intake, IV Titration 105.867 250 Amount Heparin Sod,Pork in 0.45% 105.867 250 NaCl 25,000 unit In 0.45 % NaCl 1 250ml.bag @ 15. 319 UNITS/KG/HR 23 mls/hr IV .[id number] [facility] Rx#: [id number] Oral 50 Output: Urine 795 1048 400 Other: Voiding Method Indwelling Catheter Indwelling Catheter Indwelling Catheter # Bowel Movements 1 1 - Exam GENERAL EXAM: Alert, 41-year-old male patient, on 2 L nasal cannula, fairly comfortable in no apparent distress. HEAD: Normocephalic. EYES: Normal reaction of pupils, equal size. NOSE: Clear with pink turbinates. THROAT: No erythema or exudates. NECK: No masses, no JVD. CHEST: No chest wall deformity. LUNGS: Equal air entry with no crackles, wheeze, rhonchi or dullness. CVS: S1 and S2 normal with no audible murmur, regular rhythm. ABDOMEN: Incisions clean dry well approximated. No hepatosplenomegaly, normal bowel sounds, no guarding or rigidity. SPINE: No scoliosis or deformity SKIN: No rashes CENTRAL NERVOUS SYSTEM: No focal deficits, tone is normal in all 4 extremities. EXTREMITIES: There is no peripheral edema. No clubbing, no cyanosis. Per ipheral pulses are intact. - Labs CBC & Chem 7: 10/27/22 07:13 10/27/22 07:13 Labs: Abnormal Lab Results - Last 24 Hours (Table) 10/26/22 10/27/22 10/27/22 Range/Units 11:59 07:13 07:13 WBC 20.9 H (3.8-10.6) k/uL RBC 4.23 L (4.30-5.90) m/uL Hgb 12.0 L (13.0-17.5) gm/dL Hct 38.7 L (39.0-53.0) % RDW 16.4 H (11.5-15.5) % Neutrophils # (Manual) 17.50 H (1.3-7.7) k/uL Monocytes # (Manual) 1.05 H (0-1.0) k/uL Metamyelocytes # (Man) 0.21 H (0) k/uL Myelocytes # (Manual) 0.42 H (0) k/uL APTT 57.9 H (22.0-30.0) sec Sodium 132 L (137-145) mmol/L Creatinine 0.61 L (0.66-1.25) mg/dL Glucose 151 H (74-99) mg/dL Calcium 7.3 L (8.4-10.2) mg/dL Alkaline Phosphatase 156 H (38-126) U/L Total Protein 5.0 L (6.3-8.2) g/dL Albumin 2.2 L (3.5-5.0) g/dL 10/27/22 Range/Units 07:13 WBC (3.8-10.6) k/uL RBC (4.30-5.90) m/uL Hgb (13.0-17.5) gm/dL Hct (39.0-53.0) % RDW (11.5-15.5) % Neutrophils # (Manual) (1.3-7.7) k/uL Monocytes # (Manual) (0-1.0) k/uL Metamyelocytes # (Man) (0) k/uL Myelocytes # (Manual) (0) k/uL APTT 55.5 H (22.0-30.0) sec Sodium (137-145) mmol/L Creatinine (0.66-1.25) mg/dL Glucose (74-99) mg/dL Calcium (8.4-10.2) mg/dL Alkaline Phosphatase (38-126) U/L Total Protein (6.3-8.2) g/dL Albumin (3.5-5.0) g/dL Microbiology - Last 24 Hours (Table) 10/25/22 15:35 Blood Culture - Preliminary Blood No Growth after 24 hours 10/25/22 15:50 Blood Culture - Preliminary Blood No Growth after 24 hours Assessment and Plan Assessment: Acute abdominal pain secondary to acute hepatic portal venous gas/HPVG, acute ischemic colitis/infectious colitis. Status post exploratory laparotomy, postoperative day #2. Segmental colitis of the distal descending colon and sigmoid without signs of perforation or necrosis. Recent history of colonoscopy and EGD 10/14 Acute portal vein thrombosis Inferior mesenteric vein thrombosis Recent history of infectious gastroenteritis Chronic leukocytosis Recent history of gram-positive bacteremia secondary to enterococcus Nicotine dependence New onset diabetes with hemoglobin A1c of 7.6% History of depression and posttraumatic stress disorder, history of bipolar disorder Plan: The patient was seen and evaluated Labs and medications reviewed Stable and on 2 L nasal cannula Continued on a heparin drip Continued on Lactated Ringer's at 150 MLS per hour Remains on Eravacycline Add incentive spirometer and encourage cough and deep breathing exercises Stable for transfer to a [facility] floor without telemetry We will continue to follow I have personally seen and examined the patient, performed the documentation and the assessment and plan as written. Number of minutes spent on the visit: 10.
[2022-10-27 11:44] LABS: APTT 69 Sec(s) (<43); APTT 1:1 Mix 51 Sec(s) (<43); Dilute Russell Viper Venom 43 Sec(s) (<44); Hexagonal Phase Neutralization Positive (Negative)
--- NOTE | 2022-10-27 15:58 | US ---
EXAMINATION TYPE: US liver DATE OF EXAM: 10/27/2022 COMPARISON: NONE CLINICAL HISTORY: assess portal vein, thrombosis?. possible portal thrombus on CT TECHNIQUE: Multiple sonographic images of the right upper quadrant are obtained. FINDINGS: EXAM MEASUREMENTS: Liver Length: 21.6 cm Gallbladder Wall: Surgically absent CBD: 0.9 cm Right Kidney: 111.3 x 4.6 x 5.4 cm SECURITIES UNDERWRITER NOTES:obese patient with overlying bowel gas Pancreas: limited views appear wnl Liver: intercostal imaging only, enlarged, difficult to penetrate, MPV appeared to have thready flow without wall to wall fill which may represent thrombus, very difficult to penetrate due to habitus a nd gas Gallbladder: Surgically absent Evidence for sonographic [place]'s sign: no CBD: wnl Right Kidney: wnl IMPRESSION: Limited exam as discussed above. 1. A question of reduced flow within the middle portal vein. Small portal vein thrombosis not exclude d. Given the limitations of the exam recommend MRI follow-up. Tiny air bubbles noted by CT scan are t oo small to be noted by ultrasound. 2. Correlate for hepatic steatosis.
--- NOTE | 2022-10-27 20:46 | P.PN ---
Subjective Progress Note Date: 10/27/22 Principal diagnosis: PVT, concern for hypercoaguable state In f/u today pt denies any bleeding, he is having some abd discomfort. No acute changes in color or consistency of stool. Objective - Vital Signs Vital signs: Vital Signs Temp 98.0 F 10/27/22 08:00 Pulse 84 10/27/22 09:00 Resp 21 10/27/22 09:00 BP 117/85 10/27/22 09:00 Pulse Ox 91 L 10/27/22 09:00 FiO2 Intake & Output 10/26/22 10/27/22 10/27/22 18:59 06:59 18:59 Intake Total 2355.767 2660 1050 Output Total 795 1048 625 Balance 5010.161 2556 425 Weight 157.2 kg Intake: IV 2249.9 2360 800 Aztreonam 2 gm In Sodium 99.9 Chloride 0.9% 100 ml @ 33 .3 mls/hr IVPB Q8HR [facility] Rx#:[id number] Eravacycline Di- 500 500 Hydrochloride 160 mg In Sodium Chloride 0.9% 500 ml 500 ml @ 500 mls/hr IVPB Q12HR [facility] Rx#: [id number] KVO 60 Lactated Ringers 1,000 ml 1950 1800 300 @ 75 mls/hr IV .[id number] [facility] Rx#:[id number] Potassium Chloride 10 meq 200 In Water For Injection 1 100ml.bag @ 100 mls/hr IVPB Q1H [facility] Rx#: [id number] Intake, IV Titration 105.867 250 250 Amount Heparin Sod,Pork in 0.45% 105.867 250 250 NaCl 25,000 unit In 0.45 % NaCl 1 250ml.bag @ 15. 319 UNITS/KG/HR 23 mls/hr IV .[id number] [facility] Rx#: [id number] Oral 50 Output: Urine 795 1048 625 Other: Voiding Method Indwelling Catheter Indwelling Catheter Indwelling Catheter # Bowel Movements 1 1 - Constitutional General appearance: Present: cooperative, morbidly obese, no acute distress - EENT Eyes: Present: anicteric sclerae, EOMI ENT: Present: hearing grossly normal - Respiratory Respiratory: bilateral: CTA - Cardiovascular Rhythm: regular Heart sounds: normal: S1, S2 Abnormal Heart Sounds: Absent: systolic murmur, diastolic murmur, rub, S3 Gallop, S4 Gallop, click, other - Peripheral edema leg Peripheral Edema: bilateral: None - Gastrointestinal General gastrointestinal: Present: normal bowel sounds, soft, tenderness - Integumentary Integumentary: Present: normal - Neurologic Neurologic: Present: CNII-XII intact - Musculoskeletal Musculoskeletal: Present: strength equal bilaterally - Psychiatric Psychiatric: Present: A&O x's 3, appropriate affect, intact judgment & insight - Labs CBC & Chem 7: 10/27/22 07:13 10/27/22 07:13 Labs: Abnormal Lab Results - Last 24 Hours (Table) 10/26/22 10/27/22 10/27/22 Range/Units 05:26 07:13 07:13 WBC 20.9 H (3.8-10.6) k/uL RBC 4.23 L (4.30-5.90) m/uL Hgb 12.0 L (13.0-17.5) gm/dL Hct 38.7 L (39.0-53.0) % RDW 16.4 H (11.5-15.5) % Neutrophils # (Manual) 17.50 H (1.3-7.7) k/uL Monocytes # (Manual) 1.05 H (0-1.0) k/uL Metamyelocytes # (Man) 0.21 H (0) k/uL Myelocytes # (Manual) 0.42 H (0) k/uL APTT (22.0-30.0) sec Lupus Anticoag aPTT 69 H (<43) Sec(s) Lupus Anticoag PTT Mix 51 H (<43) Sec(s) Lupus Hexagonal Phase Positive A (Negative) Sodium 132 L (137-145) mmol/L Creatinine 0.61 L (0.66-1.25) mg/dL Glucose 151 H (74-99) mg/dL Calcium 7.3 L (8.4-10.2) mg/dL Alkaline Phosphatase 156 H (38-126) U/L Total Protein 5.0 L (6.3-8.2) g/dL Albumin 2.2 L (3.5-5.0) g/dL 10/27/22 Range/Units 07:13 WBC (3.8-10.6) k/uL RBC (4.30-5.90) m/uL Hgb (13.0-17.5) gm/dL Hct (39.0-53.0) % RDW (11.5-15.5) % Neutrophils # (Manual) (1.3-7.7) k/uL Monocytes # (Manual) (0-1.0) k/uL Metamyelocytes # (Man) (0) k/uL Myelocytes # (Manual) (0) k/uL APTT 55.5 H (22.0-30.0) sec Lupus Anticoag aPTT (<43) Sec(s) Lupus Anticoag PTT Mix (<43) Sec(s) Lupus Hexagonal Phase (Negative) Sodium (137-145) mmol/L Creatinine (0.66-1.25) mg/dL Glucose (74-99) mg/dL Calcium (8.4-10.2) mg/dL Alkaline Phosphatase (38-126) U/L Total Protein (6.3-8.2) g/dL Albumin (3.5-5.0) g/dL Microbiology - Last 24 Hours (Table) 10/25/22 15:35 Blood Culture - Preliminary Blood No Growth after 24 hours 10/25/22 15:50 Blood Culture - Preliminary Blood No Growth after 24 hours Assessment and Plan (1) Thrombosis, portal vein Current Visit: Yes Status: Acute Priority: High Code(s): I81 - PORTAL VEIN THROMBOSIS SNOMED Code(s): 83654835 Plan: Ordered US abd, portal vein doppler to further assess what was seen on CT scan. Cont heparin drip for now, no bleeding reported. Lupus anticoagulant noted to be positive. Pt is on anticoagulation with heparin so positive results will have to be confirmed at a later date. Attests: I have seen and examined pt, performed H&P, developed impression and plan of care. discussed with dictator. Agree with documentation, dictated as a scribe.
[2022-10-28] MEDS: MORPHINE SULFATE 4 MG/ML SYRINGE IV PRN ×5 (03:01→23:41)
[2022-10-28] MEDS: HEPARIN SOD,PORK IN 0.45% NACL 25,000 UNIT in 0.45% NACL 1 250ML.BAG IV SCH ×2 (04:55→15:33)
[2022-10-28] MEDS: diphenhydrAMINE 25 MG CAP PO PRN (06:05)
[2022-10-28 09:13] LABS: HCT 34.3 % (39.6-50.0); HGB 11.1 g/dL (13.0-17.0); MCH 28.8 pg (27.0-32.0); MCHC 32.4 g/dL (32.0-37.0); MCV 89.1 fL (80.0-97.0); Mean Platelet Volume 12.6 fL (9.5-12.2); NRBC Per 100 WBC 0 /100 WBCS (0.0-0.0); Platelet Count 214 X 10*3/uL (140-440); RBC 3.85 X 10*6/uL (4.40-5.60); RDW 17.9 % (11.5-14.5); WBC 16.92 X 10*3/uL (4.50-10.00)
[2022-10-28 09:47] LABS: African American GFR (CKD) 137.8 (60.0-200.0); Albumin 2.4 g/dL (3.8-4.9); Albumin/Globulin Ratio 0.92 (1.60-3.17); Anion Gap 11.3 mmol/L (10.00-18.00); BUN/Creat Ratio 15.71 Ratio (12.00-20.00); Calcium 7.6 mg/dL (8.7-10.3); Carbon Dioxide 21.7 mmol/L (20.0-27.5); Globulin 2.6 g/dL (1.6-3.3); Non-African American GFR(CKD) 118.9 (60.0-200.0); Potassium 3.7 mmol/L (3.5-5.5); Total Bilirubin 0.9 mg/dL (0.30-1.20)
[2022-10-28] MEDS: PANTOPRAZOLE 40 MG/10 ML VIAL IV SCH (09:53)
[2022-10-28] MEDS: LACTATED RINGERS 1,000 ML IV SCH (09:56)
[2022-10-28 11:03] LABS: Basophils # (M) 0.17 X 10*3/uL (0.00-0.10); Eosinophils # (M) 0.17 X 10*3/uL (0.04-0.35); Lymphocytes # (M) 2.71 X 10*3/uL (0.90-5.00); Macrocytosis (M) 2+; Metamyelocytes % 5 % (0-0); Monocytes # (M) 0.34 X 10*3/uL (0.20-1.00); Myelocytes % 3 % (0-0); Neutrophils # (M) 12.18 X 10*3/uL (2.00-8.90); Neutrophils % (M) 72 %
[2022-10-28] MEDS: SODIUM CHLORIDE 0.9% IVPB SCH (11:15)
[2022-10-28] MEDS: ERAVACYCLINE DI HYDROCHLORIDE IVPB SCH (11:15)
[2022-10-28 11:26] LABS: Act Protein C Resist Interp Negative; Activated Protein C Resistance 2.76 (1.60-4.90)
[2022-10-28 11:50] LABS: Protein C (Activity) 57 % (71-138)
--- NOTE | 2022-10-28 14:36 | P.PN ---
Subjective Progress Note Date: 10/28/22 This is a 41-year-old white male, no previous significant past medical history, patient does have history of diverticulitis, history of iron deficiency anemia had EGD on 10/14/22, patient was recently admitted to the hospital on 10/19 and he was discharged home on 10/24 but readmitted on 10/25. Patient was found to have infectious gastroenteritis, and positive enterococcal blood cultures. Patient was seen by many consultants during his admission, including general surgery, gastroenterology, hematology, he was treated mostly with antibiotics in the form of Levaquin and Flagyl, developed hepatotoxicity and elevated liver enzymes. Patient was placed on ceftriaxone to replace Levaquin. His liver enz ymes were improving, we were not involved in the patient's care on his last admission. Within 24 hours from discharge, patient was reevaluated in the ER with mostly worsening right greater than left lower quadrant pain and flushing sensation. Patient fell as he was having a bowel movement that something popped in his abdomen and he felt a very warm sensation and flushing sensation throughout. Then he developed severe pain, apparently these issues of abdominal pain have been going on for the last few months. Patient was admitted with the impression of infectious colitis. He had negative C. difficile screen, and upon his last discharge he was already taking ciprofloxacin and Flagyl. Patient was seen by Dr. Jones on consultation, and he reviewed his CT of the abdomen and pelvis, patient was found to have thrombosis of the portal vein along the course of the left colon. And the regional inflammatory changes and several areas of portal vein gas throughout the portal system. There was no evidence of discrete abscess or free air. No evidence of free fluid. No evidence of bowel obstruction. Liver was noted to be fatty liver. Patient was noted to have leukocytosis with WBC count of 23,000. He does normally have chronic leukocytosis. Patient had normal lactic acid level. And he was hemodynamically stable. Considering the abnormality noted, patient underwent exploratory laparotomy yesterday, he was found to have segmental colitis of the distal distending colon and sigmoid without signs of perforation or necrosis. No specific intervention was made, patient was sent back to the ICU extubated and now he is on antibiotics and heparin drip. Considering the findings and considering the potential seriousness of his condition, patient was admitted to the ICU, and is asked to see him on consultation. During my evaluation, patient is resting in bed, not in any distress, he is on 2 L nasal cannula, minimal abdominal pain, no fever no chills, no nausea no vomiting. Labs today showed leukocytosis about the same 23.7 WBC count, PT is subtherapeutic. Electrolytes are normal renal profile is normal liver enzymes were noted to be a bit elevated with alkaline phosphatase of 232 AST of 60 ALT of 58 lipase 462. The patient is seen today 10/27/2022 in follow-up in the intensive care unit. He is awake and alert in no acute distress. Maintaining good O2 saturations in the 90s on 2 L/m per nasal cannula. Postoperative day #2 of an exploratory laparotomy. No ischemic changes noted. There was segmental colitis of the distal descending colon and sigmoid without signs of perforation or necrosis. Blood cultures revealing no growth. White count 20.9. Hemoglobin 12.0. Platelets 209. Sodium 132. Potassium 3.6. BUN 11. Creatinine 0.61. AST 24. ALT 30. Alk phos 156. He remains on antibiotics in the form of Eravacycline. Heparin drip continues. Lactated Ringer's 150 ML's per hour. The patient is seen today 10/28/2022 in follow-up on the regular medical floor. He is currently sitting up in bed. Awake and alert in no acute distress. Maintaining O2 saturations in the 90s on 2 L/m per nasal cannula. He has lactated Ringer's at 75 ML's per hour. He remains on Eravacycline. Heparin drip continued. Ultrasound of the liver is limited. A question of reduced flow within the middle portal vein. Small portal vein thrombosis not excluded. Co rrelate for hepatic steatosis. White count 16.9. Hemoglobin 11.1. Sodium 133. Potassium 3.7. BUN 11. Creatinine 0.7. AST 16. ALT 25. Alk phos 120. Objective - Vital Signs Vital signs: Vital Signs Temp 98.4 F 10/28/22 07:17 Pulse 93 10/28/22 07:17 Resp 18 10/28/22 07:17 BP 124/67 10/28/22 07:17 Pulse Ox 92 L 10/28/22 07:17 FiO2 Intake & Output 10/27/22 10/28/22 10/28/22 18:59 06:59 18:59 Intake Total 1300 1050 Output Total 1225 1600 Balance 75 -550 Weight 157.2 kg Intake: IV 800 Eravacycline Di- 500 Hydrochloride 160 mg In Sodium Chloride 0.9% 500 ml 500 ml @ 500 mls/hr IVPB Q12HR [facility] Rx#: [id number] Lactated Ringers 1,000 ml 300 @ 75 mls/hr IV .[id number] [facility] Rx#:[id number] Intake, IV Titration 500 250 Amount Heparin Sod,Pork in 0.45% 500 250 NaCl 25,000 unit In 0.45 % NaCl 1 250ml.bag @ 15. 319 UNITS/KG/HR 23 mls/hr IV .[id number] [facility] Rx#: [id number] Oral 800 Output: Urine 1225 1600 Other: Voiding Method Indwelling Catheter # Voids 1 # Bowel Movements 1 3 - Exam GENERAL EXAM: Alert, 41-year-old male patient, on 2 L nasal cannula, fairly comfortable in no apparent distress. HEAD: Normocephalic. EYES: Normal reaction of pupils, equal size. NOSE: Clear with pink turbinates. THROAT: No erythema or exudates. NECK: No masses, no JVD. CHEST: No chest wall deformity. LUNGS: Equal air entry with no crackles, wheeze, rhonchi or dullness. CVS: S1 and S2 normal with no audible murmur, regular rhythm. ABDOMEN: Incisions clean dry well approximated. No hepatosplenomegaly, normal bowel sounds, no guarding or rigidity. SPINE: No scoliosis or deformity SKIN: No rashes CENTRAL NERVOUS SYSTEM: No focal deficits, tone is normal in all 4 extremities. EXTREMITIES: There is no peripheral edema. No clubbing, no cyanosis. Peripheral pulses are intact. - Labs CBC & Chem 7: 10/28/22 05:50 10/28/22 05:50 Labs: Abnormal Lab Results - Last 24 Hours (Table) 10/25/22 10/28/22 10/28/22 Range/Units 22:42 05:50 05:50 WBC 16.92 H (4.50-10.00) X 10*3/uL RBC 3.85 L (4.40-5.60) X 10*6/uL Hgb 11.1 L (13.0-17.0) g/dL Hct 34.3 L (39.6-50.0) % RDW 17.9 H (11.5-14.5) % MPV 12.6 H (9.5-12.2) fL Metamyelocytes % 5 H (0-0) % Myelocytes % 3 H (0-0) % Neutrophils # (Manual) 12.18 H (2.00-8.90) X 10*3/uL Basophils # (Manual) 0.17 H (0.00-0.10) X 10*3/uL APTT (22.0-30.0) sec Protein C Activity 57 L (71-138) % Sodium 133 L (135-145) mmol/L Glucose 127 H (70-110) mg/dL Calcium 7.6 L (8.7-10.3) mg/dL Total Protein 5.0 L (6.2-8.2) g/dL Albumin 2.4 L (3.8-4.9) g/dL Albumin/Globulin Ratio 0.92 L (1.60-3.17) g/dL 10/28/22 Range/Units 05:50 WBC (4.50-10.00) X 10*3/uL RBC (4.40-5.60) X 10*6/uL Hgb (13.0-17.0) g/dL Hct (39.6-50.0) % RDW (11.5-14.5) % MPV (9.5-12.2) fL Metamyelocytes % (0-0) % Myelocytes % (0-0) % Neutrophils # (Manual) (2.00-8.90) X 10*3/uL Basophils # (Manual) (0.00-0.10) X 10*3/uL APTT 49.5 H (22.0-30.0) sec Protein C Activity (71-138) % Sodium (135-145) mmol/L Glucose (70-110) mg/dL Calcium (8.7-10.3) mg/dL Total Protein (6.2-8.2) g/dL Albumin (3.8-4.9) g/dL Albumin/Globulin Ratio (1.60-3.17) g/dL Microbiology - Last 24 Hours (Table) 10/25/22 15:50 Blood Culture - Preliminary Blood No Growth after 48 hours 10/25/22 15:35 Blood Culture - Preliminary Blood No Growth after 48 hours Assessment and Plan Assessment: Acute abdominal pain secondary to acute hepatic portal venous gas/HPVG, acute ischemic colitis/infectious colitis. Status post exploratory laparotomy. Segmental colitis of the distal descending colon and sigmoid without signs of perforation or necrosis. Recent history of colonoscopy and EGD 10/14 Acute portal vein thrombosis Inferior mesenteric vein thrombosis Recent history of infectious gastroenteritis Chronic leukocytosis Recent history of gram-positive bacteremia secondary to enterococcus Nicotine dependence New onset diabetes with hemoglobin A1c of 7.6% History of depression and posttraumatic stress disorder, history of bipolar disorder Plan: The patient was seen and evaluated Labs and medications reviewed Stable from the pulmonary standpoint Continue incentive spirometer and encourage cough and deep breathing exercises Increase his activity as tolerated We will see the patient as needed I have personally seen and examined the patient, performed the documentation and the assessment and plan as written. Number of minutes spent on the visit: 10.
--- NOTE | 2022-10-28 17:24 | P.PN ---
Subjective Progress Note Date: 10/28/22 The patient is seen on rounds. He's feeling well. Tolerating a diet without nausea or vomiting. Having solid bowel movements. No bleeding Objective - Vital Signs Vital signs: Vital Signs Temp 98.4 F 10/28/22 07:17 Pulse 93 10/28/22 07:17 Resp 18 10/28/22 07:17 BP 124/67 10/28/22 07:17 Pulse Ox 92 L 10/28/22 07:17 FiO2 Intake & Output 10/27/22 10/28/22 10/28/22 18:59 06:59 18:59 Intake Total 1300 1050 250 Output Total 1225 1600 600 Balance 75 -550 -350 Weight 157.2 kg Intake: IV 800 Eravacycline Di- 500 Hydrochloride 160 mg In Sodium Chloride 0.9% 500 ml 500 ml @ 500 mls/hr IVPB Q12HR [facility] Rx#: [id number] Lactated Ringers 1,000 ml 300 @ 75 mls/hr IV .[id number] [facility] Rx#:[id number] Intake, IV Titration 500 250 250 Amount Heparin Sod,Pork in 0.45% 500 250 250 NaCl 25,000 unit In 0.45 % NaCl 1 250ml.bag @ 15. 319 UNITS/KG/HR 23 mls/hr IV .[id number] [facility] Rx#: [id number] Oral 800 Output: Urine 1225 1600 600 Other: Voiding Method Indwelling Catheter # Voids 1 # Bowel Movements 1 3 - Constitutional General appearance: Present: cooperative, no acute distress - Labs CBC & Chem 7: 10/28/22 05:50 10/28/22 05:50 Labs: Abnormal Lab Results - Last 24 Hours (Table) 10/25/22 10/28/22 10/28/22 Range/Units 22:42 05:50 05:50 WBC 16.92 H (4.50-10.00) X 10*3/uL RBC 3.85 L (4.40-5.60) X 10*6/uL Hgb 11.1 L (13.0-17.0) g/dL Hct 34.3 L (39.6-50.0) % RDW 17.9 H (11.5-14.5) % MPV 12.6 H (9.5-12.2) fL Metamyelocytes % 5 H (0-0) % Myelocytes % 3 H (0-0) % Neutrophils # (Manual) 12.18 H (2.00-8.90) X 10*3/uL Basophils # (Manual) 0.17 H (0.00-0.10) X 10*3/uL APTT (22.0-30.0) sec Protein C Activity 57 L (71-138) % Sodium 133 L (135-145) mmol/L Glucose 127 H (70-110) mg/dL Calcium 7.6 L (8.7-10.3) mg/dL Total Protein 5.0 L (6.2-8.2) g/dL Albumin 2.4 L (3.8-4.9) g/dL Albumin/Globulin Ratio 0.92 L (1.60-3.17) g/dL 10/28/22 Range/Units 05:50 WBC (4.50-10.00) X 10*3/uL RBC (4.40-5.60) X 10*6/uL Hgb (13.0-17.0) g/dL Hct (39.6-50.0) % RDW (11.5-14.5) % MPV (9.5-12.2) fL Metamyelocytes % (0-0) % Myelocytes % (0-0) % Neutrophils # (Manual) (2.00-8.90) X 10*3/uL Basophils # (Manual) (0.00-0.10) X 10*3/uL APTT 49.5 H (22.0-30.0) sec Protein C Activity (71-138) % Sodium (135-145) mmol/L Glucose (70-110) mg/dL Calcium (8.7-10.3) mg/dL Total Protein (6.2-8.2) g/dL Albumin (3.8-4.9) g/dL Albumin/Globulin Ratio (1.60-3.17) g/dL Microbiology - Last 24 Hours (Table) 10/25/22 15:50 Blood Culture - Preliminary Blood No Growth after 48 hours 10/25/22 15:35 Blood Culture - Preliminary Blood No Growth after 48 hours Assessment and Plan (1) Thrombosis, portal vein Current Visit: Yes Status: Acute Priority: High Code(s): I81 - PORTAL VEIN THROMBOSIS SNOMED Code(s): 08861392 (2) Abdominal pain Current Visit: No Status: Acute Code(s): R10.9 - UNSPECIFIED ABDOMINAL PAIN SNOMED Code(s): 07915070 Plan: Patient is currently surgically stable. Await recommendations on anticoagulation from hematology. Surgically stable for discharge once anticoagulation issues have been addressed
--- NOTE | 2022-10-28 19:00 | MR ---
EXAMINATION TYPE: MR liver wo/w con DATE OF EXAM: 10/28/2022 2:57 PM INDICATION: Patient age:Male; 41 years old; Reason for study: Concern for portal vein thrombosis; PH[facility]. Concern for portal vein thrombosis COMPARISON: CT scan abdomen from 10/25/2022. TECHNIQUE: Multiplanar multi-sequence imaging was performed without and with IV contrast. Post contr ast imaging was performed. IV Contrast: 15 cc Gadavist FINDINGS: Significantly limited exam secondary to motion and patient's body habitus. LOWER CHEST: Streaky signal seen within lung bases correlate for atelectasis and/or airspace disease. ABDOMEN Liver: Right hepatic lobe area of high T2 signal measuring 18 mm and on postcontrast imaging there ma y be enhancement suggesting flash filling hemangioma. Evaluation there is extremely limited. Or throm bophlebitis Gallbladder and Bile ducts: Unremarkable. Pancreas: Unremarkable. Spleen: Unremarkable. Adrenal glands: Unremarkable. Kidneys: Left renal cysts Stomach and Bowel: Known colitis not in the [id number]. Peritoneum: No evidence of pneumoperitoneum, free fluid, or adenopathy. Vasculature: Linear filling defect in both contrast T1 images extending from the main portal vein philip ge 389 with continuous extension to the left portal vein and if you've its branches. A nonocclusive p eripheral filling defect is present within the right portal vein image 399 as well as more distally i n one its branches on image 259. There is high signal within the left inferior mesenteric vein as see n on prior CT adjusting thrombosis. Abdominal wall: Unremarkable. Musculoskeletal: The osseous structures appear intact. IMPRESSION: Significantly limited exam secondary to motion and patient's body habitus. 1. Portal venous thrombosis extending from the main portal vein into the left portal vein with near complete occlusion suggested. Additional nonocclusive right portal vein thrombus and thrombi within b oth the left and right portal venous more distal branches are present, left greater than right. There is also suggestion of nonocclusive thrombus within the splenic vein. 2. Findings suggestive of thrombophlebitis of the inferior mesenteric vein. 3. Increased signal in the lung bases correlate for infection/atelectasis.
--- NOTE | 2022-10-28 21:02 | P.PN ---
Subjective Progress Note Date: 10/28/22 -Liver ultrasound with doppler was inconclusive for portal vein thrombosis secondary to body habitus -No acute events overnight -He denies any abdominal pain at this time Objective - Vital Signs Vital signs: Vital Signs Temp 98.7 F 10/28/22 19:51 Pulse 91 10/28/22 19:51 Resp 18 10/28/22 19:51 BP 143/77 10/28/22 19:51 Pulse Ox 94 L 10/28/22 19:51 FiO2 Intake & Output 10/28/22 10/28/22 10/29/22 06:59 18:59 06:59 Intake Total 1050 250 Output Total 1600 1700 Balance -550 -1450 Intake: Intake, IV Titration 250 250 Amount Heparin Sod,Pork in 0.45% 250 250 NaCl 25,000 unit In 0.45 % NaCl 1 250ml.bag @ 15. 319 UNITS/KG/HR 23 mls/hr IV .[id number] [facility] Rx#: [id number] Oral 800 Output: Urine 1600 1700 Other: # Voids 1 # Bowel Movements 3 - Constitutional General appearance: Present: obese - Respiratory Respiratory: bilateral: CTA - Cardiovascular Rhythm: regular - Gastrointestinal General gastrointestinal: Present: normal bowel sounds, soft. Absent: tenderness - Integumentary Integumentary: Absent: rash - Neurologic Neurologic: Present: CNII-XII intact. Absent: focal deficits (abdominal ultrasound results reviewed) - Psychiatric Psychiatric: Present: appropriate affect - Labs CBC & Chem 7: 10/28/22 05:50 10/28/22 05:50 Labs: Abnormal Lab Results - Last 24 Hours (Table) 10/25/22 10/28/22 10/28/22 Range/Units 22:42 05:50 05:50 WBC 16.92 H (4.50-10.00) X 10*3/uL RBC 3.85 L (4.40-5.60) X 10*6/uL Hgb 11.1 L (13.0-17.0) g/dL Hct 34.3 L (39.6-50.0) % RDW 17.9 H (11.5-14.5) % MPV 12.6 H (9.5-12.2) fL Metamyelocytes % 5 H (0-0) % Myelocytes % 3 H (0-0) % Neutrophils # (Manual) 12.18 H (2.00-8.90) X 10*3/uL Basophils # (Manual) 0.17 H (0.00-0.10) X 10*3/uL APTT (22.0-30.0) sec Protein C Activity 57 L (71-138) % Sodium 133 L (135-145) mmol/L Glucose 127 H (70-110) mg/dL Calcium 7.6 L (8.7-10.3) mg/dL Total Protein 5.0 L (6.2-8.2) g/dL Albumin 2.4 L (3.8-4.9) g/dL Albumin/Globulin Ratio 0.92 L (1.60-3.17) g/dL 10/28/22 Range/Units 05:50 WBC (4.50-10.00) X 10*3/uL RBC (4.40-5.60) X 10*6/uL Hgb (13.0-17.0) g/dL Hct (39.6-50.0) % RDW (11.5-14.5) % MPV (9.5-12.2) fL Metamyelocytes % (0-0) % Myelocytes % (0-0) % Neutrophils # (Manual) (2.00-8.90) X 10*3/uL Basophils # (Manual) (0.00-0.10) X 10*3/uL APTT 49.5 H (22.0-30.0) sec Protein C Activity (71-138) % Sodium (135-145) mmol/L Glucose (70-110) mg/dL Calcium (8.7-10.3) mg/dL Total Protein (6.2-8.2) g/dL Albumin (3.8-4.9) g/dL Albumin/Globulin Ratio (1.60-3.17) g/dL Microbiology - Last 24 Hours (Table) 10/25/22 15:35 Blood Culture - Preliminary Blood No Growth after 72 hours 10/25/22 15:50 Blood Culture - Preliminary Blood No Growth after 72 hours Assessment and Plan Assessment: Mr. Hare is a 41-year-old gentleman with a history of leukocytosis and iron deficiency scented with abdominal pain following recent admission for bacteremia with CT abdomen pelvis and abdominal ultrasound findings with Doppler inconclusive for potential portal vein thrombosis. (1) Thrombosis, portal vein Current Visit: Yes Status: Acute Priority: High Code(s): I81 - PORTAL VEIN THROMBOSIS SNOMED Code(s): 46650858 Plan: -Discussed obtaining liver MRI with and without contrast to fully assess headache and portal vein vasculature for more definitive assessment -If he has portal vein thrombosis, he will require indefinite anticoagulation with either Lovenox or DOAC -He would benefit from additional work-up outpatient if he was found to have portal vein thrombosis, including JAK2 mutation, PNH and cardiolipin antibodies -In the setting of acute thrombosis, protein C and protein S levels can be falsely elevated, leading to inaccurate measurements. This should be drawn outpatient at least 14 days from starting anticoagulation
[2022-10-28] MEDS: SERTRALINE 25 MG TAB PO SCH (23:04)
[2022-10-28] MEDS: SERTRALINE 100 MG TAB PO SCH (23:05)
[2022-10-29] MEDS: diphenhydrAMINE 25 MG CAP PO PRN (00:43)
[2022-10-29] MEDS: SODIUM CHLORIDE 0.9% IVPB SCH ×2 (00:46→09:48)
[2022-10-29] MEDS: ERAVACYCLINE DI HYDROCHLORIDE IVPB SCH ×2 (00:46→09:48)
[2022-10-29] MEDS: HEPARIN SOD,PORK IN 0.45% NACL 25,000 UNIT in 0.45% NACL 1 250ML.BAG IV SCH (01:01)
[2022-10-29] MEDS: MORPHINE SULFATE 4 MG/ML SYRINGE IV PRN ×4 (01:49→16:40)
[2022-10-29] MEDS: LACTATED RINGERS 1,000 ML IV SCH ×2 (03:38→12:52)
[2022-10-29] MEDS: PANTOPRAZOLE 40 MG/10 ML VIAL IV SCH (08:56)
[2022-10-29] MEDS: SERTRALINE 25 MG TAB PO SCH (09:03)
[2022-10-29] MEDS: SERTRALINE 100 MG TAB PO SCH (09:03)
[2022-10-29] MEDS: APIXABAN 5 MG TAB PO SCH ×2 (09:10→21:55)
[2022-10-29 10:24] LABS: Basophils # (A) 0.08 X 10*3/uL (0.00-0.10); Basophils % (A) 0.5 %; Eosinophils # (A) 0.06 X 10*3/uL (0.04-0.35); Eosinophils % (A) 0.4 %; HCT 36.3 % (39.6-50.0); HGB 11.5 g/dL (13.0-17.0); Immature Grans, Automated 4.5 %; Lymphocytes # (A) 6.34 X 10*3/uL (0.90-5.00); Lymphocytes % (A) 39.2 %; MCH 28.7 pg (27.0-32.0); MCHC 31.7 g/dL (32.0-37.0); MCV 90.5 fL (80.0-97.0); Mean Platelet Volume 11.6 fL (9.5-12.2); Monocytes # (A) 1.04 X 10*3/uL (0.20-1.00); Monocytes % (A) 6.4 %; NRBC Per 100 WBC 0 /100 WBCS (0.0-0.0); Neutrophils # (A) 7.93 X 10*3/uL (1.80-7.70); Platelet Count 268 X 10*3/uL (140-440); RBC 4.01 X 10*6/uL (4.40-5.60); RDW 18.5 % (11.5-14.5); WBC 16.18 X 10*3/uL (4.50-10.00)
[2022-10-29 10:36] LABS: African American GFR (CKD) 137.8 (60.0-200.0); Albumin 2.5 g/dL (3.8-4.9); Albumin/Globulin Ratio 0.89 (1.60-3.17); Anion Gap 9.2 mmol/L (10.00-18.00); BUN/Creat Ratio 15.57 Ratio (12.00-20.00); Blood Urea Nitrogen 10.9 mg/dL (9.0-27.0); Calcium 7.7 mg/dL (8.7-10.3); Carbon Dioxide 23.8 mmol/L (20.0-27.5); Globulin 2.8 g/dL (1.6-3.3); Non-African American GFR(CKD) 118.9 (60.0-200.0); Potassium 3.9 mmol/L (3.5-5.5); Total Bilirubin 0.7 mg/dL (0.30-1.20); Total Protein 5.3 g/dL (6.2-8.2)
--- NOTE | 2022-10-29 12:55 | P.PN ---
Subjective Progress Note Date: 10/27/22 Principal diagnosis: colitis with multiple antibiotics allergy Patient is a 41-year old male recent admission to the hospital with sigmoid area colitis treated with antibiotic therapy discharged on Cipro and Flagyl presenting back to the hospital with acute abdominal pain after he strained while having a bowel movement subsequently noticed to have portal vein thrombosis on the CT imaging along with acute colitis of the sigmoid colon with inflammatory changes tracking superiorly patient was taken to the OR status post laparoscopic but evidence of any ischemic bowel within no surgery was done, patient did have a allergic reaction to the amoxicillin and Rocephin and also developing rash to Azactam and the patient was switched to Eravacyclin. On today's evaluation is 10/27/2022 patient denies having any fever or chills patient abdominal pain has decreased in intensity denies having nausea no vomiting no chest pain shortness of the cough rash has decreased in intensity no new rash Objective - Vital Signs Vital signs: Vital Signs Temp 98.0 F 10/27/22 08:00 Pulse 84 10/27/22 09:00 Resp 21 10/27/22 09:00 BP 117/85 10/27/22 09:00 Pulse Ox 91 L 10/27/22 09:00 FiO2 Intake & Output 10/26/22 10/27/22 10/27/22 18:59 06:59 18:59 Intake Total 2355.767 2660 1050 Output Total 795 1048 625 Balance 6888.683 6656 425 Weight 157.2 kg Intake: IV 2249.9 2360 800 Aztreonam 2 gm In Sodium 99.9 Chloride 0.9% 100 ml @ 33 .3 mls/hr IVPB Q8HR [facility] Rx#:[id number] Eravacycline Di- 500 500 Hydrochloride 160 mg In Sodium Chloride 0.9% 500 ml 500 ml @ 500 mls/hr IVPB Q12HR [facility] Rx#: [id number] KVO 60 Lactated Ringers 1,000 ml 1950 1800 300 @ 75 mls/hr IV .[id number] [facility] Rx#:[id number] Potassium Chloride 10 meq 200 In Water For Injection 1 100ml.bag @ 100 mls/hr IVPB Q1H [facility] Rx#: [id number] Intake, IV Titration 105.867 250 250 Amount Heparin Sod,Pork in 0.45% 105.867 250 250 NaCl 25,000 unit In 0.45 % NaCl 1 250ml.bag @ 15. 319 UNITS/KG/HR 23 mls/hr IV .[id number] [facility] Rx#: [id number] Oral 50 Output: Urine 795 1048 625 Other: Voiding Method Indwelling Catheter Indwelling Catheter Indwelling Catheter # Bowel Movements 1 1 - Exam GENERAL DESCRIPTION: Middle-aged male lying in bed, no distress. No tachypnea or accessory muscle of respiration use. LUNGS: Unlabored breathing. Clear to auscultation anteriorly HEART: S1, S2, regular rate and rhythm. No loud murmur ABDOMEN: Soft, mild tenderness ,no guarding or rigidity, no organomegaly EXTREMITIES: No edema of feet. - Labs CBC & Chem 7: 10/29/22 06:29 10/29/22 06:29 Labs: Abnormal Lab Results - Last 24 Hours (Table) 10/26/22 10/27/22 10/27/22 Range/Units 05:26 07:13 07:13 WBC 20.9 H (3.8-10.6) k/uL RBC 4.23 L (4.30-5.90) m/uL Hgb 12.0 L (13.0-17.5) gm/dL Hct 38.7 L (39.0-53.0) % RDW 16.4 H (11.5-15.5) % Neutrophils # (Manual) 17.50 H (1.3-7.7) k/uL Monocytes # (Manual) 1.05 H (0-1.0) k/uL Metamyelocytes # (Man) 0.21 H (0) k/uL Myelocytes # (Manual) 0.42 H (0) k/uL APTT (22.0-30.0) sec Lupus Anticoag aPTT 69 H (<43) Sec(s) Lupus Anticoag PTT Mix 51 H (<43) Sec(s) Lupus Hexagonal Phase Positive A (Negative) Sodium 132 L (137-145) mmol/L Creatinine 0.61 L (0.66-1.25) mg/dL Glucose 151 H (74-99) mg/dL Calcium 7.3 L (8.4-10.2) mg/dL Alkaline Phosphatase 156 H (38-126) U/L Total Protein 5.0 L (6.3-8.2) g/dL Albumin 2.2 L (3.5-5.0) g/dL 10/27/22 Range/Units 07:13 WBC (3.8-10.6) k/uL RBC (4.30-5.90) m/uL Hgb (13.0-17.5) gm/dL Hct (39.0-53.0) % RDW (11.5-15.5) % Neutrophils # (Manual) (1.3-7.7) k/uL Monocytes # (Manual) (0-1.0) k/uL Metamyelocytes # (Man) (0) k/uL Myelocytes # (Manual) (0) k/uL APTT 55.5 H (22.0-30.0) sec Lupus Anticoag aPTT (<43) Sec(s) Lupus Anticoag PTT Mix (<43) Sec(s) Lupus Hexagonal Phase (Negative) Sodium (137-145) mmol/L Creatinine (0.66-1.25) mg/dL Glucose (74-99) mg/dL Calcium (8.4-10.2) mg/dL Alkaline Phosphatase (38-126) U/L Total Protein (6.3-8.2) g/dL Albumin (3.5-5.0) g/dL Microbiology - Last 24 Hours (Table) 10/25/22 15:35 Blood Culture - Preliminary Blood No Growth after 24 hours 10/25/22 15:50 Blood Culture - Preliminary Blood No Growth after 24 hours Assessment and Plan (1) Colitis Current Visit: Yes Status: Acute Code(s): K52.9 - NONINFECTIVE GASTROENTERITIS AND COLITIS, UNSPECIFIED SNOMED Code(s): 20205088 (2) Ischemic colitis Current Visit: Yes Status: Acute Code(s): K55.9 - VASCULAR DISORDER OF INTESTINE, UNSPECIFIED SNOMED Code(s): 46655823 Plan: 1patient present to hospital with sepsis in this patient with significant abdominal pain elevated white count concerning for sigmoid colitis questionable ischemic and will need to cover for enteric gram-negative both aerobes and anaerobes. 2patient with a penicillin and cephalosporin allergy now developing a rash possibly to his rectum limiting the number of antibiotics safe to use 3- Patient to continue with Eravacycline And monitor his clinical course closely Time with Patient: Less than 30
--- NOTE | 2022-10-29 12:56 | P.PN ---
Subjective Progress Note Date: 10/28/22 Principal diagnosis: colitis with multiple antibiotics allergy Patient is a 41-year old male recent admission to the hospital with sigmoid area colitis treated with antibiotic therapy discharged on Cipro and Flagyl presenting back to the hospital with acute abdominal pain after he strained while having a bowel movement subsequently noticed to have portal vein thrombosis on the CT imaging along with acute colitis of the sigmoid colon with inflammatory changes tracking superiorly patient was taken to the OR status post laparoscopic but evidence of any ischemic bowel within no surgery was done, patient did have a allergic reaction to the amoxicillin and Rocephin and also developing rash to Azactam and the patient was switched to Eravacyclin. On today's evaluation is 10/28/2022 patient remains to be afebrile patient is breathing comfortably patient abdominal pain has resolved has been started on a regular diet per surgery no nausea no vomiting no chest pain cough overall feeling better Objective - Vital Signs Vital signs: Vital Signs Temp 98.4 F 10/28/22 07:17 Pulse 93 10/28/22 07:17 Resp 18 10/28/22 07:17 BP 124/67 10/28/22 07:17 Pulse Ox 92 L 10/28/22 07:17 FiO2 Intake & Output 10/27/22 10/28/22 10/28/22 18:59 06:59 18:59 Intake Total 1300 1050 250 Output Total 1225 1600 600 Balance 75 -550 -350 Weight 157.2 kg Intake: IV 800 Eravacycline Di- 500 Hydrochloride 160 mg In Sodium Chloride 0.9% 500 ml 500 ml @ 500 mls/hr IVPB Q12HR [facility] Rx#: [id number] Lactated Ringers 1,000 ml 300 @ 75 mls/hr IV .[id number] [facility] Rx#:[id number] Intake, IV Titration 500 250 250 Amount Heparin Sod,Pork in 0.45% 500 250 250 NaCl 25,000 unit In 0.45 % NaCl 1 250ml.bag @ 15. 319 UNITS/KG/HR 23 mls/hr IV .[id number] [facility] Rx#: [id number] Oral 800 Output: Urine 1225 1600 600 Other: Voiding Method Indwelling Catheter # Voids 1 # Bowel Movements 1 3 - Exam GENERAL DESCRIPTION: Middle-aged male lying in bed, no distress. No tachypnea or accessory muscle of respiration use. LUNGS: Unlabored breathing. Clear to auscultation anteriorly HEART: S1, S2, regular rate and rhythm. No loud murmur ABDOMEN: Soft, mild tenderness ,no guarding or rigidity, no organomegaly EXTREMITIES: No edema of feet. - Labs CBC & Chem 7: 10/29/22 06:29 10/29/22 06:29 Labs: Abnormal Lab Results - Last 24 Hours (Table) 10/25/22 10/28/22 10/28/22 Range/Units 22:42 05:50 05:50 WBC 16.92 H (4.50-10.00) X 10*3/uL RBC 3.85 L (4.40-5.60) X 10*6/uL Hgb 11.1 L (13.0-17.0) g/dL Hct 34.3 L (39.6-50.0) % RDW 17.9 H (11.5-14.5) % MPV 12.6 H (9.5-12.2) fL Metamyelocytes % 5 H (0-0) % Myelocytes % 3 H (0-0) % Neutrophils # (Manual) 12.18 H (2.00-8.90) X 10*3/uL Basophils # (Manual) 0.17 H (0.00-0.10) X 10*3/uL APTT (22.0-30.0) sec Protein C Activity 57 L (71-138) % Sodium 133 L (135-145) mmol/L Glucose 127 H (70-110) mg/dL Calcium 7.6 L (8.7-10.3) mg/dL Total Protein 5.0 L (6.2-8.2) g/dL Albumin 2.4 L (3.8-4.9) g/dL Albumin/Globulin Ratio 0.92 L (1.60-3.17) g/dL 10/28/22 Range/Units 05:50 WBC (4.50-10.00) X 10*3/uL RBC (4.40-5.60) X 10*6/uL Hgb (13.0-17.0) g/dL Hct (39.6-50.0) % RDW (11.5-14.5) % MPV (9.5-12.2) fL Metamyelocytes % (0-0) % Myelocytes % (0-0) % Neutrophils # (Manual) (2.00-8.90) X 10*3/uL Basophils # (Manual) (0.00-0.10) X 10*3/uL APTT 49.5 H (22.0-30.0) sec Protein C Activity (71-138) % Sodium (135-145) mmol/L Glucose (70-110) mg/dL Calcium (8.7-10.3) mg/dL Total Protein (6.2-8.2) g/dL Albumin (3.8-4.9) g/dL Albumin/Globulin Ratio (1.60-3.17) g/dL Microbiology - Last 24 Hours (Table) 10/25/22 15:50 Blood Culture - Preliminary Blood No Growth after 48 hours 10/25/22 15:35 Blood Culture - Preliminary Blood No Growth after 48 hours Assessment and Plan (1) Colitis Current Visit: Yes Status: Acute Code(s): K52.9 - NONINFECTIVE GASTROENTERITIS AND COLITIS, UNSPECIFIED SNOMED Code(s): 49464646 (2) Ischemic colitis Current Visit: Yes Status: Acute Code(s): K55.9 - VASCULAR DISORDER OF INTESTINE, UNSPECIFIED SNOMED Code(s): 36815407 Plan: 1patient present to hospital with sepsis in this patient with significant abdominal pain elevated white count concerning for sigmoid colitis questionable ischemic and will need to cover for enteric gram-negative both aerobes and anaerobes. 2patient with a penicillin and cephalosporin allergy now developing a rash possibly to his rectum limiting the number of antibiotics safe to use 3- Patient seem to have to have shown clinical improvement and will continue with Eravacycline And monitor his clinical course closely Time with Patient: Less than 30
[2022-10-29 15:34] VITALS: RESP 17
--- NOTE | 2022-10-29 16:02 | P.PN ---
Subjective Progress Note Date: 10/29/22 Patient is seen on rounds. Feeling well. Ready for discharge. Tolerating a diet Objective - Vital Signs Vital signs: Vital Signs Temp 97.9 F 10/29/22 14:00 Pulse 83 10/29/22 14:00 Resp 17 10/29/22 14:00 BP 128/73 10/29/22 14:00 Pulse Ox 97 10/29/22 14:00 FiO2 Intake & Output 10/28/22 10/29/22 10/29/22 18:59 06:59 18:59 Intake Total 780 038 7916 Output Total 1700 2600 600 Balance -1450 -2350 750 Intake: IV 1100 Eravacycline Di- 500 Hydrochloride 160 mg In Sodium Chloride 0.9% 500 ml 500 ml @ 500 mls/hr IVPB Q12HR [facility] Rx#: [id number] Lactated Ringers 1,000 ml 600 @ 75 mls/hr IV .[id number] [facility] Rx#:[id number] Intake, IV Titration 250 250 250 Amount Heparin Sod,Pork in 0.45% 250 250 250 NaCl 25,000 unit In 0.45 % NaCl 1 250ml.bag @ 15. 319 UNITS/KG/HR 23 mls/hr IV .[id number] [facility] Rx#: [id number] Output: Urine 1700 2600 600 Other: Voiding Method Toilet # Voids 1 # Bowel Movements 2 - Constitutional General appearance: Present: cooperative, no acute distress - Gastrointestinal Gastrointestinal Comment(s): Incisions are healing well, minimal ecchymosis General gastrointestinal: Present: normal bowel sounds, soft - Labs CBC & Chem 7: 10/29/22 06:29 10/29/22 06:29 Labs: Abnormal Lab Results - Last 24 Hours (Table) 10/29/22 10/29/22 10/29/22 Range/Units 06:29 06:29 06:29 WBC 16.18 H (4.50-10.00) X 10*3/uL RBC 4.01 L (4.40-5.60) X 10*6/uL Hgb 11.5 L (13.0-17.0) g/dL Hct 36.3 L (39.6-50.0) % MCHC 31.7 L (32.0-37.0) g/dL RDW 18.5 H (11.5-14.5) % Immature Gran # 0.73 H (0.00-0.04) X 10*3/uL Neutrophils # 7.93 H (1.80-7.70) X 10*3/uL Lymphocytes # 6.34 H (0.90-5.00) X 10*3/uL Monocytes # 1.04 H (0.20-1.00) X 10*3/uL APTT 68.2 H (22.0-30.0) sec Anion Gap 9.20 L (10.00-18.00) mmol/L Glucose 115 H (70-110) mg/dL Calcium 7.7 L (8.7-10.3) mg/dL Total Protein 5.3 L (6.2-8.2) g/dL Albumin 2.5 L (3.8-4.9) g/dL Albumin/Globulin Ratio 0.89 L (1.60-3.17) g/dL Microbiology - Last 24 Hours (Table) 10/25/22 15:35 Blood Culture - Preliminary Blood No Growth after 72 hours 10/25/22 15:50 Blood Culture - Preliminary Blood No Growth after 72 hours Assessment and Plan (1) Thrombosis, portal vein Current Visit: Yes Status: Acute Priority: High Code(s): I81 - PORTAL VEIN THROMBOSIS SNOMED Code(s): 83121766 (2) Abdominal pain Current Visit: No Status: Acute Code(s): R10.9 - UNSPECIFIED ABDOMINAL PAIN SNOMED Code(s): 24638134 Plan: Patient is doing well surgically. Then switched over to oral Plavix and heparin drip has been stopped. Awaiting antibiotic recommendations from Dr. Ortega. Likely ready for discharge tomorrow.
[2022-10-29] MEDS: metroNIDAZOLE 500 MG TAB PO SCH ×2 (16:34→21:54)
[2022-10-29] MEDS ORDERED: HYDROcodone/APAP 5-325MG 1 EACH TAB PO PRN (20:51)
--- NOTE | 2022-10-29 21:28 | P.PN ---
Subjective Progress Note Date: 10/29/22 Principal diagnosis: Potential portal vein thrombosis -No acute events overnight -MRI of the liver noted portal vein thrombosis extending from the main portal vein into the left portal vein with near complete occlusion suggested. Nonocclusive thrombus within the splenic vein was also visualized -He has minimal abdominal pain currently without nausea, vomiting, or diarrhea. He is eating and drinking without limitations Objective - Vital Signs Vital signs: Vital Signs Temp 98.2 F 10/29/22 19:19 Pulse 82 10/29/22 19:19 Resp 17 10/29/22 19:19 BP 154/74 10/29/22 19:19 Pulse Ox 96 10/29/22 19:19 FiO2 Intake & Output 10/29/22 10/29/22 10/30/22 06:59 18:59 06:59 Intake Total 250 1350 Output Total 2600 600 Balance -2350 750 Intake: IV 1100 Eravacycline Di- 500 Hydrochloride 160 mg In Sodium Chloride 0.9% 500 ml 500 ml @ 500 mls/hr IVPB Q12HR [facility] Rx#: [id number] Lactated Ringers 1,000 ml 600 @ 75 mls/hr IV .[id number] K[facility]OL Rx#:[id number] Intake, IV Titration 250 250 Amount Heparin Sod,Pork in 0.45% 250 250 NaCl 25,000 unit In 0.45 % NaCl 1 250ml.bag @ 15. 319 UNITS/KG/HR 23 mls/hr IV .[id number] KAROL Rx#: [id number] Output: Urine 2600 600 Other: Voiding Method Toilet # Voids 1 # Bowel Movements 2 - Constitutional General appearance: Present: no acute distress, obese - EENT Eyes: Present: EOMI - Respiratory Respiratory: bilateral: CTA - Cardiovascular Rhythm: regular - Gastrointestinal General gastrointestinal: Present: normal bowel sounds, soft. Absent: hepatomegaly, splenomegaly, tenderness - Integumentary Integumentary: Absent: rash - Neurologic Neurologic: Present: CNII-XII intact (MRI of the liver reviewed) - Labs CBC & Chem 7: 10/29/22 06:29 10/29/22 06:29 Labs: Abnormal Lab Results - Last 24 Hours (Table) 10/29/22 10/29/22 10/29/22 Range/Units 06:29 06:29 06:29 WBC 16.18 H (4.50-10.00) X 10*3/uL RBC 4.01 L (4.40-5.60) X 10*6/uL Hgb 11.5 L (13.0-17.0) g/dL Hct 36.3 L (39.6-50.0) % MCHC 31.7 L (32.0-37.0) g/dL RDW 18.5 H (11.5-14.5) % Immature Gran # 0.73 H (0.00-0.04) X 10*3/uL Neutrophils # 7.93 H (1.80-7.70) X 10*3/uL Lymphocytes # 6.34 H (0.90-5.00) X 10*3/uL Monocytes # 1.04 H (0.20-1.00) X 10*3/uL APTT 68.2 H (22.0-30.0) sec Anion Gap 9.20 L (10.00-18.00) mmol/L Glucose 115 H (70-110) mg/dL Calcium 7.7 L (8.7-10.3) mg/dL Total Protein 5.3 L (6.2-8.2) g/dL Albumin 2.5 L (3.8-4.9) g/dL Albumin/Globulin Ratio 0.89 L (1.60-3.17) g/dL Microbiology - Last 24 Hours (Table) 10/25/22 15:50 Blood Culture - Preliminary Blood No Growth after 96 hours 10/25/22 15:35 Blood Culture - Preliminary Blood No Growth after 96 hours Assessment and Plan Assessment: Mr. Hare is a 41-year-old gentleman with a history of leukocytosis and iron deficiency scented with abdominal pain following recent admission for bacteremia with CT abdomen pelvis and abdominal ultrasound findings with Doppler inconclusive for potential portal vein thrombosis. 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 This should be drawn outpatient at least 14 days from starting anticoagulation -Given stable liver function and being otherwise clinically stable, no additional interventions are required from a hematology perspective while inpatient -We will arrange for outpatient follow-up
[2022-10-29] MEDS: CIPROFLOXACIN HCL 500 MG TAB PO SCH (21:55)
--- NOTE | 2022-10-29 23:50 | P.PN ---
Subjective Progress Note Date: 10/29/22 Principal diagnosis: colitis with multiple antibiotics allergy Patient is a 41-year old male recent admission to the hospital with sigmoid area colitis treated with antibiotic therapy discharged on Cipro and Flagyl presenting back to the hospital with acute abdominal pain after he strained while having a bowel movement subsequently noticed to have portal vein thrombosis on the CT imaging along with acute colitis of the sigmoid colon with inflammatory changes tracking superiorly patient was taken to the OR status post laparoscopic but evidence of any ischemic bowel within no surgery was done, patient did have a allergic reaction to the amoxicillin and Rocephin and also developing rash to Azactam and the patient was switched to Eravacyclin. On today's evaluation that is 10/29/2022 the patient denies having any fever or any chills, the patient is breathing comfortably on room air patient abdominal pain has significantly decreased in intensity no nausea no vomiting and no diarrhea Objective - Vital Signs Vital signs: Vital Signs Temp 98.0 F 10/29/22 06:53 Pulse 81 10/29/22 06:53 Resp 18 10/29/22 06:53 BP 143/88 10/29/22 06:53 Pulse Ox 95 10/29/22 06:53 FiO2 Intake & Output 10/28/22 10/29/22 10/29/22 18:59 06:59 18:59 Intake Total 911 755 7461 Output Total 1700 2600 600 Balance -1450 -2350 750 Intake: IV 1100 Eravacycline Di- 500 Hydrochloride 160 mg In Sodium Chloride 0.9% 500 ml 500 ml @ 500 mls/hr IVPB Q12HR KAROL Rx#: [id number] Lactated Ringers 1,000 ml 600 @ 75 mls/hr IV .[id number] KAROL Rx#:[id number] Intake, IV Titration 250 250 250 Amount Heparin Sod,Pork in 0.45% 250 250 250 NaCl 25,000 unit In 0.45 % NaCl 1 250ml.bag @ 15. 319 UNITS/KG/HR 23 mls/hr IV .[id number] KAROL Rx#: [id number] Output: Urine 1700 2600 600 Other: Voiding Method Toilet # Voids 1 # Bowel Movements 2 - Exam GENERAL DESCRIPTION: Middle-aged male lying in bed, no distress. No tachypnea or accessory muscle of respiration use. LUNGS: Unlabored breathing. Clear to auscultation anteriorly HEART: S1, S2, regular rate and rhythm. No loud murmur ABDOMEN: Soft, mild tenderness ,no guarding or rigidity, no organomegaly EXTREMITIES: No edema of feet. - Labs CBC & Chem 7: 10/29/22 06:29 10/29/22 06:29 Labs: Abnormal Lab Results - Last 24 Hours (Table) 10/29/22 10/29/22 10/29/22 Range/Units 06:29 06:29 06:29 WBC 16.18 H (4.50-10.00) X 10*3/uL RBC 4.01 L (4.40-5.60) X 10*6/uL Hgb 11.5 L (13.0-17.0) g/dL Hct 36.3 L (39.6-50.0) % MCHC 31.7 L (32.0-37.0) g/dL RDW 18.5 H (11.5-14.5) % Immature Gran # 0.73 H (0.00-0.04) X 10*3/uL Neutrophils # 7.93 H (1.80-7.70) X 10*3/uL Lymphocytes # 6.34 H (0.90-5.00) X 10*3/uL Monocytes # 1.04 H (0.20-1.00) X 10*3/uL APTT 68.2 H (22.0-30.0) sec Anion Gap 9.20 L (10.00-18.00) mmol/L Glucose 115 H (70-110) mg/dL Calcium 7.7 L (8.7-10.3) mg/dL Total Protein 5.3 L (6.2-8.2) g/dL Albumin 2.5 L (3.8-4.9) g/dL Albumin/Globulin Ratio 0.89 L (1.60-3.17) g/dL Microbiology - Last 24 Hours (Table) 10/25/22 15:35 Blood Culture - Preliminary Blood No Growth after 72 hours 10/25/22 15:50 Blood Culture - Preliminary Blood No Growth after 72 hours Assessment and Plan (1) Colitis Current Visit: Yes Status: Acute Code(s): K52.9 - NONINFECTIVE GASTROENTERITIS AND COLITIS, UNSPECIFIED SNOMED Code(s): 98001074 (2) Ischemic colitis Current Visit: Yes Status: Acute Code(s): K55.9 - VASCULAR DISORDER OF INTESTINE, UNSPECIFIED SNOMED Code(s): 54961015 Plan: 1patient present to hospital with sepsis in this patient with significant abdominal pain elevated white count concerning for sigmoid colitis questionable ischemic and will need to cover for enteric gram-negative both aerobes and anaerobes. 2patient with a penicillin and cephalosporin allergy now developing a rash possibly to his rectum limiting the number of antibiotics safe to use 3- Patient has shown clinical improvement and culture has been negative so far we will go ahead and switch him over to oral Cipro and Flagyl which if the pat ient tolerates will be able to go home on oral antibiotics however if he does not tolerate his oral antibiotics we will have to arrange IV Eravacycline for him which can be a challenge Time with Patient: Less than 30
[2022-10-30 07:33] VITALS: BP 122/74; PULSE 81; TEMP 97.8
[2022-10-30] MEDS: CIPROFLOXACIN HCL 500 MG TAB PO SCH (08:53)
[2022-10-30] MEDS: metroNIDAZOLE 500 MG TAB PO SCH (08:54)
[2022-10-30] MEDS: PANTOPRAZOLE 40 MG/10 ML VIAL IV SCH (08:54)
[2022-10-30] MEDS: SERTRALINE 25 MG TAB PO SCH (08:54)
[2022-10-30] MEDS: SERTRALINE 100 MG TAB PO SCH (08:54)
[2022-10-30] MEDS: APIXABAN 5 MG TAB PO SCH (08:54)
[2022-10-30] MEDS ORDERED: PANTOPRAZOLE 40 MG TABLET PO SCH (09:00)
[2022-10-30 10:33] LABS: Basophils # (A) 0.02 X 10*3/uL (0.00-0.10); Basophils % (A) 0.2 %; Eosinophils # (A) 0.07 X 10*3/uL (0.04-0.35); Eosinophils % (A) 0.7 %; HCT 37.1 % (39.6-50.0); HGB 11.7 g/dL (13.0-17.0); Immature Grans, Automated 2.2 %; Lymphocytes # (A) 3.26 X 10*3/uL (0.90-5.00); MCHC 31.5 g/dL (32.0-37.0); MCV 92.1 fL (80.0-97.0); Mean Platelet Volume 11.3 fL (9.5-12.2); Monocytes # (A) 0.95 X 10*3/uL (0.20-1.00); Monocytes % (A) 9.6 %; NRBC Per 100 WBC 0 /100 WBCS (0.0-0.0); Neutrophils # (A) 5.37 X 10*3/uL (1.80-7.70); Neutrophils % (A) 54.3 %; Platelet Count 284 X 10*3/uL (140-440); RBC 4.03 X 10*6/uL (4.40-5.60); WBC 9.89 X 10*3/uL (4.50-10.00)
[2022-10-30 10:51] LABS: African American GFR (CKD) 142.7 (60.0-200.0); Albumin 2.5 g/dL (3.8-4.9); Albumin/Globulin Ratio 0.88 (1.60-3.17); Anion Gap 7.6 mmol/L (10.00-18.00); BUN/Creat Ratio 15.71 Ratio (12.00-20.00); Blood Urea Nitrogen 10.1 mg/dL (9.0-27.0); C Reactive Protein 4.3 mg/dL (0.00-0.80); Calcium 7.9 mg/dL (8.7-10.3); Carbon Dioxide 25.3 mmol/L (20.0-27.5); Globulin 2.9 g/dL (1.6-3.3); Non-African American GFR(CKD) 123.1 (60.0-200.0); Potassium 3.9 mmol/L (3.5-5.5); Total Bilirubin 0.6 mg/dL (0.30-1.20); Total Protein 5.4 g/dL (6.2-8.2)
--- NOTE | 2022-11-02 09:41 | P.DS ---
Providers Date of admission: 10/25/22 14:52 Expected date of discharge: 10/30/22 Attending physician: Rod Jones DO Consults: 10/25/22 15:54 Consult Physician Routine Consulting Provider: [facility] Consult Reason/Comments: [facility] Do you want consulting provider notified?: Yes 10/25/22 18:10 Consult Physician Routine Consulting Provider: Favio Walton Consult Reason/Comments: Portal vein thrombosis, suspected sepsis Do you want consulting provider notified?: Yes 10/25/22 18:12 Consult Physician Routine Consulting Provider: Kyle Seay Consult Reason/Comments: portal vein thrombus, possible hypercoagulable states Do you want consulting provider notified?: Yes 10/25/22 18:58 Consult Physician Stat Consulting Provider: Yoseph Ortega Consult Reason/Comments: Infectious colitis Do you want consulting provider notified?: Yes 10/26/22 09:42 Consult Physician Routine Consulting Provider: Yoseph Ortega Consult Reason/Comments: colitis, possible sepsis Do you want consulting provider notified?: Yes Consult Physician Routine Consulting Provider: Marychuy Valentin Consult Reason/Comments: colitis, portal venous gas and thrombosis Do you want consulting provider notified?: Yes Primary care physician: Jose Hassan - Discharge Diagnosis(es) (1) Thrombosis, portal vein Status: Acute Priority: High (2) Abdominal pain Status: Acute (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 CT scan showed venous thrombosis along with portal vein air. He was evaluated in the ER and taken to the OR for diagnostic laparoscopy. He had some segmental colitis present but no obvious necrotic bowel which required resection. He was given broad-spectrum antibiotics and anticoagulation. Seen by ICU physician, hospitalist and heme-onc was consulted. His pain improved fairly quickly and he was started on a diet. Further work-up was performed including a MRI which confirmed the thrombosis. Recommendation was for long- term anticoagulation and outpatient work-up of hypercoagulable state. By October 31 he was felt to be stable for discharge on oral Eliquis and antibiotics Patient Condition at Discharge: Good Plan - Discharge Summary Discharge Rx Participant: No New Discharge Prescriptions: New Ciprofloxacin HCl [Cipro] 500 mg PO Q12HR 10 Days #20 tab Apixaban [Eliquis] 5 mg PO BID #80 tab Discontinued Ciprofloxacin HCl [Cipro] 500 mg PO Q12HR 7 Days #14 tab No Action Omeprazole 20 mg PO BID Ferrous Sulfate [Iron (65 MG Elemental)] 325 mg PO DAILY Sertraline [Zoloft] 100 mg PO DAILY Acetaminophen Tab [Tylenol] 1,000 mg PO Q6HR PRN PRN Reason: Pain Or Fever > 100.5 Sertraline [Zoloft] 25 mg PO DAILY metroNIDAZOLE [Flagyl] 500 mg PO TID #30 tab Discharge Medication List Omeprazole 20 mg PO BID 11/07/21 [History] Sertraline [Zoloft] 100 mg PO DAILY 09/17/22 [History] Acetaminophen Tab [Tylenol] 1,000 mg PO Q6HR PRN 10/19/22 [History] Ferrous Sulfate [Iron (65 MG Elemental)] 325 mg PO DAILY 10/19/22 [History] Sertraline [Zoloft] 25 mg PO DAILY 10/19/22 [History] metroNIDAZOLE [Flagyl] 500 mg PO TID #30 tab 10/24/22 [Rx] Apixaban [Eliquis] 5 mg PO BID #80 tab 10/29/22 [Rx] Ciprofloxacin HCl [Cipro] 500 mg PO Q12HR 10 Days #20 tab 10/30/22 [Rx] Follow up Appointment(s)/Referral(s): Kyle Seay MD [STAFF PHYSICIAN] - 12/31/22 10:15 am (Appt is at the [facility] office behind [facility]) Jose Hassan MD [Primary Care Provider] - 11/03/22 9:00 am Patient Instructions/Handouts: Apixaban (By mouth), Deep Vein Thrombosis (DC), Ischemic Colitis (DC) Activity/Diet/Wound Care/Special Instructions: Eliquis copay $0 Eliquis instructions: 2 tabs twice a day to complete a total of 7 days. Then, one tablet twice a day. Prescription sent to [facility] to [facility] for co-pay verification. Please call Dr. Seay's ofc for refills on eliquis Discharge Disposition: HOME SELF-CARE
== END 2022-10-30 12:39 | disposition home or self-care (01) | DRG 356 ==
LOC: EC 11:45 → 4SSUR 14:52 → 2SICU 15:59 → 4SSUR 10-27 13:15
PROVIDERS: ADMIT Surgery; ATTEND Surgery
PROC: 0DJV4ZZ Inspection of Mesentery, Percutaneous Endoscopic Approach (ICD-10-PCS; 2022-10-25)
PROC: 0WJG4ZZ Inspection of Peritoneal Cavity, Percutaneous Endoscopic Approach (ICD-10-PCS; principal; 2022-10-25 16:13)
DX: K55.039 Acute (reversible) ischemia of large intestine, extent unspecified (principal); I81 Portal vein thrombosis; K75.1 Phlebitis of portal vein; A09 Infectious gastroenteritis and colitis, unspecified; E87.1 Hypo-osmolality and hyponatremia; Z68.42 Body mass index [BMI] 45.0-49.9, adult; K55.069 Acute infarction of intestine, part and extent unspecified; G89.29 Other chronic pain; K76.0 Fatty (change of) liver, not elsewhere classified; E66.01 Morbid (severe) obesity due to excess calories; L50.9 Urticaria, unspecified; E11.9 Type 2 diabetes mellitus without complications; E87.6 Hypokalemia; F31.9 Bipolar disorder, unspecified; F41.0 Panic disorder [episodic paroxysmal anxiety]; F43.10 Post-traumatic stress disorder, unspecified; Z79.899 Other long term (current) drug therapy; D72.829 Elevated white blood cell count, unspecified; Z87.891 Personal history of nicotine dependence; Z83.3 Family history of diabetes mellitus; Z90.49 Acquired absence of other specified parts of digestive tract; Z87.820 Personal history of traumatic brain injury; Z87.19 Personal history of other diseases of the digestive system; D50.9 Iron deficiency anemia, unspecified; Z88.0 Allergy status to penicillin; Z88.8 Allergy status to other drugs, medicaments and biological substances; Z87.828 Personal history of other (healed) physical injury and trauma; Z28.310 Unvaccinated for COVID-19; Z28.21 Immunization not carried out because of patient refusal
CPT/HCPCS: 36415; 74177; 74183; 76705; 80048; 80053; 81001; 82150; 83605; 83690; 83735; 85025; 85303; 85306; 85307; 85384; 85598; 85610; 85613; 85730; 85732; 86140; 86850; 86900; 86901; 87040; 93976; 94760; 96361; 96365; 96375; 96376; 99285

== ENCOUNTER → 2023-05-29 | Outpatient (CLI) | payer OTHER ==
[~2023-05-29] MED LIST changes: -DEXAMETHASONE SOD PHOSPHATE 10 MG/ML 1 ML VIAL IV ONE; -HEPARIN SODIUM,PORCINE 5,000 UNIT/ML 1 ML VIAL SQ ONE; -HYDROmorphone 1 MG/ML 1 ML SYRINGE IVP PRN; +IRON SUCROSE 300 MG in SODIUM CHLORIDE 0.9% 250 ML IVPB NR; -LACTATED RINGERS 1,000 ML IV SCH; -ONDANSETRON 4 MG/2 ML VIAL IVP ONE; -Pre Op ABX Message 1 EACH MISC MISCELLANE ONE; +SODIUM CHLORIDE 0.9% 500 ML 500 ML in EMPTY BAG 1 BAG IV PRN
[2023-05-29 08:55] VITALS: BP 119/77; PULSE 76; RESP 15; TEMP 98.2
== END ==
LOC: PROCWHC3 08:47
PROVIDERS: ATTEND Internal Medicine Hematology & Oncology
DX: D50.9 Iron deficiency anemia, unspecified (principal)
CPT/HCPCS: 96365; 96366; J1756

== ENCOUNTER → 2023-06-03 | Outpatient (CLI) | payer OTHER ==
--- NOTE | 2023-06-05 08:00 | MR ---
EXAMINATION TYPE: MR knee LT wo con DATE OF EXAM: 06/03/2023 COMPARISON: Radiographs 05/19/2023 HISTORY: 42-year-old male M25.562 TECHNIQUE: Multiplanar, multisequence imaging of the left knee is performed without IV contrast. FINDINGS: Ruptured ACL, likely on a chronic basis given the lack of a distinct bone bruise pattern. ACL, MCL, and LCL complex are intact. Prominent degenerative signal involving the body of the medial meniscus. This pattern the lack of jaja ar communication to either articular surface, the presence of patchy subchondral marrow edema along t he peripheral lip of the medial tibial plateau could be reactive to a subtle underlying meniscal tear . There is moderate focal cartilage loss along the mid weightbearing aspect of the medial femoral con dyle measuring 10 x 9 mm. Mild diffuse thinning of medial compartment articular cartilage volume. The lateral meniscus appears intact in lateral compartment articular cartilage volume is maintained. Some superficial cartilage fissuring along the superior trochlear groove, sagittal image 19. Otherwis e, the patellofemoral compartment articular cartilage volume appears maintained. Extensor mechanism is intact. There is a small knee joint effusion. No Goldsmith's cyst. Tiny posterior l oose bodies measuring up to 5 mm. Normal popliteal artery anatomy and muscle. No suspicious bone marrow replacement. IMPRESSION: 1. ACL rupture, likely chronic given the lack of a distinct bone bruise pattern. Clinically correlate . 2. Prominent degenerative signal within the body of the medial meniscus with possible subtle tear rodolfo ecially given the prominent adjacent subchondral marrow edema along the peripheral lip of the medial tibial plateau that is probably reactive. 3. Moderate focal osteoarthritic change involving the mid weightbearing aspect of the medial femoral condyle. 4. Some superficial cartilage fissuring along the superior trochlear groove within the patellofemoral compartment. 5. Small knee joint effusion. Tiny posterior loose bodies measuring up to 5 mm. Probably arising from the medial compartment cartilage.
== END | disposition home or self-care (01) ==
LOC: RADMRIMAIN 07:40
PROVIDERS: ATTEND Orthopaedic Surgery
DX: M17.12 Unilateral primary osteoarthritis, left knee (principal); M25.462 Effusion, left knee; S83.511A Sprain of anterior cruciate ligament of right knee, initial encounter; X58.XXXA Exposure to other specified factors, initial encounter

== ENCOUNTER → 2023-06-18 | Outpatient (CLI) | payer OTHER ==
[2023-06-18 08:22] VITALS: BP 132/76; PULSE 96; RESP 16; TEMP 97.8
--- NOTE | 2023-06-18 13:24 | P.PAINPG ---
PQRS Measure Charge Sheet Comment: HISTORY OF PRESENT ILLNESS: 42 yr old male presents today w severe and chronic LBP secondary to DDD, spondylosis and facet arthropathy without myelopathy for evaluation. Pt states pain level is at 8/10 in intensity, constant, localized in the lumbar spine, burning in character w shooting pain towards the BLEs. Pain is provoked by walking/standing for periods of 20 min, or sitting for periods of 2 hrs or more. Pain is alleviated by PT x 8 wks in 2021, home exercise regimen, physician guided home exercises every morning since PT ended in early 2021, heat, ice, medications (Ibu, Lidocaine topical), laying supine, repositioning and rest. Oswestry axial pain score of 32. Interventional procedures include JULITA L5-S1, BL TFESI L5-S1 Medications include Ibu, Lidocaine topical REVIEW OF ORGAN SYSTEMS: CONSTITUTIONAL: No fevers or chills. No recent weight loss. NEUROLOGICAL: + numbness and tingling along the distal extremities. No seizure disorders or headaches. MUSCULOSKELETAL: + pain PSYCHIATRIC: Denies current depression or suicidal thoughts. Physical Examinations : Constitutional : Cooperative , not in acute distress . Neurologic : Cranial nerve II to XII intact. No focal neurological deficits. Psychiatric : alert & oriented x 3. Matching mood & appropriate affect. Judgment & insight intact. Musculoskeletal : Cervical Spine Motor strength in the deltoid and biceps: Normal right side. Normal Left side Motor strength biceps and the wrist extensors: Normal right side . Normal left side Motor strength in the triceps muscle: Normal right side. Normal left side Deep tendon reflexes: Normal at the biceps. Normal at Brachioradialis. Normal at triceps Vertebral body tenderness to deep palpation over Cervical facet loading test: positive bilaterally Spurling test: positive bilaterally Neck distraction test: positive bilaterally Margaret sign: positive bilaterally Lumbar spine Motor strength lower extremities ,thigh and legs 5/5 Right side , 5/5 Left side Deep tendon reflexes : Normal Knee Jerk. Normal Ankle Jerk Vertebral body tenderness over L5 Lumbar facet Loading Test: positive Right / positive Left Range of motion of the lumbar spine Flexion 30 degrees, extension 10 degrees Straight Leg Raise test: Left/ Right positive at 35 degrees Devante test: positive right / positive left. Severe tenderness over the Sacroiliac joint on the Right / Left sides Gaenslen test: positive bilaterally Seated flexion test: positive bilaterally. Sacral spine : Severe tenderness over the Sacroiliac joint: right side / left side Range of motion: Flexion of the lumbar spine <60 degrees Range of motion: Extension of the lumbar spine <20 degrees Gaenslen's Test positive Jim's Test positive Devante test: positive right side / left side Thigh Thrust Test Sacral Thrust Test Imaging: MRI without contrast of the lumbar spine from 11/07/21 reviewed Assessment/ Plan : Lumbar DDD, Lumbar spondylosis Recommendation of BL TFESI L5-S1. May need a series of injections, up to 4 within a 12 mo period, for optimal pain relief. Risks, benefits of procedure discussed and patient verbalized understanding. Admits to aspirin or anti- coagulant use or medical history of diabetes. Protocol for discontinuation/ continuation of medications becca procedure discussed. All questions answered. I have spent greater than 30 minutes on patient care today. Dr Alonso was available by phone for the evaluation of this patient. The time was used to review the medical records including relevant urine studies and Prescription history (MAPs), review of the available imaging, evaluation and examination of the patient, coordination of care with the medical staff and if applicable referring physicians, as well as creation of the medical record PQRS Narrative: Smoking Status Never smoker Hx Alcohol Use (MH) No Home Medications: Ambulatory Orders Omeprazole 20 mg PO BID 11/07/21 Sertraline [Zoloft] 125 mg PO DAILY 09/17/22 Ferrous Sulfate [Iron (65 MG Elemental)] 54 mg PO DAILY 10/19/22 Apixaban [Eliquis] 5 mg PO BID #80 tab 10/29/22 Ascorbic Acid [Vitamin C] 500 mg PO DAILY 11/28/22 L.acidoph,Paracasei, B.lactis [Probiotic] 1 each PO DAILY 11/28/22 Turmeric Root Extract [Turmeric] 250 mg PO DAILY 11/28/22 Controlled Substance Measures - Controlled Substance Measures Is patient prescribed a controlled substance at discharge?: No
== END ==
LOC: PNWHC3 07:54
PROVIDERS: ATTEND Specialist
DX: M51.36 Other intervertebral disc degeneration, lumbar region (principal); M47.816 Spondylosis without myelopathy or radiculopathy, lumbar region; Z88.0 Allergy status to penicillin; Z91.041 Radiographic dye allergy status; Z91.018 Allergy to other foods; Z88.8 Allergy status to other drugs, medicaments and biological substances
CPT/HCPCS: 99211

== ENCOUNTER 2023-06-22 20:15 | Inpatient (IN) | payer OTHER ==
[2023-06-22 20:44] LABS: Basophils % (A) 0 %; Eosinophils # (A) 0.3 k/uL (0-0.7); Eosinophils % (A) 1 %; HCT 45.8 % (39.0-53.0); HGB 15.2 gm/dL (13.0-17.5); Lymphocytes # (A) 2.9 k/uL (1.0-4.8); Lymphocytes % (A) 17 %; MCH 30.3 pg (25.0-35.0); MCHC 33.3 g/dL (31.0-37.0); MCV 91.2 fL (80.0-100.0); Mean Platelet Volume 8.8; Monocytes # (A) 0.5 k/uL (0-1.0); Monocytes % (A) 3 %; Neutrophils # (A) 13.4 k/uL (1.3-7.7); Neutrophils % (A) 78 %; Platelet Count 204 k/uL (150-450); RBC 5.02 m/uL (4.30-5.90); RDW 14.4 % (11.5-15.5); WBC 17.2 k/uL (3.8-10.6)
[2023-06-22 20:54] LABS: ALT 22 U/L (4-49); AST 22 U/L (17-59); African American GFR (CKD) >90 (>60 ml/min/1.73 sqM); Albumin 4.2 g/dL (3.5-5.0); Alkaline Phosphatase 124 U/L (38-126); Amylase 35 U/L (30-110); Anion Gap 9 mmol/L; Blood Urea Nitrogen 13 mg/dL (9-20); Calcium 9.3 mg/dL (8.4-10.2); Carbon Dioxide 23 mmol/L (22-30); Chloride 105 mmol/L (98-107); Glucose 139 mg/dL (74-99); Lipase 53 U/L (23-300); Non-African American GFR(CKD) >90 (>60 ml/min/1.73 sqM); Sodium 137 mmol/L (137-145); Total Bilirubin 0.5 mg/dL (0.2-1.3); Total Protein 7.8 g/dL (6.3-8.2)
[2023-06-22] MEDS ORDERED: HYDROmorphone 0.5 MG/0.5 ML SYRINGE IVP STA (20:54)
[2023-06-22] MEDS ORDERED: SODIUM CHLORIDE 0.9% 1,000 ML IV STA ×2 (20:54→22:30)
[2023-06-22] MEDS ORDERED: ONDANSETRON 4 MG/2 ML VIAL IVP STA (20:55)
--- NOTE | 2023-06-22 22:05 | CT ---
EXAMINATION TYPE: CT abdomen pelvis w con DATE OF EXAM: 06/22/2023 COMPARISON: 01/30/2023 HISTORY: 42-year-old male RLQ abdominal pain. TECHNIQUE: Contiguous axial scanning of the abdomen and pelvis following administration of 100 ml Iso cammy 300 IV contrast. Delayed images through the kidneys and coronal/sagittal reconstructions perform ed. CT DLP: 2891.2 mGycm Automated exposure control for dose reduction was used. FINDINGS: Heart normal size without pericardial effusion. Some strandy scarring redemonstrated at the left base. Prominent dependent atelectasis posteriorly in the lower lungs. No pleural effusion. Numerous enlarged measuring 22.9 cm with diffuse low-attenuation. Portal venous system is patent. No biliary ductal dilatation. Cholecystectomy clips. Adrenal glands, right kidney, spleen, and pancreas show no gross abnormality. There is a 1.9 cm cortical cyst posterior left kidney. Prominent fluid-filled small bowel loops throughout the abdomen and pelvis. No dilated small bowel, f ree fluid, or free air. Scattered borderline to mildly enlarged mesenteric lymph nodes measuring up to 1.6 cm particularly in the right lower quadrant. Likely reactive. Normal appendix. There is moderate circumferential wall thickening throughout the colon. Previous resection and re-magi stomosis at the rectosigmoid junction. No significant stool burden. Scattered mild pericolonic fat stranding throughout. Bladder underdistended. No abnormal fluid collection in the pelvis or pelvic lymphadenopathy. Bones: No osseous destructive process. IMPRESSION: 1. CORRELATE FOR NONSPECIFIC INFECTIOUS OR INFLAMMATORY PANCOLITIS WITH MODERATE INFLAMMATORY COLONIC WALL THICKENING. NO ABSCESS OR FREE AIR. PREVIOUS SURGERY AT THE DISTAL COLON WITH RECTOSIGMOID REAN ASTOMOSIS. 2. HEPATOMEGALY AT 22.9 CM WITH SEVERE HEPATIC STEATOSIS. CORRELATE WITH LFT's, LIPID PROFILE, AND PA TIENT RISK FACTORS. APPROPRIATE CLINICAL MANAGEMENT IS RECOMMENDED.
[2023-06-22] MEDS ORDERED: ACETAMINOPHEN TAB 500 MG TAB PO PRN (22:36)
[2023-06-22] MEDS ORDERED: metroNIDAZOLE-NS PMX 500 MG in SALINE 1 100ML.BAG IVPB STA (22:36)
[2023-06-22] MEDS ORDERED: NALOXONE 0.4 MG/ML 1 ML VIAL IV PRN (22:37)
[2023-06-22 22:44] LABS: Appearance,Urine Clear (Clear); Bilirubin,Urine Negative (Negative); Blood,Urine Negative (Negative); Color,Urine Yellow; Glucose,Urine (UA) Negative (Negative); Ketones,Urine Negative (Negative); Leukocyte Esterase,Urine Negative (Negative); Nitrite,Urine Negative (Negative); PH, Urine 5.5 (5.0-8.0); Protein,Urine Trace (Negative); Urobilinogen,Urine <2.0 mg/dL (<2.0)
[2023-06-22 22:45] LABS: Specific Gravity,Urine >1.050 (1.001-1.035)
[2023-06-22] MEDS ORDERED: ERAVACYCLINE IVPB ONE (23:00)
[2023-06-22] MEDS ORDERED: [UNRECOGNIZED DRUG - OTHER] IVPB ONE (23:00)
[2023-06-22] MEDS ORDERED: ERAVACYCLINE DI HYDROCHLORIDE IVPB ONE (23:00)
[2023-06-22] MEDS ORDERED: SODIUM CHLORIDE 0.9% IVPB ONE (23:00)
--- NOTE | 2023-06-23 | ED ---
Abdominal Pain HPI - General Chief Complaint: Abdominal Pain Stated Complaint: abd pain Time Seen by Provider: 06/22/23 20:53 Source: patient Mode of arrival: ambulatory Limitations: no limitations - History of Present Illness Initial Comments: Patient is a 42-year-old male who presents to the emergency department for abdominal pain. It started last in the right lower abdomen and has progressed to the left lower abdomen. Patient has had nausea and several episodes of vomiting, nonbloody. He reports fever of 100.1F today. He has had intermittent diarrhea, nonbloody. He denies history of C. diff. Denies recent antibiotic use. He denies urinary symptoms. Patient has extensive abdominal surgical history including cholecystectomy and multiple bowel resections secondary to diverticulitis. - Related Data Home Medications Medication Instructions Recorded Confirmed Omeprazole 20 mg PO DAILY 11/07/21 06/22/23 Sertraline [Zoloft] 100 mg PO DAILY 09/17/22 06/22/23 Ferrous Sulfate [Iron (65 MG 325 mg PO DAILY 10/19/22 06/22/23 Elemental)] Cholecalciferol [Vitamin D3 (25 25 mcg PO DAILY 06/22/23 06/22/23 Mcg = 1000 Iu)] Sertraline [Zoloft] 25 mg PO DAILY 06/22/23 06/22/23 Allergies Allergy/AdvReac Type Severity Reaction Status Date / Time ceftriaxone [From Rocephin] Allergy Severe Rash/Hives Verified 06/22/23 22:53 amoxicillin Allergy Anaphylaxis Verified 06/22/23 22:53 aztreonam [From Azactam] Allergy Rash/Hives Verified 06/22/23 22:53 Penicillins Allergy Anaphylaxis Verified 06/22/23 22:53 artificial color/flavor AdvReac seizure Uncoded 06/22/23 22:53 artificial sugar AdvReac seizure Uncoded 06/22/23 22:53 Review of Systems ROS Statement: Those systems with pertinent positive or pertinent negative responses have been documented in the HPI. ROS Other: All systems not noted in ROS Statement are negative. Past Medical History Past Medical History: Pneumonia Additional Past Medical History / Comment(s): PILONIDAL CYST EXC 04/23/17, KIDNEY STONE PASSED X2 2015. rt sup,medial thigh abcess. Diverticulitis. Iron deficient anemia-recent EGD/Colonoscopy on 10/14/22, recent adm. for abd. pain, colitis, sepsis, portal vein thrombosis, has finished A/B's History of Any Multi-Drug Resistant Organisms: None Reported Past Surgical History: Cholecystectomy, Orthopedic Surgery, Tonsillectomy Additional Past Surgical History / Comment(s): RT KNEE SURG X3. EXC INFECTED PILONIDAL CYST W/ ABSCESS. last surgery was in April 2017. SURGICAL I& D RT SUP,MED THIGH 06/04/17. EGD/Colonoscopy 10/14/22-negative for bleeding, recent di ag. laparoscopy Past Anesthesia/Blood Transfusion Reactions: No Reported Reaction, Motion Sickness, Motion Sickness Additional Past Anesthesia/Blood Transfusion Reaction / Comment(s): States size of his throat is smaller than normal. States anesthesia usually does not have any problem intubating him. Past Psychological History: Anxiety, Depression, Panic Disorder, PTSD Smoking Status: Former smoker Past Alcohol Use History: None Reported Past Drug Use History: None Reported - Past Family History Mother Family Medical History: CVA/TIA, Diabetes Mellitus, Thyroid Disorder Father History Unknown: Yes General Exam Limitations: no limitations General appearance: alert, in distress (pain) Respiratory exam: Present: normal lung sounds bilaterally. Absent: respiratory distress, wheezes, rales, rhonchi, stridor Cardiovascular Exam: Present: regular rate, normal rhythm, normal heart sounds. Absent: systolic murmur, diastolic murmur, rubs, gallop, clicks GI/Abdominal exam: Present: soft, tenderness (RLQ significant, LLQ moderate ), normal bowel sounds. Absent: distended, guarding, rebound, rigid Neurological exam: Present: alert Skin exam: Present: warm, dry, intact, normal color. Absent: rash Course Vital Signs 06/22/23 06/22/23 20:19 21:20 Temperature 98.8 F Pulse Rate 64 91 Respiratory 20 20 Rate Blood Pressure 130/79 158/78 O2 Sat by Pulse 96 Oximetry Medical Decision Making - Medical Decision Making Was pt. sent in by a medical professional or institution (, PA, RESIDENCE MANAGER, urgent care, hospital, or senior living...) When possible be specific @ -No Did you speak to anyone other than the patient for history (EMS, parent, family, police, friend...)? What history was obtained from this source @ -No Did you review nursing and triage notes (agree or disagree)? Why? @ -I reviewed and agree with nursing and triage notes Were old charts reviewed (outside hosp., previous admission, EMS record, old EKG, old radiological studies, urgent care reports/EKG's, senior living records)? Report findings @ -Reviewed previous admission in . Patient admitted for colitis and thrombi in portal vein. Review previous infectious disease note patient ALLERGIC reaction to penicillin and Rocephin previously. He was treated with eravacyclin during his last visit Differential Diagnosis (chest pain, altered mental status, abdominal pain women, abdominal pain men, vaginal bleeding, weakness, fever, dyspnea, syncope, headache, dizziness, GI bleed, back pain, seizure, CVA, palpatations, mental health)? @ Differential Abdominal Pain Men: Appendicitis, cholecystitis, diverticulosis, ischemic bowel, pancreatitis, hepatitis, UTI, gastroenteritis, AAA, incarcerated hernia, bowel obstruction, constipation, inflammatory bowel, hepatitis, peptic ulcer disease, splenic infarction, perforated viscus, testicular torsion, this is not meant to be an all-inclusive list EKG interpreted by me (3pts min.). @ -As above X-rays interpreted by me (1pt min.). @ -None done CT interpreted by me (1pt min.). @ -Pancolitis without abscess or perforation. Hepatomegaly with severe pelvic steatosis U/S interpreted by me (1pt. min.). @ -None done What testing was considered but not performed or refused? (CT, X-rays, U/S, labs)? Why? @ -None What meds were considered but not given or refused? Why? @ -None Did you discuss the management of the patient with other professionals (professionals i.e. , PA, RESIDENCE MANAGER, lab, RT, psych nurse, sexual assault social worker, operator catalyst concentration, teacher, youth liaison officer, director of casework)? Give summary @ -No Was smoking cessation discussed for >3mins.? @ -No Was critical care preformed (if so, how long)? @ -No Were there social determinants of health that impacted care today? How? (Homelessness, low income, unemployed, alcoholism, drug addiction, transportation, low edu. Level, literacy, decrease access to med. care, long term, rehab)? @ -No Was there de-escalation of care discussed even if they declined (Discuss DNR or withdrawal of care, Hospice)? DNR status @ -No What co-morbidities impacted this encounter? (DM, HTN, Smoking, COPD, CAD, Cancer, CVA, ARF, Chemo, Hep., AIDS, mental health diagnosis, sleep apnea, morbid obesity)? @ -None Was patient admitted / discharged? Hospital course, mention meds given and route, prescriptions, significant lab abnormalities, going to OR and other pertinent info. @ -Admitted for pancolitis. Blood cultures obtained. Patient has several ALLERGIES resulting limited options for antibiotics. Utilizing previous ID note for similar presentation eravacyclin and flagyl started. Bonnie from [facility] accepts admission. ID on consult Undiagnosed new problem with uncertain prognosis? @ -No Drug Therapy requiring intensive monitoring for toxicity (Heparin, Nitro, Insulin, Cardizem)? @ -No Were any procedures done? @ -No Diagnosis/symptom? @ -pancolitis Acute, or Chronic, or Acute on Chronic? @ -acute Uncomplicated (without systemic symptoms) or Complicated (systemic symptoms)? @ -uncomplicated Side effects of treatment? @ -No Exacerbation, Progression, or Severe Exacerbation? @ -No Poses a threat to life or bodily function? How? (Chest pain, USA, NC, pneumonia, PE, COPD, DKA, ARF, appy, cholecystitis, CVA, Diverticulitis, Homicidal, Suicidal, threat to staff... and all critical care pts) @ -No Dr. Stiles - Lab Data Result diagrams: 06/22/23 20:31 06/22/23 20:31 Lab Results 06/22/23 06/22/23 06/22/23 Range/Units 20:31 20:31 20:31 WBC 17.2 H (3.8-10.6) k/uL RBC 5.02 (4.30-5.90) m/uL Hgb 15.2 (13.0-17.5) gm/dL Hct 45.8 (39.0-53.0) % MCV 91.2 (80.0-100.0) fL MCH 30.3 (25.0-35.0) pg MCHC 33.3 (31.0-37.0) g/dL RDW 14.4 (11.5-15.5) % Plt Count 204 (150-450) k/uL MPV 8.8 Neutrophils % 78 % Lymphocytes % 17 % Monocytes % 3 % Eosinophils % 1 % Basophils % 0 % Neutrophils # 13.4 H (1.3-7.7) k/uL Lymphocytes # 2.9 (1.0-4.8) k/uL Monocytes # 0.5 (0-1.0) k/uL Eosinophils # 0.3 (0-0.7) k/uL Basophils # 0.0 (0-0.2) k/uL Sodium 137 (137-145) mmol/L Potassium 4.0 (3.5-5.1) mmol/L Chloride 105 (98-107) mmol/L Carbon Dioxide 23 (22-30) mmol/L Anion Gap 9 mmol/L BUN 13 (9-20) mg/dL Creatinine 0.80 (0.66-1.25) mg/dL Est GFR (CKD-EPI)AfAm >90 (>60 ml/min/1.73 sqM) Est GFR (CKD-EPI)NonAf >90 (>60 ml/min/1.73 sqM) Glucose 139 H (74-99) mg/dL Plasma Lactic Acid [place] 1.9 (0.7-2.0) mmol/L Calcium 9.3 (8.4-10.2) mg/dL Total Bilirubin 0.5 (0.2-1.3) mg/dL AST 22 (17-59) U/L ALT 22 (4-49) U/L Alkaline Phosphatase 124 (38-126) U/L Total Protein 7.8 (6.3-8.2) g/dL Albumin 4.2 (3.5-5.0) g/dL Amylase 35 (30-110) U/L Lipase 53 (23-300) U/L Urine Color Urine Appearance (Clear) Urine pH (5.0-8.0) Ur Specific [place] (1.001-1.035) Urine Protein (Negative) Urine Glucose (UA) (Negative) Urine Ketones (Negative) Urine Blood (Negative) Urine Nitrite (Negative) Urine Bilirubin (Negative) Urine Urobilinogen (<2.0) mg/dL Ur Leukocyte Esterase (Negative) 06/22/23 Range/Units 22:20 WBC (3.8-10.6) k/uL RBC (4.30-5.90) m/uL Hgb (13.0-17.5) gm/dL Hct (39.0-53.0) % MCV (80.0-100.0) fL MCH (25.0-35.0) pg MCHC (31.0-37.0) g/dL RDW (11.5-15.5) % Plt Count (150-450) k/uL MPV Neutrophils % % Lymphocytes % % Monocytes % % Eosinophils % % Basophils % % Neutrophils # (1.3-7.7) k/uL Lymphocytes # (1.0-4.8) k/uL Monocytes # (0-1.0) k/uL Eosinophils # (0-0.7) k/uL Basophils # (0-0.2) k/uL Sodium (137-145) mmol/L Potassium (3.5-5.1) mmol/L Chloride (98-107) mmol/L Carbon Dioxide (22-30) mmol/L Anion Gap mmol/L BUN (9-20) mg/dL Creatinine (0.66-1.25) mg/dL Est GFR (CKD-EPI)AfAm (>60 ml/min/1.73 sqM) Est GFR (CKD-EPI)NonAf (>60 ml/min/1.73 sqM) Glucose (74-99) mg/dL Plasma Lactic Acid [place] (0.7-2.0) mmol/L Calcium (8.4-10.2) mg/dL Total Bilirubin (0.2-1.3) mg/dL AST (17-59) U/L ALT (4-49) U/L Alkaline Phosphatase (38-126) U/L Total Protein (6.3-8.2) g/dL Albumin (3.5-5.0) g/dL Amylase (30-110) U/L Lipase (23-300) U/L Urine Color Yellow Urine Appearance Clear (Clear) Urine pH 5.5 (5.0-8.0) Ur Specific [place] >1.050 H (1.001-1.035) Urine Protein Trace H (Negative) Urine Glucose (UA) Negative (Negative) Urine Ketones Negative (Negative) Urine Blood Negative (Negative) Urine Nitrite Negative (Negative) Urine Bilirubin Negative (Negative) Urine Urobilinogen <2.0 (<2.0) mg/dL Ur Leukocyte Esterase Negative (Negative) Disposition Clinical Impression: Pancolitis Disposition: ADMITTED IP TO THIS HOSP Condition: Fair
[2023-06-23] MEDS: HYDROmorphone 0.5 MG/0.5 ML SYRINGE IVP PRN ×4 (03:08→13:37)
[2023-06-23] MEDS: ONDANSETRON 4 MG/2 ML VIAL IVP PRN ×3 (03:08→21:08)
[2023-06-23] MEDS: PANTOPRAZOLE 40 MG/10 ML VIAL IVP SCH (08:27)
[2023-06-23] MEDS: SODIUM CHLORIDE 0.9% 1,000 ML IV SCH (08:27)
[2023-06-23] MEDS: CHOLECALCIFEROL 25 MCG (1000 IU) TABLET PO SCH (08:28)
[2023-06-23] MEDS: FERROUS SULFATE 325 MG TAB PO SCH (08:28)
[2023-06-23] MEDS: SERTRALINE 100 MG TAB PO SCH (08:28)
[2023-06-23] MEDS: SERTRALINE 25 MG TAB PO SCH (08:28)
[2023-06-23] MEDS ORDERED: NON FORMULARY DRUG (Omeprazole [Omeprazole] 20 MG Capsule) PO SCH (09:00)
[2023-06-23] MEDS: LEVOFLOXACIN 500MG-D5W PMX 500 MG in DEXTROSE/WATER 1 100ML.BAG IVPB SCH (15:20)
--- NOTE | 2023-06-23 15:35 | P.CONS ---
History of Present Illness - Reason for Consult Consult date: 06/23/23 Colitis Requesting physician: Tommie Rivas - Chief Complaint Abdominal pain - History of Present Illness 42-year-old male who presented to the emergency department with complaints of abdominal pain and diarrhea. Patient has a history of chronic diarrhea and underwent upper and lower endoscopy in October 13, 2022. Upper endoscopy revealed gastritis and colonoscopy was normal. Biopsies showed some mild inflammation/gastritis. Following that the patient was admitted and underwent diagnostic laparoscopy with findings of segmental colitis of the distal ascendin g colon and sigmoid without signs of perforation or necrosis done by Dr. Jones. Patient states abdominal pain started Thursday and became more painful so he came in for further evaluation. States that he's been having diarrhea 5-6 episodes a day, nonbloody. He has nausea but no vomiting. States he had a fever yesterday. Denies any sick contacts or recent antibiotics. Admitting labs WBC 17.2 hemoglobin 15.2 platelets 204,007 sodium 137 potassium 4.0 BUN 13 creatinine 0.8 total bilirubin 0.5 AST 22 ALT 22 alkaline phosphatase [address] abdomen pelvis with contrast reports correlate for nonspecific infectious or inflammatory pancolitis with moderate inflammatory colonic wall thickening. No abscess or free air. Previous surgery at the distal colon with rectosigmoid reanastomosis. Hepatomegaly at 22.9 cm with severe hepatic steatosis. Correlate with LFTs, lipid profile and patient risk factors. Review of Systems REVIEW OF SYSTEMS: CARDIOPULMONARY: No chest pain or shortness of breath. Gastrointestinal: Abdominal pain, mid and lower abdomen. Nausea with no vomiting. No hematemesis, coffee-ground emesis. No rectal bleeding, or melena. Diarrhea, 5-6 per day nonbloody. GENITOURINARY: No dysuria or hematuria. MUSCULOSKELETAL: Reports normal range of motion. SKIN: No rashes. No jaundice. ENDOCRINE: No chills, fevers. No excessive weight gain or loss. No polydipsia or polyuria. PSYCHIATRIC: Unremarkable. NEUROLOGY: No change in mental status. Denies dizziness, headache. ENT: Vision unremarkable. CONSTITUTIONAL: No recent weight loss. Reports fever and chills yesterday. Past Medical History Past Medical History: Pneumonia Additional Past Medical History / Comment(s): PILONIDAL CYST EXC 04/23/17, KIDNEY STONE PASSED X2 2015. rt sup,medial thigh abcess. Diverticulitis. Iron deficient anemia-recent EGD/Colonoscopy on 10/14/22, recent adm. for abd. pain, colitis, sepsis, portal vein thrombosis, has finished A/B's History of Any Multi-Drug Resistant Organisms: None Reported Past Surgical History: Cholecystectomy, Orthopedic Surgery, Tonsillectomy Additional Past Surgical History / Comment(s): RT KNEE SURG X3. EXC INFECTED PILONIDAL CYST W/ ABSCESS. last surgery was in April 2017. SURGICAL I& D RT SUP,MED THIGH 06/04/17. EGD/Colonoscopy 10/14/22-negative for bleeding, recent diag. laparoscopy Past Anesthesia/Blood Transfusion Reactions: No Reported Reaction, Motion Sickness, Motion Sickness Additional Past Anesthesia/Blood Transfusion Reaction / Comm: States size of his throat is smaller than normal. States anesthesia usually does not have any problem intubating him. Past Psychological History: Anxiety, Depression, Panic Disorder, PTSD Smoking Status: Former smoker Past Alcohol Use History: None Reported Past Drug Use History: None Reported - Past Family History Mother Family Medical History: CVA/TIA, Diabetes Mellitus, Thyroid Disorder Father History Unknown: Yes Medications and Allergies Home Medications Medication Instructions Recorded Confirmed Type Omeprazole 20 mg PO DAILY 11/07/21 06/22/23 History Sertraline [Zoloft] 100 mg PO DAILY 09/17/22 06/22/23 History Ferrous Sulfate [Iron (65 MG 325 mg PO DAILY 10/19/22 06/22/23 History Elemental)] Cholecalciferol [Vitamin D3 (25 25 mcg PO DAILY 06/22/23 06/22/23 History Mcg = 1000 Iu)] Sertraline [Zoloft] 25 mg PO DAILY 06/22/23 06/22/23 History Allergies Allergy/AdvReac Type Severity Reaction Status Date / Time ceftriaxone [From Rocephin] Allergy Severe Rash/Hives Verified 06/22/23 22:53 amoxicillin Allergy Anaphylaxis Verified 06/22/23 22:53 aztreonam [From Azactam] Allergy Rash/Hives Verified 06/22/23 22:53 Penicillins Allergy Anaphylaxis Verified 06/22/23 22:53 artificial color/flavor AdvReac seizure Uncoded 06/22/23 22:53 artificial sugar AdvReac seizure Uncoded 06/22/23 22:53 Physical Exam Vitals: Vital Signs Temp Pulse Resp BP Pulse Ox 06/23/23 13:35 69 18 111/65 95 06/23/23 12:00 98.1 F 81 18 107/69 95 06/23/23 11:40 98.2 F 73 18 115/58 95 06/23/23 11:08 74 18 122/75 93 L 06/23/23 09:44 67 18 129/81 94 L 06/23/23 06:00 88 20 123/70 94 L 06/23/23 00:05 91 18 131/76 95 06/22/23 21:20 91 20 158/78 06/22/23 20:19 98.8 F 64 20 130/79 96 Intake and Output 06/22/23 06/23/23 06/23/23 22:59 06:59 14:59 Other: Weight 144.242 kg General appearance: The patient is alert, oriented, appears in no acute distress. HET: Head is normocephalic and atraumatic. Conjunctiva pink. Sclera anicteric. Neck: Supple without lymphadenopathy. Trachea midline. Heart: S1 S2. Regular rate and rhythm. Lungs: Clear to auscultation. Abdomen: Soft, diffuse tenderness with palpation, nondistended with bowel sounds. No guarding or rigidity. Skin: No rashes. No jaundice. Extremities: Normal skin color and turgor. No pedal edema. Neurological: No focal deficits. Alert and oriented x3. Results CBC & Chem 7: 06/22/23 20:31 06/22/23 20:31 Labs: Abnormal Lab Results - Last 24 Hours (Table) 06/22/23 06/22/23 06/22/23 Range/Units 20:31 20:31 22:20 WBC 17.2 H (3.8-10.6) k/uL Neutrophils # 13.4 H (1.3-7.7) k/uL Glucose 139 H (74-99) mg/dL Ur Specific [place] >1.050 H (1.001-1.035) Urine Protein Trace H (Negative) Assessment and Plan (1) Colitis Narrative/Plan: 42-year-old male with chronic diarrhea and past episodes of abdominal pain with previous colitis presented to the emergency department with complaints of abdominal pain and increased diarrhea. CT abdomen and pelvis showing inflammation in the colon consistent with a nonspecific inflammatory versus infectious colitis. Patient states he had fever and chills yesterday. Patient likely has an infectious colitis. He had a recent colonoscopy within the last one years duration with no evidence of inflammatory bowel disease. Will collect stool samples, recommend IV antibiotics with Cipro and Levaquin. Clear liquid diet and symptomatic treatment. Current Visit: No Status: Acute Code(s): K52.9 - NONINFECTIVE GASTROENTERITIS AND COLITIS, UNSPECIFIED SNOMED Code(s): 74391681 (2) Abdominal pain Current Visit: No Status: Acute Code(s): R10.9 - UNSPECIFIED ABDOMINAL PAIN SNOMED Code(s): 16294229 Plan: 1. Continue symptomatic and supportive care 2. Clear liquid diet 3. IV Flagyl and Levaquin ordered 4. Stool studies ordered 5. No plans on endoscopic evaluation, likely infectious colitis. Patient had EGD and colonoscopy less than one year ago without any evidence of inflammatory bowel disease Thank you for this consultation, we will continue to follow. Dr. Saleem Valentin I agree with the dictator's note, documented as a scribe by Felicita Jacome.
[2023-06-23] MEDS: VANCOMYCIN 125 MG CAPSULE PO SCH ×3 (16:09→21:10)
[2023-06-23] MEDS ORDERED: KETOROLAC 15 MG/ML 1 ML VIAL IVP PRN (16:37)
--- NOTE | 2023-06-23 16:40 | P.HPIM ---
History of Present Illness H&P Date: 06/23/23 This is a 42-year-old male with medical history significant for diverticulitis, bowel resection, anxiety/depression/PTSD and panic disorder, patient is a former smoker. Patient has a history of pancolitis in the past treated with antibiotics. Additionally he underwent colonoscopy in September of last year with reports showing no inflammatory bowel disease. Patient reports history of abdominal pain and diarrhea since Thursday. He states that he had had Burger Abhijit Thursday morning and later on in the evening he started to develop abdominal pain which is mostly lower quadrant and achy in nature. He did not take any OTC medications at home. He states that he has had multiple episodes of diarrhea and abdominal cramping. He is nauseous but has not had any episodes of vomiting. He reports his stool is nonbloody and nonmucoid in nature. He denies shortness of breath no chest pain. He does report having a fever. Abdominal and pelvis CT which shows nonspecific infectious or inflammatory pancolitis with moderate inflammatory colonic wall thickening. No abscess or free air. Previous surgery at the distal colon with rectosigmoid reanastomosis. Hepatomegaly with severe hepatic steatosis. Patient is admitted to the hospital under medicine with consult placed infectious disease services will also consult GI for further evaluation as patient has been seen by them in the past. REVIEW OF SYSTEMS: CONSTITUTIONAL: No fever, no malaise, no fatigue. HEENT: No recent visual problems or hearing problems. Denied any sore throat. CARDIOVASCULAR: No chest pain, orthopnea, PND, no palpitations, no syncope. PULMONARY: No shortness of breath, no cough, no hemoptysis. GASTROINTESTINAL: Reports abdominal pain diarrhea nausea denies vomiting NEUROLOGICAL: No headaches, no weakness, no numbness. HEMATOLOGICAL: Denies any bleeding or petechiae. GENITOURINARY: Denies any burning micturition, frequency, or urgency. MUSCULOSKELETAL/RHEUMATOLOGICAL: Denies any joint pain, swelling, or any muscle pain. ENDOCRINE: Denies any polyuria or polydipsia. The rest of the 14-point review of systems is negative. PHYSICAL EXAMINATION: GENERAL: The patient is alert and oriented x3, not in any acute distress. Well developed, well nourished. HEENT: Pupils are round and equally reacting to light. EOMI. No scleral icterus. No conjunctival pallor. Normocephalic, atraumatic. No pharyngeal erythema. No thyromegaly. CARDIOVASCULAR: S1 and S2 present. No murmurs, rubs, or gallops. PULMONARY: Chest is clear to auscultation, no wheezing or crackles. ABDOMEN: Soft, tender, nondistended, normoactive bowel sounds. No palpable organomegaly. MUSCULOSKELETAL: No joint swelling or deformity. EXTREMITIES: No cyanosis, clubbing, or pedal edema. NEUROLOGICAL: Gross neurological examination did not reveal any focal deficits. SKIN: No rashes. Assessment Abdominal pain and diarrhea secondary to pancolitis infectious versus inflammatory in nature. Leukocytosis secondary to above History of chronic diarrhea with prior endoscopy showing no inflammatory bowel disease History of diverticulitis and bowel resection History anxiety depression PTSD and panic disorder Former smoker GI prophylaxis IV Protonix Full code Plan Appreciate GI consultation patient is recommended for clear liquid diet and has been started on IV Flagyl and Levaquin. C.Dif PCR and stool culture ordered and pending Continue IV fluids and pain management in place Pending infectious disease consultation. The impression and plan of care has been dictated by Bonnie Rodrigues, Nurse Practitioner as directed. Dr. Evelyn MD I have performed a history and physical examination and medical decision making of this patient, discussed the same with the dictator, and agree with the dictators assessment and plan as written, documented as a scribe. Based on total visit time, I have performed more than 50% of this visit. Past Medical History Past Medical History: Pneumonia Additional Past Medical History / Comment(s): PILONIDAL CYST EXC 04/23/17, KIDNEY STONE PASSED X2 2016. rt sup,medial thigh abcess. Diverticulitis. Iron deficient anemia-recent EGD/Colonoscopy on 10/14/22, recent adm. for abd. pain, colitis, sepsis, portal vein thrombosis, has finished A/B's History of Any Multi-Drug Resistant Organisms: None Reported Past Surgical History: Cholecystectomy, Orthopedic Surgery, Tonsillectomy Additional Past Surgical History / Comment(s): RT KNEE SURG X3. EXC INFECTED PILONIDAL CYST W/ ABSCESS. last surgery was in April 2017. SURGICAL I& D RT SUP,MED THIGH 06/04/17. EGD/Colonoscopy 10/14/22-negative for bleeding, recent diag. laparoscopy Past Anesthesia/Blood Transfusion Reactions: No Reported Reaction, Motion Sickness, Motion Sickness Additional Past Anesthesia/Blood Transfusion Reaction / Comment(s): States size of his throat is smaller than normal. States anesthesia usually does not have any problem intubating him. Past Psychological History: Anxiety, Depression, Panic Disorder, PTSD Smoking Status: Former smoker Past Alcohol Use History: None Reported Past Drug Use History: None Reported - Past Family History Mother Family Medical History: CVA/TIA, Diabetes Mellitus, Thyroid Disorder Father History Unknown: Yes Medications and Allergies Home Medications Medication Instructions Recorded Confirmed Type Omeprazole 20 mg PO DAILY 11/07/21 06/22/23 History Sertraline [Zoloft] 100 mg PO DAILY 09/17/22 06/22/23 History Ferrous Sulfate [Iron (65 MG 325 mg PO DAILY 10/19/22 06/22/23 History Elemental)] Cholecalciferol [Vitamin D3 (25 25 mcg PO DAILY 06/22/23 06/22/23 History Mcg = 1000 Iu)] Sertraline [Zoloft] 25 mg PO DAILY 06/22/23 06/22/23 History Allergies Allergy/AdvReac Type Severity Reaction Status Date / Time ceftriaxone [From Rocephin] Allergy Severe Rash/Hives Verified 06/22/23 22:53 amoxicillin Allergy Anaphylaxis Verified 06/22/23 22:53 aztreonam [From Azactam] Allergy Rash/Hives Verified 06/22/23 22:53 Penicillins Allergy Anaphylaxis Verified 06/22/23 22:53 artificial color/flavor AdvReac seizure Uncoded 06/22/23 22:53 artificial sugar AdvReac seizure Uncoded 06/22/23 22:53 Physical Exam Vitals: Vital Signs Temp Pulse Resp BP Pulse Ox 06/23/23 09:44 67 18 129/81 94 L 06/23/23 06:00 88 20 123/70 94 L 06/23/23 00:05 91 18 131/76 95 06/22/23 21:20 91 20 158/78 06/22/23 20:19 98.8 F 64 20 130/79 96 Intake and Output 06/22/23 06/23/23 06/23/23 22:59 06:59 14:59 Other: Weight 144.242 kg Results CBC & Chem 7: 06/22/23 20:31 06/22/23 20:31 Labs: Abnormal Lab Results - Last 24 Hours (Table) 06/22/23 06/22/23 06/22/23 Range/Units 20:31 20:31 22:20 WBC 17.2 H (3.8-10.6) k/uL Neutrophils # 13.4 H (1.3-7.7) k/uL Glucose 139 H (74-99) mg/dL Ur Specific [place] >1.050 H (1.001-1.035) Urine Protein Trace H (Negative) Assessment and Plan Time with Patient: Less than 30
[2023-06-23] MEDS: metroNIDAZOLE-NS PMX 500 MG in SALINE 1 100ML.BAG IVPB SCH ×2 (17:17→23:42)
[2023-06-23] MEDS: HYDROmorphone 1 MG/ML 1 ML SYRINGE IVP PRN ×2 (17:18→21:07)
--- NOTE | 2023-06-23 23:10 | P.CONS ---
History of Present Illness - Reason for Consult Consult date: 06/23/23 Pancolitis Requesting physician: Alexa Baugh - Chief Complaint Abdominal pain and diarrhea x few days - History of Present Illness Patient is a 42-year-old male with a past medical history significant for recurrent diverticulitis did have history of bowel resection anxiety depression panic disorder former smoker presenting to the hospital with abdominal pain patient mention the pain started mostly to the right upper abdominal area subsequently has been involving all abdominal/generalized patient is currently pain to be sharp almost without any severity and did have associated diarrhea with multiple loose stool but no blood or mucus in the stool, patient denies any fever or any chills and denies having any recent antibiotic exposure with the symptoms the patient has been evaluated on presentation to the hospital patient was afebrile and her fever had recorded subsequently patient was not tachycardic did have white count 17.2 with a left shift kidney function has been normal limits of the normal amylase lipase negative urine is negative patient did have a CT of abdominal pelvis with evidence of pancolitis with moderate inflammatory colonic wall thickening no abscess or free air patient did received a dose of Eravacycline and Flagyl infectious disease was consulted for further management of antibiotic therapy Review of Systems Positive point and negatives has been mentioned in the HPI, complete review of systems was performed and all other systems are negative Past Medical History Past Medical History: Pneumonia Additional Past Medical History / Comment(s): PILONIDAL CYST EXC 04/23/17, KIDNEY STONE PASSED X2 2016. rt sup,medial thigh abcess. Diverticulitis. Iron deficient anemia-recent EGD/Colonoscopy on 10/14/22, recent adm. for abd. pain, colitis, sepsis, portal vein thrombosis, has finished A/B's History of Any Multi-Drug Resistant Organisms: None Reported Past Surgical History: Cholecystectomy, Orthopedic Surgery, Tonsillectomy Additional Past Surgical History / Comment(s): RT KNEE SURG X3. EXC INFECTED PILONIDAL CYST W/ ABSCESS. last surgery was in April 2017. SURGICAL I& D RT SUP,MED THIGH 06/04/17. EGD/Colonoscopy 10/14/22-negative for bleeding, recent diag. laparoscopy Past Anesthesia/Blood Transfusion Reactions: No Reported Reaction, Motion Sickness, Motion Sickness Additional Past Anesthesia/Blood Transfusion Reaction / Comm: States size of his throat is smaller than normal. States anesthesia usually does not have any problem intubating him. Past Psychological History: Anxiety, Depression, Panic Disorder, PTSD Smoking Status: Former smoker Past Alcohol Use History: None Reported Past Drug Use History: None Reported - Past Family History Mother Family Medical History: CVA/TIA, Diabetes Mellitus, Thyroid Disorder Father History Unknown: Yes Medications and Allergies Home Medications Medication Instructions Recorded Confirmed Type Omeprazole 20 mg PO DAILY 11/07/21 06/22/23 History Sertraline [Zoloft] 100 mg PO DAILY 09/17/22 06/22/23 History Ferrous Sulfate [Iron (65 MG 325 mg PO DAILY 10/19/22 06/22/23 History Elemental)] Cholecalciferol [Vitamin D3 (25 25 mcg PO DAILY 06/22/23 06/22/23 History Mcg = 1000 Iu)] Sertraline [Zoloft] 25 mg PO DAILY 06/22/23 06/22/23 History Allergies Allergy/AdvReac Type Severity Reaction Status Date / Time ceftriaxone [From Rocephin] Allergy Severe Rash/Hives Verified 06/22/23 22:53 amoxicillin Allergy Anaphylaxis Verified 06/22/23 22:53 aztreonam [From Azactam] Allergy Rash/Hives Verified 06/22/23 22:53 Penicillins Allergy Anaphylaxis Verified 06/22/23 22:53 artificial color/flavor AdvReac seizure Uncoded 06/22/23 22:53 artificial sugar AdvReac seizure Uncoded 06/22/23 22:53 Physical Exam Vitals: Vital Signs Temp Pulse Resp BP Pulse Ox 06/23/23 13:35 69 18 111/65 95 06/23/23 12:00 98.1 F 81 18 107/69 95 06/23/23 11:40 98.2 F 73 18 115/58 95 06/23/23 11:08 74 18 122/75 93 L 06/23/23 09:44 67 18 129/81 94 L 06/23/23 06:00 88 20 123/70 94 L 06/23/23 00:05 91 18 131/76 95 06/22/23 21:20 91 20 158/78 06/22/23 20:19 98.8 F 64 20 130/79 96 Intake and Output 06/22/23 06/23/23 06/23/23 22:59 06:59 14:59 Other: Weight 144.242 kg GENERAL DESCRIPTION: Middle-aged male lying in bed, no distress. No tachypnea or accessory muscle of respiration use. HEENT: Shows Pallor , no scleral icterus. Oral mucous membrane is dry. No pharyngeal erythema or thrush NECK: Trachea central, no thyromegaly. LUNGS: Unlabored breathing. Clear to auscultation anteriorly. No wheeze or crackle. HEART: S1, S2, regular rate and rhythm. No loud murmur ABDOMEN: Soft, mildly abdominal distention and tenderness EXTREMITIES: No edema of feet. SKIN: No rash, no masses palpable. NEUROLOGICAL: The patient is awake, alert, oriented x3, mood and affect normal. Results CBC & Chem 7: 06/24/23 11:22 06/24/23 05:38 Labs: Abnormal Lab Results - Last 24 Hours (Table) 06/22/23 06/22/23 06/22/23 Range/Units 20:31 20:31 22:20 WBC 17.2 H (3.8-10.6) k/uL Neutrophils # 13.4 H (1.3-7.7) k/uL Glucose 139 H (74-99) mg/dL Ur Specific [place] >1.050 H (1.001-1.035) Urine Protein Trace H (Negative) Assessment and Plan (1) Leukocytosis Current Visit: Yes Status: Acute Code(s): D72.829 - ELEVATED WHITE BLOOD CELL COUNT, UNSPECIFIED SNOMED Code(s): 311374660 (2) Allergy to multiple antibiotics Current Visit: Yes Status: Acute Code(s): Z88.1 - ALLERGY STATUS TO OTHER ANTIBIOTIC AGENTS SNOMED Code(s): 417781938 (3) Pancolitis Current Visit: Yes Status: Acute Code(s): K51.00 - ULCERATIVE (CHRONIC) PANCOLITIS WITHOUT COMPLICATIONS SNOMED Code(s): 656277136 Plan: 1patient to the hospital abdominal pain and diarrhea with evidence of pancolitis on CT patient did not have any fever did have elevated white count concerning for possible infectious etiology received to be on the top of the list 2-patient with multiple antibiotic allergies that would limit the number of antibiotics safe to use 3-we will check a stool for C. difficile check stool culture 4-empirically start the patient on oral vancomycin while waiting for the work-up to be completed We will follow on clinical condition and cultures to further adjust medication if needed Thank you for this consultation we will follow the patient along with you Dictation was produced using [employer] dictation software. please excuse any grammatical, word or spelling errors. Time with Patient: Greater than 30
[2023-06-24] MEDS: HYDROmorphone 1 MG/ML 1 ML SYRINGE IVP PRN ×7 (01:34→21:12)
[2023-06-24] MEDS: SODIUM CHLORIDE 0.9% 1,000 ML IV SCH (03:25)
[2023-06-24] MEDS: ONDANSETRON 4 MG/2 ML VIAL IVP PRN ×2 (06:01→15:10)
[2023-06-24 06:35] LABS: African American GFR (CKD) >90 (>60 ml/min/1.73 sqM); Anion Gap 10 mmol/L; Blood Urea Nitrogen 12 mg/dL (9-20); Calcium 8.8 mg/dL (8.4-10.2); Carbon Dioxide 18 mmol/L (22-30); Chloride 108 mmol/L (98-107); Glucose 103 mg/dL (74-99); Non-African American GFR(CKD) >90 (>60 ml/min/1.73 sqM); Sodium 136 mmol/L (137-145)
[2023-06-24 06:53] LABS: Potassium 4.9 mmol/L (3.5-5.1)
[2023-06-24] MEDS: PANTOPRAZOLE 40 MG/10 ML VIAL IVP SCH (08:19)
[2023-06-24] MEDS: CHOLECALCIFEROL 25 MCG (1000 IU) TABLET PO SCH (08:19)
[2023-06-24] MEDS: FERROUS SULFATE 325 MG TAB PO SCH (08:19)
[2023-06-24] MEDS: SERTRALINE 25 MG TAB PO SCH (08:19)
[2023-06-24] MEDS: VANCOMYCIN 125 MG CAPSULE PO SCH ×4 (08:20→21:00)
[2023-06-24] MEDS: SERTRALINE 100 MG TAB PO SCH (08:20)
[2023-06-24] MEDS: metroNIDAZOLE-NS PMX 500 MG in SALINE 1 100ML.BAG IVPB SCH ×3 (08:20→23:53)
[2023-06-24] MEDS: LACTATED RINGERS 1,000 ML IV SCH ×2 (11:21→23:34)
[2023-06-24 11:50] LABS: Basophils % (A) 0 %; Eosinophils # (A) 0.1 k/uL (0-0.7); Eosinophils % (A) 1 %; HGB 13.9 gm/dL (13.0-17.5); Lymphocytes # (A) 2.9 k/uL (1.0-4.8); Lymphocytes % (A) 31 %; MCH 29.8 pg (25.0-35.0); MCHC 32.4 g/dL (31.0-37.0); MCV 91.8 fL (80.0-100.0); Mean Platelet Volume 8.6; Monocytes # (A) 0.6 k/uL (0-1.0); Monocytes % (A) 6 %; Neutrophils # (A) 5.6 k/uL (1.3-7.7); Neutrophils % (A) 60 %; Platelet Count 183 k/uL (150-450); RBC 4.68 m/uL (4.30-5.90); RDW 14.5 % (11.5-15.5); WBC 9.5 k/uL (3.8-10.6)
[2023-06-24] MEDS: LEVOFLOXACIN 500MG-D5W PMX 500 MG in DEXTROSE/WATER 1 100ML.BAG IVPB SCH (15:11)
--- NOTE | 2023-06-24 16:51 | P.PN ---
Subjective Progress Note Date: 06/24/23 Principal diagnosis: Colitis/diarrhea 42-year-old male who presented to the emergency department with complaints of abdominal pain and diarrhea. Patient has a history of chronic diarrhea and underwent upper and lower endoscopy in October 13, 2022. Upper endoscopy revealed gastritis and colonoscopy was normal. Biopsies showed some mild inflammation/gastritis. Following that the patient was admitted and underwent diagnostic laparoscopy with findings of segmental colitis of the distal ascending colon and sigmoid without signs of perforation or necrosis done by Dr. Jones. Patient states abdominal pain started Thursday and became more painful so he came in for further evaluation. States that he's been having diarrhea 5-6 episodes a day, nonbloody. He has nausea but no vomiting. States he had a fever yesterday. Denies any sick contacts or recent antibiotics. Admitting labs WBC 17.2 hemoglobin 15.2 platelets 204,007 sodium 137 potassium 4.0 BUN 13 creatinine 0.8 total bilirubin 0.5 AST 22 ALT 22 alkaline phosphatase [address] abdomen pelvis with contrast reports correlate for nonspecific infectious or inflammatory pancolitis with moderate inflammatory colonic wall thickening. No abscess or free air. Previous surgery at the distal colon with rectosigmoid reanastomosis. Hepatomegaly at 22.9 cm with severe hepatic steatosis. Correlate with LFTs, lipid profile and patient risk factors. 06/24/2023 Patient seen and examined today as a follow-up. He states that he has feeling somewhat better. Still having abdominal pain and some nausea but no vomiting. Leukocytosis improved. Stool C. diff negative. Infectious disease following patient as well and started patient on empiric vancomycin. Patient states he had about 4 loose bowel movements this morning, nonbloody. He states, 8-10 yesterday. He has been afebrile. Objective - Vital Signs Vital signs: Vital Signs Temp 97.8 F 06/24/23 01:43 Pulse 70 06/24/23 01:43 Resp 16 06/24/23 01:43 BP 145/79 06/24/23 01:43 Pulse Ox 98 06/24/23 01:43 FiO2 Intake & Output 06/23/23 06/24/23 06/24/23 18:59 06:59 18:59 Weight 144.242 kg Other: Voiding Method Toilet Toilet # Bowel Movements 1 1 - Exam General appearance: The patient is alert, oriented, appears in no acute distress. Obese. HET: Head is normocephalic and atraumatic. Conjunctiva pink. Sclera anicteric. Neck: Supple without lymphadenopathy. Abdomen: Soft, diffuse tenderness, nondistended with bowel sounds. No guarding or rigidity. Extremities: Normal skin color and turgor. No pedal edema Skin: No rashes, no jaundice Neurological: No focal deficits. Alert and oriented. - Labs CBC & Chem 7: 06/24/23 11:22 06/24/23 05:38 Labs: Abnormal Lab Results - Last 24 Hours (Table) 06/24/23 Range/Units 05:38 Sodium 136 L (137-145) mmol/L Chloride 108 H (98-107) mmol/L Carbon Dioxide 18 L (22-30) mmol/L Glucose 103 H (74-99) mg/dL Microbiology - Last 24 Hours (Table) 06/22/23 23:05 Blood Culture - Preliminary Blood 06/22/23 22:50 Blood Culture - Preliminary Blood Assessment and Plan (1) Colitis Narrative/Plan: 42-year-old male with chronic diarrhea and past episodes of abdominal pain with previous colitis presented to the emergency department with complaints of abdominal pain and increased diarrhea. CT abdomen and pelvis showing inflammation in the colon consistent with a nonspecific inflammatory versus infectious colitis. Patient states he had fever and chills yesterday. Patient likely has an infectious colitis. He had a recent colonoscopy within the last one years duration with no evidence of inflammatory bowel disease. Will collect stool samples, recommend IV antibiotics with Cipro and Levaquin. Clear liquid diet and symptomatic treatment. Current Visit: No Status: Acute Code(s): K52.9 - NONINFECTIVE GASTROENTERITIS AND COLITIS, UNSPECIFIED SNOMED Code(s): 90182978 (2) Abdominal pain Current Visit: No Status: Acute Code(s): R10.9 - UNSPECIFIED ABDOMINAL PAIN SNOMED Code(s): 11165894 Plan: 1. Continue symptomatic and supportive care 2. Advance to full liquid diet 3. Continue Flagyl and Levaquin. Continue with recommendations from infectious disease 4. Stool studies ordered 5. No plans on endoscopic evaluation, likely infectious colitis. Patient had EGD and colonoscopy less than one year ago without any evidence of inflammatory bowel disease Thank you for this consultation, we will continue to follow. Dr. Saleem Valentin I agree with the dictator's note, documented as a scribe by Felicita Jacome.
[2023-06-25] MEDS: HYDROmorphone 1 MG/ML 1 ML SYRINGE IVP PRN ×6 (01:10→22:11)
[2023-06-25] MEDS: metroNIDAZOLE-NS PMX 500 MG in SALINE 1 100ML.BAG IVPB SCH ×2 (08:44→16:12)
[2023-06-25] MEDS: CHOLECALCIFEROL 25 MCG (1000 IU) TABLET PO SCH (08:45)
[2023-06-25] MEDS: FERROUS SULFATE 325 MG TAB PO SCH (08:45)
[2023-06-25] MEDS: SERTRALINE 25 MG TAB PO SCH (08:45)
[2023-06-25] MEDS: SERTRALINE 100 MG TAB PO SCH (08:45)
[2023-06-25] MEDS: PANTOPRAZOLE 40 MG/10 ML VIAL IVP SCH (08:45)
[2023-06-25] MEDS: VANCOMYCIN 125 MG CAPSULE PO SCH (08:45)
--- NOTE | 2023-06-25 09:23 | P.PN ---
Subjective Progress Note Date: 06/24/23 This is a 42-year-old male with medical history significant for diverticulitis, bowel resection, anxiety/depression/PTSD and panic disorder, patient is a former smoker. Patient has a history of pancolitis in the past treated with antibiotics. Additionally he underwent colonoscopy in September of last year with reports showing no inflammatory bowel disease. Patient reports history of abdominal pain and diarrhea since Thursday. He states that he had had Burger Abhijit Thursday morning and later on in the evening he started to develop abdominal pain which is mostly lower quadrant and achy in nature. He did not take any OTC medications at home. He states that he has had multiple episodes of diarrhea and abdominal cramping. He is nauseous but has not had any episodes of vomiting. He reports his stool is nonbloody and nonmucoid in nature. He denies shortness of breath no chest pain. He does report having a fever. Abdominal and pelvis CT which shows nonspecific infectious or inflammatory pancolitis with moderate inflammatory colonic wall thickening. No abscess or free air. Previous surgery at the distal colon with rectosigmoid reanastomosis. Hepatomegaly with severe hepatic steatosis. Patient is admitted to the hospital under medicine with consult placed infectious disease services will also consult GI for further evaluation as patient has been seen by them in the past. 06/24/2023 Patient continues to report diarrhea is a 2-3 episodes overnight, nonbloody. He has advanced to a full liquid diet. He continues to have lower quadrant abdominal pain right and left-sided. Abdominal CT showing colitis remains on antibiotics. Review of Systems Constitutional: Denied any fatigue denied any fever. Cardio vascular: denied any chest pain, palpitations Gastrointestinal: [place] pain nausea and diarrhea not having any vomiting. Pulmonary: Denied any shortness of breath cough Neurologic denied any new focal deficits All inpatient medications were reviewed and appropriate changes in these medications as dictated in the interval history and assessment and plan. PHYSICAL EXAMINATION: GENERAL: The patient is alert and oriented x3, not in any acute distress. Well developed, well nourished. HEENT: Pupils are round and equally reacting to light. EOMI. No scleral icterus. No conjunctival pallor. Normocephalic, atraumatic. No pharyngeal erythema. No thyromegaly. CARDIOVASCULAR: S1 and S2 present. No murmurs, rubs, or gallops. PULMONARY: Chest is clear to auscultation, no wheezing or crackles. ABDOMEN: Soft, tender, nondistended, normoactive bowel sounds. No palpable organomegaly. MUSCULOSKELETAL: No joint swelling or deformity. EXTREMITIES: No cyanosis, clubbing, or pedal edema. NEUROLOGICAL: Gross neurological examination did not reveal any focal deficits. SKIN: No rashes. Assessment Abdominal pain and diarrhea secondary to pancolitis infectious versus inflammatory in nature. Leukocytosis secondary to above History of chronic diarrhea with prior endoscopy showing no inflammatory bowel disease History of diverticulitis and bowel resection History anxiety depression PTSD and panic disorder Former smoker GI prophylaxis IV Protonix Full code Plan Appreciate GI consultation patient is on IV Flagyl and Levaquin. Patient advanced to full liquid diet today. Infectious diseases place patient on oral vancomycin C. diff is negative Continue IV fluids and pain management in place Patiently monitor respiratory for hours due to continued abdominal pain and positive diarrhea unable to tolerate much diet. The impression and plan of care has been dictated by Bonnie Rodrigues, Nurse Practitioner as directed. Dr. Evelyn MD I have performed a history and physical examination and medical decision making of this patient, discussed the same with the dictator, and agree with the dictators assessment and plan as written, documented as a scribe. Based on total visit time, I have performed more than 50% of this visit. Objective - Vital Signs Vital signs: Vital Signs Temp 97.8 F 06/24/23 14:49 Pulse 59 L 06/24/23 14:49 Resp 16 06/24/23 14:49 BP 127/81 06/24/23 14:49 Pulse Ox 95 06/24/23 14:49 FiO2 Intake & Output 06/23/23 06/24/23 06/24/23 18:59 06:59 18:59 Weight 144.242 kg Other: Voiding Method Toilet Toilet Toilet # Voids 4 # Bowel Movements 1 1 - Labs CBC & Chem 7: 06/24/23 11:22 06/24/23 05:38 Labs: Abnormal Lab Results - Last 24 Hours (Table) 06/24/23 Range/Units 05:38 Sodium 136 L (137-145) mmol/L Chloride 108 H (98-107) mmol/L Carbon Dioxide 18 L (22-30) mmol/L Glucose 103 H (74-99) mg/dL Microbiology - Last 24 Hours (Table) 06/22/23 23:05 Blood Culture - Preliminary Blood 06/22/23 22:50 Blood Culture - Preliminary Blood Assessment and Plan Time with Patient: Less than 30
[2023-06-25] MEDS: LACTATED RINGERS 1,000 ML IV SCH (13:58)
[2023-06-25] MEDS: LEVOFLOXACIN 500MG-D5W PMX 500 MG in DEXTROSE/WATER 1 100ML.BAG IVPB SCH (14:45)
[2023-06-25] MEDS: ONDANSETRON 4 MG/2 ML VIAL IVP PRN (14:53)
--- NOTE | 2023-06-25 15:13 | P.PN ---
Subjective Progress Note Date: 06/25/23 Principal diagnosis: Colitis/diarrhea 42-year-old male who presented to the emergency department with complaints of abdominal pain and diarrhea. Patient has a history of chronic diarrhea and underwent upper and lower endoscopy in October 13, 2022. Upper endoscopy revealed gastritis and colonoscopy was normal. Biopsies showed some mild inflammation/gastritis. Following that the patient was admitted and underwent diagnostic laparoscopy with findings of segmental colitis of the distal ascending colon and sigmoid without signs of perforation or necrosis done by Dr. Jones. Patient states abdominal pain started Thursday and became more painful so he came in for further evaluation. States that he's been having diarrhea 5-6 episodes a day, nonbloody. He has nausea but no vomiting. States he had a fever yesterday. Denies any sick contacts or recent antibiotics. Admitting labs WBC 17.2 hemoglobin 15.2 platelets 204,007 sodium 137 potassium 4.0 BUN 13 creatinine 0.8 total bilirubin 0.5 AST 22 ALT 22 alkaline phosphatase [address] abdomen pelvis with contrast reports correlate for nonspecific infectious or inflammatory pancolitis with moderate inflammatory colonic wall thickening. No abscess or free air. Previous surgery at the distal colon with rectosigmoid reanastomosis. Hepatomegaly at 22.9 cm with severe hepatic steatosis. Correlate with LFTs, lipid profile and patient risk factors. 06/24/2023 Patient seen and examined today as a follow-up. He states that he has feeling somewhat better. Still having abdominal pain and some nausea but no vomiting. Leukocytosis improved. Stool C. diff negative. Infectious disease following patient as well and started patient on empiric vancomycin. Patient states he had about 4 loose bowel movements this morning, nonbloody. He states, 8-10 yesterday. He has been afebrile. 06/25/2023 Patient seen and examined sitting up at the bedside. Nursing reported that he has been complaining of his pain is worse today. Reporting that his pain was an 8 out of 10. He denies any nausea or vomiting. States he still having loose bowel movements 5-6 yesterday. Patient is requesting regular food. He is afebrile. Objective - Vital Signs Vital signs: Vital Signs Temp 97.7 F 06/25/23 07:00 Pulse 59 L 06/25/23 07:00 Resp 20 06/25/23 07:00 BP 117/70 06/25/23 07:00 Pulse Ox 95 06/25/23 07:00 FiO2 Intake & Output 06/24/23 06/25/23 06/25/23 18:59 06:59 18:59 Output Total 500 Balance -500 Output: Urine 500 Other: Voiding Method Toilet Toilet # Voids 4 2 - Exam General appearance: The patient is alert, oriented, appears in no acute distress. Obese. HET: Head is normocephalic and atraumatic. Conjunctiva pink. Sclera anicteric. Neck: Supple without lymphadenopathy. Abdomen: Soft, diffuse tenderness, nondistended with bowel sounds. No guarding or rigidity. Extremities: Normal skin color and turgor. No pedal edema Skin: No rashes, no jaundice Neurological: No focal deficits. Alert and oriented. - Labs CBC & Chem 7: 06/24/23 11:22 06/24/23 05:38 Labs: Microbiology - Last 24 Hours (Table) 06/22/23 23:05 Blood Culture - Preliminary Blood 06/22/23 22:50 Blood Culture - Preliminary Blood Assessment and Plan (1) Colitis Narrative/Plan: 42-year-old male with chronic diarrhea and past episodes of abdominal pain with previous colitis presented to the emergency department with complaints of abdominal pain and increased diarrhea. CT abdomen and pelvis showing inflammation in the colon consistent with a nonspecific inflammatory versus infectious colitis. Patient states he had fever and chills yesterday. Patient likely has an infectious colitis. He had a recent colonoscopy within the last one years duration with no evidence of inflammatory bowel disease. Will collect stool samples, recommend IV antibiotics with Cipro and Levaquin. Clear liquid diet and symptomatic treatment. Current Visit: No Status: Acute Code(s): K52.9 - NONINFECTIVE GASTROENTERITIS AND COLITIS, UNSPECIFIED SNOMED Code(s): 33973565 (2) Abdominal pain Current Visit: No Status: Acute Code(s): R10.9 - UNSPECIFIED ABDOMINAL PAIN SNOMED Code(s): 84495496 Plan: 1. Continue symptomatic and supportive care 2. Advance to lowfat low fiber diet 3. Continue Flagyl and Levaquin. Continue antibiotics for a total of 10 days. 4. Stool studies ordered. C. diff negative. 5. No plans on endoscopic evaluation, likely infectious colitis. Patient had EGD and colonoscopy less than one year ago without any evidence of inflammatory bowel disease 6. If patient tolerates diet and pain improves he may be discharged home this evening otherwise anticipate discharge tomorrow. Thank you for this consultation, we will continue to follow. Dr. Saleem Valentin I agree with the dictator's note, documented as a scribe by Felicita Jacome.
--- NOTE | 2023-06-25 15:56 | P.PN ---
Subjective Progress Note Date: 06/24/23 Principal diagnosis: Pancolitis Patient is a 42-year-old male with a past medical history significant for recurrent diverticulitis did have history of bowel resection anxiety depression panic disorder former smoker presenting to the hospital with abdominal pain,patient did have a CT of abdominal pelvis with evidence of pancolitis with moderate inflammatory colonic wall thickening no abscess or free air initial stool for C. diff came back negative On today's evaluation and that is 06/24/2023, the patient denies having any fever or chills, the patient abdominal pain slightly decreased in intensity still complaining of diarrhea no chest pain shortness of breath or cough Patient did have a normal white count of 9.5, with an initial white count of 17,000 creatinine is 0.68 stool for C. diff 2 negative, we did ask for C. diff PCR but that was not done Objective - Vital Signs Vital signs: Vital Signs Temp 97.5 F L 06/24/23 07:40 Pulse 65 06/24/23 08:00 Resp 16 06/24/23 08:00 BP 104/67 06/24/23 07:40 Pulse Ox 95 06/24/23 07:40 FiO2 Intake & Output 06/23/23 06/24/23 06/24/23 18:59 06:59 18:59 Weight 144.242 kg Other: Voiding Method Toilet Toilet Toilet # Bowel Movements 1 1 - Exam GENERAL DESCRIPTION: Middle-aged male lying in bed in no distress RESPIRATORY SYSTEM: Unlabored breathing , decreased breath sounds at bases HEART: S1 S2 regular rate and rhythm , ABDOMEN: Soft , mildly abdominal distention and tenderness EXTREMITIES: No edema feet - Labs CBC & Chem 7: 06/24/23 11:22 06/24/23 05:38 Labs: Abnormal Lab Results - Last 24 Hours (Table) 06/24/23 Range/Units 05:38 Sodium 136 L (137-145) mmol/L Chloride 108 H (98-107) mmol/L Carbon Dioxide 18 L (22-30) mmol/L Glucose 103 H (74-99) mg/dL Microbiology - Last 24 Hours (Table) 06/22/23 23:05 Blood Culture - Preliminary Blood 06/22/23 22:50 Blood Culture - Preliminary Blood Assessment and Plan (1) Allergy to multiple antibiotics Current Visit: Yes Status: Acute Code(s): Z88.1 - ALLERGY STATUS TO OTHER ANTIBIOTIC AGENTS SNOMED Code(s): 477778590 (2) Leukocytosis Current Visit: Yes Status: Acute Code(s): D72.829 - ELEVATED WHITE BLOOD CELL COUNT, UNSPECIFIED SNOMED Code(s): 872009911 (3) Pancolitis Current Visit: Yes Status: Acute Code(s): K51.00 - ULCERATIVE (CHRONIC) PANCOLITIS WITHOUT COMPLICATIONS SNOMED Code(s): 370801508 Plan: 1patient to the hospital abdominal pain and diarrhea with evidence of pancolitis on CT patient did not have any fever did have elevated white count concerning for possible infectious etiology received to be on the top of the list 2-patient with multiple antibiotic allergies that would limit the number of antibiotics safe to use 3-stool cultures are currently pending, stool for C. diff EIA was negative we did ask for PCR but that was not done nursing staff has been told to send it again With high clinical suspicious for possible C. diff we will continue the patient on oral vancomycin while waiting for C. diff PCR to be completed Dictation was produced using [employer] dictation software. please excuse any grammatical, word or spelling errors. Time with Patient: Greater than 30
--- NOTE | 2023-06-25 15:57 | P.PN ---
Subjective Progress Note Date: 06/25/23 Principal diagnosis: Pancolitis Patient is a 42-year-old male with a past medical history significant for recurrent diverticulitis did have history of bowel resection anxiety depression panic disorder former smoker presenting to the hospital with abdominal pain,patient did have a CT of abdominal pelvis with evidence of pancolitis with moderate inflammatory colonic wall thickening no abscess or free air initial stool for C. diff came back negative On today's evaluation and that is 06/25/2023, the patient remains to be afebrile, the patient abdominal pain slightly decreased in intensity however the patient is still complaining of diarrhea about 4 loose stools today no chest pain shortness of breath or cough Patient did have a normal white count of 9.5 as of yesterday no CBC has been done today, patient did have a normal creatinine is 0.68 , stool for C. diff 2 negative, we did ask for C. diff PCR came back negative as well Objective - Vital Signs Vital signs: Vital Signs Temp 97.7 F 06/25/23 07:00 Pulse 59 L 06/25/23 08:00 Resp 20 06/25/23 08:00 BP 117/70 06/25/23 07:00 Pulse Ox 95 06/25/23 07:00 FiO2 Intake & Output 06/24/23 06/25/23 06/25/23 18:59 06:59 18:59 Output Total 500 Balance -500 Output: Urine 500 Other: Voiding Method Toilet Toilet Toilet # Voids 4 2 - Exam GENERAL DESCRIPTION: Middle-aged male lying in bed in no distress RESPIRATORY SYSTEM: Unlabored breathing , decreased breath sounds at bases HEART: S1 S2 regular rate and rhythm , ABDOMEN: Soft , mildly abdominal distention and tenderness EXTREMITIES: No edema feet - Labs CBC & Chem 7: 06/24/23 11:22 06/24/23 05:38 Labs: Microbiology - Last 24 Hours (Table) 06/22/23 23:05 Blood Culture - Preliminary Blood 06/22/23 22:50 Blood Culture - Preliminary Blood Assessment and Plan (1) Allergy to multiple antibiotics Current Visit: Yes Status: Acute Code(s): Z88.1 - ALLERGY STATUS TO OTHER ANTIBIOTIC AGENTS SNOMED Code(s): 861185060 (2) Pancolitis Current Visit: Yes Status: Acute Code(s): K51.00 - ULCERATIVE (CHRONIC) PANCOLITIS WITHOUT COMPLICATIONS SNOMED Code(s): 684775534 Plan: 1patient to the hospital abdominal pain and diarrhea with evidence of pancolitis on CT patient did not have any fever did have elevated white count concerning for possible infectious etiology received to be on the top of the list 2-patient with multiple antibiotic allergies that would limit the number of antibiotics safe to use 3-stool cultures are currently pending, stool for C. diff EIA was negative, C. diff PCR came back negative as well, we will discontinue vancomycin and continue with the Levaquin and flagyl perr GI and the clinical response Dictation was produced using [employer] dictation software. please excuse any grammatical, word or spelling errors. Time with Patient: Less than 30
--- NOTE | 2023-06-25 16:40 | P.PN ---
Subjective Progress Note Date: 06/25/23 This is a 42-year-old male with medical history significant for diverticulitis, bowel resection, anxiety/depression/PTSD and panic disorder, patient is a former smoker. Patient has a history of pancolitis in the past treated with antibiotics. Additionally he underwent colonoscopy in September of last year with reports showing no inflammatory bowel disease. Patient reports history of abdominal pain and diarrhea since Thursday. He states that he had had [employer] Thursday morning and later on in the evening he started to develop abdominal pain which is mostly lower quadrant and achy in nature. He did not take any OTC medications at home. He states that he has had multiple episodes of diarrhea and abdominal cramping. He is nauseous but has not had any episodes of vomiting. He reports his stool is nonbloody and nonmucoid in nature. He denies shortness of breath no chest pain. He does report having a fever. Abdominal and pelvis CT which shows nonspecific infectious or inflammatory pancolitis with moderate inflammatory colonic wall thickening. No abscess or free air. Previous surgery at the distal colon with rectosigmoid reanastomosis. Hepatomegaly with severe hepatic steatosis. Patient is admitted to the hospital under medicine with consult placed infectious disease services will also consult GI for further evaluation as patient has been seen by them in the past. 06/24/2023 Patient continues to report diarrhea is a 2-3 episodes overnight, nonbloody. He has advanced to a full liquid diet. He continues to have lower quadrant abdominal pain right and left-sided. Abdominal CT showing colitis remains on antibiotics. 06/25/2023 Patient is evaluated today in the medical floor he continues to report abdominal pain generalized and diffuse 7-8 out of 10. He is normoactive bowel sounds and he is having some looser stools which are per patient forming up. He is advance d to a low fiber soft diet. GI and infectious disease are following. Patient continues on IV Levaquin and IV Flagyl. The blood cultures continue to remain negative patient can likely discharge home tomorrow. Review of Systems Constitutional: Denied any fatigue denied any fever. Cardio vascular: denied any chest pain, palpitations Gastrointestinal: [place] pain nausea and diarrhea not having any vomiting. Pulmonary: Denied any shortness of breath cough Neurologic denied any new focal deficits All inpatient medications were reviewed and appropriate changes in these medications as dictated in the interval history and assessment and plan. PHYSICAL EXAMINATION: GENERAL: The patient is alert and oriented x3, not in any acute distress. Well developed, well nourished. HEENT: Pupils are round and equally reacting to light. EOMI. No scleral icterus. No conjunctival pallor. Normocephalic, atraumatic. No pharyngeal erythema. No thyromegaly. CARDIOVASCULAR: S1 and S2 present. No murmurs, rubs, or gallops. PULMONARY: Chest is clear to auscultation, no wheezing or crackles. ABDOMEN: Soft, tender, nondistended, normoactive bowel sounds. No palpable organomegaly. MUSCULOSKELETAL: No joint swelling or deformity. EXTREMITIES: No cyanosis, clubbing, or pedal edema. NEUROLOGICAL: Gross neurological examination did not reveal any focal deficits. SKIN: No rashes. Assessment Abdominal pain and diarrhea secondary to pancolitis infectious versus inflammatory in nature. Leukocytosis secondary to above History of chronic diarrhea with prior endoscopy showing no inflammatory bowel d isease History of diverticulitis and bowel resection History anxiety depression PTSD and panic disorder Former smoker GI prophylaxis IV Protonix Full code Plan Appreciate GI consultation patient is on IV Flagyl and Levaquin. Patient advanced to low fiber/soft diet. Infectious disease following. Continue IV fluids and pain management in place IF blood culture is negative and patient continues to clinically improve and tolerates and advance diet he can be discharged home tomorrow. The impression and plan of care has been dictated by Bonnie Rodrigues, Nurse Practitioner as directed. Dr. Evelyn MD I have performed a history and physical examination and medical decision making of this patient, discussed the same with the dictator, and agree with the d ictators assessment and plan as written, documented as a scribe. Based on total visit time, I have performed more than 50% of this visit. Objective - Vital Signs Vital signs: Vital Signs Temp 97.8 F 06/25/23 13:59 Pulse 71 06/25/23 13:59 Resp 20 06/25/23 13:59 BP 152/71 06/25/23 13:59 Pulse Ox 96 06/25/23 13:59 FiO2 Intake & Output 06/24/23 06/25/23 06/25/23 18:59 06:59 18:59 Intake Total 118 Output Total 500 Balance -382 Intake: Oral 118 Output: Urine 500 Other: Voiding Method Toilet Toilet Toilet # Voids 4 2 1 - Labs CBC & Chem 7: 06/24/23 11:22 06/24/23 05:38 Labs: Microbiology - Last 24 Hours (Table) 06/22/23 23:05 Blood Culture - Preliminary Blood 06/22/23 22:50 Blood Culture - Preliminary Blood Assessment and Plan Time with Patient: Less than 30
[2023-06-26] MEDS: metroNIDAZOLE-NS PMX 500 MG in SALINE 1 100ML.BAG IVPB SCH ×2 (00:43→08:40)
[2023-06-26] MEDS: LACTATED RINGERS 1,000 ML IV SCH (02:46)
[2023-06-26] MEDS: HYDROmorphone 1 MG/ML 1 ML SYRINGE IVP PRN (02:46)
[2023-06-26 07:58] VITALS: BP 109/68; PULSE 60; RESP 16; TEMP 97.5
--- NOTE | 2023-06-26 08:35 | P.PN ---
Subjective Progress Note Date: 06/26/23 Principal diagnosis: Colitis/diarrhea 42-year-old male who presented to the emergency department with complaints of abdominal pain and diarrhea. Patient has a history of chronic diarrhea and underwent upper and lower endoscopy in October 13, 2022. Upper endoscopy revealed gastritis and colonoscopy was normal. Biopsies showed some mild inflammation/gastritis. Following that the patient was admitted and underwent diagnostic laparoscopy with findings of segmental colitis of the distal ascending colon and sigmoid without signs of perforation or necrosis done by Dr. Jones. Patient states abdominal pain started Thursday and became more painful so he came in for further evaluation. States that he's been having diarrhea 5-6 episodes a day, nonbloody. He has nausea but no vomiting. States he had a fever yesterday. Denies any sick contacts or recent antibiotics. Admitting labs WBC 17.2 hemoglobin 15.2 platelets 204,007 sodium 137 potassium 4.0 BUN 13 creatinine 0.8 total bilirubin 0.5 AST 22 ALT 22 alkaline phosphatase [address] abdomen pelvis with contrast reports correlate for nonspecific infectious or inflammatory pancolitis with moderate inflammatory colonic wall thickening. No abscess or free air. Previous surgery at the distal colon with rectosigmoid reanastomosis. Hepatomegaly at 22.9 cm with severe hepatic steatosis. Correlate with LFTs, lipid profile and patient risk factors. 06/24/2023 Patient seen and examined today as a follow-up. He states that he has feeling somewhat better. Still having abdominal pain and some nausea but no vomiting. Leukocytosis improved. Stool C. diff negative. Infectious disease following patient as well and started patient on empiric vancomycin. Patient states he had about 4 loose bowel movements this morning, nonbloody. He states, 8-10 yesterday. He has been afebrile. 06/25/2023 Patient seen and examined sitting up at the bedside. Nursing reported that he has been complaining of his pain is worse today. Reporting that his pain was an 8 out of 10. He denies any nausea or vomiting. States he still having loose bowel movements 5-6 yesterday. Patient is requesting regular food. He is afebrile. 06/26/2023 Patient seen and examined lying in bed resting comfortably. He reports diarrhea has improved. He states he only went twice yesterday, nonbloody. He denies any nausea or vomiting. Abdominal pain improved and he is tolerating his diet. He has been afebrile. Objective - Vital Signs Vital signs: Vital Signs Temp 98.5 F 06/26/23 02:03 Pulse 53 L 06/26/23 02:03 Resp 15 06/26/23 02:03 BP 124/61 06/26/23 02:03 Pulse Ox 98 06/26/23 02:03 FiO2 Intake & Output 06/25/23 06/25/23 06/26/23 06:59 18:59 06:59 Intake Total 118 Output Total 500 Balance -382 Intake: Oral 118 Output: Urine 500 Other: Voiding Method Toilet Toilet Toilet # Voids 2 1 2 - Exam General appearance: The patient is alert, oriented, appears in no acute distress. Obese. HET: Head is normocephalic and atraumatic. Conjunctiva pink. Sclera anicteric. Neck: Supple without lymphadenopathy. Abdomen: Soft, nontender, nondistended with bowel sounds. No guarding or rigidity. Extremities: Normal skin color and turgor. No pedal edema Skin: No rashes, no jaundice Neurological: No focal deficits. Alert and oriented. - Labs CBC & Chem 7: 06/24/23 11:22 06/24/23 05:38 Labs: Microbiology - Last 24 Hours (Table) 06/22/23 23:05 Blood Culture - Preliminary Blood 06/22/23 22:50 Blood Culture - Preliminary Blood 06/23/23 16:13 Stool Culture - Preliminary Stool Assessment and Plan (1) Colitis Narrative/Plan: 42-year-old male with chronic diarrhea and past episodes of abdominal pain with previous colitis presented to the emergency department with complaints of abdominal pain and increased diarrhea. CT abdomen and pelvis showing inflammation in the colon consistent with a nonspecific inflammatory versus infectious colitis. Patient states he had fever and chills yesterday. Patient likely has an infectious colitis. He had a recent colonoscopy within the last one years duration with no evidence of inflammatory bowel disease. Will collect stool samples, recommend IV antibiotics with Cipro and Levaquin. Clear liquid diet and symptomatic treatment. Symptoms improved, diet advanced and tolerated. Continue by mouth antibiotics for a total of 10 days. Current Visit: No Status: Acute Code(s): K52.9 - NONINFECTIVE GASTROENTERITIS AND COLITIS, UNSPECIFIED SNOMED Code(s): 32184668 (2) Abdominal pain Current Visit: No Status: Acute Code(s): R10.9 - UNSPECIFIED ABDOMINAL PAIN SNOMED Code(s): 42459237 Plan: 1. Continue symptomatic and supportive care 2. Continue lowfat low fiber diet 3. Continue Flagyl and Levaquin. Continue oral antibiotics for a total of 10 days. 4. Stool studies ordered. C. diff negative. 5. No plans on endoscopic evaluation, likely infectious colitis. Patient had EGD and colonoscopy less than one year ago without any evidence of inflammatory bowel disease 6. Patient is cleared by gastroenterology for discharge. He can follow-up with gastroenterology as needed. Thank you for this consultation, we will sign off at this time. Dr. Saleem Valentin I agree with the dictator's note, documented as a scribe by Felicita Jacome.
[2023-06-26] MEDS: PANTOPRAZOLE 40 MG/10 ML VIAL IVP SCH (08:41)
[2023-06-26] MEDS: CHOLECALCIFEROL 25 MCG (1000 IU) TABLET PO SCH (08:41)
[2023-06-26] MEDS: FERROUS SULFATE 325 MG TAB PO SCH (08:41)
[2023-06-26] MEDS: SERTRALINE 100 MG TAB PO SCH (08:41)
[2023-06-26] MEDS: SERTRALINE 25 MG TAB PO SCH (08:41)
--- NOTE | 2023-06-28 09:57 | P.DS ---
Providers Date of admission: 06/22/23 22:38 Attending physician: Syl Ramirez Consults: 06/22/23 22:37 Consult Physician Routine Consulting Provider: Yoseph Ortega Consult Reason/Comments: pancolitis Do you want consulting provider notified?: Yes 06/23/23 13:07 Consult Physician Routine Consulting Provider: Marychuy Valentin Consult Reason/Comments: Colitis Do you want consulting provider notified?: Yes Primary care physician: Jose Hassan Hospital Course: Final Diagnosis Abdominal pain and diarrhea secondary to pancolitis felt to be infectious in nature Leukocytosis secondary to above History of chronic diarrhea with prior endoscopy showing no inflammatory bowel disease History of diverticulitis and bowel resection History anxiety depression PTSD and panic disorder Former smoker GI prophylaxis IV Protonix Full code Discharge disposition Patient is stable for discharge home, recommended to follow up with Dr. Valentin in the office as well as Dr. Ortega in one week. He is discharged on a 7 day course of oral Flagyl and oral Levaquin to complete antibiotic therapy. Patient to continue on his PPI omeprazole daily. Recommending for a soft diet for the next week can advance as tolerated. Dr. Hassan 1-2 days for repeat labs in 2-3 days. Hospital course This is a 42-year-old male with medical history significant for diverticulitis, bowel resection, anxiety/depression/PTSD and panic disorder, patient is a former smoker. Patient has a history of pancolitis in the past treated with antibiotics. Additionally he underwent colonoscopy in September of last year with reports showing no inflammatory bowel disease. Patient reports history of abdominal pain and diarrhea since Thursday. He states that he had had [employer] Thursday morning and later on in the evening he started to develop abdominal pain which is mostly lower quadrant and achy in nature. He did not take any OTC medications at home. He states that he has had multiple episodes of diarrhea and abdominal cramping. He is nauseous but has not had any episodes of vomiting. He reports his stool is nonbloody and nonmucoid in nature. He denies shortness of breath no chest pain. He does report having a fever. Abdominal and pelvis CT which shows nonspecific infectious or inflammatory pancolitis with moderate inflammatory colonic wall thickening. No abscess or free air. Previous surgery at the distal colon with rectosigmoid reanastomosis. Hepatomegaly with severe hepatic steatosis. Patient is admitted to the hospital under medicine with consult placed infectious disease services, and GI service. Patient was monitored on bowel rest with having multiple episodes of diarrhea nonbloody in nature. GI in the past has done colonoscopy in this patient with evidence of any inflammatory bowel disease. Patient is being treated for infectious colitis with with IV antibiotics. Blood culture and stool culture are negative. C. diff is negative 3. Urinalysis is negative. White count on admission 17.2 and is now normalized on to 9.5. Electrolytes are within normal limits. Diet was advanced to low fiber and patient tolerating abdominal pain is improving patient is cleared for discharge with the above-mentioned recommendations. Please see medication reconciliation for list of current medications. Thank you for allowing us to participate in the care of this patient. The impression and plan of care has been dictated by Bonnie Rodrigues, Nurse Practitioner as directed. Dr. Evelyn MD I have performed a history and physical examination and medical decision making of this patient, discussed the same with the dictator, and agree with the dictators assessment and plan as written, documented as a scribe. Based on total visit time, I have performed more than 50% of this visit. Patient Condition at Discharge: Stable Plan - Discharge Summary Discharge Rx Participant: No New Discharge Prescriptions: New metroNIDAZOLE [Flagyl] 500 mg PO TID 7 Days #21 tab Ondansetron [Zofran] 4 mg PO Q8HR PRN #20 tab PRN Reason: Nausea Levofloxacin [Levaquin] 750 mg PO DAILY 7 Days #7 tab Ibuprofen [Motrin] 600 mg PO Q6HR PRN #20 tab PRN Reason: Pain Continue Omeprazole 20 mg PO DAILY Ferrous Sulfate [Iron (65 MG Elemental)] 325 mg PO DAILY Sertraline [Zoloft] 100 mg PO DAILY Sertraline [Zoloft] 25 mg PO DAILY Cholecalciferol [Vitamin D3 (25 Mcg = 1000 Iu)] 25 mcg PO DAILY Discharge Medication List Omeprazole 20 mg PO DAILY 11/07/21 [History] Sertraline [Zoloft] 100 mg PO DAILY 09/17/22 [History] Ferrous Sulfate [Iron (65 MG Elemental)] 325 mg PO DAILY 10/19/22 [History] Cholecalciferol [Vitamin D3 (25 Mcg = 1000 Iu)] 25 mcg PO DAILY 06/22/23 [History] Sertraline [Zoloft] 25 mg PO DAILY 06/22/23 [History] Ibuprofen [Motrin] 600 mg PO Q6HR PRN #20 tab 06/26/23 [Rx] Levofloxacin [Levaquin] 750 mg PO DAILY 7 Days #7 tab 06/26/23 [Rx] Ondansetron [Zofran] 4 mg PO Q8HR PRN #20 tab 06/26/23 [Rx] metroNIDAZOLE [Flagyl] 500 mg PO TID 7 Days #21 tab 06/26/23 [Rx] Follow up Appointment(s)/Referral(s): Jose Hassan MD [Primary Care Provider] - 1-2 Days Marychuy Valentin MD [STAFF PHYSICIAN] - 07/08/23 1:45 pm Yoseph Ortega MD [STAFF PHYSICIAN] - 07/01/23 2:15 pm Ambulatory/Diagnostic Orders: Basic Metabolic Panel [LAB.AMB] Location: None Selected Complete Blood Count w/diff [LAB.AMB] Time Frame: 3 Days, Location: None Selected Patient Instructions/Handouts: Low Fiber Diet (DC), Colitis (ED) Activity/Diet/Wound Care/Special Instructions: Continue on soft/low fiber diet advance as tolerated Continue antibiotics with oral Flagyl 3 times a day for the next 7 days as well as oral Levaquin daily for the next 7 days. Continue omeprazole. Follow-up the Dr. Ortega one week and also follow up with Dr. Valentin one week Repeat labs in 2 to 3 days Discharge Disposition: HOME SELF-CARE
== END 2023-06-26 10:43 | disposition home or self-care (01) | DRG 249 ==
LOC: EC 20:15 → OBSVTOIN 22:38 → 6NMEDSUR 22:38
PROVIDERS: ADMIT Hospitalist; ATTEND Hospitalist
DX: A09 Infectious gastroenteritis and colitis, unspecified (principal); F41.0 Panic disorder [episodic paroxysmal anxiety]; F43.10 Post-traumatic stress disorder, unspecified; I10 Essential (primary) hypertension; D72.829 Elevated white blood cell count, unspecified; R16.0 Hepatomegaly, not elsewhere classified; F32.A Depression, unspecified; K76.0 Fatty (change of) liver, not elsewhere classified; Z87.891 Personal history of nicotine dependence; Z87.19 Personal history of other diseases of the digestive system; Z87.442 Personal history of urinary calculi; Z88.1 Allergy status to other antibiotic agents; Z88.0 Allergy status to penicillin; Z90.49 Acquired absence of other specified parts of digestive tract; Z79.899 Other long term (current) drug therapy; Z91.048 Other nonmedicinal substance allergy status
CPT/HCPCS: 36415; 74177; 80048; 80053; 81003; 82150; 83605; 83690; 83735; 85025; 87040; 87045; 87046; 87324; 87493; 96361; 96365; 96366; 96367; 96375; 96376; 99285

== ENCOUNTER → 2023-07-06 | Outpatient (CLI) | payer OTHER ==
[2023-07-06 14:26] LABS: Anion Gap 12.2 mmol/L (4.00-12.00); Carbon Dioxide 24.8 mmol/L (21.6-31.8); Potassium 4.8 mmol/L (3.5-5.5)
[2023-07-06 14:52] LABS: HCT 48.3 % (39.6-50.0); HGB 14.8 d/dL (13.0-17.0); MCH 28.7 pg (27.0-32.0); MCHC 30.6 d/dL (32.0-37.0); MCV 93.6 FL (80.0-97.0); Mean Platelet Volume 11.6 FL (9.5-12.2); NRBC Per 100 WBC 0 X 10*3/uL (0.00-0.01); Platelet Count 253 X 10*3/uL (140-440); RBC 5.16 X 10*6/uL (4.40-5.60); RDW 14.9 % (11.5-14.5)
[2023-07-06 15:24] LABS: Basophils # (A) 0.05 X 10*3/uL (0.00-0.10); Basophils % (A) 0.3 %; Eosinophils # (A) 0.09 X 10*3/uL (0.04-0.35); Eosinophils % (A) 0.6 %; Lymphocytes # (A) 4.54 X 10*3/uL (0.90-5.00); Lymphocytes % (A) 29.5 %; Monocytes # (A) 0.93 X 10*3/uL (0.20-1.00); Neutrophils # (A) 9.69 X 10*3/uL (1.80-7.70); RBC Morphology Normal (Normal)
== END | disposition home or self-care (01) ==
LOC: LABWHC1 08:47
PROVIDERS: ATTEND Orthopaedic Surgery
DX: Z01.812 Encounter for preprocedural laboratory examination (principal); M23.92 Unspecified internal derangement of left knee
CPT/HCPCS: 36415; 80051; 85025

== ENCOUNTER → 2023-07-09 | Day surgery (SDC) | payer OTHER ==
[~2023-07-09] MED LIST changes: +IOPAMIDOL M200 10 ML VIAL ONE; -IRON SUCROSE 300 MG in SODIUM CHLORIDE 0.9% 250 ML IVPB NR; +LACTATED RINGERS 1,000 ML IV SCH; -SODIUM CHLORIDE 0.9% 500 ML 500 ML in EMPTY BAG 1 BAG IV PRN; +methylPREDNISolone ACETATE 80 MG/ML 1 ML VIAL ONE
[2023-07-09 07:00] VITALS: RESP 16; TEMP 97
--- NOTE | 2023-07-09 07:43 | P.PCN ---
Date of Procedure: 07/09/23 Procedure(s) Performed: PREOPERATIVE DIAGNOSIS: 1-Lumbar radiculopathy . 2-lumbar herniated disc disease. POSTOPERATIVE DIAGNOSIS: 1-lumbar radiculopathy. 2-lumbar herniated disc disease. PROCEDURE 1. Transforaminal epidural steroid injection under fluoroscopic guidance at bilateral L5-S1 level. (Fluoroscopy images stored on file in the radiology Department ) 2. Lumbar epidurogram . ANESTHESIA: Local with 1% lidocaine 3 ml. EBL: Minimal PROCEDURE INDICATION: The patient with low back pain and radiculopathy symptoms unresponsive to conservative treatment. PROCEDURE DESCRIPTION / TECHNIQUE: The patient was seen and identified in the preoperative area. Risks, benefits, complications, and alternatives were discussed with the patient. The patient agreed to proceed with the procedure and signed the consent., and vital signs were stable. Patient was taken to the OR and time out was completed. The patient was placed in the prone position on procedure table and a pillow was placed under the abdomen to reduce lumbar lordosis. The lumbosacral area was prepped and draped in the usual sterile fashion. Critical pause was taken. Vital signs were closely monitored during the procedure. Using oblique fluoroscopy, the chin of the ``Michele dog at right L5-S1 level was identified, and the skin and deeper tissues just below was localized with 1% lidocaine. Subsequently, a 22-gauge 5-inch spinal needle was advanced under a tunneled view fluoroscopic guidance just underneath the chin of the ``Michele dog at the right L5-S1 Under lateral fluoroscopy, the needle was then advanced to the posterior border of the interforaminal space. After negative aspiration of CSF and blood and with no paresthesias, 1 mL Isovue 200 contrast dye was injected excellent epidurogram and outlining of the nerve root Subsequently, 3 mL of block solution containing 40 mg Depo-Medrol and 2 mL of 0.9% normal saline PF was injected. Needle was removed and the same procedure was repeated at the left L5-S1. At the end of the procedure, skin was cleansed, and bandages were applied. COMPLICATIONS:none DISPOSITION / PLANS: The patient was placed in a supine position and transferred to the recovery area in a stable condition for observation. There was no evidence of lower extremity motor or sensory deficit after the procedure. Patient was discharged from the recovery room after meeting discharge criteria. Home discharge instructions were given to the patient by the staff. The patient was reexamined prior to discharge.
[2023-07-09 07:56] VITALS: BP 107/62; PULSE 71
--- NOTE | 2023-07-09 08:41 | FL ---
Intraoperative/procedural fluoroscopic services were provided. Total fluoroscopy time is 29 seconds w ith a total of 3 submitted images to PACS. Please see the operative/procedural note for further detai ls. DAP: 0.28 mGym2
== END ==
LOC: ORPAIN 06:27
PROVIDERS: ATTEND Specialist
DX: M51.16 Intervertebral disc disorders with radiculopathy, lumbar region (principal); Z79.899 Other long term (current) drug therapy; Z79.82 Long term (current) use of aspirin
CPT/HCPCS: 64483; J1040; Q9966

== ENCOUNTER → 2023-07-15 | Day surgery (SDC) | payer OTHER ==
--- NOTE | 2023-07-14 14:15 | HP ---
HISTORY AND PHYSICAL DATE OF SURGERY: 07/15/2023. HISTORY OF PRESENT ILLNESS: Mr. Cody Hare is a 42-year-old gentleman seen with progressive left knee pain. We discussed options for treatment. He elected to proceed with left knee arthroscopy. Consent was obtained. Medical clearance was provided. PAST MEDICAL HISTORY: Gastroesophageal reflux disease, leukocytosis. PAST SURGICAL HISTORY: Cholecystectomy, tonsillectomy, excision, pilonidal cyst. DAILY MEDICATIONS: 1. Omeprazole. 2. Ferrous sulfate. ALLERGIES: Amoxicillin, penicillin. SOCIAL HISTORY: Denies tobacco use. PHYSICAL EVALUATION OF THE LEFT KNEE: His range of motion is 0 to 120 degrees. There is mild effusion present. Tenderness, medial joint line. Positive medial Joana's. Ligaments stable. Hip rotation without pain. Distal neurovascular exam intact. RADIOGRAPHS: Radiographs of the left knee revealed mild medial compartment osteoarthritis. MRI of left knee revealed medial meniscal tear, ACL tear, moderate effusion, loose bodies. IMPRESSION: 1. Internal derangement of left knee with medial meniscal tear and anterior cruciate ligament tear. 2. Gastroesophageal reflux disease. PLAN: Left knee arthroscopy with partial medial meniscectomy and debridement. MMODL / IJN: [id number] /
[~2023-07-15] MED LIST changes: +BUPIVACAINE (PF) 0.25% 10 ML VIAL MISCELLANE ONE; +DEXAMETHASONE SOD PHOSPHATE 4 MG/ML 1 ML VIAL IV ONE; +FAMOTIDINE 20 MG/2 ML VIAL IVP ONE; +HYDROmorphone (PF) 1 MG/ML ONE; +HYDROmorphone 0.5 MG/0.5 ML SYRINGE IVP PRN; -IOPAMIDOL M200 10 ML VIAL ONE; +LIDOCAINE 2% INJ 20 MG/ML (2 ML VIAL) ONE; +MIDAZOLAM 2 MG/2 ML VIAL ONE; +ONDANSETRON 4 MG/2 ML VIAL IVP ONE; +PROPOFOL 10 MG/ML 20 ML VIAL IV ONE; +SUCCINYLCHOLINE CHLORIDE 200 MG/10 ML VIAL IV ONE; +ceFAZolin 3 GM in SODIUM CHLORIDE 0.9% 100 ML IVPB PRN; +fentaNYL (PF) 50 MCG/ML 2 ML AMP ONE; -methylPREDNISolone ACETATE 80 MG/ML 1 ML VIAL ONE
--- NOTE | 2023-07-15 11:51 | P.OP ---
Date of Procedure: 07/15/23 Preoperative Diagnosis: Internal derangement left knee Postoperative Diagnosis: 1. Tear medial and lateral meniscus left knee 2. Grade 4 chondromalacia medial femoral condyle left knee 3. Grade 4 chondromalacia femoral sulcus left knee 4. Reactive synovitis medial, lateral and suprapatellar compartments left knee 5. Partial ACL tear left knee Procedure(s) Performed: 1. Arthroscopic partial medial and lateral meniscectomy left knee 2. Arthroscopic microfracture medial femoral condyle left knee 3. Arthroscopic partial synovectomy medial, lateral and suprapatellar compartments left knee 4. Arthroscopic chondroplasty medial femoral condyle left knee 5. Arthroscopic chondroplasty femoral sulcus left knee 6. Arthroscopic debridement partial ACL tear left knee Anesthesia: KEVINA, local Surgeon: Christopher Hoover Estimated Blood Loss (ml): 8 Pathology: none sent Condition: stable Disposition: PACU Indications for Procedure: 42-year-old gentleman seen with progressive left knee pain. After having treatment options discussed, he elected to proceed with arthroscopy. Operative Findings: See description of procedure Description of Procedure: Patient was taken to the operative suite. Patient underwent a general anesthetic by the department of anesthesia. Patient was given preoperative antibiotics. The left lower extremity was placed in a well-padded arthroscopic leg hernández. The left leg was prepped and draped in the normal sterile orthopedic fashion. A lateral parapatellar and suprapatellar incision was made. Trochars were inserted. Arthroscopy was initiated. Suprapatellar pouch revealed diffuse thick reactive synovitis. The patellofemoral joint appeared to articulate congruently. There was grade 4 chondromalacia of the femoral sulcus with some diffuse osteochondral flap tears.. The scope was guided into the medial gutter. No loose bodies or plica were identified. The scope was then guided into the medial compartment. A medial parapatellar incision was made. Trocar inserted followed by probe. There was a radial tear involving the posterior horn medial meniscus. There were grade 3/4 chondromalacia changes about the medial femoral condyle with some osteochondral flap tears present. There was thick reactive synovitis anteriorly. I performed a partial medial meniscectomy getting down to stable meniscal tissue. I performed a chondroplasty of the medial femoral condyle getting down to stable osteochondral tissue. I performed a partial synovectomy decompressing the thick reactive synovitis. I did note an area of exposed bone along the medial femoral condyle weightbearing surface measuring 1 cm x 2 cm. I introduced a microfracture awl and performed a microfracture to that area penetrating the bone with resultant bleeding at the microfracture site. The residual meniscus was probed and was found to be stable. The residual osteochondral surface was stable. There was good decompression of the synovitis. Scope and probe were then guided into the intercondylar notch. Cruciates were identified. There was tearing of the anterior cruciate ligament present. I introduced a motorized shaver and debrided out the torn fibers. The residual ACL was diminutive but stable. The PCL appear stable.. The scope and probe were then guided into lateral compartment. There was a radial tear involving the posterior horn of the lateral meniscus. There were grade 1 chondromalacia changes of the tibial plateau. There was thick reactive synovitis anteriorly. I performed a partial lateral meniscectomy getting down to stable meniscal tissue. I performed a partial synovectomy decompressing the reactive synovitis. The residual meniscus was probed and was found to be stable. There was good decompression of the synovitis. The scope was in guided back into the suprapatellar compartment. I introduced a motorized shaver into the suprapatellar compartment. I debrided out some piecemeal fragments of meniscus I encountered along with some osteochondral fragments. I performed a chondroplasty to the femoral sulcus getting down to stable osteochondral tissue. I performed a partial synovectomy decompressing the thick reactive synovitis. The shaver was removed. The residual osteochondral surface of the femoral sulcus was stable but again we did note significant grade 4, she changes. There was good decompression of synovitis. I took one more look around the entire knee, no residual debris. Instruments were now removed from the joint. The joint was infiltrated with .25% Marcaine. Steri-Strips were applied to the portal sites. Sterile dressings were applied. The patient was placed into a DEANGELO hose. No tourniquet was utilized. The patient was awakened, transferred to a bed and taken to recovery stable satisfactory condition.
[2023-07-15 12:09] VITALS: TEMP 96.8
[2023-07-15 13:41] VITALS: BP 129/60; PULSE 79; RESP 16
== END | disposition home or self-care (01) ==
LOC: OR 09:38
PROVIDERS: ATTEND Orthopaedic Surgery
DX: M23.92 Unspecified internal derangement of left knee (principal); S83.282A Other tear of lateral meniscus, current injury, left knee, initial encounter; K21.9 Gastro-esophageal reflux disease without esophagitis; Z88.0 Allergy status to penicillin; Z88.1 Allergy status to other antibiotic agents; Z88.3 Allergy status to other anti-infective agents; Z79.899 Other long term (current) drug therapy; Z90.49 Acquired absence of other specified parts of digestive tract
CPT/HCPCS: 29880; 29879; J2250; J0330; J1100; J0690; J2405; J3010; J3490; J1170 ×2; J2704; J2001; J0665

== ENCOUNTER → 2023-08-28 | Outpatient (CLI) | payer OTHER ==
--- NOTE | 2023-08-29 14:11 | MR ---
EXAMINATION TYPE: MR knee RT wo con DATE OF EXAM: 08/28/2023 COMPARISON: Outside right knee x-rays August 18, 2023 HISTORY: Right knee pain, swelling, and locking since 2004 with history of prior surgery. TECHNIQUE: Multiplanar, multisequence images of the knee is performed without IV contrast. FINDINGS: MEDIAL MENISCUS: Anterior and posterior horns are intact without tear. LATERAL MENISCUS: Anterior and posterior horns are intact without tear. CRUCIATE LIGAMENTS: The posterior cruciate ligament is intact and unremarkable. There is increased si gnal and partial tearing of the anterior cruciate ligament. COLLATERAL LIGAMENTS: The medial collateral ligament and lateral collateral ligament complex are inta ct and unremarkable. EXTENSOR MECHANISM: Visualized quadriceps and patellar tendons are intact. EFFUSION: No significant suprapatellar joint effusion. POPLITEAL CYST: Small leaking popliteal/sanchez cyst. TRICOMPARTMENT SPACES: Moderate to severe narrowing patellofemoral compartment with mild spurring. Mi ld to moderate narrowing and spurring medial tibiofemoral and lateral tibiofemoral compartments. CARTILAGE: Areas of significant cartilaginous loss involving the distal medial femoral condyle. There is focal large defect, suspected prior surgical and/or traumatic change to the distal medial femoral condyle. Chondromalacia patella with fissuring and cartilaginous loss along the posterior patellar p ole. BONE MARROW SIGNAL: Central subchondral cystic change involving the tibial plateau. OTHER: No additional significant abnormality is appreciated. IMPRESSION: 1. Tricompartment degenerative changes that are most prominent involving the patellofemoral and media l tibiofemoral compartments as detailed above. 2. Partial tearing of the anterior cruciate ligament. 3. Small leaking popliteal cyst.
== END | disposition home or self-care (01) ==
LOC: RADMRIMAIN 15:51
PROVIDERS: ATTEND Orthopaedic Surgery
DX: S83.511A Sprain of anterior cruciate ligament of right knee, initial encounter (principal); M17.11 Unilateral primary osteoarthritis, right knee; M71.21 Synovial cyst of popliteal space [Baker], right knee

== ENCOUNTER 2023-10-31 19:26 | Emergency (ER) | payer OTHER ==
[2023-10-31] MEDS ORDERED: ONDANSETRON 4 MG/2 ML VIAL IVP STA (20:43)
[2023-10-31] MEDS ORDERED: MORPHINE SULFATE 4 MG/ML SYRINGE IVP STA ×2 (20:43→22:30)
[2023-10-31] MEDS ORDERED: SODIUM CHLORIDE 0.9% 1,000 ML IV STA (20:43)
[2023-10-31] MEDS ORDERED: PANTOPRAZOLE 40 MG/10 ML VIAL IVP STA (20:43)
[2023-10-31 21:29] LABS: ALT 28 U/L (4-49); AST 22 U/L (17-59); African American GFR (CKD) >90 (>60 ml/min/1.73 sqM); Albumin 4.1 g/dL (3.5-5.0); Alkaline Phosphatase 115 U/L (38-126); Amylase 38 U/L (30-110); Anion Gap 15 mmol/L; Blood Urea Nitrogen 16 mg/dL (9-20); Calcium 9.2 mg/dL (8.4-10.2); Carbon Dioxide 19 mmol/L (22-30); Chloride 106 mmol/L (98-107); Glucose 190 mg/dL (74-99); Lipase 105 U/L (23-300); Non-African American GFR(CKD) >90 (>60 ml/min/1.73 sqM); Potassium 4.3 mmol/L (3.5-5.1); Sodium 140 mmol/L (137-145); Total Bilirubin 0.3 mg/dL (0.2-1.3); Total Protein 7.3 g/dL (6.3-8.2)
[2023-10-31 21:54] LABS: INR 0.8 (<1.2); Partial Thromboplastin Time 25.3 sec (22.0-30.0); Prothrombin Time 9.6 sec (10.0-12.5)
[2023-10-31 22:57] LABS: Basophils # (A) 0.1 k/uL (0-0.2); Basophils % (A) 1 %; Eosinophils # (A) 0.2 k/uL (0-0.7); Eosinophils % (A) 1 %; HCT 45.8 % (39.0-53.0); HGB 14.3 gm/dL (13.0-17.5); Lymphocytes # (A) 4.6 k/uL (1.0-4.8); Lymphocytes % (A) 29 %; MCH 29.4 pg (25.0-35.0); MCHC 31.2 g/dL (31.0-37.0); MCV 94.4 fL (80.0-100.0); Monocytes # (A) 0.8 k/uL (0-1.0); Monocytes % (A) 5 %; Neutrophils # (A) 10.3 k/uL (1.3-7.7); Neutrophils % (A) 63 %; Platelet Count 239 k/uL (150-450); RBC 4.86 m/uL (4.30-5.90); RDW 13.7 % (11.5-15.5); WBC 16.2 k/uL (3.8-10.6)
[2023-10-31 22:58] LABS: Calcium Oxalate Crystals,Urine Rare /hpf; Mucus,Urine Rare /hpf; RBC,Urine 8 /hpf (0-5); WBC,Urine 2 /hpf (0-5)
[2023-10-31 23:44] LABS: Appearance,Urine Clear (Clear); Color,Urine Yellow; Glucose,Urine (UA) 2+ (Negative); Protein,Urine Negative (Negative); Specific Gravity,Urine 1.025 (1.001-1.035)
[2023-10-31 23:45] LABS: Bilirubin,Urine Negative (Negative); Blood,Urine Trace (Negative); Ketones,Urine Trace (Negative); Leukocyte Esterase,Urine Negative (Negative); Nitrite,Urine Negative (Negative); Urobilinogen,Urine <2.0 mg/dL (<2.0)
--- NOTE | 2023-10-31 23:48 | CT ---
EXAM: CT Angiography Abdomen and Pelvis With Intravenous Contrast CLINICAL HISTORY: ITS.REASON CT Reason: GI bleed protocol TECHNIQUE: Axial computed tomographic angiography images of the abdomen and pelvis with intravenous contrast. CTDI is 93.8 mGy and DLP is 5072.2 mGy-cm. This CT exam was performed using one or more of the following dose reduction techniques: automated exposure control, adjustment of the mA and/or kV according to patient size, and/or use of iterative reconstruction technique. MIP reconstructed images were created and reviewed. COMPARISON: 01/30/2023. FINDINGS: VASCULATURE: Aorta: No acute findings. No abdominal aortic aneurysm. No dissection. Celiac trunk and mesenteric arteries: Flow is noted within the celiac, SMA, the renal arteries, and KUSUM. Renal arteries: See above. Iliac arteries: No acute findings. No occlusion or significant stenosis. Lung bases: Subsegmental atelectasis is noted near the lung bases. Pleural space: Unremarkable. No pneumothorax. No pleural effusions. Heart: Heart is normal in size. ABDOMEN: Liver: Fatty liver. Gallbladder and bile ducts: Status post cholecystectomy. No ductal dilation. Pancreas: See below. Spleen: Spleen enhances uniformly. Adrenals: The adrenal glands, the head, body, tail of the pancreas are unremarkable. Kidneys and ureters: A 0.8 cm calculus is noted at the left renal collecting system. No renal calculus or hydronephrosis. Stomach and bowel: Moderate quantity of ingested material in the stomach. Moderate quantity of stool throughout the colon. Postsurgical changes in the mid sigmoid colon. Diverticulosis. No obstruction. No mucosal thickening. PELVIS: Appendix: Appendix is seen on coronal image 97 and is unremarkable. Bladder: Unremarkable. No mass. Reproductive: Unremarkable as visualized. ABDOMEN and PELVIS: Intraperitoneal space: Unremarkable. No significant fluid collection. No free air. Bones/joints: No acute fracture. No dislocation. Soft tissues: Ischiorectal fat is clean. Lymph nodes: Unremarkable. No retroperitoneal lymphadenopathy. No pelvic or inguinal lymphadenopathy. Other findings: Pelvic phleboliths are noted. No abnormal contrast large. IMPRESSION: 1. Fatty liver. 2. Status post cholecystectomy. 3. No renal calculus or hydronephrosis. 4. The appendix is unremarkable. 5. Diverticulosis without diverticulitis. 6. Postsurgical changes mid sigmoid colon. 7. No contrast blush.
--- NOTE | 2023-10-31 23:51 | ED ---
General Adult HPI - General Source: patient, RN notes reviewed, old records reviewed Mode of arrival: ambulatory Limitations: no limitations <Clay Deal - Last Filed: 10/31/23 23:44> <Pradip Suggs - Last Filed: 11/01/23 01:59> - General Chief complaint: Abdominal Pain Stated complaint: Abd pain Time Seen by Provider: 10/31/23 20:15 - History of Present Illness Initial comments: Patient is a 42-year-old male who presents emergency Department complaining of generalized abdominal discomfort. Has a history of a partial colectomy secondary to diverticulitis, acid reflux who presents emergency Department complaining of upper abdominal pain with nausea, one episode of nonbilious nonbloody emesis as well as dark stool. States is dark brown/black stool. Is on iron tablets. Also took Pepto-Bismol. Does have a history of 42 states it was a GI bleed with diverticulitis which resulted in the partial colectomy earlier this year. No other acute complaints at this time. Denies any urinary complaints. Denies any fevers. Presents for further evaluation. Is not on blood thinners. Last colonoscopy and EGD last year. (Clay Deal) - Related Data Home Medications Medication Instructions Recorded Confirmed Omeprazole 20 mg PO QAM 11/07/21 08/19/23 Sertraline [Zoloft] 125 mg PO QAM 09/17/22 08/19/23 Ferrous Sulfate [Iron (65 MG 325 mg PO QAM 10/19/22 08/19/23 Elemental)] Cholecalciferol [Vitamin D3 (25 25 mcg PO QAM 06/22/23 08/19/23 Mcg = 1000 Iu)] Allergies Allergy/AdvReac Type Severity Reaction Status Date / Time ceftriaxone [From Rocephin] Allergy Severe Rash/Hives Verified 10/31/23 19:59 amoxicillin Allergy Anaphylaxis Verified 10/31/23 19:59 aztreonam [From Azactam] Allergy Rash/Hives Verified 10/31/23 19:59 Penicillins Allergy Anaphylaxis Verified 10/31/23 19:59 artificial color/flavor AdvReac seizure Uncoded 10/31/23 19:59 artificial sugar AdvReac seizure Uncoded 10/31/23 19:59 Review of Systems ROS Other: All systems not noted in ROS Statement are negative. <Clay Deal - Last Filed: 10/31/23 23:44> ROS Other: All systems not noted in ROS Statement are negative. <Pradip Suggs - Last Filed: 11/01/23 01:59> ROS Statement: Those systems with pertinent positive or pertinent negative responses have been documented in the HPI. Review of Systems: CONST: Denies fever EYES: Denies blurry vision ENT: Denies nasal congestion C/V: Denies Chest pain RESP: Denies shortness of breath GI: Endorses abdominal pain : Denies dysuria SKIN: Denies rash. MSK: Denies joint pain. NEURO: Denies headache (Clay Deal) Past Medical History Past Medical History: GERD/Reflux, Pneumonia Additional Past Medical History / Comment(s): PILONIDAL CYST EXC 04/23/17, KIDNEY STONE PASSED X2 2015. rt sup,medial thigh abcess. Diverticulitis. Iron deficient anemia-recent EGD/Colonoscopy on 10/14/22, recent adm. for abd. pain, colitis, sepsis, portal vein thrombosis, has finished A/B's History of Any Multi-Drug Resistant Organisms: None Reported Past Surgical History: Bowel Resection, Cholecystectomy, Orthopedic Surgery, Tonsillectomy Additional Past Surgical History / Comment(s): RT KNEE SURG X3. EXC INFECTED PILONIDAL CYST W/ ABSCESS. last surgery was in April 2017. SURGICAL I& D RT SUP,MED THIGH 06/04/17. EGD/Colonoscopy 10/14/22-negative for bleeding, recent diag. Past Anesthesia/Blood Transfusion Reactions: No Reported Reaction, Motion Sickness, Motion Sickness Additional Past Anesthesia/Blood Transfusion Reaction / Comment(s): States size of his throat is smaller than normal. States anesthesia usually does not have any problem intubating him. Past Psychological History: Anxiety, Depression, Panic Disorder, PTSD Smoking Status: Former smoker Past Alcohol Use History: None Reported Past Drug Use History: None Reported - Past Family History Mother Family Medical History: CVA/TIA, Diabetes Mellitus, Thyroid Disorder Father History Unknown: Yes <Clay Deal - Last Filed: 10/31/23 23:44> General Exam Limitations: no limitations <Clay Deal - Last Filed: 10/31/23 23:44> - General Exam Comments Initial Comments: General: Appears in mild acute distress. HEAD: Normal with no signs of head trauma. EYES: PERRLA, EOMI, conjunctiva normal, no discharge. ENT: Hearing grossly intact, normal oropharynx. RESPIRATORY: Clear breath sounds bilaterally. No wheezes, rales, or rhonchi. C/V: Regular rate and rhythm. S1 and S2 auscultated, peripheral pulses 2+ and intact throughout ABD: Abdomen soft, nondistended. Tender to palpation generally. No guarding. No rebound tenderness. No peritoneal signs. Rectal exam shows no gross blood. Brown stool. Occult blood sent. EXT: Normal range of motion, no obvious deformity SKIN: No rashes or lesions observed on exposed skin. NEURO: Alert and oriented 4. (Clay Deal) Course Vital Signs 10/31/23 10/31/23 11/01/23 19:56 21:04 01:00 Temperature 97.9 F Pulse Rate 96 85 89 Respiratory 18 16 18 Rate Blood Pressure 135/82 142/83 131/82 O2 Sat by Pulse 95 95 96 Oximetry Medical Decision Making - Lab Data Result diagrams: 10/31/23 20:59 10/31/23 20:59 - EKG Data -: EKG Interpreted by Me <Clay Deal - Last Filed: 10/31/23 23:44> - Lab Data Result diagrams: 10/31/23 20:59 10/31/23 20:59 <Pradip Suggs - Last Filed: 11/01/23 01:59> - Medical Decision Making Was pt. sent in by a medical professional or institution (, MOHSEN, VALIDATION SPECIALIST, urgent care, hospital, or [facility]...) When possible be specific @ -No Did you speak to anyone other than the patient for history (EMS, parent, family, police, friend...)? What history was obtained from this source @ -No Did you review nursing and triage notes (agree or disagree)? Why? @ -I reviewed and agree with nursing and triage notes Were old charts reviewed (outside hosp., previous admission, EMS record, old EKG, old radiological studies, urgent care reports/EKG's, [facility] records)? Report findings @ -Old charts reviewed Differential Diagnosis (chest pain, altered mental status, abdominal pain women, abdominal pain men, vaginal bleeding, weakness, fever, dyspnea, syncope, headache, dizziness, GI bleed, back pain, seizure, CVA, palpatations, mental health, musculoskeletal)? @ -Differential Abdominal Pain Men: Appendicitis, cholecystitis, diverticulosis, ischemic bowel, pancreatitis, hepat itis, UTI, gastroenteritis, AAA, incarcerated hernia, bowel obstruction, constipation, inflammatory bowel, hepatitis, peptic ulcer disease, splenic infarction, perforated viscus, testicular torsion, this is not meant to be an all-inclusive list EKG interpreted by me (3pts min.). @ -As above X-rays interpreted by me (1pt min.). @ -None done CT interpreted by me (1pt min.). @ -Pending U/S interpreted by me (1pt. min.). @ -None done What testing was considered but not performed or refused? (CT, X-rays, U/S, labs)? Why? @ -None What meds were considered but not given or refused? Why? @ -None Did you discuss the management of the patient with other professionals (professionals i.e. , PA, VALIDATION SPECIALIST, lab, RT, psych nurse, social work specialist, floral merchandiser, teacher, loan service officer, case sealer)? Give summary @ -No Was smoking cessation discussed for >3mins.? @ -No Was critical care preformed (if so, how long)? @ -No Were there social determinants of health that impacted care today? How? (Homelessness, low income, unemployed, alcoholism, drug addiction, transportation, low edu. Level, literacy, decrease access to med. care, long-term, rehab)? @ -No Was there de-escalation of care discussed even if they declined (Discuss DNR or withdrawal of care, Hospice)? DNR status @ -No What co-morbidities impacted this encounter? (DM, HTN, Smoking, COPD, CAD, Cancer, CVA, ARF, Chemo, Hep., AIDS, mental health diagnosis, sleep apnea, morbid obesity)? @ -None Was patient admitted / discharged? Hospital course, mention meds given and route, prescriptions, significant lab abnormalities, going to OR and other pertinent info. @ -Based on the patient's presentation and physical exam, he presents for possible GI bleed with abdominal pain. We will obtain CT imaging of the abdomen and pelvis GI bleed protocol as well as abdominal labs. He will be symptomatically treated with IV fluids, morphine, Zofran, Protonix. He was in agreement with this plan. Vital signs within acceptable limits. EKG shows no signs of acute ischemia. Labs remarkable for mild leukocytosis of 16, lactic acidosis of 2.5. Occult is negative. No gross blood, no occult blood on rectal exam. Remainder the labs are unremarkable. At this time as my shift. CT imaging still pending. Signed out to Dr. Suggs any results of CT. Undiagnosed new problem with uncertain prognosis? @ -No Drug Therapy requiring intensive monitoring for toxicity (Heparin, Nitro, Insulin, Cardizem)? @ -No Were any procedures done? @ -No (Clay Deal) - Lab Data Lab Results 10/31/23 10/31/23 10/31/23 Range/Units 20:59 20:59 20:59 WBC 16.2 H (3.8-10.6) k/uL RBC 4.86 (4.30-5.90) m/uL Hgb 14.3 (13.0-17.5) gm/dL Hct 45.8 (39.0-53.0) % MCV 94.4 (80.0-100.0) fL MCH 29.4 (25.0-35.0) pg MCHC 31.2 (31.0-37.0) g/dL RDW 13.7 (11.5-15.5) % Plt Count 239 (150-450) k/uL MPV 10.0 Neutrophils % 63 % Lymphocytes % 29 % Monocytes % 5 % Eosinophils % 1 % Basophils % 1 % Neutrophils # 10.3 H (1.3-7.7) k/uL Lymphocytes # 4.6 (1.0-4.8) k/uL Monocytes # 0.8 (0-1.0) k/uL Eosinophils # 0.2 (0-0.7) k/uL Basophils # 0.1 (0-0.2) k/uL PT 9.6 L (10.0-12.5) sec INR 0.8 (<1.2) APTT 25.3 (22.0-30.0) sec Sodium (137-145) mmol/L Potassium (3.5-5.1) mmol/L Chloride (98-107) mmol/L Carbon Dioxide (22-30) mmol/L Anion Gap mmol/L BUN (9-20) mg/dL Creatinine (0.66-1.25) mg/dL Est GFR (CKD-EPI)AfAm (>60 ml/min/1.73 sqM) Est GFR (CKD-EPI)NonAf (>60 ml/min/1.73 sqM) Glucose (74-99) mg/dL Lactic Ac Sepsis Rflx Plasma Lactic Acid Gaetano (0.7-2.0) mmol/L Calcium (8.4-10.2) mg/dL Total Bilirubin (0.2-1.3) mg/dL AST (17-59) U/L ALT (4-49) U/L Alkaline Phosphatase (38-126) U/L Total Protein (6.3-8.2) g/dL Albumin (3.5-5.0) g/dL Amylase (30-110) U/L Lipase (23-300) U/L Urine Color Yellow Urine Appearance Clear (Clear) Urine pH 6.0 (5.0-8.0) Ur Specific [place] 1.025 (1.001-1.035) Urine Protein Negative (Negative) Urine Glucose (UA) 2+ H (Negative) Urine Ketones Trace H (Negative) Urine Blood Trace H (Negative) Urine Nitrite Negative (Negative) Urine Bilirubin Negative (Negative) Urine Urobilinogen <2.0 (<2.0) mg/dL Ur Leukocyte Esterase Negative (Negative) Urine RBC 8 H (0-5) /hpf Urine WBC 2 (0-5) /hpf Calcium Oxalate Crystal Rare H (None) /hpf Urine Mucus Rare H (None) /hpf Stool Occult Blood (Negative) Blood Type Blood Type Recheck Bld Type Recheck Status Antibody Screen Spec Expiration Date 10/31/23 10/31/23 10/31/23 Range/Units 20:59 20:59 20:59 WBC (3.8-10.6) k/uL RBC (4.30-5.90) m/uL Hgb (13.0-17.5) gm/dL Hct (39.0-53.0) % MCV (80.0-100.0) fL MCH (25.0-35.0) pg MCHC (31.0-37.0) g/dL RDW (11.5-15.5) % Plt Count (150-450) k/uL MPV Neutrophils % % Lymphocytes % % Monocytes % % Eosinophils % % Basophils % % Neutrophils # (1.3-7.7) k/uL Lymphocytes # (1.0-4.8) k/uL Monocytes # (0-1.0) k/uL Eosinophils # (0-0.7) k/uL Basophils # (0-0.2) k/uL PT (10.0-12.5) sec INR (<1.2) APTT (22.0-30.0) sec Sodium 140 (137-145) mmol/L Potassium 4.3 (3.5-5.1) mmol/L Chloride 106 (98-107) mmol/L Carbon Dioxide 19 L (22-30) mmol/L Anion Gap 15 mmol/L BUN 16 (9-20) mg/dL Creatinine 0.77 (0.66-1.25) mg/dL Est GFR (CKD-EPI)AfAm >90 (>60 ml/min/1.73 sqM) Est GFR (CKD-EPI)NonAf >90 (>60 ml/min/1.73 sqM) Glucose 190 H (74-99) mg/dL Lactic Ac Sepsis Rflx Plasma Lactic Acid Gaetano 2.5 H* (0.7-2.0) mmol/L Calcium 9.2 (8.4-10.2) mg/dL Total Bilirubin 0.3 (0.2-1.3) mg/dL AST 22 (17-59) U/L ALT 28 (4-49) U/L Alkaline Phosphatase 115 (38-126) U/L Total Protein 7.3 (6.3-8.2) g/dL Albumin 4.1 (3.5-5.0) g/dL Amylase 38 (30-110) U/L Lipase 105 (23-300) U/L Urine Color Urine Appearance (Clear) Urine pH (5.0-8.0) Ur Specific S[place]is (1.001-1.035) Urine Protein (Negative) Urine Glucose (UA) (Negative) Urine Ketones (Negative) Urine Blood (Negative) Urine Nitrite (Negative) Urine Bilirubin (Negative) Urine Urobilinogen (<2.0) mg/dL Ur Leukocyte Esterase (Negative) Urine RBC (0-5) /hpf Urine WBC (0-5) /hpf Calcium Oxalate Crystal (None) /hpf Urine Mucus (None) /hpf Stool Occult Blood (Negative) Blood Type A Positive Blood Type Recheck A Pos Bld Type Recheck Status No Antibody Screen NEGATIVE Spec Expiration Date 11/03/2023 - 235810/31/23 10/31/23 11/01/23 Range/Units 20:59 21:56 01:21 WBC (3.8-10.6) k/uL RBC (4.30-5.90) m/uL Hgb (13.0-17.5) gm/dL Hct (39.0-53.0) % MCV (80.0-100.0) fL MCH (25.0-35.0) pg MCHC (31.0-37.0) g/dL RDW (11.5-15.5) % Plt Count (150-450) k/uL MPV Neutrophils % % Lymphocytes % % Monocytes % % Eosinophils % % Basophils % % Neutrophils # (1.3-7.7) k/uL Lymphocytes # (1.0-4.8) k/uL Monocytes # (0-1.0) k/uL Eosinophils # (0-0.7) k/uL Basophils # (0-0.2) k/uL PT (10.0-12.5) sec INR (<1.2) APTT (22.0-30.0) sec Sodium (137-145) mmol/L Potassium (3.5-5.1) mmol/L Chloride (98-107) mmol/L Carbon Dioxide (22-30) mmol/L Anion Gap mmol/L BUN (9-20) mg/dL Creatinine (0.66-1.25) mg/dL Est GFR (CKD-EPI)AfAm (>60 ml/min/1.73 sqM) Est GFR (CKD-EPI)NonAf (>60 ml/min/1.73 sqM) Glucose (74-99) mg/dL Lactic Ac Sepsis Rflx Y Plasma Lactic Acid Gaetano 1.5 (0.7-2.0) mmol/L Calcium (8.4-10.2) mg/dL Total Bilirubin (0.2-1.3) mg/dL AST (17-59) U/L ALT (4-49) U/L Alkaline Phosphatase (38-126) U/L Total Protein (6.3-8.2) g/dL Albumin (3.5-5.0) g/dL Amylase (30-110) U/L Lipase (23-300) U/L Urine Color Urine Appearance (Clear) Urine pH (5.0-8.0) Ur Specific Sallis (1.001-1.035) Urine Protein (Negative) Urine Glucose (UA) (Negative) Urine Ketones (Negative) Urine Blood (Negative) Urine Nitrite (Negative) Urine Bilirubin (Negative) Urine Urobilinogen (<2.0) mg/dL Ur Leukocyte Esterase (Negative) Urine RBC (0-5) /hpf Urine WBC (0-5) /hpf Calcium Oxalate Crystal (None) /hpf Urine Mucus (None) /hpf Stool Occult Blood Negative (Negative) Blood Type Blood Type Recheck Bld Type Recheck Status Antibody Screen Spec Expiration Date - EKG Data EKG Comments: 12-lead Electrocardiogram Interpretation Note EKG was reviewed and interpreted by myself. 12-lead ECG performed at 2019 is interpreted by me as revealing normal sinus rhythm at a rate of 88 beats per minute. [place] is normal. VT interval 162 ms, QRS durations 101 ms, QTc is 404 ms.. There were no ST or T wave abnormalities to suggest myocardial ischemia or injury. R wave progression across the precordium was satisfactory. By my interpretation this EKG is non-diagnostic for acute ischemia. (Clay Deal) Disposition <Clay Deal - Last Filed: 10/31/23 23:44> Is patient prescribed a controlled substance at d/c from ED?: No <Pradip Suggs - Last Filed: 11/01/23 01:59> Clinical Impression: Abdominal pain Disposition: HOME SELF-CARE Condition: Good Instructions (If sedation given, give patient instructions): Abdominal Pain (ED) Referrals: Jose Hassan MD [Primary Care Provider] - 1-2 days
[2023-11-01] MEDS ORDERED: HYDROmorphone 0.5 MG/0.5 ML SYRINGE IVP STA (01:34)
[2023-11-01 01:40] VITALS: RESP 18
[2023-11-01 02:08] VITALS: BP 155/78; PULSE 75; TEMP 98.3
== END 2023-11-01 02:05 | disposition home or self-care (01) ==
LOC: EC 19:26
DX: R10.84 Generalized abdominal pain (principal); E87.20 Acidosis, unspecified; D72.829 Elevated white blood cell count, unspecified; K21.9 Gastro-esophageal reflux disease without esophagitis; F32.A Depression, unspecified; F41.9 Anxiety disorder, unspecified; Z79.899 Other long term (current) drug therapy; Z88.0 Allergy status to penicillin; Z88.1 Allergy status to other antibiotic agents; Z88.8 Allergy status to other drugs, medicaments and biological substances; Z91.018 Allergy to other foods; Z91.09 Other allergy status, other than to drugs and biological substances; Z90.49 Acquired absence of other specified parts of digestive tract
CPT/HCPCS: 36415; 93005; 86900; 86901; 80053; 82150; 83605 ×2; 83690; 85025; 85610; 85730; 86850; 82272; 81001; 74174; 99285; 96374; 96375 ×3; 96376; 96361; J2270; J2405; C9113; J1170; Q9967

== ENCOUNTER → 2023-12-07 | Outpatient (CLI) | payer OTHER ==
--- NOTE | 2023-12-07 12:48 | CT ---
EXAMINATION TYPE: CT abdomen pelvis w con CT DLP: 1961 mGycm, Automated exposure control for dose reduction was used. DATE OF EXAM: 12/07/2023 11:58 AM COMPARISON: 10/31/2023 CLINICAL INDICATION:Male, 42 years old with history of D72.820 LYMPHOCYTOSIS; left sided abdominal pa in TECHNIQUE: Axial CT abdomen pelvis w con;Sagittal and coronal reformats were created on a separate w orkstation. Contrast used:100 mL of Isovue 300 with IV Contrast, (none if empty) Oral contrast used: with Oral Contrast (none if empty) FINDINGS: LOWER CHEST: Unremarkable ABDOMEN LIVER: Diffusely hypoattenuating parenchyma. GALLBLADDER AND BILE DUCTS: The gallbladder is surgically absent. PANCREAS: r SPLEEN: Unremarkable. ADRENAL GLANDS: Unremarkable. KIDNEYS AND URETERS: Mild left hydronephrosis secondary obstructing 8 mm calculus at the ureteropelvi c junction. No right renal calculi. No right hydronephrosis. PELVIS BLADDER: Unremarkable REPRODUCTIVE: Unremarkable. ABDOMEN & PELVIS STOMACH AND BOWEL: No evidence of bowel obstruction. Postsurgical changes sigmoid colon with blind-en ding pouch noted. PERITONEUM/RETROPERITONEUM: No evidence of pneumoperitoneum or free fluid. VASCULATURE: No evidence of aortic aneurysm. MUSCULOSKELETAL: No acute osseous abnormalities LYMPH NODES: No gross evidence for lymphadenopathy. SOFT TISSUE/ABDOMINAL WALL: Unremarkable IMPRESSION: 1. Mild left hydronephrosis secondary obstructing 8 mm calculus at the ureteropelvic junction. 2. Hepatic steatosis.
== END | disposition home or self-care (01) ==
LOC: RADCTMAIN 10:02
PROVIDERS: ATTEND Internal Medicine Hematology & Oncology
DX: K76.0 Fatty (change of) liver, not elsewhere classified (principal); N13.2 Hydronephrosis with renal and ureteral calculous obstruction; D72.820 Lymphocytosis (symptomatic); M12.9 Arthropathy, unspecified; R56.9 Unspecified convulsions
CPT/HCPCS: 74177; Q9967

== ENCOUNTER 2024-05-25 19:29 | Emergency (ER) | payer OTHER ==
[2024-05-25 19:39] VITALS: TEMP 98.2
[2024-05-25 21:19] LABS: Appearance,Urine Clear (Clear); Bilirubin,Urine Negative (Negative); Blood,Urine Negative (Negative); Color,Urine Yellow; Glucose,Urine (UA) 1+ (Negative); Ketones,Urine Negative (Negative); Leukocyte Esterase,Urine Negative (Negative); Nitrite,Urine Negative (Negative); PH, Urine 5.5 (5.0-8.0); Protein,Urine Trace (Negative); Specific Gravity,Urine 1.028 (1.001-1.035); Urobilinogen,Urine <2.0 mg/dL (<2.0)
[2024-05-25 21:22] LABS: Basophils # (A) 0.1 k/uL (0-0.2); Basophils % (A) 0 %; Eosinophils # (A) 0.1 k/uL (0-0.7); Eosinophils % (A) 1 %; HGB 14.9 gm/dL (13.0-17.5); Lymphocytes # (A) 3.9 k/uL (1.0-4.8); Lymphocytes % (A) 22 %; MCH 29.8 pg (25.0-35.0); MCHC 31.6 g/dL (31.0-37.0); MCV 94.4 fL (80.0-100.0); Mean Platelet Volume 9.6; Monocytes # (A) 0.8 k/uL (0-1.0); Monocytes % (A) 5 %; Neutrophils # (A) 12.8 k/uL (1.3-7.7); Neutrophils % (A) 72 %; Platelet Count 218 k/uL (150-450); RBC 4.98 m/uL (4.30-5.90); RDW 13.6 % (11.5-15.5); WBC 17.9 k/uL (3.8-10.6)
[2024-05-25] MEDS: HYDROmorphone 0.5 MG/0.5 ML SYRINGE IVP STA (21:26)
[2024-05-25 21:27] LABS: ALT 42 U/L (4-49); AST 33 U/L (17-59); African American GFR (CKD) >90 (>60 ml/min/1.73 sqM); Albumin 4.1 g/dL (3.5-5.0); Alkaline Phosphatase 150 U/L (38-126); Amylase 34 U/L (30-110); Anion Gap 6 mmol/L; Blood Urea Nitrogen 12 mg/dL (9-20); Calcium 9.4 mg/dL (8.4-10.2); Carbon Dioxide 25 mmol/L (22-30); Chloride 104 mmol/L (98-107); Glucose 203 mg/dL (74-99); Lipase 81 U/L (23-300); Non-African American GFR(CKD) >90 (>60 ml/min/1.73 sqM); Potassium 4.2 mmol/L (3.5-5.1); Sodium 135 mmol/L (137-145); Total Bilirubin 0.6 mg/dL (0.2-1.3); Total Protein 7.2 g/dL (6.3-8.2)
[2024-05-25] MEDS: ONDANSETRON 4 MG/2 ML VIAL IVP STA (21:27)
[2024-05-25 21:33] VITALS: RESP 16
[2024-05-25] MEDS: HYDROmorphone 1 MG/ML 1 ML SYRINGE IVP STA (21:56)
--- NOTE | 2024-05-26 00:15 | ED ---
Abdominal Pain HPI - General Source: patient Mode of arrival: ambulatory Limitations: no limitations - History of Present Illness MD Complaint: abdominal pain Onset/Timin -: days(s) Location: RUQ Radiation: none Migration to: no migration Severity: moderate Quality: aching, dull Consistency: constant Improves With: nothing Worsens With: nothing Associated Symptoms: diarrhea, chills, other (myalgias) <Pradip Suggs - Last Filed: 05/26/24 00:13> <Clay Deal - Last Filed: 05/26/24 01:01> - General Chief Complaint: Abdominal Pain Stated Complaint: abd pain,weakness Time Seen by Provider: 05/25/24 19:42 - Related Data Home Medications Medication Instructions Recorded Confirmed Omeprazole 20 mg PO QAM 11/07/21 08/19/23 Sertraline [Zoloft] 125 mg PO QAM 09/17/22 08/19/23 Ferrous Sulfate [Iron (65 MG 325 mg PO QAM 10/19/22 08/19/23 Elemental)] Cholecalciferol [Vitamin D3 (25 25 mcg PO QAM 06/22/23 08/19/23 Mcg = 1000 Iu)] Allergies Allergy/AdvReac Type Severity Reaction Status Date / Time ceftriaxone [From Rocephin] Allergy Severe Rash/Hives Verified 05/25/24 19:38 amoxicillin Allergy Anaphylaxis Verified 05/25/24 19:38 aztreonam [From Azactam] Allergy Rash/Hives Verified 05/25/24 19:38 Penicillins Allergy Anaphylaxis Verified 05/25/24 19:38 artificial color/flavor AdvReac seizure Uncoded 05/25/24 19:38 artificial sugar AdvReac seizure Uncoded 05/25/24 19:38 Review of Systems ROS Other: All systems not noted in ROS Statement are negative. Constitutional: Reports: chills. Denies: fever, weakness Respiratory: Denies: cough, dyspnea, wheezes Cardiovascular: Denies: chest pain, palpitations, edema Gastrointestinal: Reports: abdominal pain, nausea, diarrhea. Denies: vomiting, constipation, melena, hematochezia Genitourinary: Denies: dysuria, hematuria Musculoskeletal: Reports: myalgia. Denies: back pain Skin: Denies: rash Neurological: Reports: headache. Denies: weakness, numbness <Pradip Suggs - Last Filed: 05/26/24 00:13> ROS Other: All systems not noted in ROS Statement are negative. <Clay Deal - Last Filed: 05/26/24 01:01> ROS Statement: Those systems with pertinent positive or pertinent negative responses have been documented in the HPI. Past Medical History Past Medical History: GERD/Reflux, Pneumonia Additional Past Medical History / Comment(s): PILONIDAL CYST EXC 04/23/17, KIDNEY STONE PASSED X2 2016. rt sup,medial thigh abcess. Diverticulitis. Iron deficient anemia-recent EGD/Colonoscopy on 10/14/22, recent adm. for abd. pain, colitis, sepsis, portal vein thrombosis, has finished A/B's History of Any Multi-Drug Resistant Organisms: None Reported Past Surgical History: Bowel Resection, Cholecystectomy, Orthopedic Surgery, Tonsillectomy Additional Past Surgical History / Comment(s): RT KNEE SURG X3. EXC INFECTED P ILONIDAL CYST W/ ABSCESS. last surgery was in April 2017. SURGICAL I& D RT SUP,MED THIGH 06/04/17. EGD/Colonoscopy 10/14/22-negative for bleeding, recent diag. Past Anesthesia/Blood Transfusion Reactions: No Reported Reaction, Motion Sickness, Motion Sickness Additional Past Anesthesia/Blood Transfusion Reaction / Comment(s): States size of his throat is smaller than normal. States anesthesia usually does not have any problem intubating him. Past Psychological History: Anxiety, Depression, Panic Disorder, PTSD Smoking Status: Former smoker Past Alcohol Use History: None Reported Past Drug Use History: None Reported - Past Family History Mother Family Medical History: CVA/TIA, Diabetes Mellitus, Thyroid Disorder Father History Unknown: Yes <Pradip Suggs - Last Filed: 05/26/24 00:13> General Exam Limitations: no limitations General appearance: alert, in no apparent distress Head exam: Present: atraumatic, normocephalic Eye exam: Present: normal appearance. Absent: scleral icterus, conjunctival injection ENT exam: Present: normal oropharynx Neck exam: Present: normal inspection Respiratory exam: Present: normal lung sounds bilaterally. Absent: respiratory distress, wheezes, rales, rhonchi, stridor, accessory muscle use Cardiovascular Exam: Present: regular rate, normal rhythm, normal heart sounds. Absent: systolic murmur, diastolic murmur, rubs, gallop GI/Abdominal exam: Present: soft. Absent: distended, tenderness, guarding, rebound, rigid, mass Extremities exam: Present: normal inspection, normal capillary refill. Absent: pedal edema, calf tenderness Back exam: Present: normal inspection. Absent: CVA tenderness (R), CVA tenderness (L) Neurological exam: Present: alert Skin exam: Present: warm, dry, intact, normal color. Absent: rash <Pradip Suggs - Last Filed: 05/26/24 00:13> Course Vital Signs 05/25/24 05/25/24 05/26/24 19:36 21:31 00:00 Temperature 98.2 F Pulse Rate 108 H 91 72 Respiratory 22 16 16 Rate Blood Pressure 124/85 140/79 132/62 O2 Sat by Pulse 97 96 97 Oximetry Medical Decision Making - Lab Data Result diagrams: 05/25/24 20:00 05/25/24 20:00 <Pradip Suggs - Last Filed: 05/26/24 00:13> - Lab Data Result diagrams: 05/25/24 20:00 05/25/24 20:00 <Clay Deal - Last Filed: 05/26/24 01:01> - Medical Decision Making Patient signed out to me pending results of CT imaging. Presents with viral syndrome type symptoms as well as abdominal pain. Pending CT abdomen pelvis. Workup so far unremarkable. CT is interpreted by myself reveals no evidence of acute intra-abdominal process. Patient has hepatic steatosis, as well as a nonobstructing 2 mm left lower pole renal stone. I updated the patient. He is resting comfortably at this time. I believe is safer to be discharged home. He was in agreement this plan. Strict return precautions discussed. I instructed the patient to follow up with their PCP in the next 1-3 days. I explained that the patient should return to the emergency department if they experience any worsening symptoms. Strict return precautions were discussed with the patient. The patient expressed understanding of these instructions. I answered all questions that the patient had. The patient was discharged home in good condition with their prescriptions and follow up information. Diagnosis/symptom? @ -Abdominal pain of unknown etiology, viral syndrome Acute, or Chronic, or Acute on Chronic? @ -Acute Uncomplicated (without systemic symptoms) or Complicated (systemic symptoms)? @ -Uncomplicated Side effects of treatment? @ -None Exacerbation, Progression, or Severe Exacerbation] @ -No Poses a threat to life or bodily function? @ -Unlikely (Clay Deal) - Lab Data Lab Results 05/25/24 05/25/24 05/25/24 Range/Units 20:00 20:00 20:00 WBC 17.9 H (3.8-10.6) k/uL RBC 4.98 (4.30-5.90) m/uL Hgb 14.9 (13.0-17.5) gm/dL Hct 47.0 (39.0-53.0) % MCV 94.4 (80.0-100.0) fL MCH 29.8 (25.0-35.0) pg MCHC 31.6 (31.0-37.0) g/dL RDW 13.6 (11.5-15.5) % Plt Count 218 (150-450) k/uL MPV 9.6 Neutrophils % 72 % Lymphocytes % 22 % Monocytes % 5 % Eosinophils % 1 % Basophils % 0 % Neutrophils # 12.8 H (1.3-7.7) k/uL Lymphocytes # 3.9 (1.0-4.8) k/uL Monocytes # 0.8 (0-1.0) k/uL Eosinophils # 0.1 (0-0.7) k/uL Basophils # 0.1 (0-0.2) k/uL Sodium 135 L (137-145) mmol/L Potassium 4.2 (3.5-5.1) mmol/L Chloride 104 (98-107) mmol/L Carbon Dioxide 25 (22-30) mmol/L Anion Gap 6 mmol/L BUN 12 (9-20) mg/dL Creatinine 0.72 (0.66-1.25) mg/dL Est GFR (CKD-EPI)AfAm >90 (>60 ml/min/1.73 sqM) Est GFR (CKD-EPI)NonAf >90 (>60 ml/min/1.73 sqM) Glucose 203 H (74-99) mg/dL Calcium 9.4 (8.4-10.2) mg/dL Total Bilirubin 0.6 (0.2-1.3) mg/dL AST 33 (17-59) U/L ALT 42 (4-49) U/L Alkaline Phosphatase 150 H (38-126) U/L Troponin I <0.012 (0.000-0.034) ng/mL Total Protein 7.2 (6.3-8.2) g/dL Albumin 4.1 (3.5-5.0) g/dL Amylase 34 (30-110) U/L Lipase 81 (23-300) U/L Urine Color Urine Appearance (Clear) Urine pH (5.0-8.0) Ur Specific [place] (1.001-1.035) Urine Protein (Negative) Urine Glucose (UA) (Negative) Urine Ketones (Negative) Urine Blood (Negative) Urine Nitrite (Negative) Urine Bilirubin (Negative) Urine Urobilinogen (<2.0) mg/dL Ur Leukocyte Esterase (Negative) Influenza Type A (PCR) (Not Detectd) Influenza Type B (PCR) (Not Detectd) RSV (PCR) (Not Detectd) SARS-CoV-2 (PCR) (Not Detectd) 05/25/24 05/25/24 Range/Units 21:08 21:15 WBC (3.8-10.6) k/uL RBC (4.30-5.90) m/uL Hgb (13.0-17.5) gm/dL Hct (39.0-53.0) % MCV (80.0-100.0) fL MCH (25.0-35.0) pg MCHC (31.0-37.0) g/dL RDW (11.5-15.5) % Plt Count (150-450) k/uL MPV Neutrophils % % Lymphocytes % % Monocytes % % Eosinophils % % Basophils % % Neutrophils # (1.3-7.7) k/uL Lymphocytes # (1.0-4.8) k/uL Monocytes # (0-1.0) k/uL Eosinophils # (0-0.7) k/uL Basophils # (0-0.2) k/uL Sodium (137-145) mmol/L Potassium (3.5-5.1) mmol/L Chloride (98-107) mmol/L Carbon Dioxide (22-30) mmol/L Anion Gap mmol/L BUN (9-20) mg/dL Creatinine (0.66-1.25) mg/dL Est GFR (CKD-EPI)AfAm (>60 ml/min/1.73 sqM) Est GFR (CKD-EPI)NonAf (>60 ml/min/1.73 sqM) Glucose (74-99) mg/dL Calcium (8.4-10.2) mg/dL Total Bilirubin (0.2-1.3) mg/dL AST (17-59) U/L ALT (4-49) U/L Alkaline Phosphatase (38-126) U/L Troponin I (0.000-0.034) ng/mL Total Protein (6.3-8.2) g/dL Albumin (3.5-5.0) g/dL Amylase (30-110) U/L Lipase (23-300) U/L Urine Color Yellow Urine Appearance Clear (Clear) Urine pH 5.5 (5.0-8.0) Ur Specific [place] 1.028 (1.001-1.035) Urine Protein Trace H (Negative) Urine Glucose (UA) 1+ H (Negative) Urine Ketones Negative (Negative) Urine Blood Negative (Negative) Urine Nitrite Negative (Negative) Urine Bilirubin Negative (Negative) Urine Urobilinogen <2.0 (<2.0) mg/dL Ur Leukocyte Esterase Negative (Negative) Influenza Type A (PCR) Not Detected (Not Detectd) Influenza Type B (PCR) Not Detected (Not Detectd) RSV (PCR) Not Detected (Not Detectd) SARS-CoV-2 (PCR) Not Detected (Not Detectd) Disposition <Pradip Suggs - Last Filed: 05/26/24 00:13> Is patient prescribed a controlled substance at d/c from ED?: No Time of Disposition: 01:00 <Clay Deal - Last Filed: 05/26/24 01:01> Clinical Impression: Abdominal pain of unknown etiology, Viral syndrome Disposition: HOME SELF-CARE Condition: Good Instructions (If sedation given, give patient instructions): Viral Syndrome (ED), Abdominal Pain (ED) Referrals: Jose Hassan MD [Primary Care Provider] - 1-2 days
[2024-05-26 00:17] VITALS: BP 132/62; PULSE 72
[2024-05-26] MEDS: HYDROmorphone 1 MG/ML 1 ML SYRINGE IVP STA (00:17)
--- NOTE | 2024-05-26 00:21 | CT ---
EXAM: CT Abdomen and Pelvis Without Intravenous Contrast CLINICAL HISTORY: ITS.REASON CT Reason: Right abdominal pain TECHNIQUE: Axial computed tomography images of the abdomen and pelvis without intravenous contrast. CTDI is 38.7 mGy and DLP is 2769 mGy-cm. This CT exam was performed using one or more of the following dose reduction techniques: automated exposure control, adjustment of the mA and/or kV according to patient size, and/or use of iterative reconstruction technique. COMPARISON: No relevant prior studies available. FINDINGS: Lung bases: Unremarkable. No mass. No consolidation. ABDOMEN: Liver: Hepatic steatosis. Gallbladder and bile ducts: Cholecystectomy. No ductal dilation. Pancreas: Unremarkable. No ductal dilation. Spleen: Unremarkable. No splenomegaly. Adrenals: Unremarkable. No mass. Kidneys and ureters: Nonobstructing 2 mm LEFT lower pole renal stone. Stomach and bowel: Partial sigmoidectomy. No obstruction. PELVIS: Appendix: No findings to suggest acute appendicitis. Bladder: Unremarkable. No stones. Reproductive: Unremarkable as visualized. ABDOMEN and PELVIS: Intraperitoneal space: Unremarkable. No free air. No significant fluid collection. Bones/joints: No acute fracture. No dislocation. Soft tissues: Unremarkable. Vasculature: Unremarkable. No abdominal aortic aneurysm. Lymph nodes: Unremarkable. No enlarged lymph nodes. IMPRESSION: 1. Hepatic steatosis. 2. Cholecystectomy. 3. Partial sigmoidectomy. 4. Nonobstructing 2 mm LEFT lower pole renal stone.
== END 2024-05-26 01:17 | disposition home or self-care (01) ==
LOC: EC 19:29
DX: N20.0 Calculus of kidney (principal); K76.0 Fatty (change of) liver, not elsewhere classified; B34.9 Viral infection, unspecified; Z88.0 Allergy status to penicillin; Z88.8 Allergy status to other drugs, medicaments and biological substances; Z87.891 Personal history of nicotine dependence
CPT/HCPCS: 36415; 80053; 82150; 83690; 84484; 85025; 81003; 87636; 74176; 99284; 96374; 96375; 96376; J2405; J1170 ×2

== ENCOUNTER 2024-10-22 17:13 | Inpatient (IN) | payer OTHER ==
[2024-10-22 19:27] LABS: Basophils # (A) 0.1 k/uL (0-0.2); Basophils % (A) 0 %; Eosinophils # (A) 0.3 k/uL (0-0.7); Eosinophils % (A) 2 %; HCT 43.2 % (39.0-53.0); HGB 13.9 gm/dL (13.0-17.5); Lymphocytes # (A) 4.1 k/uL (1.0-4.8); Lymphocytes % (A) 25 %; MCH 29.4 pg (25.0-35.0); MCHC 32.2 g/dL (31.0-37.0); MCV 91.4 fL (80.0-100.0); Monocytes # (A) 0.6 k/uL (0-1.0); Monocytes % (A) 4 %; Neutrophils # (A) 10.9 k/uL (1.3-7.7); Neutrophils % (A) 68 %; Platelet Count 211 k/uL (150-450); RBC 4.73 m/uL (4.30-5.90); RDW 13.7 % (11.5-15.5); WBC 16.1 k/uL (3.8-10.6)
[2024-10-22 19:42] LABS: ALT 27 U/L (4-49); AST 23 U/L (17-59); African American GFR (CKD) >90 (>60 ml/min/1.73 sqM); Albumin 3.8 g/dL (3.5-5.0); Alkaline Phosphatase 125 U/L (38-126); Anion Gap 7 mmol/L; Blood Urea Nitrogen 14 mg/dL (9-20); Calcium 8.7 mg/dL (8.4-10.2); Carbon Dioxide 20 mmol/L (22-30); Chloride 107 mmol/L (98-107); Glucose 283 mg/dL (74-99); Non-African American GFR(CKD) >90 (>60 ml/min/1.73 sqM); Potassium 4.2 mmol/L (3.5-5.1); Sodium 134 mmol/L (137-145); Total Bilirubin 0.5 mg/dL (0.2-1.3); Total Protein 6.8 g/dL (6.3-8.2)
--- NOTE | 2024-10-22 19:58 | US ---
EXAMINATION TYPE: US scrotum with doppler. DATE OF EXAM: 10/22/2024 COMPARISON: NONE CLINICAL INDICATION: Male, 43 years old with history of painful swollen mass to scrotum; left scrotal palpable with pain TECHNIQUE: Grayscale, color Doppler and spectral Doppler imaging of the scrotum. FINDINGS: EXAM MEASUREMENTS: TESTICLES: Right Testicle: 4.0 x 3.0 x 2.7 cm Left Testicle: 4.1 x 2.6 x 2.3 cm EPIDIDYMIS HEAD: Right Epididymis: 0.9 cm - possible small cyst = 0.2 x 0.2 x 0.3cm Left Epididymis: 0.7 cm Doppler performed to assess for testicular vascularity; good bilateral color flow and spectral wavefo lisa are seen. There is no evidence of testicular torsion. Presence of hydroceles: Very small bilaterally Presence of varicoceles: on the left with internal debris and no flow even with valsalva Regulatory Leader notes: lateral left scrotum at area of pain is a 2.9 x 2.2 x 1.5cm complex, irregular walled lesion with v ascularity IMPRESSION: 1. No sonographic evidence for testicular torsion. 2. Possible small thrombosed varicoceles in the left hemiscrotum. 3. An indeterminate 2.9 cm lesion within the left scrotal soft tissues. Some internal vascularity is present. Correlate to exclude and infectious focus/phlegmon. Follow-up ultrasound to ensure clearance . An extratesticular mass is considered less likely. [facility], , 10/22/2024 7:56 PM
--- NOTE | 2024-10-22 20:03 | US ---
EXAMINATION TYPE: US axilla BILAT DATE OF EXAM: 10/22/2024 COMPARISON: NONE CLINICAL INDICATION: Male, 43 years old with history of painful swollen mass B/L axilla; palpables wi thin axilla, redness at sites, no injury or recent illness, prone to boils TECHNIQUE: Soft tissue axilla scan FINDINGS: Right Axilla has 2 lesions noted at or just deep to the skin surface. #1 is more anechoic, with some peripheral vascularity measuring 0.7 x 1.0 x 0.8cm #2 is more complex, also peripheral vascularity measuring 2.3 x 2.2 x 0.7cm Left Axilla has 2 smaller lesions, largest = 0.7 x 0.2 x 0.7cm IMPRESSION: Small lesions in the axilla at or just deep to the skin surface, largest measuring 2.3 cm in the right armpit and 7 mm in the left armpit. Similar appearance as the lesion on the scrotal ult rasound. Again, correlate for possible infectious foci. Follow-up ultrasound to ensure resolution. [facility], , 10/22/2024 8:01 PM
--- NOTE | 2024-10-22 20:27 | ED ---
Skin/Abscess/FB HPI - General Chief complaint: Skin/Abscess/Foreign Body Stated complaint: Skin Abscess Time Seen by Provider: 10/22/24 18:40 Source: patient Mode of arrival: ambulatory Limitations: no limitations - History of Present Illness Initial comments: 43-year-old male presenting with chief complaint of painful swelling in the bilateral axilla and scrotum. Pain has been ongoing for the last week and is getting worse which prompted the patient to come in. He states that just prior to the symptoms he had a tooth pulled and had swelling to the area which has since improved. He has no history of HS. no drainage from any of these lesions. States that the scrotal lesion is particularly tender. No urinary symptoms. No fever. - Related Data Home Medications Medication Instructions Recorded Confirmed Omeprazole 20 mg PO QAM 11/07/21 08/19/23 Sertraline [Zoloft] 125 mg PO QAM 09/17/22 08/19/23 Ferrous Sulfate [Iron (65 MG 325 mg PO QAM 10/19/22 08/19/23 Elemental)] Cholecalciferol [Vitamin D3 (25 25 mcg PO QAM 06/22/23 08/19/23 Mcg = 1000 Iu)] Allergies Allergy/AdvReac Type Severity Reaction Status Date / Time ceftriaxone [From Rocephin] Allergy Severe Rash/Hives Verified 10/22/24 17:53 amoxicillin Allergy Anaphylaxis Verified 10/22/24 17:53 aztreonam [From Azactam] Allergy Rash/Hives Verified 10/22/24 17:53 Penicillins Allergy Anaphylaxis Verified 10/22/24 17:53 artificial color/flavor AdvReac seizure Uncoded 10/22/24 17:53 artificial sugar AdvReac seizure Uncoded 10/22/24 17:53 Review of Systems ROS Statement: Those systems with pertinent positive or pertinent negative responses have been documented in the HPI. ROS Other: All systems not noted in ROS Statement are negative. Past Medical History Past Medical History: GERD/Reflux, Pneumonia Additional Past Medical History / Comment(s): PILONIDAL CYST EXC 04/23/17, KIDNEY STONE PASSED X2 2015. rt sup,medial thigh abcess. Diverticulitis. Iron deficient anemia-recent EGD/Colonoscopy on 10/14/22, recent adm. for abd. pain, colitis, sepsis, portal vein thrombosis, has finished A/B's History of Any Multi-Drug Resistant Organisms: None Reported Past Surgical History: Bowel Resection, Cholecystectomy, Orthopedic Surgery, Tonsillectomy Additional Past Surgical History / Comment(s): RT KNEE SURG X3. EXC INFECTED PILONIDAL CYST W/ ABSCESS. last surgery was in April 2017. SURGICAL I& D RT SUP,MED THIGH 06/04/17. EGD/Colonoscopy 10/14/22-negative for bleeding, recent diag. Past Anesthesia/Blood Transfusion Reactions: No Reported Reaction, Motion Sickness, Motion Sickness Additional Past Anesthesia/Blood Transfusion Reaction / Comment(s): States size of his throat is smaller than normal. States anesthesia usually does not have any problem intubating him. Past Psychological History: Anxiety, Depression, Panic Disorder, PTSD Smoking Status: Former smoker Past Alcohol Use History: None Reported Past Drug Use History: None Reported - Past Family History Mother Family Medical History: CVA/TIA, Diabetes Mellitus, Thyroid Disorder Father History Unknown: Yes General Exam Limitations: no limitations General appearance: alert, in no apparent distress Head exam: Present: atraumatic, normocephalic, normal inspection Eye exam: Present: normal appearance, EOMI Neck exam: Present: normal inspection. Absent: meningismus Respiratory exam: Present: normal lung sounds bilaterally. Absent: respiratory distress, wheezes, rales, rhonchi, stridor Cardiovascular Exam: Present: regular rate, normal rhythm, normal heart sounds. Absent: systolic murmur, diastolic murmur, rubs, gallop, clicks exam: Present: scrotal swelling Extremities exam: Present: normal inspection, full ROM Neurological exam: Present: alert, oriented X3 Psychiatric exam: Present: normal affect, normal mood Expanded Type of lesion: Present: abscess (Patient has 2 indurated abscesses under each axilla. He also has a tender lesion to the scrotum that may be of infectious etiology) Course Vital Signs 10/22/24 10/22/24 17:49 21:47 Temperature 98.7 F 98.2 F Pulse Rate 95 86 Respiratory 20 19 Rate Blood Pressure 122/76 129/80 O2 Sat by Pulse 96 94 L Oximetry Medical Decision Making - Medical Decision Making Was pt. sent in by a medical professional or institution (, PA, ETHICS OFFICER, urgent care, hospital, or [facility]...) When possible be specific @ -No Did you speak to anyone other than the patient for history (EMS, parent, family, police, friend...)? What history was obtained from this source @ -No Did you review nursing and triage notes (agree or disagree)? Why? @ -I reviewed and agree with nursing and triage notes Were old charts reviewed (outside hosp., previous admission, EMS record, old EKG, old radiological studies, urgent care reports/EKG's, [facility] records)? Report findings @ -No old charts were reviewed Differential Diagnosis (chest pain, altered mental status, abdominal pain women, abdominal pain men, vaginal bleeding, weakness, fever, dyspnea, syncope, headache, dizziness, GI bleed, back pain, seizure, CVA, palpatations, mental health, musculoskeletal)? @ -Differential includes abscess, lymphadenopathy, malignancy, this is not an all-inclusive list EKG interpreted by me (3pts min.). @ -As above X-rays interpreted by me (1pt min.). @ -None done CT interpreted by me (1pt min.). @ -None done U/S interpreted by me (1pt. min.). @ -Ultrasound shows no sonographic evidence for testicular torsion. Possible small thrombosed varicoceles in the left hemiscrotum. An indeterminate 2.9 cm lesion within the left scrotal soft tissues. Some internal vascularity is present. Correlate to exclude any infectious focus/phlegmon. Follow-up ultrasound to ensure clearance. An extratesticular mass is considered less likely. Small lesions in the axilla at or just deep to the skin surface, largest measuring 2.3 cm in the right armpit and 7 mm in the left armpit. Similar appearance as the lesion on the scrotal ultrasound. What testing was considered but not performed or refused? (CT, X-rays, U/S, labs)? Why? @ -None What meds were considered but not given or refused? Why? @ -None Did you discuss the management of the patient with other professionals (pr ofessionals i.e. , PA, ETHICS OFFICER, lab, RT, psych nurse, social worker delinquency prevention, quality control auditor, teacher, chief innovation officer, assistant case manager)? Give summary @ -I spoke with Bonnie Rodrigues from [facility] who accepts admission Was smoking cessation discussed for >3mins.? @ -No Was critical care preformed (if so, how long)? @ -No Were there social determinants of health that impacted care today? How? (Homelessness, low income, unemployed, alcoholism, drug addiction, transportation, low edu. Level, literacy, decrease access to med. care, retirement, rehab)? @ -No Was there de-escalation of care discussed even if they declined (Discuss DNR or withdrawal of care, Hospice)? DNR status @ -No What co-morbidities impacted this encounter? (DM, HTN, Smoking, COPD, CAD, Cancer, CVA, ARF, Chemo, Hep., AIDS, mental health diagnosis, sleep apnea, morbid obesity)? @ -None Was patient admitted / discharged? Hospital course, mention meds given and route, prescriptions, significant lab abnormalities, going to OR and other pertinent info. @ -43-year-old male presenting with chief complaint of painful bumps to the bilateral axilla and scrotum. History and physical examination are conducted. White count 16.1. Glucose 283. Ultrasound show complex lesions with peripheral vascularity, concerning for potential infection. Given that the patient has an indeterminate lesion within the scrotal tissue, I believe he would benefit from admission for IV antibiotics and evaluation by urology. Patient is agreeable with this plan. He started on vancomycin. I discussed this case with my attending Dr. Deal Undiagnosed new problem with uncertain prognosis? @ -No Drug Therapy requiring intensive monitoring for toxicity (Heparin, Nitro, Insulin, Cardizem)? @ -No Were any procedures done? @ -No Diagnosis/symptom? @ -Abscess, scrotal lesion Acute, or Chronic, or Acute on Chronic? @ -Acute Uncomplicated (without systemic symptoms) or Complicated (systemic symptoms)? @ -complicated Side effects of treatment? @ -No Exacerbation, Progression, or Severe Exacerbation? @ -No Poses a threat to life or bodily function? How? (Chest pain, [place], [place], pneumonia, PE, COPD, DKA, ARF, appy, cholecystitis, CVA, Diverticulitis, Homicidal, Suicidal, threat to staff... and all critical care pts) @ -Potential - Lab Data Result diagrams: 10/22/24 18:58 10/22/24 18:58 Lab Results 10/22/24 10/22/24 10/22/24 Range/Units 18:58 18:58 18:58 WBC 16.1 H (3.8-10.6) k/uL RBC 4.73 (4.30-5.90) m/uL Hgb 13.9 (13.0-17.5) gm/dL Hct 43.2 (39.0-53.0) % MCV 91.4 (80.0-100.0) fL MCH 29.4 (25.0-35.0) pg MCHC 32.2 (31.0-37.0) g/dL RDW 13.7 (11.5-15.5) % Plt Count 211 (150-450) k/uL MPV 9.0 Neutrophils % 68 % Lymphocytes % 25 % Monocytes % 4 % Eosinophils % 2 % Basophils % 0 % Neutrophils # 10.9 H (1.3-7.7) k/uL Lymphocytes # 4.1 (1.0-4.8) k/uL Monocytes # 0.6 (0-1.0) k/uL Eosinophils # 0.3 (0-0.7) k/uL Basophils # 0.1 (0-0.2) k/uL Sodium 134 L (137-145) mmol/L Potassium 4.2 (3.5-5.1) mmol/L Chloride 107 (98-107) mmol/L Carbon Dioxide 20 L (22-30) mmol/L Anion Gap 7 mmol/L BUN 14 (9-20) mg/dL Creatinine 0.78 (0.66-1.25) mg/dL Est GFR (CKD-EPI)AfAm >90 (>60 ml/min/1.73 sqM) Est GFR (CKD-EPI)NonAf >90 (>60 ml/min/1.73 sqM) Glucose 283 H (74-99) mg/dL Plasma Lactic Acid [place] 1.9 (0.7-2.0) mmol/L Calcium 8.7 (8.4-10.2) mg/dL Total Bilirubin 0.5 (0.2-1.3) mg/dL AST 23 (17-59) U/L ALT 27 (4-49) U/L Alkaline Phosphatase 125 (38-126) U/L Total Protein 6.8 (6.3-8.2) g/dL Albumin 3.8 (3.5-5.0) g/dL Disposition Clinical Impression: Abscess, Scrotal lesion Disposition: ADMITTED IP TO THIS HOSP Condition: Fair Time of Disposition: 20:27
[2024-10-22] MEDS ORDERED: VANCOMYCIN IV PER PHARMACY 1 EACH MISC MISCELLANE PRN (20:42)
[2024-10-22] MEDS ORDERED: NALOXONE 0.4 MG/ML 1 ML VIAL IV PRN (20:44)
[2024-10-22] MEDS ORDERED: ACETAMINOPHEN TAB 325 MG TAB PO PRN (20:44)
[2024-10-22] MEDS ORDERED: IBUPROFEN 400 MG TAB PO PRN (20:44)
[2024-10-22] MEDS: SODIUM CHLORIDE 0.9% 1,000 ML IV SCH (21:37)
[2024-10-22] MEDS: VANCOMYCIN 2,250 MG in SODIUM CHLORIDE 0.9% 500 ML 500 ML IVPB ONE (21:38)
[2024-10-22] MEDS: MORPHINE SULFATE 4 MG/ML SYRINGE IV PRN (21:50)
[2024-10-23] MEDS: VANCOMYCIN 2,250 MG in SODIUM CHLORIDE 0.9% 500 ML 500 ML IVPB SCH ×2 (10:05→16:57)
--- NOTE | 2024-10-23 11:25 | P.GSCN ---
History of Present Illness Consult date: 10/23/24 History of present illness: 43 yo male who presents yesterday to the er with bilateral axillla and scrotal swelling and pain. We have been asked to evaluate the scrotum. He is afebrile. He does have a history of boils. He has had this once for 3 or 4 days. It is slightly tender. He is not febrile. His no history of trauma. His voiding without difficulty. Review of Systems All systems: negative - Constitutional Denies fever, Denies weight loss - EENT Eyes: denies blurred vision Ears, nose, mouth and throat: Denies dysphagia - Cardiovascular Denies chest pain, Denies shortness of breath - Respiratory Denies cough, Denies 7 - Gastrointestinal Reports as per HPI - Genitourinary Denies dysuria, Denies hematuria - Integumentary Denies rash, Denies unusual bruising - Neurological Denies headaches, Denies syncope - Hematologic/Lymphatic Denies easy bleeding, Denies easy bruising Past Medical History Past Medical History: GERD/Reflux, Pneumonia Additional Past Medical History / Comment(s): PILONIDAL CYST EXC 04/23/17, KIDNEY STONE PASSED X2 2016. rt sup,medial thigh abcess. Diverticulitis. Iron deficient anemia-recent EGD/Colonoscopy on 10/14/22, recent adm. for abd. pain, colitis, sepsis, portal vein thrombosis, has finished A/B's History of Any Multi-Drug Resistant Organisms: None Reported Past Surgical History: Bowel Resection, Cholecystectomy, Orthopedic Surgery, Tonsillectomy Additional Past Surgical History / Comment(s): RT KNEE SURG X3. EXC INFECTED PILONIDAL CYST W/ ABSCESS. last surgery was in April 2017. SURGICAL I& D RT SUP,MED THIGH 06/04/17. EGD/Colonoscopy 10/14/22-negative for bleeding, recent diag. Past Anesthesia/Blood Transfusion Reactions: No Reported Reaction, Motion Sickness, Motion Sickness Additional Past Anesthesia/Blood Transfusion Reaction / Comm: States size of his throat is smaller than normal. States anesthesia usually does not have any problem intubating him. Past Psychological History: Anxiety, Depression, Panic Disorder, PTSD Smoking Status: Former smoker Past Alcohol Use History: None Reported Past Drug Use History: None Reported - Past Family History Mother Family Medical History: CVA/TIA, Diabetes Mellitus, Thyroid Disorder Father History Unknown: Yes Medications and Allergies Home Medications Medication Instructions Recorded Confirmed Type Omeprazole 20 mg PO BID 11/07/21 10/23/24 History Sertraline [Zoloft] 100 mg PO DAILY 09/17/22 10/23/24 History Ferrous Sulfate [Iron (65 MG 325 mg PO DAILY 10/19/22 10/23/24 History Elemental)] Cholecalciferol [Vitamin D3 (25 25 mcg PO DAILY 06/22/23 10/23/24 History Mcg = 1000 Iu)] Nystatin 100,000 Unit/gm Powd 1 applic TOPICAL BID 10/23/24 10/23/24 History [Mycostatin Powder] Sertraline [Zoloft] 25 mg PO DAILY 10/23/24 10/23/24 History metFORMIN HCL 1,000 mg PO BID 10/23/24 10/23/24 History Allergies Allergy/AdvReac Type Severity Reaction Status Date / Time ceftriaxone [From Rocephin] Allergy Severe Rash/Hives Verified 10/23/24 10:19 amoxicillin Allergy Anaphylaxis Verified 10/23/24 10:19 aztreonam [From Azactam] Allergy Rash/Hives Verified 10/23/24 10:19 Penicillins Allergy Anaphylaxis Verified 10/23/24 10:19 artificial color/flavor AdvReac seizure Uncoded 10/23/24 10:20 artificial sugar AdvReac seizure Uncoded 10/23/24 10:20 Surgical - Exam Vital Signs Temp Pulse Resp BP Pulse Ox 98.7 F 95 20 122/76 96 10/22/24 17:49 10/22/24 17:49 10/22/24 17:49 10/22/24 17:49 10/22/24 17:49 - Genitourinary there is a 4 x 5 area of fluctuance in the left anterior scrotum consistent with a scrotal abscess. Results - Labs 10/22/24 18:58 10/22/24 18:58 Abnormal Lab Results - Last 24 Hours (Table) 10/22/24 10/22/24 Range/Units 18:58 18:58 WBC 16.1 H (3.8-10.6) k/uL Neutrophils # 10.9 H (1.3-7.7) k/uL Sodium 134 L (137-145) mmol/L Carbon Dioxide 20 L (22-30) mmol/L Glucose 283 H (74-99) mg/dL Diabetes panel 10/22/24 Range/Units 18:58 Sodium 134 L (137-145) mmol/L Potassium 4.2 (3.5-5.1) mmol/L Chloride 107 (98-107) mmol/L Carbon Dioxide 20 L (22-30) mmol/L BUN 14 (9-20) mg/dL Creatinine 0.78 (0.66-1.25) mg/dL Glucose 283 H (74-99) mg/dL Calcium 8.7 (8.4-10.2) mg/dL AST 23 (17-59) U/L ALT 27 (4-49) U/L Alkaline Phosphatase 125 (38-126) U/L Total Protein 6.8 (6.3-8.2) g/dL Albumin 3.8 (3.5-5.0) g/dL Calcium panel 10/22/24 Range/Units 18:58 Calcium 8.7 (8.4-10.2) mg/dL Albumin 3.8 (3.5-5.0) g/dL Pituitary panel 10/22/24 Range/Units 18:58 Sodium 134 L (137-145) mmol/L Potassium 4.2 (3.5-5.1) mmol/L Chloride 107 (98-107) mmol/L Carbon Dioxide 20 L (22-30) mmol/L BUN 14 (9-20) mg/dL Creatinine 0.78 (0.66-1.25) mg/dL Glucose 283 H (74-99) mg/dL Calcium 8.7 (8.4-10.2) mg/dL Adrenal panel 10/22/24 Range/Units 18:58 Sodium 134 L (137-145) mmol/L Potassium 4.2 (3.5-5.1) mmol/L Chloride 107 (98-107) mmol/L Carbon Dioxide 20 L (22-30) mmol/L BUN 14 (9-20) mg/dL Creatinine 0.78 (0.66-1.25) mg/dL Glucose 283 H (74-99) mg/dL Calcium 8.7 (8.4-10.2) mg/dL Total Bilirubin 0.5 (0.2-1.3) mg/dL AST 23 (17-59) U/L ALT 27 (4-49) U/L Alkaline Phosphatase 125 (38-126) U/L Total Protein 6.8 (6.3-8.2) g/dL Albumin 3.8 (3.5-5.0) g/dL - Imaging US - pelvic: report reviewed, image reviewed Assessment and Plan Assessment: impression: Scrotal abscess. Recommendations. The patient is on antibiotics. I will do a local I&D at the bedside later this morning.
[2024-10-23] MEDS ORDERED: VANCOMYCIN IV PER PHARMACY 1 EACH MISC MISCELLANE PRN (11:46)
--- NOTE | 2024-10-23 11:48 | P.HPIM ---
History of Present Illness This is a pleasant 43 years old male with past medical history of multiple medical problems as below including history of kidney stone, medial thigh abscess, portal vein thrombosis, history of bowel resection. Presents because of swelling in his both armpits and his scrotal area for about 1 week. Had an imaging done in the emergency room with ultrasound showing small lesion in the left axilla about 7 mm and in the right axilla about 2.3 cm, similar lesion seen in the scrotum. Patient is afebrile but has leukocytosis of 16,000 Glucose slightly elevated at 23 He is afebrile, blood pressure stable. Labs Anmol BMP, LFT were unremarkable Patient started on normal saline 75 mm and IV vancomycin Urology team on the case and I discussed the case and they going to drain the scrotal abscess He smokes about 1 pack/day and he was counseled to quit and he agrees. No alcohol or illicit drugs Review of Systems Review of systems CONSTITUTIONAL: No fever, no malaise, no fatigue. HEENT: No recent visual problems or hearing problems. Denied any sore throat. CARDIOVASCULAR: No orthopnea, PND, no palpitations, no syncope. PULMONARY: No shortness of breath, no cough, no hemoptysis. GASTROINTESTINAL: No diarrhea, no nausea, no vomiting, no abdominal pain. Normoactive bowel sounds. NEUROLOGICAL: No headaches, no weakness, no numbness. HEMATOLOGICAL: Denies any bleeding or petechiae. GENITOURINARY: Denies any burning micturition, frequency, or urgency. MUSCULOSKELETAL/RHEUMATOLOGICAL: Denies any joint pain, swelling, or any muscle pain. ENDOCRINE: Denies any polyuria or polydipsia. Past Medical History Past Medical History: GERD/Reflux, Pneumonia Additional Past Medical History / Comment(s): PILONIDAL CYST EXC 04/23/17, KIDNEY STONE PASSED X2 2016. rt sup,medial thigh abcess. Diverticulitis. Iron deficient anemia-recent EGD/Colonoscopy on 10/14/22, recent adm. for abd. pain, colitis, sepsis, portal vein thrombosis, has finished A/B's History of Any Multi-Drug Resistant Organisms: None Reported Past Surgical History: Bowel Resection, Cholecystectomy, Orthopedic Surgery, Tonsillectomy Additional Past Surgical History / Comment(s): RT KNEE SURG X3. EXC INFECTED PILONIDAL CYST W/ ABSCESS. last surgery was in April 2017. SURGICAL I& D RT LEW P,MED THIGH 06/04/17. EGD/Colonoscopy 10/14/22-negative for bleeding, recent diag. Past Anesthesia/Blood Transfusion Reactions: No Reported Reaction, Motion Sickness, Motion Sickness Additional Past Anesthesia/Blood Transfusion Reaction / Comment(s): States size of his throat is smaller than normal. States anesthesia usually does not have any problem intubating him. Past Psychological History: Anxiety, Depression, Panic Disorder, PTSD Smoking Status: Former smoker Past Alcohol Use History: None Reported Past Drug Use History: None Reported - Past Family History Mother Family Medical History: CVA/TIA, Diabetes Mellitus, Thyroid Disorder Father History Unknown: Yes Medications and Allergies Home Medications Medication Instructions Recorded Confirmed Type Omeprazole 20 mg PO BID 11/07/21 10/23/24 History Sertraline [Zoloft] 100 mg PO DAILY 09/17/22 10/23/24 History Ferrous Sulfate [Iron (65 MG 325 mg PO DAILY 10/19/22 10/23/24 History Elemental)] Cholecalciferol [Vitamin D3 (25 25 mcg PO DAILY 06/22/23 10/23/24 History Mcg = 1000 Iu)] Nystatin 100,000 Unit/gm Powd 1 applic TOPICAL BID 10/23/24 10/23/24 History [Mycostatin Powder] Sertraline [Zoloft] 25 mg PO DAILY 10/23/24 10/23/24 History metFORMIN HCL 1,000 mg PO BID 10/23/24 10/23/24 History Allergies Allergy/AdvReac Type Severity Reaction Status Date / Time ceftriaxone [From Rocephin] Allergy Severe Rash/Hives Verified 10/23/24 10:19 amoxicillin Allergy Anaphylaxis Verified 10/23/24 10:19 aztreonam [From Azactam] Allergy Rash/Hives Verified 10/23/24 10:19 Penicillins Allergy Anaphylaxis Verified 10/23/24 10:19 artificial color/flavor AdvReac seizure Uncoded 10/23/24 10:20 artificial sugar AdvReac seizure Uncoded 10/23/24 10:20 Physical Exam Vitals: Vital Signs Temp Pulse Pulse Resp BP BP Pulse Ox 10/23/24 07:40 97.5 F L 67 16 138/75 95 10/23/24 05:00 97.7 F 76 18 111/68 96 10/23/24 02:39 97.4 F L 75 17 118/71 95 10/23/24 02:01 98.1 F 78 18 145/79 97 10/22/24 21:47 98.2 F 86 19 129/80 94 L 10/22/24 17:49 98.7 F 95 20 122/76 96 Intake and Output 10/22/24 10/23/24 10/23/24 22:59 06:59 14:59 Output Total 900 Balance -900 Output: Urine 900 Other: Weight 156.489 kg GENERAL: The patient is alert and oriented x3, not in any acute distress. Well developed, well nourished. HEENT: Pupils are round and equally reacting to light. EOMI. No scleral icterus. No conjunctival pallor. Normocephalic, atraumatic. No pharyngeal erythema. No thyromegaly. CARDIOVASCULAR: S1 and S2 present. No murmurs, rubs, or gallops. PULMONARY: Chest is clear to auscultation, no wheezing , no crackles. -ABDOMEN: Soft, nontender, nondistended, normoactive bowel sounds. No palpable organomegaly. Fluctuating mass suspicious for abscess in the left scrotum -MUSCULOSKELETAL: No joint swelling or deformity. Small abscess about half inch in the left armpit/axilla and larger 1 about 1.5 inch in the right axilla. EXTREMITIES: No cyanosis, clubbing, or pedal edema. NEUROLOGICAL: Gross neurological examination did not reveal any focal deficits. SKIN: No rashes. no petechiae. Results CBC & Chem 7: 10/22/24 18:58 10/22/24 18:58 Labs: Abnormal Lab Results - Last 24 Hours (Table) 10/22/24 10/22/24 Range/Units 18:58 18:58 WBC 16.1 H (3.8-10.6) k/uL Neutrophils # 10.9 H (1.3-7.7) k/uL Sodium 134 L (137-145) mmol/L Carbon Dioxide 20 L (22-30) mmol/L Glucose 283 H (74-99) mg/dL Assessment and Plan Assessment: Left scrotal abscess with plan drainage today Bilateral axillary abscess, the right 1 is 2.3 cm on the left 27 mm Nicotine dependence Obesity with BMI of 46.8 Diabetes mellitus on metformin at home Depression, not an active issue History of chronic anemia, improved currently normal hemoglobin. I would recommend to hold iron for now Plan: Continue with IV vancomycin pharmacy to dose, while monitoring his kidney function and adjust the dose accordingly as such we will going to consult pharmacy Continue with normal saline 75 mL/h Follow-up culture results Neurology consult Going to consult general surgery too Nicotine patch Labs and medication were reviewed.. Continue same treatment. Continue with symptomatic treatment. Resume home medication. Monitor labs and vitals. DVT and GI prophylaxis. Further recommendations as per clinical course of the patient DVT prophylaxis: Subcutaneous heparin GI Prophylaxis: Pepcid PT/OT: Pending Prognosis is guarded
--- NOTE | 2024-10-23 12:04 | P.PCN ---
Date of Procedure: 10/23/24 Preoperative Diagnosis: left scrotal abscess Postoperative Diagnosis: same Procedure(s) Performed: incision and drainage of scrotal abscess with packing Anesthesia: local Surgeon: Kvng Carroll Pathology: other (abscess culture) Disposition: floor Indications for Procedure: the patient has a scrotal abscess. We are asked see the patient for this reason. The scrotal abscesses 4-5 cm in the left anterior scrotum. It will be drained. Description of Procedure: patient is prepped and draped sterilely. He is given local anesthesia with 1% Xylocaine to both the cord and scrotal skin. A horizontal incision in the left anterior scrotum was made. A moderate amount of purulent fluid is drained and cultured. The wound is packed with iodoform gauze. Impression successful drainage of scrotal abscess.
[2024-10-23] MEDS: HYDROmorphone 1 MG/ML 1 ML SYRINGE IVP PRN (12:15)
--- NOTE | 2024-10-23 14:40 | P.GSCN ---
History of Present Illness Consult date: 10/23/24 History of present illness: CHIEF COMPLAINT: Bilateral axillary abscess HISTORY OF PRESENT ILLNESS: The patient is a 43-year-old male who comes in with uncontrolled diabetes and hyperglycemia. At home blood sugars of 170s to 290s. Here his blood sugars has been over 300. Patient present with multiple abscesses including the scrotum and bilateral axilla. Patient recently had drainage of a scrotal abscess. Patient does report that the left axilla hurts more than the right. He had additional ultrasounds of the axilla. General surgery is consulted for axillary abscess. Patient at bedside was consuming high sugary beverage Mountain Dew. He denies prior episodes of scrotal abscess or axillary abscess. He has had inguinal abscesses that needed drainage. PAST MEDICAL HISTORY: See list and reviewed PAST SURGICAL HISTORY: See list and reviewed MEDICATIONS: See list and reviewed ALLERGIES: See list and reviewed SOCIAL HISTORY: See list and reviewed FAMILY HISTORY: See list and reviewed REVIEW OF ORGAN SYSTEMS: CONSTITUTIONAL: Morbid obesity excess calories, BMI 46.8. EYES: Denies any trouble with vision. No glasses. HEENT: No difficulties with hearing. No nosebleeds. No difficulty swallowing. RESPIRATORY: Denies pneumonia. Denies any troubles with breathing or dyspnea on exertion. CARDIOVASCULAR: Denies any chest pain, palpitations, or recent heart attacks. GASTROINTESTINAL: No diarrhea or constipation at this time. No blood in stools. GENITOURINARY: Denies any blood in urine or increased urinary frequency. NEUROLOGICAL: Denies any numbness or tingling along the distal extremities. No seizure disorders or headaches. MUSCULOSKELETAL: Denies any back pain, stiffness or joint arthritis. SKIN: No current skin cancer. No rash. PSYCHIATRIC: Denies current depression or suicidal thoughts. ENDOCRINE: Insulin-dependent diabetes type 2, poorly controlled with hyperglycemia HEME/LYMPHATIC: Denies any lumps and bumps around the neck. No recent deep venous thrombosis. ALLERGY/IMMUNOLOGY: No immunoglobulin therapy. No immune deficiencies. BREAST: Denies current breast lumps, pain or nipple discharge. PHYSICAL EXAM: VITALS: Reviewed CONSTITUTIONAL: Well developed and in no acute distress. EYES: Conjuctivae without sclera icterus. Extraocular movements grossly intact. HEAD, EARS, NOSE, THROAT: Moist buccal mucosa. Head is atraumatic, normocephalic. Hears conversational speech. No nasal drainage. Poor dentition. NECK: Supple. No JV distention. No thyroidomegaly. RESPIRATORY: Non-labored respirations and equal bilateral excursions. No gross wheezes. CARDIOVASCULAR: Palpable 2+ radial pulses. ABDOMEN: Obese. Nontender. LYMPH: No neck lymphadenopathy. MUSCULOSKELETAL: No clubbing cyanosis or edema SKIN: Moderate swelling left axilla over 4 cm without hyperemia tender. Right axilla with edema without erythema over 3 cm. NEUROLOGIC: Cranial nerves II through XII grossly intact. No focal or l ateralizing signs. PSYCH: Appropriate affect. Alert and oriented to person, place and time. Displ ays appropriate insight. CLINCAL LABS: Reviewed. WBC on admission over 16,000. Blood sugar glucose was 283. STUDIES: Ultrasound of the bilateral axilla reviewed demonstrates fluid collection over 2 cm in the right axilla and a separate 1 cm fluid collection of the right axilla. Left axilla with moderate edema no drainable fluid collection over 1 cm. REPORTS: Radiology report reviewed demonstrating complex abscess of the right axilla both minimal drainage lesion of the left. RECORDS: Prior labs reviewed from 2021 demonstrates an deficiency anemia globin hemoglobin A1c 7.6 at that time. ASSESSMENT: 1. Bilateral axillary abscess 2. Diabetes type 2, not insulin-dependent with hyperglycemia poorly controlled 3. Morbid obesity due to excess calories, BMI 46.8 4. Scrotal abscess, recently drained 5. Dietary surveillance and counseling 6. Depressive disorder 7. Iron deficiency anemia PLAN: 1. I offered possible drainage of the drainable abscess of the right axilla however reports his tenderness is primarily of the left axilla with no large sizable drainage fluid collection. Alternatives include warm compress along the bilateral axilla for both comfort and to facilitate healing and possible spontaneous drainage 2. Tight glycemic control advised. At bedside patient had a Mountain Dew with over 60 g sugary content. Patient advised for strict dietary control for tight glycemic control 3. Recommend IV antibiotics likely broad-spectrum due to underlying diabetes 4. Discussed with patient overall symptomatic improvement within 24 to 48 hours with IV antibiotics including warm compress. At any time, patient may elect for drainage. Repeat ultrasound of the bilateral axilla will be of benefit prior to future surgical drainage. Thank you for this kind consultation. Past Medical History Past Medical History: GERD/Reflux, Pneumonia Additional Past Medical History / Comment(s): PILONIDAL CYST EXC 6/1/17, KIDNEY STONE PASSED X2 2015. rt sup,medial thigh abcess. Diverticulitis. Iron deficient anemia-recent EGD/Colonoscopy on 10/14/22, recent adm. for abd. pain, colitis, sepsis, portal vein thrombosis, has finished A/B's History of Any Multi-Drug Resistant Organisms: None Reported Past Surgical History: Bowel Resection, Cholecystectomy, Orthopedic Surgery, Tonsillectomy Additional Past Surgical History / Comment(s): RT KNEE SURG X3. EXC INFECTED PILONIDAL CYST W/ ABSCESS. last surgery was in April 2017. SURGICAL I& D RT SUP,MED THIGH 06/04/17. EGD/Colonoscopy 10/14/22-negative for bleeding, recent diag. Past Anesthesia/Blood Transfusion Reactions: No Reported Reaction, Motion Sickness, Motion Sickness Additional Past Anesthesia/Blood Transfusion Reaction / Comm: States size of his throat is smaller than normal. States anesthesia usually does not have any p roblem intubating him. Past Psychological History: Anxiety, Depression, Panic Disorder, PTSD Smoking Status: Former smoker Past Alcohol Use History: None Reported Past Drug Use History: None Reported - Past Family History Mother Family Medical History: CVA/TIA, Diabetes Mellitus, Thyroid Disorder Father History Unknown: Yes Medications and Allergies Home Medications Medication Instructions Recorded Confirmed Type Omeprazole 20 mg PO BID 11/07/21 10/23/24 History Sertraline [Zoloft] 100 mg PO DAILY 09/17/22 10/23/24 History Ferrous Sulfate [Iron (65 MG 325 mg PO DAILY 10/19/22 10/23/24 History Elemental)] Cholecalciferol [Vitamin D3 (25 25 mcg PO DAILY 06/22/23 10/23/24 History Mcg = 1000 Iu)] Nystatin 100,000 Unit/gm Powd 1 applic TOPICAL BID 10/23/24 10/23/24 History [Mycostatin Powder] Sertraline [Zoloft] 25 mg PO DAILY 10/23/24 10/23/24 History metFORMIN HCL 1,000 mg PO BID 10/23/24 10/23/24 History Allergies Allergy/AdvReac Type Severity Reaction Status Date / Time ceftriaxone [From Rocephin] Allergy Severe Rash/Hives Verified 10/23/24 10:19 amoxicillin Allergy Anaphylaxis Verified 10/23/24 10:19 aztreonam [From Azactam] Allergy Rash/Hives Verified 10/23/24 10:19 Penicillins Allergy Anaphylaxis Verified 10/23/24 10:19 artificial color/flavor AdvReac seizure Uncoded 10/23/24 10:20 artificial sugar AdvReac seizure Uncoded 10/23/24 10:20 Surgical - Exam Vital Signs Temp Pulse Resp BP Pulse Ox 98.7 F 95 20 122/76 96 10/22/24 17:49 10/22/24 17:49 10/22/24 17:49 10/22/24 17:49 10/22/24 17:49 Results - Labs 10/22/24 18:58 10/22/24 18:58 Abnormal Lab Results - Last 24 Hours (Table) 10/22/24 10/22/24 Range/Units 18:58 18:58 WBC 16.1 H (3.8-10.6) k/uL Neutrophils # 10.9 H (1.3-7.7) k/uL Sodium 134 L (137-145) mmol/L Carbon Dioxide 20 L (22-30) mmol/L Glucose 283 H (74-99) mg/dL Diabetes panel 10/22/24 Range/Units 18:58 Sodium 134 L (137-145) mmol/L Potassium 4.2 (3.5-5.1) mmol/L Chloride 107 (98-107) mmol/L Carbon Dioxide 20 L (22-30) mmol/L BUN 14 (9-20) mg/dL Creatinine 0.78 (0.66-1.25) mg/dL Glucose 283 H (74-99) mg/dL Calcium 8.7 (8.4-10.2) mg/dL AST 23 (17-59) U/L ALT 27 (4-49) U/L Alkaline Phosphatase 125 (38-126) U/L Total Protein 6.8 (6.3-8.2) g/dL Albumin 3.8 (3.5-5.0) g/dL Calcium panel 10/22/24 Range/Units 18:58 Calcium 8.7 (8.4-10.2) mg/dL Albumin 3.8 (3.5-5.0) g/dL Pituitary panel 10/22/24 Range/Units 18:58 Sodium 134 L (137-145) mmol/L Potassium 4.2 (3.5-5.1) mmol/L Chloride 107 (98-107) mmol/L Carbon Dioxide 20 L (22-30) mmol/L BUN 14 (9-20) mg/dL Creatinine 0.78 (0.66-1.25) mg/dL Glucose 283 H (74-99) mg/dL Calcium 8.7 (8.4-10.2) mg/dL Adrenal panel 10/22/24 Range/Units 18:58 Sodium 134 L (137-145) mmol/L Potassium 4.2 (3.5-5.1) mmol/L Chloride 107 (98-107) mmol/L Carbon Dioxide 20 L (22-30) mmol/L BUN 14 (9-20) mg/dL Creatinine 0.78 (0.66-1.25) mg/dL Glucose 283 H (74-99) mg/dL Calcium 8.7 (8.4-10.2) mg/dL Total Bilirubin 0.5 (0.2-1.3) mg/dL AST 23 (17-59) U/L ALT 27 (4-49) U/L Alkaline Phosphatase 125 (38-126) U/L Total Protein 6.8 (6.3-8.2) g/dL Albumin 3.8 (3.5-5.0) g/dL
[2024-10-23] MEDS ORDERED: DEXTROSE 50% SYRINGE 50 ML IVP PRN ×2 (15:26)
[2024-10-23 17:00] LABS: Glucose,Whole Blood 295 mg/dL (70-110)
[2024-10-23] MEDS: INSULIN ASPART (NovoLOG) 100 UNIT/ML VIAL SQ SCH (17:04)
[2024-10-23] MEDS: metFORMIN 500 MG TAB PO SCH (17:04)
[2024-10-23] MEDS: LIDOCAINE 1% INJ 10MG/ML (20 ML MDV) SQ ONE (18:48)
[2024-10-23 20:36] LABS: Glucose,Whole Blood 180 mg/dL (70-110)
[2024-10-23] MEDS: FAMOTIDINE 20 MG/2 ML VIAL IV SCH (20:48)
[2024-10-23] MEDS: HEPARIN SODIUM,PORCINE 5,000 UNIT/ML 1 ML VIAL SQ SCH (20:48)
[2024-10-24 06:00] LABS: Glucose,Whole Blood 220 mg/dL (70-110)
[2024-10-24] MEDS: ATORVASTATIN 20 MG TAB PO SCH (08:01)
[2024-10-24] MEDS: CHOLECALCIFEROL 25 MCG (1000 IU) TABLET PO SCH (08:01)
[2024-10-24] MEDS: ASPIRIN 81 MG PO SCH (08:01)
[2024-10-24] MEDS: SERTRALINE 50 MG TAB PO SCH (09:33)
[2024-10-24] MEDS: KETOROLAC 15 MG/ML 1 ML VIAL IVP PRN (11:25)
[2024-10-24 12:05] LABS: Glucose,Whole Blood 240 mg/dL (70-110)
--- NOTE | 2024-10-24 12:31 | P.PN ---
Subjective Progress Note Date: 10/24/24 Principal diagnosis: Scrotal abscess Patient underwent I&D of a left scrotal abscess yesterday. He reports feeling less pressure today. Objective - Vital Signs Vital signs: Vital Signs Temp 97.6 F 10/24/24 07:10 Pulse 64 10/24/24 07:10 Resp 18 10/24/24 07:10 BP 134/70 10/24/24 07:10 Pulse Ox 95 10/24/24 07:10 FiO2 Intake & Output 10/23/24 10/24/24 10/24/24 18:59 06:59 18:59 Intake Total 354 118 Balance 354 118 Intake: Oral 354 118 Other: Voiding Method Toilet # Voids 3 3 - Constitutional General appearance: Present: average body habitus, cooperative, no acute distress - Genitourinary Genitourinary Comment(s): Left transverse scrotal incision. Iodoform gauze removed. Minimal purulence. No cellulitis or fluctuance. - Psychiatric Psychiatric: Present: A&O x's 3 - Labs CBC & Chem 7: 10/22/24 18:58 10/22/24 18:58 Labs: Abnormal Lab Results - Last 24 Hours (Table) 10/23/24 10/23/24 10/23/24 Range/Units 16:58 18:58 20:34 POC Glucose (mg/dL) 295 H 180 H (70-110) mg/dL Hemoglobin A1c 10.2 H (<=6.0) % 10/24/24 10/24/24 Range/Units 05:58 12:04 POC Glucose (mg/dL) 220 H 240 H (70-110) mg/dL Hemoglobin A1c (<=6.0) % Microbiology - Last 24 Hours (Table) 10/23/24 12:30 Gram Stain - Preliminary Groin Assessment and Plan (1) Inflammatory disorders of scrotum Current Visit: Yes Status: Acute Code(s): N49.2 - INFLAMMATORY DISORDERS OF SCROTUM SNOMED Code(s): 245753470 Plan: - Local wound care - Continue vancomycin, pending culture results
--- NOTE | 2024-10-24 12:41 | P.PN ---
Subjective Progress Note Date: 10/24/24 CHIEF COMPLAINT: Bilateral axillary abscess HISTORY OF PRESENT ILLNESS: Patient continues to complain of bilateral axillary abscess. He reports more pain in the right. He is still had no drainage from either axilla area. Afebrile. Blood sugar 240 hemoglobin A1c 10.2 CBC pending PHYSICAL EXAM: VITAL SIGNS: Reviewed GENERAL: Well-developed in no acute distress. HEENT: No sclera icterus. Extraocular movements grossly intact. Moist buccal mucosa. Head is atraumatic, normocephalic. Hears conversational speech. No nasal drainage. NECK: Supple without lymphadenopathy. CHEST: Non-labored respirations and equal bilateral excursions. CARDIOVASCULAR: Palpable 2+ radial pulses. ABDOMEN: Soft. Nondistended. Nontender. MUSCULOSKELETAL: No clubbing or cyanosis. NEUROLOGIC: No focal or lateralizing signs. Cranial nerves II through XII grossly intact. PSYCH: Appropriate affect. Alert and oriented to person, place and time. SKIN: Right axilla tender with palpation and area of swelling. No erythema noted. No drainage. Left axilla tender with palpation no erythema. Small area of swelling noted. ASSESSMENT: 1. Bilateral axillary abscess 2. Diabetes type 2, not insulin-dependent with hyperglycemia poorly controlled 3. Morbid obesity due to excess calories, BMI 46.8 4. Scrotal abscess, recently drained 5. Dietary surveillance and counseling 6. Depressive disorder 7. Iron deficiency anemia PLAN: -Continue antibiotics per ID service -Continue warm compresses -Recommend tight glycemic control. -Continue to monitor Physician Sunglass Clip Attacher note has been reviewed by physician. Signing provider agrees with the documented findings, assessment, and plan of care. Please see additional documentation below CHIEF COMPLAINT: Bilateral axillary abscess HISTORY OF PRESENT ILLNESS: The patient is a 43-year-old male presents with multiple abscesses including bilateral axilla abscess and scrotal abscess. He reports both axillas are continuous still operator. No worsening symptoms. ROS: No reports of nausea and vomiting. No bowel movements. No fevers or chills. No new chest pain. No productive sputum PHYSICAL EXAM: VITAL SIGNS: Reviewed CONSTITUTIONAL: Well developed and in no acute distress. EYES: Conjuctivae without sclera icterus. Extraocular movements grossly intact. HEAD, EARS, NOSE, THROAT: Moist buccal mucosa. Head is atraumatic, normocephalic. Hears conversational speech. No nasal drainage. RESPIRATORY: Non-labored respirations and equal bilateral excursions. CARDIOVASCULAR: Palpable 2+ radial pulses. ABDOMEN: Obese. MUSCULOSKELETAL: No gross deformity of the lower extremities noted. No clubbing. No cyanosis. SKIN: Good skin turgor. Well perfused. Bilateral axillary swelling. NEUROLOGIC: Cranial nerves II through XII grossly intact. No focal or lateralizing signs. PSYCH: Appropriate affect. Alert and oriented to person, place and time. CLINICAL LABS: Reviewed. WBC down 16.1-11.7, leukocytosis. Blood sugar glucose 182-242, hyperglycemia. Hemoglobin A1c elevated 10.2 ASSESSMENT: 1. Bilateral axillary abscess 2. Diabetes type 2, uncontrolled, hyperglycemia 3. Leukocytosis 4. Morbid obesity excess calories, BMI 46.8 PLAN: 1. Recommend continue warm compress bilateral axilla 2. Repeat ultrasound bilateral axilla in 2448 hrs. to allow complete maturation of abscess versus axillary swelling or lymphedema 3. Continue IV antibiotics 4. Recommend twice daily alcohol swab of the axilla Objective - Vital Signs Vital signs: Vital Signs Temp 97.6 F 10/24/24 07:10 Pulse 64 10/24/24 07:10 Resp 18 10/24/24 07:10 BP 134/70 10/24/24 07:10 Pulse Ox 95 10/24/24 07:10 FiO2 Intake & Output 10/23/24 10/24/24 10/24/24 18:59 06:59 18:59 Intake Total 354 118 Balance 354 118 Intake: Oral 354 118 Other: Voiding Method Toilet # Voids 3 3 - Labs CBC & Chem 7: 10/24/24 14:43 10/24/24 14:43 Labs: Abnormal Lab Results - Last 24 Hours (Table) 10/23/24 10/23/24 10/23/24 Range/Units 16:58 18:58 20:34 POC Glucose (mg/dL) 295 H 180 H (70-110) mg/dL Hemoglobin A1c 10.2 H (<=6.0) % 10/24/24 10/24/24 Range/Units 05:58 12:04 POC Glucose (mg/dL) 220 H 240 H (70-110) mg/dL Hemoglobin A1c (<=6.0) % Microbiology - Last 24 Hours (Table) 10/23/24 12:30 Gram Stain - Preliminary Groin
[2024-10-24 14:55] LABS: Basophils # (A) 0.1 k/uL (0-0.2); Basophils % (A) 1 %; Eosinophils # (A) 0.2 k/uL (0-0.7); Eosinophils % (A) 2 %; HCT 42.4 % (39.0-53.0); HGB 13.7 gm/dL (13.0-17.5); Lymphocytes # (A) 4.2 k/uL (1.0-4.8); Lymphocytes % (A) 36 %; MCH 29.7 pg (25.0-35.0); MCHC 32.3 g/dL (31.0-37.0); MCV 92.2 fL (80.0-100.0); Mean Platelet Volume 8.7; Monocytes # (A) 0.4 k/uL (0-1.0); Monocytes % (A) 4 %; Neutrophils # (A) 6.6 k/uL (1.3-7.7); Neutrophils % (A) 56 %; Platelet Count 215 k/uL (150-450); RBC 4.61 m/uL (4.30-5.90); RDW 13.3 % (11.5-15.5); WBC 11.7 k/uL (3.8-10.6)
--- NOTE | 2024-10-24 15:13 | P.PN ---
Subjective Progress Note Date: 10/24/24 This is a pleasant 43 years old male with past medical history of multiple medical problems as below including history of kidney stone, medial thigh abscess, portal vein thrombosis, history of bowel resection. Presents because of swelling in his both armpits and his scrotal area for about 1 week. Had an imaging done in the emergency room with ultrasound showing small lesion in the left axilla about 7 mm and in the right axilla about 2.3 cm, similar lesion seen in the scrotum. Patient is afebrile but has leukocytosis of 16,000 Glucose slightly elevated at 23 He is afebrile, blood pressure stable. Labs Anmol BMP, LFT were unremarkable Patient started on normal saline 75 mm and IV vancomycin Urology team on the case and I discussed the case and they going to drain the scrotal abscess He smokes about 1 pack/day and he was counseled to quit and he agrees. No alcohol or illicit drugs 10/24/2024 Patient is seen in follow-up today with general surgery and urology following. Patient is status post I&D drainage of the left scrotum and awaiting cultures. Patient evaluated by general surgery with concerns of bilateral axillary abscesses although patient does not want surgical intervention at this time and continuing with warm compresses. Blood sugars have been uncontrolled and will monitor closely and adjust accordingly as patient is a newly diagnosed diabetic in June and hemoglobin A1c is poorly controlled at 10.2. Patient reports was started on oral diabetic agents although this will not suffice. Will discuss further with social work/case management regarding discharge planning and arrange for insulin on discharge. Patient will need education and will discuss with nursing regarding education on insulin injections. Review of systems: Constitutional: No reports of fatigue, fever, or chills Cardiovascular: No reports of chest pain or palpitations Respiratory: No reports of shortness of breath or cough GI: No reports of nausea, vomiting, or diarrhea : No reports of dysuria or retention Neurovascular: No reports of weakness or numbness All medications have been reviewed Physical exam: Gen: This is a 43-year-old male who is awake, alert and oriented x 3, well-devel oped, appears older than stated age, morbidly obese HEENT: Head is atraumatic, normocephalic. Pupils equal, round. Sclerae is anicteric. NECK: Supple. No JVD. No lymphadenopathy. No thyromegaly. LUNGS: Diminished breath sounds bilaterally otherwise S1, S2 are muffled clear to auscultation. No wheezes or rhonchi. No intercostal retractions. HEART: Regular rate and rhythm. No murmur. ABDOMEN: Soft. Obese bowel sounds are present. No masses. No tenderness. EXTREMITIES: No pedal edema. No calf tenderness. generalized upper and lower Extremity obesity and edema noted that is chronic NEUROLOGICAL: Patient is awake, alert and oriented x3. Cranial nerves 2 through 12 are grossly intact. Assessment: Left scrotal abscess status post incision and drainage at bedside per urology with cultures pending Bilateral axillary abscess, the right 1 is 2.3 cm on the left 27 mm, no plans for immediate surgical intervention undergoing warm compresses Continued nicotine dependence Morbid obesity with BMI of 46.8 Diabetes mellitus, uncontrolled with hyperglycemia, hemoglobin A1c of 10.2 on metformin at home Depression, not an active issue History of chronic anemia, improved currently normal hemoglobin. I would recommend to hold iron for now GI prophylaxis DVT prophylaxis Full code Plan: Continue with IV vancomycin pharmacy to dose, while monitoring his kidney function and adjust the dose accordingly as such. Consult infectious disease and appreciate input and recommendations in the event patient may require IV antibiotics on discharge Continue with normal saline 75 mL/h Follow-up culture results Continue with nicotine patch and discussed complete tobacco cessation Continue monitoring Accu-Cheks before meals and at bedtime and will adjust insulins accordingly including adding low-dose long-acting. Patient's hemoglobin A1c is 10.2 and was recently diagnosed per family at bedside in June with new onset diabetes. Blood sugars have been uncontrolled and patient's diet is completely uncontrolled with multiple large pop bottles including Mountain Dew at the bedside. Discussed with them in detail regarding the importance of diabetic and blood sugar management for healing as well as infection prevention as patient is high risk for developing worsening infections with nonhealing wounds. Patient will need diabetes education outpatient and also discussed with nursing staff about educating with the use of self injections as patient will be going home on insulin. Endocrine referral on discharge Currently awaiting cultures to determine discharge antibiotics Encouraged increase activity as tolerated Overall prognosis is guarded The impression and plan of care has been dictated by Susan Montalvo, Nurse Practitioner as directed. Dr. Dean MD I have performed a history and examination and MDM of this patient, discussed the same with the dictator, and agree with the dictator's assessment and plan as written ,documented as a scribe. Based on total visit time, I have performed more than 50% of the visit. Objective - Vital Signs Vital signs: Vital Signs Temp 97.6 F 10/24/24 07:10 Pulse 64 10/24/24 07:10 Resp 18 10/24/24 07:10 BP 134/70 10/24/24 07:10 Pulse Ox 95 10/24/24 07:10 FiO2 Intake & Output 10/23/24 10/24/24 10/24/24 18:59 06:59 18:59 Intake Total 354 118 Balance 354 118 Intake: Oral 354 118 Other: Voiding Method Toilet # Voids 3 3 - Labs CBC & Chem 7: 10/24/24 14:43 10/22/24 18:58 Labs: Abnormal Lab Results - Last 24 Hours (Table) 10/23/24 10/23/24 10/23/24 Range/Units 16:58 18:58 20:34 POC Glucose (mg/dL) 295 H 180 H (70-110) mg/dL Hemoglobin A1c 10.2 H (<=6.0) % 10/24/24 Range/Units 05:58 POC Glucose (mg/dL) 220 H (70-110) mg/dL Hemoglobin A1c (<=6.0) % Microbiology - Last 24 Hours (Table) 10/23/24 12:30 Gram Stain - Preliminary Groin
[2024-10-24 15:14] LABS: ALT 33 U/L (4-49); AST 29 U/L (17-59); African American GFR (CKD) >90 (>60 ml/min/1.73 sqM); Albumin 3.6 g/dL (3.5-5.0); Albumin/Globulin Ratio 1.2; Alkaline Phosphatase 124 U/L (38-126); Anion Gap 5 mmol/L; Blood Urea Nitrogen 11 mg/dL (9-20); Calcium 8.8 mg/dL (8.4-10.2); Carbon Dioxide 26 mmol/L (22-30); Chloride 104 mmol/L (98-107); Glucose 205 mg/dL (74-99); Non-African American GFR(CKD) >90 (>60 ml/min/1.73 sqM); Potassium 4.4 mmol/L (3.5-5.1); Sodium 135 mmol/L (137-145); Total Bilirubin 0.4 mg/dL (0.2-1.3); Total Protein 6.6 g/dL (6.3-8.2)
[2024-10-24 15:15] LABS: Glucose,Whole Blood 182 mg/dL (70-110)
[2024-10-24] MEDS: VANCOMYCIN 2,000 MG in SODIUM CHLORIDE 0.9% 500 ML 500 ML IVPB SCH (16:23)
[2024-10-24] MEDS: VANCOMYCIN TROUGH DUE 1 EACH MISC MISCELLANE ONE (16:24)
[2024-10-24 17:08] LABS: Glucose,Whole Blood 192 mg/dL (70-110)
[2024-10-24 21:17] LABS: Glucose,Whole Blood 211 mg/dL (70-110)
[2024-10-25 05:30] LABS: African American GFR (CKD) >90 (>60 ml/min/1.73 sqM); Non-African American GFR(CKD) >90 (>60 ml/min/1.73 sqM)
[2024-10-25 06:11] LABS: Glucose,Whole Blood 187 mg/dL (70-110)
--- NOTE | 2024-10-25 07:33 | P.CONS ---
History of Present Illness - Reason for Consult Consult date: 10/24/24 Scrotal and bilateral axillary abscess Requesting physician: Susan Montalvo - Chief Complaint Swelling and redness to the scrotal and axillary area x days - History of Present Illness Patient is a 43-year-old male with a past medical history significant for pneumonia reflux kidney stones pilonidal cyst presenting to the hospital 2 days ago concerning for swelling to bilateral axilla and in the scrotal area patient initially started having swelling to the axillary area and was going on for about a week and subsequent noticed to having increasing swelling and redness to the left side of the testicular area patient on presentation to the hospital was afebrile and no fever have been recorded subsequently patient was not tachycardic hypotensive or hypoxic he did have white count of 16.1 repeat is 11.7 creatinine is normal liver isms are normal vancomycin trough is 23.7 patient did have a scrotal ultrasound left leg to scrotal area did have 2.9 X2.2X 1.5 cm complex irregular wall lesion patient also have a axilla ultrasound with a 2 small lesion to the right axilla similar to lesion on the left axilla with the size of 0.7 X0.2X 0.7 cm patient has been evaluated by urology and the patient is status post I&D of the left scrotal abscess cultures obtained currently pending general surgery evaluate the patient for the bilateral axillary area abscess but no surgical drainage patient is currently being treated with vancomycin infectious disease was consulted today for further management of antibiotic therapy Review of Systems Positive point and negatives has been mentioned in the HPI, complete review of systems was performed and all other systems are negative Past Medical History Past Medical History: GERD/Reflux, Pneumonia Additional Past Medical History / Comment(s): PILONIDAL CYST EXC 04/23/17, KIDNEY STONE PASSED X2 2016. rt sup,medial thigh abcess. Diverticulitis. Iron deficient anemia-recent EGD/Colonoscopy on 10/14/22, recent adm. for abd. pain, colitis, sepsis, portal vein thrombosis, has finished A/B's History of Any Multi-Drug Resistant Organisms: None Reported Past Surgical History: Bowel Resection, Cholecystectomy, Orthopedic Surgery, Tonsillectomy Additional Past Surgical History / Comment(s): RT KNEE SURG X3. EXC INFECTED PILONIDAL CYST W/ ABSCESS. last surgery was in April 2017. SURGICAL I& D RT SUP,MED THIGH 06/04/17. EGD/Colonoscopy 10/14/22-negative for bleeding, recent diag. Past Anesthesia/Blood Transfusion Reactions: No Reported Reaction, Motion Sickness, Motion Sickness Additional Past Anesthesia/Blood Transfusion Reaction / Comm: States size of his throat is smaller than normal. States anesthesia usually does not have any problem intubating him. Past Psychological History: Anxiety, Depression, Panic Disorder, PTSD Smoking Status: Former smoker Past Alcohol Use History: None Reported Past Drug Use History: None Reported - Past Family History Mother Family Medical History: CVA/TIA, Diabetes Mellitus, Thyroid Disorder Father History Unknown: Yes Medications and Allergies Home Medications Medication Instructions Recorded Confirmed Type Omeprazole 20 mg PO BID 11/07/21 10/23/24 History Sertraline [Zoloft] 100 mg PO DAILY 09/17/22 10/23/24 History Ferrous Sulfate [Iron (65 MG 325 mg PO DAILY 10/19/22 10/23/24 History Elemental)] Cholecalciferol [Vitamin D3 (25 25 mcg PO DAILY 06/22/23 10/23/24 History Mcg = 1000 Iu)] Nystatin 100,000 Unit/gm Powd 1 applic TOPICAL BID 10/23/24 10/23/24 History [Mycostatin Powder] Sertraline [Zoloft] 25 mg PO DAILY 10/23/24 10/23/24 History metFORMIN HCL 1,000 mg PO BID 10/23/24 10/23/24 History Allergies Allergy/AdvReac Type Severity Reaction Status Date / Time ceftriaxone [From Rocephin] Allergy Severe Rash/Hives Verified 10/23/24 10:19 amoxicillin Allergy Anaphylaxis Verified 10/23/24 10:19 aztreonam [From Azactam] Allergy Rash/Hives Verified 10/23/24 10:19 Penicillins Allergy Anaphylaxis Verified 10/23/24 10:19 artificial color/flavor AdvReac seizure Uncoded 10/23/24 10:20 artificial sugar AdvReac seizure Uncoded 10/23/24 10:20 Physical Exam Vitals: Vital Signs Temp Pulse Resp BP BP Pulse Ox 10/24/24 14:10 97.7 F 66 18 138/67 96 10/24/24 07:10 97.6 F 64 18 134/70 95 10/24/24 02:00 97.9 F 69 17 106/69 95 10/23/24 20:00 98.1 F 75 17 129/66 95 Intake and Output 10/24/24 10/24/24 10/24/24 06:59 14:59 22:59 Intake Total 236 Balance 236 Intake: Oral 236 Other: # Voids 3 GENERAL DESCRIPTION: Middle-aged male lying in bed, no distress. No tachypnea or accessory muscle of respiration use. HEENT: Shows Pallor , no scleral icterus. Oral mucous membrane is dry. No p haryngeal erythema or thrush NECK: Trachea central, no thyromegaly. LUNGS: Unlabored breathing. Clear to auscultation anteriorly. No wheeze or crackle. HEART: S1, S2, regular rate and rhythm. No loud murmur ABDOMEN: Soft, no tenderness , guarding or rigidity, no organomegaly GENITOURINARY: Left scrotal area wound post drainage of the abscesses is currently packed with some swelling minimal redness EXTREMITIES: No edema of feet. SKIN: Bilateral legs area with some induration but no significant redness or drainage NEUROLOGICAL: The patient is awake, alert, oriented x3, mood and affect normal. Results CBC & Chem 7: 10/25/24 04:26 10/25/24 04:26 Labs: Abnormal Lab Results - Last 24 Hours (Table) 10/23/24 10/23/24 10/23/24 Range/Units 16:58 18:58 20:34 WBC (3.8-10.6) k/uL POC Glucose (mg/dL) 295 H 180 H (70-110) mg/dL Hemoglobin A1c 10.2 H (<=6.0) % 10/24/24 10/24/24 10/24/24 Range/Units 05:58 12:04 14:43 WBC 11.7 H (3.8-10.6) k/uL POC Glucose (mg/dL) 220 H 240 H (70-110) mg/dL Hemoglobin A1c (<=6.0) % Microbiology - Last 24 Hours (Table) 10/22/24 20:46 Blood Culture - Preliminary Blood 10/23/24 12:30 Gram Stain - Preliminary Groin Assessment and Plan (1) Scrotal abscess Current Visit: Yes Status: Acute Code(s): N49.2 - INFLAMMATORY DISORDERS OF SCROTUM SNOMED Code(s): 92020590 (2) Cutaneous abscesses of both axillae Current Visit: Yes Status: Acute Code(s): L02.411 - CUTANEOUS ABSCESS OF RIGHT AXILLA; L02.412 - CUTANEOUS ABSCESS OF LEFT AXILLA SNOMED Code(s): 21401504 (3) Allergy to multiple antibiotics Current Visit: No Status: Acute Code(s): Z88.1 - ALLERGY STATUS TO OTHER ANTIBIOTIC AGENTS SNOMED Code(s): 124568851 Plan: 1patient presented to hospital with having bilateral wheezing and scrotal area pain and swelling redness has been diagnosed with an abscess at this location st atus post drainage of the left lateral scrotal area [facility] suspicious for Staphylococcus auris infection with a question of possible MSSA versus MRSA 2leukocytosis likely due to the abscesses 3patient with multiple antibiotic ALLERGIES that would limit the number of antibiotic safe to use 4vancomycin pharmacy to dose target trough of 15 while watching kidney function and Vanco trough closely while waiting for the culture to finalize We will follow on clinical condition and cultures to further adjust medication if needed Thank you for this consultation we will follow the patient along with you Dictation was produced using [employer] dictation software. please excuse any grammatical, word or spelling errors. Time with Patient: Greater than 30
[2024-10-25 08:20] LABS: Basophils # (A) 0.04 X 10*3/uL (0.00-0.10); Basophils % (A) 0.3 %; Eosinophils # (A) 0.17 X 10*3/uL (0.04-0.35); Eosinophils % (A) 1.4 %; HCT 40.8 % (39.6-50.0); Lymphocytes # (A) 4.22 X 10*3/uL (0.90-5.00); Lymphocytes % (A) 34.3 %; MCH 29.5 pg (27.0-32.0); MCHC 31.9 g/dL (32.0-37.0); MCV 92.7 FL (80.0-97.0); Mean Platelet Volume 11.8 FL (9.5-12.2); Monocytes # (A) 0.87 X 10*3/uL (0.20-1.00); Monocytes % (A) 7.1 %; NRBC Per 100 WBC 0 X 10*3/uL (0.00-0.01); Neutrophils # (A) 6.91 X 10*3/uL (1.80-7.70); Platelet Count 208 X 10*3/uL (140-440); RDW 13.2 % (11.5-14.5); WBC 12.32 X 10*3/uL (4.50-10.00)
--- NOTE | 2024-10-25 09:23 | P.PN ---
Subjective Progress Note Date: 10/25/24 Principal diagnosis: Scrotal abscess Patient underwent I&D of a left scrotal abscess on October 23, 2024. He states that his scrotal pain has improved. His has been taught to pack his wound with iodoform gauze. Objective - Vital Signs Vital signs: Vital Signs Temp 97.7 F 10/25/24 03:40 Pulse 69 10/25/24 03:40 Resp 16 10/25/24 03:40 BP 159/66 10/25/24 03:40 Pulse Ox 96 10/25/24 03:40 FiO2 Intake & Output 10/24/24 10/24/24 10/25/24 06:59 18:59 06:59 Intake Total 436 Balance 436 Intake: Oral 436 Other: Voiding Method Toilet Toilet # Voids 3 3 - Constitutional General appearance: Present: average body habitus, cooperative, no acute distress - Genitourinary Genitourinary Comment(s): Normal phallus, normal testes. Left scrotal edema has essentially resolved. There is no drainage or erythema. - Psychiatric Psychiatric: Present: A&O x's 3 - Labs CBC & Chem 7: 10/25/24 04:26 10/25/24 04:26 Labs: Abnormal Lab Results - Last 24 Hours (Table) 10/23/24 10/24/24 10/24/24 Range/Units 18:58 12:04 14:43 WBC 11.7 H (3.8-10.6) k/uL Sodium (137-145) mmol/L Glucose (74-99) mg/dL POC Glucose (mg/dL) 240 H (70-110) mg/dL Hemoglobin A1c 10.2 H (<=6.0) % 10/24/24 10/24/24 10/24/24 Range/Units 14:43 15:14 17:06 WBC (3.8-10.6) k/uL Sodium 135 L (137-145) mmol/L Glucose 205 H (74-99) mg/dL POC Glucose (mg/dL) 182 H 192 H (70-110) mg/dL Hemoglobin A1c (<=6.0) % 10/24/24 10/25/24 Range/Units 21:15 06:09 WBC (3.8-10.6) k/uL Sodium (137-145) mmol/L Glucose (74-99) mg/dL POC Glucose (mg/dL) 211 H 187 H (70-110) mg/dL Hemoglobin A1c (<=6.0) % Microbiology - Last 24 Hours (Table) 10/23/24 12:30 Gram Stain - Preliminary Groin Wound Culture - Preliminary 10/22/24 20:46 Blood Culture - Preliminary Blood Assessment and Plan (1) Inflammatory disorders of scrotum Current Visit: Yes Status: Acute Code(s): N49.2 - INFLAMMATORY DISORDERS OF SCROTUM SNOMED Code(s): 707180216 Plan: - Continue local wound care - Continue vancomycin, pending wound culture results - Patient is urologically stable for discharge on appropriate antibiotics, once the culture results are completed - F/U with Dr. Carroll upon discharge
--- NOTE | 2024-10-25 11:51 | P.PN ---
Subjective Progress Note Date: 10/25/24 CHIEF COMPLAINT: Bilateral axillary abscess HISTORY OF PRESENT ILLNESS: Patient reporting that he is starting to feel better today. He has less tenderness in the axilla. Still no drainage. He has been u sing the alcohol wipes to the armpits. Afebrile. WBC did go up a little from 11-12.3. Blood sugar 187 PHYSICAL EXAM: VITAL SIGNS: Reviewed GENERAL: Well-developed in no acute distress. HEENT: No sclera icterus. Extraocular movements grossly intact. Moist buccal mucosa. Head is atraumatic, normocephalic. Hears conversational speech. No nasal drainage. NECK: Supple without lymphadenopathy. CHEST: Non-labored respirations and equal bilateral excursions. CARDIOVASCULAR: Palpable 2+ radial pulses. ABDOMEN: Soft. Nondistended. Nontender. MUSCULOSKELETAL: No clubbing or cyanosis. NEUROLOGIC: No focal or lateralizing signs. Cranial nerves II through XII grossly intact. PSYCH: Appropriate affect. Alert and oriented to person, place and time. SKIN: Both swelling areas in the bilateral axillas are decreased in size. No erythema no drainage. Decrease in tenderness with palpation ASSESSMENT: 1. Bilateral axillary abscess 2. Diabetes type 2, not insulin-dependent with hyperglycemia poorly controlled 3. Morbid obesity due to excess calories, BMI 46.8 4. Scrotal abscess, recently drained 5. Dietary surveillance and counseling 6. Depressive disorder 7. Iron deficiency anemia PLAN: -Repeat bilateral axilla ultrasound ordered for evaluation of any fluid collection that might require an incision and drainage -Continue antibiotics per ID service -Continue warm compresses. Continue daily alcohol wipes to the axilla bilaterally -Recommend tight glycemic control. -Continue to monitor Physician Gaming Cage Worker note has been reviewed by physician. Signing provider agrees with the documented findings, assessment, and plan of care. As above. Please see additional documentation below. Ultrasound of the bilateral axilla independent review demonstrates findings co nsistent with moderate lymphadenopathy with very few punctate area of drainage. White blood cell count did elevate. Will need adjustment of antibiotics pending cultures from his scrotal abscess. No acute surgical invention at this time due to with moderate lymphadenopathy. Objective - Vital Signs Vital signs: Vital Signs Temp 97.9 F 10/25/24 07:00 Pulse 66 10/25/24 07:00 Resp 17 10/25/24 07:00 BP 143/73 10/25/24 07:00 Pulse Ox 95 10/25/24 07:00 FiO2 Intake & Output 10/24/24 10/25/24 10/25/24 18:59 06:59 18:59 Intake Total 436 118 Balance 436 118 Intake: Oral 436 118 Other: Voiding Method Toilet # Voids 3 - Labs CBC & Chem 7: 10/26/24 03:59 10/26/24 03:59 Labs: Abnormal Lab Results - Last 24 Hours (Table) 10/24/24 10/24/24 10/24/24 Range/Units 12:04 14:43 14:43 WBC 11.7 H (3.8-10.6) k/uL MCHC (32.0-37.0) g/dL Immature Gran # (0.00-0.04) X 10*3/uL Sodium 135 L (137-145) mmol/L Glucose 205 H (74-99) mg/dL POC Glucose (mg/dL) 240 H (70-110) mg/dL 10/24/24 10/24/24 10/24/24 Range/Units 15:14 17:06 21:15 WBC (3.8-10.6) k/uL MCHC (32.0-37.0) g/dL Immature Gran # (0.00-0.04) X 10*3/uL Sodium (137-145) mmol/L Glucose (74-99) mg/dL POC Glucose (mg/dL) 182 H 192 H 211 H (70-110) mg/dL 10/25/24 10/25/24 Range/Units 04:26 06:09 WBC 12.32 H (3.8-10.6) k/uL MCHC 31.9 L (32.0-37.0) g/dL Immature Gran # 0.11 H (0.00-0.04) X 10*3/uL Sodium (137-145) mmol/L Glucose (74-99) mg/dL POC Glucose (mg/dL) 187 H (70-110) mg/dL Microbiology - Last 24 Hours (Table) 10/23/24 12:30 Gram Stain - Preliminary Groin Wound Culture - Preliminary 10/22/24 20:46 Blood Culture - Preliminary Blood
[2024-10-25 11:56] LABS: Glucose,Whole Blood 164 mg/dL (70-110)
[2024-10-25 13:31] VITALS: BMI 46.7
--- NOTE | 2024-10-25 13:40 | US ---
EXAMINATION TYPE: US axilla BILAT DATE OF EXAM: 10/25/2024 Exam done portable COMPARISON: NONE CLINICAL INDICATION: Male, 43 years old with history of Adenopathy; TECHNIQUE: GRAYSCALE IMAGING OF THE BILATERAL AXILLA WITH COLOR DOPPLER IMAGING. FINDINGS: Right axilla: same 2 areas seen as 3 days ago Left axilla: same 2 areas seen as 3 days ago IMPRESSION: Similar-appearing areas in the bilateral axilla etiology. And some of the images provided by sonography is appear to be lymph nodes. Short-term follow-up recommended correlate with history o f infection. [facility], , 10/25/2024 1:38 PM
--- NOTE | 2024-10-25 15:56 | P.PN ---
Subjective Progress Note Date: 10/25/24 Principal diagnosis: Reason for follow-up is scrotal and bilateral axillary abscess Patient is a 43-year-old male with a past medical history significant for pneumonia reflux kidney stones pilonidal cyst presenting to the hospital concerning for swelling to bilateral axilla and in the scrotal area, patient have a drainage of the scrotal abscess ID consulted for management of his antibiotic. On today's visit that is 10/25/2024, Patient is afebrile this morning patient denies having any chest pain shortness of breath or cough, the patient is currently on room air, patient denies any abdominal pain no diarrhea no nausea no vomiting, the patient pain to the scrotal area slightly decreased in intensity. The patient white count is 12.32, creatinine 0.70 Vanco trough is 23.7 cultures are currently pending Objective - Vital Signs Vital signs: Vital Signs Temp 97.9 F 10/25/24 07:00 Pulse 66 10/25/24 07:00 Resp 17 10/25/24 07:00 BP 143/73 10/25/24 07:00 Pulse Ox 95 10/25/24 07:00 FiO2 Intake & Output 10/24/24 10/25/24 10/25/24 18:59 06:59 18:59 Intake Total 436 118 Balance 436 118 Intake: Oral 436 118 Other: Voiding Method Toilet # Voids 3 - Exam GENERAL DESCRIPTION: Middle-age male lying in bed in no distress RESPIRATORY SYSTEM: Unlabored breathing , decreased breath sounds at bases HEART: S1 S2 regular rate and rhythm , ABDOMEN: Soft , no tenderness EXTREMITIES: No edema feet - Labs CBC & Chem 7: 10/25/24 04:26 10/25/24 04:26 Labs: Abnormal Lab Results - Last 24 Hours (Table) 10/24/24 10/24/24 10/24/24 Range/Units 12:04 14:43 14:43 WBC 11.7 H (3.8-10.6) k/uL MCHC (32.0-37.0) g/dL Immature Gran # (0.00-0.04) X 10*3/uL Sodium 135 L (137-145) mmol/L Glucose 205 H (74-99) mg/dL POC Glucose (mg/dL) 240 H (70-110) mg/dL 10/24/24 10/24/2424 Range/Units 15:14 17:06 21:15 WBC (3.8-10.6) k/uL MCHC (32.0-37.0) g/dL Immature Gran # (0.00-0.04) X 10*3/uL Sodium (137-145) mmol/L Glucose (74-99) mg/dL POC Glucose (mg/dL) 182 H 192 H 211 H (70-110) mg/dL 10/25/24 10/25/24 Range/Units 04:26 06:09 WBC 12.32 H (3.8-10.6) k/uL MCHC 31.9 L (32.0-37.0) g/dL Immature Gran # 0.11 H (0.00-0.04) X 10*3/uL Sodium (137-145) mmol/L Glucose (74-99) mg/dL POC Glucose (mg/dL) 187 H (70-110) mg/dL Microbiology - Last 24 Hours (Table) 10/23/24 12:30 Gram Stain - Preliminary Groin Wound Culture - Preliminary 10/22/24 20:46 Blood Culture - Preliminary Blood Assessment and Plan (1) Scrotal abscess Current Visit: Yes Status: Acute Code(s): N49.2 - INFLAMMATORY DISORDERS OF SCROTUM SNOMED Code(s): 65267369 (2) Cutaneous abscesses of both axillae Current Visit: Yes Status: Acute Code(s): L02.411 - CUTANEOUS ABSCESS OF RIGHT AXILLA; L02.412 - CUTANEOUS ABSCESS OF LEFT AXILLA SNOMED Code(s): 49578922 (3) Allergy to multiple antibiotics Current Visit: No Status: Acute Code(s): Z88.1 - ALLERGY STATUS TO OTHER ANTIBIOTIC AGENTS SNOMED Code(s): 061929678 Plan: 1patient presented to hospital with having bilateral wheezing and scrotal area pain and swelling redness has been diagnosed with an abscess at this location status post drainage of the left lateral scrotal area [facility] suspicious for Staphylococcus auris infection with a question of possible MSSA versus MRSA 2leukocytosis likely due to the abscesses slight worsening will be monitored closely 3patient with multiple antibiotic ALLERGIES that would limit the number of antibiotic safe to use 4patient will be treated with vancomycin pharmacy to dose target trough of 15 while waiting for the culture to finalize Dictation was produced using [employer] dictation software. please excuse any grammatical, word or spelling errors. Time with Patient: Less than 30
[2024-10-25 17:00] LABS: Glucose,Whole Blood 181 mg/dL (70-110)
[2024-10-25 20:28] LABS: Glucose,Whole Blood 178 mg/dL (70-110)
--- NOTE | 2024-10-25 22:50 | P.PN ---
Subjective Progress Note Date: 10/25/24 This is a pleasant 43 years old male with past medical history of multiple medical problems as below including history of kidney stone, medial thigh abscess, portal vein thrombosis, history of bowel resection. Presents because of swelling in his both armpits and his scrotal area for about 1 week. Had an imaging done in the emergency room with ultrasound showing small lesion in the left axilla about 7 mm and in the right axilla about 2.3 cm, similar lesion seen in the scrotum. Patient is afebrile but has leukocytosis of 16,000 Glucose slightly elevated at 23 He is afebrile, blood pressure stable. Labs Anmol BMP, LFT were unremarkable Patient started on normal saline 75 mm and IV vancomycin Urology team on the case and I discussed the case and they going to drain the scrotal abscess He smokes about 1 pack/day and he was counseled to quit and he agrees. No alcohol or illicit drugs 10/24/2024 Patient is seen in follow-up today with general surgery and urology following. Patient is status post I&D drainage of the left scrotum and awaiting cultures. Patient evaluated by general surgery with concerns of bilateral axillary abscesses although patient does not want surgical intervention at this time and continuing with warm compresses. Blood sugars have been uncontrolled and will monitor closely and adjust accordingly as patient is a newly diagnosed diabetic in June and hemoglobin A1c is poorly controlled at 10.2. Patient reports was started on oral diabetic agents although this will not suffice. Will discuss further with social work/case management regarding discharge planning and arrange for insulin on discharge. Patient will need education and will discuss with nursing regarding education on insulin injections. 10/25/2024 Patient is seen in follow-up with general surgery and infectious disease following. Patient also evaluated by urology status post left scrotal I&D and currently awaiting finalized cultures to determine appropriate antibiotics on discharge. Unsure if patient will require IV antibiotics as there is suspicion for MSSA. Patient is diabetic and newly diagnosed in June having difficulties controlling blood sugars and will continue on sliding scale. Hemoglobin A1c is 10.2 and would suggest discharging home on insulin. Recommend endocrine follow- up outpatient. Patient is afebrile although white count remains elevated and will follow-up on repeat labs. Encouraged to increase activity as tolerated. Patient also scheduled to undergo axilla ultrasound in the event patient is requiring I&D. Continuing with warm soaks per general surgery Review of systems: Constitutional: No reports of fatigue, fever, or chills Cardiovascular: No reports of chest pain or palpitations Respiratory: No reports of shortness of breath or cough GI: No reports of nausea, vomiting, or diarrhea : No reports of dysuria or retention Neurovascular: No reports of weakness or numbness All medications have been reviewed Physical exam: Gen: This is a 43-year-old male who is awake, alert and oriented x 3, well- developed, appears older than stated age, morbidly obese HEENT: Head is atraumatic, normocephalic. Pupils equal, round. Sclerae is anicteric. NECK: Supple. No JVD. No lymphadenopathy. No thyromegaly. LUNGS: Diminished breath sounds bilaterally otherwise S1, S2 are muffled clear to auscultation. No wheezes or rhonchi. No intercostal retractions. HEART: Regular rate and rhythm. No murmur. ABDOMEN: Soft. Obese bowel sounds are present. No masses. No tenderness. EXTREMITIES: No pedal edema. No calf tenderness. generalized upper and lower Extremity obesity and edema noted that is chronic, bilateral axilla swelling and discomfort NEUROLOGICAL: Patient is awake, alert and oriented x3. Cranial nerves 2 through 12 are grossly intact. Assessment: Left scrotal abscess status post incision and drainage at bedside per urology with cultures pending Bilateral axillary abscess, the right 1 is 2.3 cm on the left 27 mm, no plans for immediate surgical intervention undergoing warm compresses, scheduled to undergo ultrasound for further evaluation Continued nicotine dependence Morbid obesity with BMI of 46.8 Diabetes mellitus, uncontrolled with hyperglycemia, hemoglobin A1c of 10.2 on metformin at home Depression, not an active issue History of chronic anemia, improved currently normal hemoglobin. I would recommend to hold iron for now GI prophylaxis DVT prophylaxis Full code Plan: Continue with IV vancomycin pharmacy to dose, while monitoring his kidney function and adjust the dose accordingly as such. Infectious disease following. Awaiting finalized cultures and unsure if patient will require IV antibiotics. Social work following as well working on discharge planning and verifying coverage of IV antibiotics if necessary Patient is maintained on normal saline and is eating and drinking and will discontinue and follow-up with repeat labs. Blood pressure has been elevated with no history of hypertension although is morbidly obese with history of diabetes and high risk for. May add low-dose Norvasc Follow-up culture results Continue with nicotine patch and discussed complete tobacco cessation Continue monitoring Accu-Cheks before meals and at bedtime and will adjust insulins accordingly including adding low-dose long-acting. Patient's hemoglobin A1c is 10.2 and was recently diagnosed per family at bedside in June with new onset diabetes. Blood sugars have been uncontrolled and patient's diet is completely uncontrolled with multiple large pop bottles including Mountain Dew at the bedside. Discussed with them in detail regarding the importance of diabetic and blood sugar management for healing as well as infection prevention as patient is high risk for developing worsening infections with nonhealing wounds. Patient will need diabetes education outpatient and also discussed with nursing staff about educating with the use of self injections as patient will be going home on insulin. Endocrine referral on discharge Currently awaiting cultures to determine discharge antibiotics Encouraged increase activity as tolerated Overall prognosis is guarded The impression and plan of care has been dictated by Susan Montalvo, Nurse Practitioner as directed. Dr. Dean MD I have performed a history and examination and MDM of this patient, discussed the same with the dictator, and agree with the dictator's assessment and plan as written ,documented as a scribe. Based on total visit time, I have performed more than 50% of the visit. Objective - Vital Signs Vital signs: Vital Signs Temp 99 F 10/25/24 13:10 Pulse 80 10/25/24 13:10 Resp 18 10/25/24 13:10 BP 165/92 10/25/24 13:10 Pulse Ox 95 10/25/24 13:10 FiO2 Intake & Output 10/24/24 10/25/24 10/25/24 18:59 06:59 18:59 Intake Total 436 118 Balance 436 118 Weight 156.489 kg Intake: Oral 436 118 Other: Voiding Method Toilet # Voids 3 - Labs CBC & Chem 7: 10/25/24 04:26 10/25/24 04:26 Labs: Abnormal Lab Results - Last 24 Hours (Table) 10/24/24 10/24/24 10/24/24 Range/Units 14:43 14:43 15:14 WBC 11.7 H (3.8-10.6) k/uL MCHC (32.0-37.0) g/dL Immature Gran # (0.00-0.04) X 10*3/uL Sodium 135 L (137-145) mmol/L Glucose 205 H (74-99) mg/dL POC Glucose (mg/dL) 182 H (70-110) mg/dL 10/24/24 10/24/24 10/25/24 Range/Units 17:06 21:15 04:26 WBC 12.32 H (3.8-10.6) k/uL MCHC 31.9 L (32.0-37.0) g/dL Immature Gran # 0.11 H (0.00-0.04) X 10*3/uL Sodium (137-145) mmol/L Glucose (74-99) mg/dL POC Glucose (mg/dL) 192 H 211 H (70-110) mg/dL 10/25/24 10/25/24 Range/Units 06:09 11:54 WBC (3.8-10.6) k/uL MCHC (32.0-37.0) g/dL Immature Gran # (0.00-0.04) X 10*3/uL Sodium (137-145) mmol/L Glucose (74-99) mg/dL POC Glucose (mg/dL) 187 H 164 H (70-110) mg/dL Microbiology - Last 24 Hours (Table) 10/22/24 20:46 Blood Culture - Preliminary Blood 10/23/24 12:30 Gram Stain - Preliminary Groin Wound Culture - Preliminary
[2024-10-26 04:46] LABS: African American GFR (CKD) >90 (>60 ml/min/1.73 sqM); Anion Gap 5 mmol/L; Blood Urea Nitrogen 13 mg/dL (9-20); Calcium 9.1 mg/dL (8.4-10.2); Carbon Dioxide 27 mmol/L (22-30); Chloride 103 mmol/L (98-107); Glucose 173 mg/dL (74-99); Non-African American GFR(CKD) >90 (>60 ml/min/1.73 sqM); Potassium 3.8 mmol/L (3.5-5.1); Sodium 135 mmol/L (137-145)
[2024-10-26 06:16] LABS: Glucose,Whole Blood 170 mg/dL (70-110)
[2024-10-26 08:28] LABS: Basophils # (A) 0.04 X 10*3/uL (0.00-0.10); Basophils % (A) 0.3 %; Eosinophils # (A) 0.16 X 10*3/uL (0.04-0.35); Eosinophils % (A) 1.2 %; HCT 40.8 % (39.6-50.0); HGB 12.9 g/dL (13.0-17.0); Lymphocytes # (A) 4.11 X 10*3/uL (0.90-5.00); Lymphocytes % (A) 30.8 %; MCH 28.9 pg (27.0-32.0); MCHC 31.6 g/dL (32.0-37.0); MCV 91.5 FL (80.0-97.0); Mean Platelet Volume 11.9 FL (9.5-12.2); Monocytes # (A) 0.79 X 10*3/uL (0.20-1.00); Monocytes % (A) 5.9 %; NRBC Per 100 WBC 0 X 10*3/uL (0.00-0.01); Neutrophils # (A) 8.13 X 10*3/uL (1.80-7.70); Platelet Count 223 X 10*3/uL (140-440); RBC 4.46 X 10*6/uL (4.40-5.60); RDW 13.2 % (11.5-14.5); WBC 13.34 X 10*3/uL (4.50-10.00)
--- NOTE | 2024-10-26 09:30 | P.PN ---
Subjective Progress Note Date: 10/26/24 Principal diagnosis: Scrotal abscess Patient underwent I&D of a left scrotal abscess on October 23, 2024. He states that his scrotal pain continues to improve. His has been taught to pack his wound with iodoform gauze. Objective - Vital Signs Vital signs: Vital Signs Temp 97.8 F 10/26/24 00:13 Pulse 74 10/26/24 00:13 Resp 18 10/26/24 00:13 BP 122/68 10/26/24 00:13 Pulse Ox 93 L 10/26/24 00:13 FiO2 Intake & Output 10/25/24 10/26/24 10/26/24 18:59 06:59 18:59 Intake Total 358 Balance 358 Weight 156.489 kg Intake: Oral 358 Other: # Voids 5 2 # Bowel Movements 2 - Constitutional General appearance: Present: average body habitus, cooperative, no acute distress - Genitourinary Genitourinary Comment(s): Normal phallus, normal testes. No scrotal edema. Left scrotal wound is clean, with no discharge. - Psychiatric Psychiatric: Present: A&O x's 3 - Labs CBC & Chem 7: 10/26/24 03:59 10/26/24 03:59 Labs: Abnormal Lab Results - Last 24 Hours (Table) 10/25/24 10/25/24 10/25/24 Range/Units 11:54 16:59 20:27 WBC (4.50-10.00) X 10*3/uL Hgb (13.0-17.0) g/dL MCHC (32.0-37.0) g/dL Immature Gran # (0.00-0.04) X 10*3/uL Neutrophils # (1.80-7.70) X 10*3/uL Sodium (137-145) mmol/L Glucose (74-99) mg/dL POC Glucose (mg/dL) 164 H 181 H 178 H (70-110) mg/dL 10/26/24 10/26/24 10/26/24 Range/Units 03:59 03:59 06:14 WBC 13.34 H (4.50-10.00) X 10*3/uL Hgb 12.9 L (13.0-17.0) g/dL MCHC 31.6 L (32.0-37.0) g/dL Immature Gran # 0.11 H (0.00-0.04) X 10*3/uL Neutrophils # 8.13 H (1.80-7.70) X 10*3/uL Sodium 135 L (137-145) mmol/L Glucose 173 H (74-99) mg/dL POC Glucose (mg/dL) 170 H (70-110) mg/dL Microbiology - Last 24 Hours (Table) 10/23/24 12:30 Gram Stain - Preliminary Groin Wound Culture - Preliminary 10/22/24 20:46 Blood Culture - Preliminary Blood Assessment and Plan (1) Inflammatory disorders of scrotum Current Visit: Yes Status: Acute Code(s): N49.2 - INFLAMMATORY DISORDERS OF SCROTUM SNOMED Code(s): 858940573 Plan: - Continue local wound care. - Wound culture is negative. Patient is urologically stable for discharge. Will defer choice of antibiotics to Dr. Ortega. - F/U with Dr. Carroll upon discharge.
[2024-10-26 11:41] LABS: Glucose,Whole Blood 153 mg/dL (70-110)
[2024-10-26] MEDS: INSULIN DETEMIR (LEVEMIR) 100 UNIT/ML SYR SQ SCH (11:45)
--- NOTE | 2024-10-26 13:18 | CT ---
EXAMINATION TYPE: CT pelvis w con DATE OF EXAM: 10/26/2024 12:16 PM COMPARISON: Ultrasound 10/22/2024 CLINICAL INDICATION: Male, 43 years old with history of worsening WBC, scrotal abscess, scrotal absce ss TECHNIQUE: Axial images were obtained from above the diaphragm to the pubic rami in the axial plane a t 5 mm thick sections. Reconstructed images are reviewed on the computer in the coronal plane. CONTRAST: 100 mL of Isovue 300. Study performed without Oral Contrast DLP: 2311.9 mGycm, Automated exposure control for dose reduction was used. FINDINGS: CT PELVIS: Loops of bowel within the abdomen and pelvis are normal. Postsurgical changes within the proximal sig moid colon without obstruction or stenosis. Fecal debris with sigmoid colon and rectum. No obstructi on is evident. This study is without oral contrast limiting bowel evaluation. Appendix: Normal as visualized. Urinary bladder: Normal. Genitourinary structures: Prostate contains calcification. No prostate enlargement is evident. Osseous structures: No suspicious lytic or sclerotic lesions. There is a along left aspect of the proximal scrotum. No underlying abscess is identified. There may be some packing material or other increased density present. Sample limits series 6 image 69. IMPRESSION: 1. No wound along the lateral left proximal scrotum without underlying abscess or significant phlegm on. No new collection evident. [facility], Workstation: [facility], 10/26/2024 1:16 PM
--- NOTE | 2024-10-26 13:34 | P.PN ---
Subjective Progress Note Date: 10/26/24 CHIEF COMPLAINT: Bilateral axillary abscess HISTORY OF PRESENT ILLNESS: Patient is reporting decreased pain in the bilateral axilla areas. However, his white count has increased from 12-13. He had ultras ound of bilateral axilla completed yesterday that reported similar appearing areas in the bilateral axilla etiology. Some of the images appear to be lymph nodes. Afebrile. PHYSICAL EXAM: VITAL SIGNS: Reviewed GENERAL: Well-developed in no acute distress. HEENT: No sclera icterus. Extraocular movements grossly intact. Moist buccal mucosa. Head is atraumatic, normocephalic. Hears conversational speech. No nasal drainage. NECK: Supple without lymphadenopathy. CHEST: Non-labored respirations and equal bilateral excursions. CARDIOVASCULAR: Palpable 2+ radial pulses. ABDOMEN: Soft. Nondistended. Nontender. MUSCULOSKELETAL: No clubbing or cyanosis. NEUROLOGIC: No focal or lateralizing signs. Cranial nerves II through XII grossly intact. PSYCH: Appropriate affect. Alert and oriented to person, place and time. SKIN: Both swelling areas in the bilateral axillas are decreased in size. No erythema no drainage. Decrease in tenderness with palpation ASSESSMENT: 1. Bilateral axillary abscess and lymphadenopathy 2. Diabetes type 2, not insulin-dependent with hyperglycemia poorly controlled 3. Morbid obesity due to excess calories, BMI 46.8 4. Scrotal abscess, recently drained 5. Dietary surveillance and counseling 6. Depressive disorder 7. Iron deficiency anemia PLAN: -Due to increase in the white count will consult interventional radiology service for fine-needle aspiration of possible fluid from the right axilla -CT scan of the pelvis ordered and for evaluation of any further fluid collections -Continue antibiotics per ID service -Continue warm compresses. Continue daily alcohol wipes to the axilla bilaterally -Recommend tight glycemic control. -Continue to monitor Physician [employer] Engineer note has been reviewed by physician. Signing provider agrees with the documented findings, assessment, and plan of care. Objective - Vital Signs Vital signs: Vital Signs Temp 97.8 F 10/26/24 07:10 Pulse 70 10/26/24 07:10 Resp 18 10/26/24 07:10 BP 148/79 10/26/24 07:10 Pulse Ox 94 L 10/26/24 07:10 FiO2 Intake & Output 12/03/24 12/04/24 12/04/24 18:59 06:59 18:59 Intake Total 358 240 Balance 358 240 Weight 156.489 kg Intake: Oral 358 240 Other: # Voids 5 2 # Bowel Movements 2 - Labs CBC & Chem 7: 10/26/24 03:59 10/26/24 03:59 Labs: Abnormal Lab Results - Last 24 Hours (Table) 10/25/24 10/25/24 10/26/24 Range/Units 16:59 20:27 03:59 WBC (4.50-10.00) X 10*3/uL Hgb (13.0-17.0) g/dL MCHC (32.0-37.0) g/dL Immature Gran # (0.00-0.04) X 10*3/uL Neutrophils # (1.80-7.70) X 10*3/uL Sodium 135 L (137-145) mmol/L Glucose 173 H (74-99) mg/dL POC Glucose (mg/dL) 181 H 178 H (70-110) mg/dL 10/26/24 10/26/24 10/26/24 Range/Units 03:59 06:14 11:39 WBC 13.34 H (4.50-10.00) X 10*3/uL Hgb 12.9 L (13.0-17.0) g/dL MCHC 31.6 L (32.0-37.0) g/dL Immature Gran # 0.11 H (0.00-0.04) X 10*3/uL Neutrophils # 8.13 H (1.80-7.70) X 10*3/uL Sodium (137-145) mmol/L Glucose (74-99) mg/dL POC Glucose (mg/dL) 170 H 153 H (70-110) mg/dL Microbiology - Last 24 Hours (Table) 10/22/24 20:46 Blood Culture - Preliminary Blood 10/23/24 12:30 Gram Stain - Preliminary Groin Wound Culture - Preliminary
[2024-10-26 17:17] LABS: Glucose,Whole Blood 143 mg/dL (70-110)
--- NOTE | 2024-10-26 18:19 | US ---
EXAMINATION TYPE: US asp abscess/hemat/cyst DATE OF EXAM: 10/26/2024 3:10 PM COMPARISON: 10/25/2024 CLINICAL INDICATION:Male, 43 years old with history of right axilla organizing fluid collection TECHNIQUE: Ultrasound guided fluid aspiration. PROCEDURE: Informed consent was obtained. Risks including bleeding, infection, damage to surrounding structures, and the potential need for further procedures as well as benefits were explained. All patient questi ons were answered. Initial ultrasound images were taken which showed safest access to fluid collection located at the [facility] axilla. The patient was prepped and draped. Under sterile technique with 1% lidocaine local anes thesia a 5-[place] one-step needle/catheter was inserted under ultrasound guidance. The patient estrella ated the procedure well without complication. The patient was transferred to recovery in stable condi tion. IMPRESSION: Attempted ultrasound fluid aspiration of the right axilla, only small amount of blood was able to be obtained. Sample sent to the lab for analysis. [facility], , 10/26/2024 6:17 PM
[2024-10-26] MEDS: FAMOTIDINE 20 MG TAB PO SCH (20:10)
[2024-10-26 20:20] LABS: Glucose,Whole Blood 156 mg/dL (70-110)
--- NOTE | 2024-10-26 23:04 | P.PN ---
Subjective Progress Note Date: 10/26/24 Principal diagnosis: Reason for follow-up is scrotal and bilateral axillary abscess Patient is a 43-year-old male with a past medical history significant for pneumonia reflux kidney stones pilonidal cyst presenting to the hospital concerning for swelling to bilateral axilla and in the scrotal area, patient have a drainage of the scrotal abscess ID consulted for management of his antibiotic. On today's visit that is 10/26/2024,the patient denies any fever or any chills, patient is breathing comfortably on room air, the patient denies chest pain shortness of breath and no significant cough, patient denies abdominal pain, no nausea vomiting or diarrhea. Denies any worsening pain to the left scrotal area. Cultures currently pending white count is 13.34 creatinine 0.77 Objective - Vital Signs Vital signs: Vital Signs Temp 97.8 F 10/26/24 00:13 Pulse 74 10/26/24 00:13 Resp 18 10/26/24 00:13 BP 122/68 10/26/24 00:13 Pulse Ox 93 L 10/26/24 00:13 FiO2 Intake & Output 10/25/24 10/26/24 10/26/24 18:59 06:59 18:59 Intake Total 358 Balance 358 Weight 156.489 kg Intake: Oral 358 Other: # Voids 5 2 # Bowel Movements 2 - Exam GENERAL DESCRIPTION: Middle-age male lying in bed in no distress RESPIRATORY SYSTEM: Unlabored breathing , decreased breath sounds at bases HEART: S1 S2 regular rate and rhythm , ABDOMEN: Soft , no tenderness GENITOURINARY: Left scrotal area swelling redness slightly decreased EXTREMITIES: No edema feet - Labs CBC & Chem 7: 10/26/24 03:59 10/26/24 03:59 Labs: Abnormal Lab Results - Last 24 Hours (Table) 10/25/24 10/25/24 10/25/24 Range/Units 11:54 16:59 20:27 WBC (4.50-10.00) X 10*3/uL Hgb (13.0-17.0) g/dL MCHC (32.0-37.0) g/dL Immature Gran # (0.00-0.04) X 10*3/uL Neutrophils # (1.80-7.70) X 10*3/uL Sodium (137-145) mmol/L Glucose (74-99) mg/dL POC Glucose (mg/dL) 164 H 181 H 178 H (70-110) mg/dL 10/26/24 10/26/24 10/26/24 Range/Units 03:59 03:59 06:14 WBC 13.34 H (4.50-10.00) X 10*3/uL Hgb 12.9 L (13.0-17.0) g/dL MCHC 31.6 L (32.0-37.0) g/dL Immature Gran # 0.11 H (0.00-0.04) X 10*3/uL Neutrophils # 8.13 H (1.80-7.70) X 10*3/uL Sodium 135 L (137-145) mmol/L Glucose 173 H (74-99) mg/dL POC Glucose (mg/dL) 170 H (70-110) mg/dL Microbiology - Last 24 Hours (Table) 10/23/24 12:30 Gram Stain - Preliminary Groin Wound Culture - Preliminary 10/22/24 20:46 Blood Culture - Preliminary Blood Assessment and Plan (1) Scrotal abscess Current Visit: Yes Status: Acute Code(s): N49.2 - INFLAMMATORY DISORDERS OF SCROTUM SNOMED Code(s): 40929872 (2) Cutaneous abscesses of both axillae Current Visit: Yes Status: Acute Code(s): L02.411 - CUTANEOUS ABSCESS OF RIGHT AXILLA; L02.412 - CUTANEOUS ABSCESS OF LEFT AXILLA SNOMED Code(s): 19078551 (3) Allergy to multiple antibiotics Current Visit: No Status: Acute Code(s): Z88.1 - ALLERGY STATUS TO OTHER ANTIBIOTIC AGENTS SNOMED Code(s): 961894417 Plan: 1patient presented to hospital with having bilateral wheezing and scrotal area pain and swelling redness has been diagnosed with an abscess at this location status post drainage of the left lateral scrotal area [facility] suspicious for Staphylococcus auris infection with a question of possible MSSA versus MRSA 2leukocytosis likely due to the abscesses slight worsening but no evidence of any worsening infection noticed 3patient with multiple antibiotic ALLERGIES that would limit the number of antibiotic safe to use 4patient currently is being treated with vancomycin pharmacy to dose target trough of 15 while waiting for the culture to finalize to determine discharge antibiotics Dictation was produced using [employer] dictation software. please excuse any grammatical, word or spelling errors.
[2024-10-27 06:06] LABS: Glucose,Whole Blood 163 mg/dL (70-110)
--- NOTE | 2024-10-27 06:18 | P.PN ---
Subjective Progress Note Date: 10/26/24 This is a pleasant 43 years old male with past medical history of multiple medical problems as below including history of kidney stone, medial thigh abscess, portal vein thrombosis, history of bowel resection. Presents because of swelling in his both armpits and his scrotal area for about 1 week. Had an imaging done in the emergency room with ultrasound showing small lesion in the left axilla about 7 mm and in the right axilla about 2.3 cm, similar lesion seen in the scrotum. Patient is afebrile but has leukocytosis of 16,000 Glucose slightly elevated at 23 He is afebrile, blood pressure stable. Labs Anmol BMP, LFT were unremarkable Patient started on normal saline 75 mm and IV vancomycin Urology team on the case and I discussed the case and they going to drain the scrotal abscess He smokes about 1 pack/day and he was counseled to quit and he agrees. No alcohol or illicit drugs 10/24/2024 Patient is seen in follow-up today with general surgery and urology following. Patient is status post I&D drainage of the left scrotum and awaiting cultures. Patient evaluated by general surgery with concerns of bilateral axillary abscesses although patient does not want surgical intervention at this time and continuing with warm compresses. Blood sugars have been uncontrolled and will monitor closely and adjust accordingly as patient is a newly diagnosed diabetic in June and hemoglobin A1c is poorly controlled at 10.2. Patient reports was started on oral diabetic agents although this will not suffice. Will discuss further with social work/case management regarding discharge planning and arrange for insulin on discharge. Patient will need education and will discuss with nursing regarding education on insulin injections. 10/25/2024 Patient is seen in follow-up with general surgery and infectious disease following. Patient also evaluated by urology status post left scrotal I&D and currently awaiting finalized cultures to determine appropriate antibiotics on discharge. Unsure if patient will require IV antibiotics as there is suspicion for MSSA. Patient is diabetic and newly diagnosed in June having difficulties controlling blood sugars and will continue on sliding scale. Hemoglobin A1c is 10.2 and would suggest discharging home on insulin. Recommend endocrine follow- up outpatient. Patient is afebrile although white count remains elevated and will follow-up on repeat labs. Encouraged to increase activity as tolerated. Patient also scheduled to undergo axilla ultrasound in the event patient is requiring I&D. Continuing with warm soaks per general surgery 10/26/2024 Patient is seen in follow-up today maintained on IV antibiotics awaiting finalized cultures. Cultures thus far negative. Concerns of continued right axilla collection although no drainage and patient reports is continuing on warm compresses. Interventional radiology consulted per general surgery for possible drainage of the right axilla area and will await official report. CT abdomen also ordered per surgery to evaluate for any further areas of infectious source. Patient evaluated by urology and cleared recommending outpatient follow-up and continuing on antibiotic therapy. Review of systems: Constitutional: No reports of fatigue, fever, or chills Cardiovascular: No reports of chest pain or palpitations Respiratory: No reports of shortness of breath or cough GI: No reports of nausea, vomiting, or diarrhea : No reports of dysuria or retention Neurovascular: No reports of weakness or numbness All medications have been reviewed Physical exam: Gen: This is a 43-year-old male who is awake, alert and oriented x 3, well- developed, appears older than stated age, morbidly obese HEENT: Head is atraumatic, normocephalic. Pupils equal, round. Sclerae is anicteric. NECK: Supple. No JVD. No lymphadenopathy. No thyromegaly. LUNGS: Diminished breath sounds bilaterally otherwise S1, S2 are muffled clear to auscultation. No wheezes or rhonchi. No intercostal retractions. HEART: Regular rate and rhythm. No murmur. ABDOMEN: Soft. Obese bowel sounds are present. No masses. No tenderness. EXTREMITIES: No pedal edema. No calf tenderness. generalized upper and lower Extremity obesity and edema noted that is chronic, bilateral axilla swelling and discomfort NEUROLOGICAL: Patient is awake, alert and oriented x3. Cranial nerves 2 through 12 are grossly intact. Assessment: Left scrotal abscess status post incision and drainage at bedside per urology with cultures remaining negative thus far Bilateral axillary abscess, the right 1 is 2.3 cm on the left 27 mm, no plans for immediate surgical intervention undergoing warm compresses, scheduled to undergo IR evaluation for possible drainage Continued ongoing nicotine dependence Morbid obesity with BMI of 46.8 Diabetes mellitus, uncontrolled with hyperglycemia, hemoglobin A1c of 10.2 on metformin at home Depression, not an active issue History of chronic anemia, improved currently normal hemoglobin. I would recommend to hold iron for now GI prophylaxis DVT prophylaxis Full code Plan: Continue with IV vancomycin with infectious disease following. Awaiting finalized cultures and unsure if patient will require IV antibiotics. Cultures thus far are negative. Social work following as well working on discharge planning and verifying coverage of IV antibiotics if necessary Follow-up culture results Continue with nicotine patch and discussed complete tobacco cessation Continue monitoring Accu-Cheks before meals and at bedtime and will adjust insulins accordingly including adding low-dose long-acting. Patient's hemoglobin A1c is 10.2 and was recently diagnosed per family at bedside in June with new onset diabetes. Blood sugars have been uncontrolled and patient's diet is completely uncontrolled with multiple large pop bottles including Mountain Dew at the bedside. Discussed with them in detail regarding the importance of diabetic and blood sugar management for healing as well as infection prevention as patient is high risk for developing worsening infections with nonhealing wounds. Patient will need diabetes education outpatient and also discussed with nursing staff about educating with the use of self injections as patient will be going home on insulin. Endocrine referral on discharge Currently awaiting interventional radiology evaluation for possible right axilla drainage per surgery. Encouraged increase activity as tolerated Overall prognosis is guarded The impression and plan of care has been dictated by Susan Montalvo, Nurse Practitioner as directed. Dr. Dean MD I have performed a history and examination and MDM of this patient, discussed the same with the dictator, and agree with the dictator's assessment and plan as written ,documented as a scribe. Based on total visit time, I have performed more than 50% of the visit. Objective - Vital Signs Vital signs: Vital Signs Temp 97.8 F 10/26/24 00:13 Pulse 74 10/26/24 00:13 Resp 18 10/26/24 00:13 BP 122/68 10/26/24 00:13 Pulse Ox 93 L 10/26/24 00:13 FiO2 Intake & Output 10/25/24 10/26/24 10/26/24 18:59 06:59 18:59 Intake Total 358 Balance 358 Weight 156.489 kg Intake: Oral 358 Other: # Voids 5 2 # Bowel Movements 2 - Labs CBC & Chem 7: 10/26/24 03:59 10/26/24 03:59 Labs: Abnormal Lab Results - Last 24 Hours (Table) 10/25/24 10/25/24 10/25/24 Range/Units 11:54 16:59 20:27 WBC (4.50-10.00) X 10*3/uL Hgb (13.0-17.0) g/dL MCHC (32.0-37.0) g/dL Immature Gran # (0.00-0.04) X 10*3/uL Neutrophils # (1.80-7.70) X 10*3/uL Sodium (137-145) mmol/L Glucose (74-99) mg/dL POC Glucose (mg/dL) 164 H 181 H 178 H (70-110) mg/dL 10/26/24 10/26/24 10/26/24 Range/Units 03:59 03:59 06:14 WBC 13.34 H (4.50-10.00) X 10*3/uL Hgb 12.9 L (13.0-17.0) g/dL MCHC 31.6 L (32.0-37.0) g/dL Immature Gran # 0.11 H (0.00-0.04) X 10*3/uL Neutrophils # 8.13 H (1.80-7.70) X 10*3/uL Sodium 135 L (137-145) mmol/L Glucose 173 H (74-99) mg/dL POC Glucose (mg/dL) 170 H (70-110) mg/dL Microbiology - Last 24 Hours (Table) 10/23/24 12:30 Gram Stain - Preliminary Groin Wound Culture - Preliminary 10/22/24 20:46 Blood Culture - Preliminary Blood
[2024-10-27 07:39] LABS: Basophils # (A) 0.1 k/uL (0-0.2); Basophils % (A) 1 %; Eosinophils # (A) 0.2 k/uL (0-0.7); Eosinophils % (A) 2 %; HCT 41.2 % (39.0-53.0); HGB 13.2 gm/dL (13.0-17.5); Lymphocytes % (A) 24 %; MCH 29.2 pg (25.0-35.0); MCHC 32.1 g/dL (31.0-37.0); MCV 91.1 fL (80.0-100.0); Mean Platelet Volume 8.6; Monocytes # (A) 0.5 k/uL (0-1.0); Monocytes % (A) 4 %; Neutrophils # (A) 8.3 k/uL (1.3-7.7); Neutrophils % (A) 68 %; Platelet Count 220 k/uL (150-450); RBC 4.52 m/uL (4.30-5.90); RDW 13.3 % (11.5-15.5); WBC 12.2 k/uL (3.8-10.6)
[2024-10-27 08:32] LABS: African American GFR (CKD) >90 (>60 ml/min/1.73 sqM); Non-African American GFR(CKD) >90 (>60 ml/min/1.73 sqM)
[2024-10-27] MEDS: VANCOMYCIN TROUGH DUE 1 EACH MISC MISCELLANE ONE (09:06)
[2024-10-27] MEDS: amLODIPine 5 MG TAB PO SCH (10:25)
[2024-10-27 12:06] LABS: Glucose,Whole Blood 142 mg/dL (70-110)
--- NOTE | 2024-10-27 13:26 | P.PN ---
Subjective Progress Note Date: 10/27/24 CHIEF COMPLAINT: Bilateral axillary abscess HISTORY OF PRESENT ILLNESS: Patient is reporting decreased pain in the bilateral axilla areas. WBC is coming down from 13-12.2. Patient had fine-needle aspirat ion of the right axilla with a small amount of blood aspirated. Cultures pending. Pelvis CT shows no wound along the left proximal scrotum without underlying abscess or significant phlegmon. No new fluid collection. Afebrile. PHYSICAL EXAM: VITAL SIGNS: Reviewed GENERAL: Well-developed in no acute distress. HEENT: No sclera icterus. Extraocular movements grossly intact. Moist buccal mucosa. Head is atraumatic, normocephalic. Hears conversational speech. No nasal drainage. NECK: Supple without lymphadenopathy. CHEST: Non-labored respirations and equal bilateral excursions. CARDIOVASCULAR: Palpable 2+ radial pulses. ABDOMEN: Soft. Nondistended. Nontender. MUSCULOSKELETAL: No clubbing or cyanosis. NEUROLOGIC: No focal or lateralizing signs. Cranial nerves II through XII gr ossly intact. PSYCH: Appropriate affect. Alert and oriented to person, place and time. SKIN: Both swelling areas in the bilateral axillas are decreased in size. No erythema no drainage. mild tenderness with palpation ASSESSMENT: 1. Bilateral axillary abscess and lymphadenopathy 2. Diabetes type 2, not insulin-dependent with hyperglycemia poorly controlled 3. Morbid obesity due to excess calories, BMI 46.8 4. Scrotal abscess, recently drained 5. Dietary surveillance and counseling 6. Depressive disorder 7. Iron deficiency anemia PLAN: -No surgical intervention planned -Antibiotics per ID service -Follow-up on culture results -Continue warm compresses. Continue daily alcohol wipes to the axilla bilaterally -Recommend tight glycemic control. Physician Dag Sprayer note has been reviewed by physician. Signing provider agrees with the documented findings, assessment, and plan of care. Objective - Vital Signs Vital signs: Vital Signs Temp 98.1 F 10/27/24 08:00 Pulse 69 10/27/24 08:00 Resp 17 10/27/24 08:00 BP 137/85 10/27/24 08:00 Pulse Ox 95 10/27/24 08:00 FiO2 Intake & Output 10/26/24 10/27/24 10/27/24 18:59 06:59 18:59 Intake Total 358 Balance 358 Intake: Oral 358 Other: Voiding Method Toilet Toilet Toilet # Voids 6 # Bowel Movements 2 0 - Labs CBC & Chem 7: 10/27/24 06:02 10/27/24 07:09 Labs: Abnormal Lab Results - Last 24 Hours (Table) 10/26/24 10/26/24 10/27/24 Range/Units 17:14 20:18 06:02 WBC 12.2 H (3.8-10.6) k/uL Neutrophils # 8.3 H (1.3-7.7) k/uL POC Glucose (mg/dL) 143 H 156 H (70-110) mg/dL 10/27/24 10/27/24 Range/Units 06:05 12:05 WBC (3.8-10.6) k/uL Neutrophils # (1.3-7.7) k/uL POC Glucose (mg/dL) 163 H 142 H (70-110) mg/dL Microbiology - Last 24 Hours (Table) 10/23/24 12:30 Gram Stain - Preliminary Groin Wound Culture - Preliminary 10/22/24 20:46 Blood Culture - Preliminary Blood
--- NOTE | 2024-10-27 14:07 | P.PN ---
Subjective Progress Note Date: 10/27/24 This is a pleasant 43 years old male with past medical history of multiple medical problems as below including history of kidney stone, medial thigh abscess, portal vein thrombosis, history of bowel resection. Presents because of swelling in his both armpits and his scrotal area for about 1 week. Had an imaging done in the emergency room with ultrasound showing small lesion in the left axilla about 7 mm and in the right axilla about 2.3 cm, similar lesion seen in the scrotum. Patient is afebrile but has leukocytosis of 16,000 Glucose slightly elevated at 23 He is afebrile, blood pressure stable. Labs Anmol BMP, LFT were unremarkable Patient started on normal saline 75 mm and IV vancomycin Urology team on the case and I discussed the case and they going to drain the scrotal abscess He smokes about 1 pack/day and he was counseled to quit and he agrees. No alcohol or illicit drugs 10/24/2024 Patient is seen in follow-up today with general surgery and urology following. Patient is status post I&D drainage of the left scrotum and awaiting cultures. Patient evaluated by general surgery with concerns of bilateral axillary abscesses although patient does not want surgical intervention at this time and continuing with warm compresses. Blood sugars have been uncontrolled and will monitor closely and adjust accordingly as patient is a newly diagnosed diabetic in June and hemoglobin A1c is poorly controlled at 10.2. Patient reports was started on oral diabetic agents although this will not suffice. Will discuss further with social work/case management regarding discharge planning and arrange for insulin on discharge. Patient will need education and will discuss with nursing regarding education on insulin injections. 10/25/2024 Patient is seen in follow-up with general surgery and infectious disease following. Patient also evaluated by urology status post left scrotal I&D and currently awaiting finalized cultures to determine appropriate antibiotics on discharge. Unsure if patient will require IV antibiotics as there is suspicion for MSSA. Patient is diabetic and newly diagnosed in June having difficulties controlling blood sugars and will continue on sliding scale. Hemoglobin A1c is 10.2 and would suggest discharging home on insulin. Recommend endocrine follow- up outpatient. Patient is afebrile although white count remains elevated and will follow-up on repeat labs. Encouraged to increase activity as tolerated. Patient also scheduled to undergo axilla ultrasound in the event patient is requiring I&D. Continuing with warm soaks per general surgery 10/26/2024 Patient is seen in follow-up today maintained on IV antibiotics awaiting finalized cultures. Cultures thus far negative. Concerns of continued right axilla collection although no drainage and patient reports is continuing on warm compresses. Interventional radiology consulted per general surgery for possible drainage of the right axilla area and will await official report. CT abdomen also ordered per surgery to evaluate for any further areas of infectious source. Patient evaluated by urology and cleared recommending outpatient follow-up and continuing on antibiotic therapy. 10/27/2024 Patient is seen in follow-up today with attempted drainage of the right axilla area with interventional radiology and a small sample was sent although not enough for complete drainage. Patient is afebrile and white count is trending down maintained on IV antibiotics with infectious disease following. Cultures remain pending and thus far are negative although awaiting finalized cultures to determine discharge antibiotics. Continue with warm compresses with general surgery following with no plans for surgical intervention at this time. CT abdomen was performed showing the scrotal area of concern with no obvious abdominal findings to suggest other infections. Patient reports his pain is improving in the scrotal area and axilla and managed appropriately at this time. Continue monitoring blood sugars closely and have added long-acting and again discussed with nursing staff about allowing the patient to self inject for continuing education. Patient will be going home with low-dose long-acting insulin on discharge with a hemoglobin A1c of 10.2. Review of systems: Constitutional: No reports of fatigue, fever, or chills Cardiovascular: No reports of chest pain or palpitations Respiratory: No reports of shortness of breath or cough GI: No reports of nausea, vomiting, or diarrhea : No reports of dysuria or retention Neurovascular: No reports of weakness or numbness All medications have been reviewed Physical exam: Gen: This is a 43-year-old male who is awake, alert and oriented x 3, well- developed, appears older than stated age, morbidly obese HEENT: Head is atraumatic, normocephalic. Pupils equal, round. Sclerae is anicteric. NECK: Supple. No JVD. No lymphadenopathy. No thyromegaly. LUNGS: Diminished breath sounds bilaterally otherwise S1, S2 are muffled clear to auscultation. No wheezes or rhonchi. No intercostal retractions. HEART: Regular rate and rhythm. No murmur. ABDOMEN: Soft. Obese bowel sounds are present. No masses. No tenderness. EXTREMITIES: No pedal edema. No calf tenderness. generalized upper and lower Extremity obesity and edema noted that is chronic, bilateral axilla swelling and discomfort NEUROLOGICAL: Patient is awake, alert and oriented x3. Cranial nerves 2 through 12 are grossly intact. Assessment: Left scrotal abscess status post incision and drainage at bedside per urology with cultures remaining negative thus far Bilateral axillary abscess, the right 1 is 2.3 cm on the left 27 mm, no plans for immediate surgical intervention undergoing warm compresses, interventional radiology evaluated the patient status post attempted drainage with minimal drainage noted of the right axilla and sent for analysis. Cultures are pending at this time. Continued ongoing nicotine dependence Morbid obesity with BMI of 46.8 Diabetes mellitus, uncontrolled with hyperglycemia, hemoglobin A1c of 10.2 on metformin at home Depression, not an active issue History of chronic anemia, improved currently normal hemoglobin. I would recommend to hold iron for now GI prophylaxis DVT prophylaxis Full code Plan: Continue with IV vancomycin with infectious disease following. Awaiting finalized cultures and unsure if patient will require IV antibiotics. Cultures thus far are negative. Social work following as well working on discharge planning and verifying coverage of IV antibiotics if necessary Follow-up culture results Continue with nicotine patch and discussed complete tobacco cessation Continue monitoring Accu-Cheks before meals and at bedtime and will adjust insulins accordingly including adding low-dose long-acting. Patient's hemoglobin A1c is 10.2 and was recently diagnosed per family at bedside in June with new onset diabetes. Blood sugars have been uncontrolled and patient's diet is completely uncontrolled with multiple large pop bottles including Mountain Dew at the bedside. Discussed with them in detail regarding the importance of diabetic and blood sugar management for healing as well as infection prevention as patient is high risk for developing worsening infections with nonhealing wounds. Patient will need diabetes education outpatient and also discussed with nursing staff about educating with the use of self injections as patient will be going home on insulin. Endocrine referral on discharge Encouraged increase activity as tolerated Overall prognosis is guarded The impression and plan of care has been dictated by Susan Montalvo, Nurse Practitioner as directed. Dr. Dean MD I have performed a history and examination and MDM of this patient, discussed the same with the dictator, and agree with the dictator's assessment and plan as written ,documented as a scribe. Based on total visit time, I have performed more than 50% of the visit. Objective - Vital Signs Vital signs: Vital Signs Temp 98.1 F 10/27/24 08:00 Pulse 69 10/27/24 08:00 Resp 17 10/27/24 08:00 BP 137/85 10/27/24 08:00 Pulse Ox 95 10/27/24 08:00 FiO2 Intake & Output 10/26/24 10/27/24 10/27/24 18:59 06:59 18:59 Intake Total 358 Balance 358 Intake: Oral 358 Other: Voiding Method Toilet Toilet # Voids 6 # Bowel Movements 2 0 - Labs CBC & Chem 7: 10/27/24 06:02 10/27/24 07:09 Labs: Abnormal Lab Results - Last 24 Hours (Table) 10/26/24 10/26/24 10/26/24 Range/Units 11:39 17:14 20:18 WBC (3.8-10.6) k/uL Neutrophils # (1.3-7.7) k/uL POC Glucose (mg/dL) 153 H 143 H 156 H (70-110) mg/dL 10/27/24 10/27/24 Range/Units 06:02 06:05 WBC 12.2 H (3.8-10.6) k/uL Neutrophils # 8.3 H (1.3-7.7) k/uL POC Glucose (mg/dL) 163 H (70-110) mg/dL Microbiology - Last 24 Hours (Table) 10/23/24 12:30 Gram Stain - Preliminary Groin Wound Culture - Preliminary 10/22/24 20:46 Blood Culture - Preliminary Blood
--- NOTE | 2024-10-27 15:49 | P.PN ---
Subjective Progress Note Date: 10/27/24 Principal diagnosis: Reason for follow-up is scrotal and bilateral axillary abscess Patient is a 43-year-old male with a past medical history significant for pneumonia reflux kidney stones pilonidal cyst presenting to the hospital concerning for swelling to bilateral axilla and in the scrotal area, patient have a drainage of the scrotal abscess ID consulted for management of his antibiotic. On today's visit that is 10/27/2024,the patient remains to be afebrile, patient is on room air not requiring supplemental oxygen and denies any shortness of breath no chest pain or cough.Patient denies having any nausea or vomiting, no abdominal pain and no diarrhea pain to the scrotal and nasal area has slightly decreased. Patient white count is down to 12.2 creatinine 0.69 cultures are still pending Objective - Vital Signs Vital signs: Vital Signs Temp 98.1 F 10/27/24 08:00 Pulse 69 10/27/24 08:00 Resp 17 10/27/24 08:00 BP 137/85 10/27/24 08:00 Pulse Ox 95 10/27/24 08:00 FiO2 Intake & Output 10/26/24 10/27/24 10/27/24 18:59 06:59 18:59 Intake Total 358 Balance 358 Intake: Oral 358 Other: Voiding Method Toilet Toilet Toilet # Voids 6 # Bowel Movements 2 0 - Exam GENERAL DESCRIPTION: Middle-age male lying in bed in no distress RESPIRATORY SYSTEM: Unlabored breathing , decreased breath sounds at bases HEART: S1 S2 regular rate and rhythm , ABDOMEN: Soft , no tenderness GENITOURINARY: Left scrotal area swelling redness slightly decreased EXTREMITIES: No edema feet - Labs CBC & Chem 7: 10/27/24 06:02 10/27/24 07:09 Labs: Abnormal Lab Results - Last 24 Hours (Table) 10/26/24 10/26/24 10/26/24 Range/Units 11:39 17:14 20:18 WBC (3.8-10.6) k/uL Neutrophils # (1.3-7.7) k/uL POC Glucose (mg/dL) 153 H 143 H 156 H (70-110) mg/dL 10/27/24 10/27/24 Range/Units 06:02 06:05 WBC 12.2 H (3.8-10.6) k/uL Neutrophils # 8.3 H (1.3-7.7) k/uL POC Glucose (mg/dL) 163 H (70-110) mg/dL Microbiology - Last 24 Hours (Table) 10/23/24 12:30 Gram Stain - Preliminary Groin Wound Culture - Preliminary 10/22/24 20:46 Blood Culture - Preliminary Blood Assessment and Plan (1) Scrotal abscess Current Visit: Yes Status: Acute Code(s): N49.2 - INFLAMMATORY DISORDERS OF SCROTUM SNOMED Code(s): 53497691 (2) Cutaneous abscesses of both axillae Current Visit: Yes Status: Acute Code(s): L02.411 - CUTANEOUS ABSCESS OF RIGHT AXILLA; L02.412 - CUTANEOUS ABSCESS OF LEFT AXILLA SNOMED Code(s): 43102371 (3) Allergy to multiple antibiotics Current Visit: No Status: Acute Code(s): Z88.1 - ALLERGY STATUS TO OTHER ANTIBIOTIC AGENTS SNOMED Code(s): 830047411 Plan: 1patient presented to hospital with having bilateral wheezing and scrotal area pain and swelling redness has been diagnosed with an abscess at this location status post drainage of the left lateral scrotal area [facility] suspicious for Staphylococcus auris infection with a question of possible MSSA versus MRSA 2leukocytosis likely due to the abscesses slight worsening but no evidence of any worsening infection noticed 3patient with multiple antibiotic ALLERGIES that would limit the number of antibiotic safe to use 4patient will be treated with with vancomycin pharmacy to dose target trough of 15 while waiting for the culture to finalize to determine discharge antibiotics, multiple question concern answered Dictation was produced using [employer] dictation software. please excuse any grammatical, word or spelling errors. Time with Patient: Less than 30
[2024-10-27 17:16] LABS: Glucose,Whole Blood 143 mg/dL (70-110)
[2024-10-27 20:02] LABS: Glucose,Whole Blood 174 mg/dL (70-110)
[2024-10-27] MEDS: VANCOMYCIN 2,250 MG in SODIUM CHLORIDE 0.9% 500 ML 500 ML IVPB SCH (20:21)
--- NOTE | 2024-10-27 22:06 | P.PN ---
Subjective Progress Note Date: 10/27/24 Principal diagnosis: Scrotal abscess Patient underwent I&D of a left scrotal abscess on October 23, 2024. He states that his scrotal pain continues to improve. His has been taught to pack his wound with iodoform gauze. Objective - Vital Signs Vital signs: Vital Signs Temp 98.1 F 10/27/24 19:13 Pulse 76 10/27/24 19:13 Resp 17 10/27/24 19:13 BP 133/83 10/27/24 19:13 Pulse Ox 94 L 10/27/24 19:13 FiO2 Intake & Output 10/27/24 10/27/24 10/28/24 06:59 18:59 06:59 Intake Total 354 Output Total 1 Balance -1 354 Intake: Oral 354 Output: Stool 1 Other: Voiding Method Toilet Toilet Toilet # Voids 5 3 # Bowel Movements 0 - Constitutional General appearance: Present: average body habitus, cooperative, no acute distress - Genitourinary Genitourinary Comment(s): Normal phallus, normal testes. Scrotal wound is clean, without drainage. There is no cellulitis. - Psychiatric Psychiatric: Present: A&O x's 3 - Labs CBC & Chem 7: 10/27/24 06:02 10/27/24 07:09 Labs: Abnormal Lab Results - Last 24 Hours (Table) 10/27/24 10/27/24 10/27/24 Range/Units 06:02 06:05 12:05 WBC 12.2 H (3.8-10.6) k/uL Neutrophils # 8.3 H (1.3-7.7) k/uL POC Glucose (mg/dL) 163 H 142 H (70-110) mg/dL 10/27/24 10/27/24 Range/Units 17:12 20:00 WBC (3.8-10.6) k/uL Neutrophils # (1.3-7.7) k/uL POC Glucose (mg/dL) 143 H 174 H (70-110) mg/dL Microbiology - Last 24 Hours (Table) 10/23/24 12:30 Gram Stain - Final Groin Wound Culture - Final Assessment and Plan (1) Inflammatory disorders of scrotum Current Visit: Yes Status: Acute Code(s): N49.2 - INFLAMMATORY DISORDERS OF SCROTUM SNOMED Code(s): 267837316 Plan: - Continue local wound care. - Patient is urologically stable for discharge. Will defer choice of antibiotics to Dr. Ortega. - F/U with Dr. Carroll upon discharge.
[2024-10-28 05:47] LABS: Glucose,Whole Blood 205 mg/dL (70-110)
[2024-10-28 07:17] VITALS: TEMP 98
--- NOTE | 2024-10-28 11:53 | P.PN ---
Subjective Progress Note Date: 10/28/24 CHIEF COMPLAINT: Bilateral axillary abscess HISTORY OF PRESENT ILLNESS: Patient continues to feel better each day. Patient is reporting decreased pain in the bilateral axilla areas. CBC is pending. Afebrile. Aspiration culture results pending PHYSICAL EXAM: VITAL SIGNS: Reviewed GENERAL: Well-developed in no acute distress. HEENT: No sclera icterus. Extraocular movements grossly intact. Moist buccal mucosa. Head is atraumatic, normocephalic. Hears conversational speech. No nasal drainage. NECK: Supple without lymphadenopathy. CHEST: Non-labored respirations and equal bilateral excursions. CARDIOVASCULAR: Palpable 2+ radial pulses. ABDOMEN: Soft. Nondistended. Nontender. MUSCULOSKELETAL: No clubbing or cyanosis. NEUROLOGIC: No focal or lateralizing signs. Cranial nerves II through XII grossly intact. PSYCH: Appropriate affect. Alert and oriented to person, place and time. SKIN: Both swelling areas in the bilateral axillas are decreased in size. No erythema no drainage. mild tenderness with palpation ASSESSMENT: 1. Bilateral axillary abscess and lymphadenopathy 2. Diabetes type 2, not insulin-dependent with hyperglycemia poorly controlled 3. Morbid obesity due to excess calories, BMI 46.8 4. Scrotal abscess, recently drained 5. Dietary surveillance and counseling 6. Depressive disorder 7. Iron deficiency anemia PLAN: -No surgical intervention planned -Patient can be discharge from surgical standpoint when medically cleared -Discharge antibiotics per ID service -Continue warm compresses. Continue daily alcohol wipes to the axilla bilaterally -Recommend tight glycemic control. Physician Project Facilitator note has been reviewed by physician. Signing provider agrees with the documented findings, assessment, and plan of care. Objective - Vital Signs Vital signs: Vital Signs Temp 98 F 10/28/24 07:16 Pulse 74 10/28/24 08:00 Resp 16 10/28/24 08:00 BP 127/80 10/28/24 07:16 Pulse Ox 95 10/28/24 07:16 FiO2 Intake & Output 10/27/24 10/28/24 10/28/24 18:59 06:59 18:59 Intake Total 354 Balance 354 Intake: Oral 354 Other: Voiding Method Toilet Toilet Toilet # Voids 3 4 - Labs CBC & Chem 7: 10/27/24 06:02 10/27/24 07:09 Labs: Abnormal Lab Results - Last 24 Hours (Table) 10/27/24 10/27/24 10/27/24 Range/Units 12:05 17:12 20:00 POC Glucose (mg/dL) 142 H 143 H 174 H (70-110) mg/dL 10/28/24 Range/Units 05:43 POC Glucose (mg/dL) 205 H (70-110) mg/dL Microbiology - Last 24 Hours (Table) 10/26/24 15:00 Gram Stain - Preliminary Aspirate Body Fluid Culture - Preliminary 10/23/24 12:30 Gram Stain - Final Groin Wound Culture - Final
[2024-10-28 12:05] LABS: Glucose,Whole Blood 130 mg/dL (70-110)
[2024-10-28 12:35] LABS: Basophils # (A) 0.1 k/uL (0-0.2); Basophils % (A) 0 %; Eosinophils # (A) 0.2 k/uL (0-0.7); Eosinophils % (A) 1 %; HCT 45.1 % (39.0-53.0); HGB 14.9 gm/dL (13.0-17.5); Lymphocytes # (A) 3.8 k/uL (1.0-4.8); Lymphocytes % (A) 24 %; MCH 29.9 pg (25.0-35.0); MCV 90.8 fL (80.0-100.0); Mean Platelet Volume 8.6; Monocytes # (A) 0.7 k/uL (0-1.0); Monocytes % (A) 5 %; Neutrophils # (A) 10.8 k/uL (1.3-7.7); Neutrophils % (A) 69 %; Platelet Count 278 k/uL (150-450); RBC 4.97 m/uL (4.30-5.90); RDW 13.3 % (11.5-15.5); WBC 15.8 k/uL (3.8-10.6)
--- NOTE | 2024-10-28 12:46 | P.PN ---
Subjective Progress Note Date: 10/28/24 Principal diagnosis: Reason for follow-up is scrotal and bilateral axillary abscess Patient is a 43-year-old male with a past medical history significant for pneumonia reflux kidney stones pilonidal cyst presenting to the hospital concerning for swelling to bilateral axilla and in the scrotal area, patient have a drainage of the scrotal abscess ID consulted for management of his antibiotic. On today's visit that is 10/28/2024, the patient continues to be afebrile, the patient is on room air and breathing comfortably, the Pt denies having any chest pain or cough, the patient denies having any abdominal pain no vomiting or any diarrhea pain to the scrotal area has decreased no drainage. Patient white count is 15.8 cultures have been negative Objective - Vital Signs Vital signs: Vital Signs Temp 98 F 10/28/24 07:16 Pulse 74 10/28/24 07:16 Resp 17 10/28/24 07:16 BP 127/80 10/28/24 07:16 Pulse Ox 95 10/28/24 07:16 FiO2 Intake & Output 10/27/24 10/28/24 10/28/24 18:59 06:59 18:59 Intake Total 354 Balance 354 Intake: Oral 354 Other: Voiding Method Toilet Toilet # Voids 3 4 - Exam GENERAL DESCRIPTION: Middle-age male lying in bed in no distress RESPIRATORY SYSTEM: Unlabored breathing , decreased breath sounds at bases HEART: S1 S2 regular rate and rhythm , ABDOMEN: Soft , no tenderness GENITOURINARY: Left scrotal area swelling redness has decreased in intensity no drainage EXTREMITIES: No edema feet - Labs CBC & Chem 7: 10/28/24 12:03 10/27/24 07:09 Labs: Abnormal Lab Results - Last 24 Hours (Table) 10/27/24 10/27/24 10/27/24 Range/Units 12:05 17:12 20:00 POC Glucose (mg/dL) 142 H 143 H 174 H (70-110) mg/dL 10/28/24 Range/Units 05:43 POC Glucose (mg/dL) 205 H (70-110) mg/dL Microbiology - Last 24 Hours (Table) 10/26/24 15:00 Gram Stain - Preliminary Aspirate Body Fluid Culture - Preliminary 10/23/24 12:30 Gram Stain - Final Groin Wound Culture - Final Assessment and Plan (1) Scrotal abscess Current Visit: Yes Status: Acute Code(s): N49.2 - INFLAMMATORY DISORDERS OF SCROTUM SNOMED Code(s): 02213164 (2) Cutaneous abscesses of both axillae Current Visit: Yes Status: Acute Code(s): L02.411 - CUTANEOUS ABSCESS OF RIGHT AXILLA; L02.412 - CUTANEOUS ABSCESS OF LEFT AXILLA SNOMED Code(s): 36840318 (3) Allergy to multiple antibiotics Current Visit: No Status: Acute Code(s): Z88.1 - ALLERGY STATUS TO OTHER ANTIBIOTIC AGENTS SNOMED Code(s): 945148184 Plan: 1patient presented to hospital with having bilateral wheezing and scrotal area pain and swelling redness has been diagnosed with an abscess at this location status post drainage of the left lateral scrotal area [facility] suspicious for Staphylococcus auris infection with a question of possible MSSA versus MRSA 2patient with multiple antibiotic ALLERGIES that would limit the number of antibiotic safe to use 3patient did have clinical improvement culture did not show any resistant pathogen we will consider a 10-day course of oral doxycycline on discharge discussed with PRODUCE LABORER for admitting team Dictation was produced using [employer] dictation software. please excuse any grammatical, word or spelling errors.
[2024-10-28 13:34] VITALS: BP 142/87; PULSE 88; RESP 17
[2024-10-29] MEDS ORDERED: VANCOMYCIN TROUGH DUE 1 EACH MISC MISCELLANE ONE (08:00)
--- NOTE | 2024-10-31 06:03 | P.DS ---
Providers Date of admission: 10/22/24 21:24 Expected date of discharge: 10/28/24 Attending physician: Syl Ramirez Consults: 10/22/24 20:44 Consult Physician Urgent Consulting Provider: Kvng Carroll Consult Reason/Comments: Possible scrotal abscess Do you want consulting provider notified?: Yes, Notify in am 10/23/24 11:49 Consult Physician Routine Consulting Provider: Brittany Garcia Consult Reason/Comments: right axilary abscess Do you want consulting provider notified?: Yes 10/24/24 14:33 Consult Physician Urgent Consulting Provider: Yoseph Ortega Consult Reason/Comments: b/l axilla abscess, s/p ID drainage of scrotal abscess Do you want consulting provider notified?: Yes Primary care physician: Jose Hassan Hospital Course: Final diagnosis Left scrotal abscess status post incision and drainage at bedside per urology with cultures remaining negative thus far Bilateral axillary abscess, the right 1 is 2.3 cm on the left 27 mm, no plans for immediate surgical intervention undergoing warm compresses, interventional radiology evaluated the patient status post attempted drainage with minimal drainage noted of the right axilla and sent for analysis. Cultures are pending at this time. Continued ongoing nicotine dependence Morbid obesity with BMI of 46.8 Diabetes mellitus, uncontrolled with hyperglycemia, hemoglobin A1c of 10.2 on metformin at home Depression, not an active issue History of chronic anemia, improved currently normal hemoglobin. I would recommend to hold iron for now GI prophylaxis DVT prophylaxis Full code Discharge disposition Patient is being discharged in a stable condition with guarded prognosis to [facility]. Patient will follow-up with Dr. Hassan in the outpatient setting upon discharge. Patient is to continue with oral doxycycline and outpatient follow- up with general surgery along with infectious disease and urology as scheduled. Total time taken is greater than 35 minutes. Hospital course This is a 43-year-old male who was recently admitted with left scrotal abscess status post I&D along with bilateral axilla concerns for abscesses being closely monitored. Patient evaluated by general surgery with no interventional plans and continuing with conservative management of warm compresses to the bilateral axilla. IR evaluated the patient attempted right axilla drainage with mostly blood but specimen was sent and pending. Patient is also status post incision and drainage at the bedside with urology of left scrotal abscess reporting improvements in swelling and pain. Patient will continue oral doxycycline on discharge per ID recommendations and close outpatient follow-up. Patient recently diagnosed in June with diabetes and hemoglobin A1c is 10.2. Will initiate long-acting insulins twice daily and also recommend endocrine referral. Patient has been cleared by consultations and would like to go home. Please refer to consultation notes for further HPI. Currently no reports of chest pain, shortness of breath, or palpitations. Patient is afebrile. No reports of nausea or vomiting and patient is tolerating diet. Patient will be discharged home today. [facility] pharmacy contacted as there was concerns of discrepancies on the medication. Prescriptions clarified and confirmed they have received. Verified per medical records they were E scribed and has been received at the pharmacy. Physical exam: Gen: This is a 43-year-old male who is awake, alert and oriented x 3, well- developed, appears older than stated age, morbidly obese HEENT: Head is atraumatic, normocephalic. Pupils equal, round. Sclerae is anicteric. NECK: Supple. No JVD. No lymphadenopathy. No thyromegaly. LUNGS: Clear to auscultation. No wheezes or rhonchi. No intercostal retractions. HEART: Regular rate and rhythm. No murmur. ABDOMEN: Soft. Obese bowel sounds are present. No masses. No tenderness. EXTREMITIES: No pedal edema. No calf tenderness. NEUROLOGICAL: Patient is awake, alert and oriented x3. Cranial nerves 2 through 12 are grossly intact. Please refer to medication reconciliation sheet for a list of medications. The impression and plan of care has been dictated by Susan Montalvo, Nurse Practitioner as directed. Dr. Evelyn MD I have performed a history and examination and MDM of this patient, discussed the same with the dictator, and agree with the dictator's assessment and plan as written ,documented as a scribe. Based on total visit time, I have performed more than 50% of the visit. Patient Condition at Discharge: Fair Plan - Discharge Summary Discharge Rx Participant: Yes New Discharge Prescriptions: New Aspirin 81 mg PO DAILY #30 tab Atorvastatin [Lipitor] 20 mg PO DAILY #30 tab amLODIPine [Norvasc] 5 mg PO DAILY #30 tab Doxycycline [Vibramycin] 100 mg PO 20 #10 cap Insulin Detemir (Levemir) [Levemir] 5 unit SQ BID@0700,2099 30 Days #3 each Ibuprofen [Motrin] 400 mg PO Q6HR PRN tab PRN Reason: Mild Pain Or Fever > 100.5 Acetaminophen Tab [Tylenol] 650 mg PO Q6HR PRN tab PRN Reason: Mild Pain Or Fever > 100.5 Continue Omeprazole 20 mg PO BID Ferrous Sulfate [Iron (65 MG Elemental)] 325 mg PO DAILY Sertraline [Zoloft] 100 mg PO DAILY Cholecalciferol [Vitamin D3 (25 Mcg = 1000 Iu)] 25 mcg PO DAILY metFORMIN HCL 1,000 mg PO BID Nystatin 100,000 Unit/gm Powd [Mycostatin Powder] 1 applic TOPICAL BID Sertraline [Zoloft] 25 mg PO DAILY Discharge Medication List Omeprazole 20 mg PO BID 11/07/21 [History] Sertraline [Zoloft] 100 mg PO DAILY 09/17/22 [History] Ferrous Sulfate [Iron (65 MG Elemental)] 325 mg PO DAILY 10/19/22 [History] Cholecalciferol [Vitamin D3 (25 Mcg = 1000 Iu)] 25 mcg PO DAILY 06/22/23 [History] Nystatin 100,000 Unit/gm Powd [Mycostatin Powder] 1 applic TOPICAL BID 10/23/24 [History] Sertraline [Zoloft] 25 mg PO DAILY 10/23/24 [History] metFORMIN HCL 1,000 mg PO BID 10/23/24 [History] Acetaminophen Tab [Tylenol] 650 mg PO Q6HR PRN tab 10/28/24 [Rx] Aspirin 81 mg PO DAILY #30 tab 10/28/24 [Rx] Atorvastatin [Lipitor] 20 mg PO DAILY #30 tab 10/28/24 [Rx] Doxycycline [Vibramycin] 100 mg PO 20 #10 cap 10/28/24 [Rx] Ibuprofen [Motrin] 400 mg PO Q6HR PRN tab 10/28/24 [Rx] Insulin Detemir (Levemir) [Levemir] 5 unit SQ BID@0700,2100 30 Days #3 each 10/28/24 [Rx] amLODIPine [Norvasc] 5 mg PO DAILY #30 tab 10/28/24 [Rx] Follow up Appointment(s)/Referral(s): Jose Hassan MD [Primary Care Provider] - 1-2 days Kvng Carroll MD [STAFF PHYSICIAN] - 1 Week Yoseph Ortega MD [STAFF PHYSICIAN] - 1 Week Activity/Diet/Wound Care/Special Instructions: Activity limited until follow-up Continue with warm compresses and keeping the axilla and scrotal area clean Continue with wound care to the scrotal area Continue monitoring blood sugars before meals and at bedtime and keep a diary of all readings Recommend outpatient follow-up with endocrine and will be starting insulins Hold insulin if blood sugars 100 or less Follow-up with infectious disease outpatient Discharge Disposition: HOME SELF-CARE
== END 2024-10-28 14:28 | disposition home or self-care (01) | DRG 501 ==
LOC: EC 17:13 → 6NMEDSUR 21:24 → 4SSUR 10-23 01:18 → 6NMEDSUR 10-23 01:20
PROVIDERS: ADMIT Hospitalist; ATTEND Hospitalist
PROC: 0V950ZX Drainage of Scrotum, Open Approach, Diagnostic (ICD-10-PCS; principal; 2024-10-23)
DX: N49.2 Inflammatory disorders of scrotum (principal); E11.65 Type 2 diabetes mellitus with hyperglycemia; D50.9 Iron deficiency anemia, unspecified; F32.A Depression, unspecified; E66.01 Morbid (severe) obesity due to excess calories; Z68.42 Body mass index [BMI] 45.0-49.9, adult; F17.210 Nicotine dependence, cigarettes, uncomplicated; L02.412 Cutaneous abscess of left axilla; L02.411 Cutaneous abscess of right axilla; Z79.84 Long term (current) use of oral hypoglycemic drugs; Z79.899 Other long term (current) drug therapy; Z88.1 Allergy status to other antibiotic agents; Z71.6 Tobacco abuse counseling
CPT/HCPCS: 10160; 36415; 72193; 76870; 76882; 80048; 80053; 80202; 82565; 83036; 83605; 85025; 87040; 87070; 87075; 87205; 93975; 96365; 96366; 96375; 96376; 99285

== ENCOUNTER 2025-01-15 19:29 | Emergency (ER) | payer OTHER ==
[2025-01-15 20:42] LABS: Influenza A Not Detected (Not Detectd); Influenza B Not Detected (Not Detectd); RSV Not Detected (Not Detectd)
--- NOTE | 2025-01-15 21:53 | ED ---
Abdominal Pain HPI - General Source: patient, RN notes reviewed Mode of arrival: ambulatory Limitations: no limitations <Starr Ybarra - Last Filed: 01/16/25 03:25> <Rod Saleem - Last Filed: 01/16/25 06:03> - General Chief Complaint: Abdominal Pain Stated Complaint: Abdominal pain; fever Time Seen by Provider: 01/15/25 21:48 - History of Present Illness Initial Comments: 44-year-old male with history of bowel resection and cholecystectomy presenting for epigastric pain x 5 hours with associated fever, lightheadedness, and nausea. Also endorses cough and shortness of breath over the past week. States he has chronic diarrhea from inflammatory bowel disease. He follows with a GI specialist. States the symptoms feel similar to previous inflammatory bowel disease flareups however reports the fever is unusual. Denies any cardiac history. Denies blood thinners. (Starr Ybarra) - Related Data Home Medications Medication Instructions Recorded Confirmed Omeprazole 20 mg PO BID 11/07/21 10/23/24 Sertraline [Zoloft] 100 mg PO DAILY 09/17/22 10/23/24 Ferrous Sulfate [Iron (65 MG 325 mg PO DAILY 10/19/22 10/23/24 Elemental)] Cholecalciferol [Vitamin D3 (25 25 mcg PO DAILY 06/22/23 10/23/24 Mcg = 1000 Iu)] Nystatin 100,000 Unit/gm Powd 1 applic TOPICAL BID 10/23/24 10/23/24 [Mycostatin Powder] Sertraline [Zoloft] 25 mg PO DAILY 10/23/24 10/23/24 metFORMIN HCL 1,000 mg PO BID 10/23/24 10/23/24 Previous Rx's Medication Instructions Recorded Acetaminophen Tab [Tylenol] 650 mg PO Q6HR PRN tab 10/28/24 Aspirin 81 mg PO DAILY #30 tab 10/28/24 Atorvastatin [Lipitor] 20 mg PO DAILY #30 tab 10/28/24 Doxycycline [Vibramycin] 100 mg PO 20 #10 cap 10/28/24 Ibuprofen [Motrin] 400 mg PO Q6HR PRN tab 10/28/24 Insulin Detemir (Levemir) [Levemir] 5 unit SQ BID@0700,2100 30 Days #3 10/28/24 each amLODIPine [Norvasc] 5 mg PO DAILY #30 tab 10/28/24 Azithromycin [Zithromax Z Pack] 1 tab PO DIRECTED #6 tab 01/16/25 Allergies Allergy/AdvReac Type Severity Reaction Status Date / Time ceftriaxone [From Rocephin] Allergy Severe Rash/Hives Verified 01/15/25 19:54 amoxicillin Allergy Anaphylaxis Verified 01/15/25 19:54 aztreonam [From Azactam] Allergy Rash/Hives Verified 01/15/25 19:54 Penicillins Allergy Anaphylaxis Verified 01/15/25 19:54 artificial color/flavor AdvReac seizure Uncoded 01/15/25 19:54 artificial sugar AdvReac seizure Uncoded 01/15/25 19:54 Review of Systems ROS Other: All systems not noted in ROS Statement are negative. <Starr Ybarra - Last Filed: 01/16/25 03:25> ROS Other: All systems not noted in ROS Statement are negative. <Rod Saleem - Last Filed: 01/16/25 06:03> ROS Statement: Those systems with pertinent positive or pertinent negative responses have been documented in the HPI. Past Medical History Past Medical History: GERD/Reflux, Pneumonia Additional Past Medical History / Comment(s): PILONIDAL CYST EXC 04/23/17, KIDNEY STONE PASSED X2 2015. rt sup,medial thigh abcess. Diverticulitis. Iron deficient anemia-recent EGD/Colonoscopy on 10/14/22, recent adm. for abd. pain, colitis, sepsis, portal vein thrombosis, has finished A/B's History of Any Multi-Drug Resistant Organisms: None Reported Past Surgical History: Bowel Resection, Cholecystectomy, Orthopedic Surgery, Tonsillectomy Additional Past Surgical History / Comment(s): RT KNEE SURG X3. EXC INFECTED PILONIDAL CYST W/ ABSCESS. last surgery was in April 2017. SURGICAL I& D RT SUP,MED THIGH 06/04/17. EGD/Colonoscopy 10/14/22-negative for bleeding, recent diag. Past Anesthesia/Blood Transfusion Reactions: No Reported Reaction, Motion Sickness, Motion Sickness Additional Past Anesthesia/Blood Transfusion Reaction / Comment(s): States size of his throat is smaller than normal. States anesthesia usually does not have any problem intubating him. Past Psychological History: Anxiety, Depression, Panic Disorder, PTSD Smoking Status: Former smoker Past Alcohol Use History: None Reported Past Drug Use History: None Reported - Past Family History Mother Family Medical History: CVA/TIA, Diabetes Mellitus, Thyroid Disorder Father History Unknown: Yes <Starr Ybarra - Last Filed: 01/16/25 03:25> General Exam Limitations: no limitations General appearance: alert, in no apparent distress Head exam: Present: atraumatic, normocephalic, normal inspection Eye exam: Present: normal appearance, PERRL, EOMI. Absent: scleral icterus, conjunctival injection, periorbital swelling ENT exam: Present: normal exam, mucous membranes moist Neck exam: Present: normal inspection. Absent: tenderness, meningismus, lymphadenopathy Respiratory exam: Present: normal lung sounds bilaterally. Absent: respiratory distress, wheezes, rales, rhonchi, stridor Cardiovascular Exam: Present: regular rate, normal rhythm, normal heart sounds. Absent: systolic murmur, diastolic murmur, rubs, gallop, clicks GI/Abdominal exam: Present: soft, tenderness (Mild epigastric tenderness), normal bowel sounds. Absent: distended, guarding, rebound, rigid Back exam: Absent: CVA tenderness (R), CVA tenderness (L) Neurological exam: Present: alert, oriented X3 Psychiatric exam: Present: normal affect, normal mood Skin exam: Present: warm, dry, intact, normal color. Absent: rash <Starr Ybarra - Last Filed: 01/16/25 03:25> Course Vital Signs 01/15/25 01/15/25 01/16/25 19:48 23:55 00:56 Temperature 101.1 F H 98.5 F Pulse Rate 103 H 82 72 Respiratory 22 20 16 Rate Blood Pressure 122/76 121/70 125/65 O2 Sat by Pulse 95 91 L 96 Oximetry Medical Decision Making - Lab Data Result diagrams: 01/15/25 22:36 01/15/25 22:36 - EKG Data -: EKG Interpreted by Mn <Brenda Ybarrana - Last Filed: 01/16/25 03:25> - Lab Data Result diagrams: 01/15/25 22:36 01/16/25 03:00 <Rod Saleem - Last Filed: 01/16/25 06:03> - Medical Decision Making Was pt. sent in by a medical professional or institution (, PA, CABLE TV INSTALLER, urgent care, hospital, or [place] health care facility...) When possible be specific @ -No Did you speak to anyone other than the patient for history (EMS, parent, family, police, friend...)? What history was obtained from this source @ -No Did you review nursing and triage notes (agree or disagree)? Why? @ -I reviewed and agree with nursing and triage notes Were old charts reviewed (outside hosp., previous admission, EMS record, old EKG, old radiological studies, urgent care reports/EKG's, [place] health care facility records)? Report findings @ -No old charts were reviewed Differential Diagnosis (chest pain, altered mental status, abdominal pain women, abdominal pain men, vaginal bleeding, weakness, fever, dyspnea, syncope, headache, dizziness, GI bleed, back pain, seizure, CVA, palpatations, mental health, musculoskeletal)? @ -Differential Abdominal Pain Men: Appendicitis, cholecystitis, diverticulosis, ischemic bowel, pancreatitis, h epatitis, UTI, gastroenteritis, AAA, incarcerated hernia, bowel obstruction, constipation, inflammatory bowel, hepatitis, peptic ulcer disease, splenic infarction, perforated viscus, testicular torsion, this is not meant to be an all-inclusive list EKG interpreted by me (3pts min.). @ -None X-rays interpreted by me (1pt min.). @ -Chest x-ray reveals no acute process CT interpreted by me (1pt min.). @ -CT abdomen pelvis with contrast reveals no acute process U/S interpreted by me (1pt. min.). @ -None done What testing was considered but not performed or refused? (CT, X-rays, U/S, labs)? Why? @ -None What meds were considered but not given or refused? Why? @ -None Did you discuss the management of the patient with other professionals (professionals i.e. , PA, CABLE TV INSTALLER, lab, RT, psych nurse, social worker delinquency prevention, roller machine operator, teacher, chief scientific officer, case assistant)? Give summary @ -No Was smoking cessation discussed for >3mins.? @ -No Was critical care preformed (if so, how long)? @ -No Were there social determinants of health that impacted care today? How? (Homelessness, low income, unemployed, alcoholism, drug addiction, transportation, low edu. Level, literacy, decrease access to med. care, care home, rehab)? @ -No Was there de-escalation of care discussed even if they declined (Discuss DNR or withdrawal of care, Hospice)? DNR status @ -No What co-morbidities impacted this encounter? (DM, HTN, Smoking, COPD, CAD, Cancer, CVA, ARF, Chemo, Hep., AIDS, mental health diagnosis, sleep apnea, morbid obesity)? @ -None Was patient admitted / discharged? Hospital course, mention meds given and route, prescriptions, significant lab abnormalities, going to OR and other pertinent info. @ -Patient was given IV fluids, Tylenol, Toradol, and Zofran for pain and fever. EKG reveals normal sinus rhythm with S1Q3T3. Lab work remarkable for leukocytosis of 12.2 and alk phos 130. Lactic acid stable at 1.8. Urinalysis reveals 9 white blood cells and 1+ protein. Chest x-ray reveals no acute process. CT abdomen pelvis with contrast reveals no acute process. D-dimer elevated at 1.00. Patient was provided with IV fluid bolus and CT angio chest ordered at this time to rule out PE. Case was signed out to my ED attending Dr. Saleem pending CT and disposition. (Starr Ybarra) - Lab Data Lab Results 01/15/25 01/15/25 01/15/25 Range/Units 20:01 22:36 22:36 WBC 12.2 H (3.8-10.6) k/uL RBC 4.71 (4.30-5.90) m/uL Hgb 13.8 (13.0-17.5) gm/dL Hct 41.5 (39.0-53.0) % MCV 88.1 (80.0-100.0) fL MCH 29.3 (25.0-35.0) pg MCHC 33.2 (31.0-37.0) g/dL RDW 14.0 (11.5-15.5) % Plt Count 254 (150-450) k/uL MPV 8.9 Neutrophils % 77 % Lymphocytes % 18 % Monocytes % 3 % Eosinophils % 1 % Basophils % 0 % Neutrophils # 9.5 H (1.3-7.7) k/uL Lymphocytes # 2.2 (1.0-4.8) k/uL Monocytes # 0.4 (0-1.0) k/uL Eosinophils # 0.1 (0-0.7) k/uL Basophils # 0.0 (0-0.2) k/uL D-Dimer (<0.60) mg/L FEU Sodium (137-145) mmol/L Potassium (3.5-5.1) mmol/L Chloride (98-107) mmol/L Carbon Dioxide (22-30) mmol/L Anion Gap mmol/L BUN (9-20) mg/dL Creatinine (0.66-1.25) mg/dL Est GFR (CKD-EPI)AfAm (>60 ml/min/1.73 sqM) Est GFR (CKD-EPI)NonAf (>60 ml/min/1.73 sqM) Glucose (74-99) mg/dL Plasma Lactic Acid Gaetano (0.7-2.0) mmol/L Calcium (8.4-10.2) mg/dL Total Bilirubin (0.2-1.3) mg/dL AST (17-59) U/L ALT (4-49) U/L Alkaline Phosphatase (38-126) U/L Troponin I (0.000-0.034) ng/mL Total Protein (6.3-8.2) g/dL Albumin (3.5-5.0) g/dL Lipase (23-300) U/L Urine Color Yellow Urine Appearance Clear (Clear) Urine pH 5.5 (5.0-8.0) Ur Specific [place] 1.029 (1.001-1.035) Urine Protein 1+ H (Negative) Urine Glucose (UA) Negative (Negative) Urine Ketones Negative (Negative) Urine Blood Negative (Negative) Urine Nitrite Negative (Negative) Urine Bilirubin Negative (Negative) Urine Urobilinogen <2.0 (<2.0) mg/dL Ur Leukocyte Esterase Trace H (Negative) Urine RBC 2 (0-5) /hpf Urine WBC 9 H (0-5) /hpf Urine WBC Clumps Rare H (None) /hpf Ur Squamous Epith Cells 1 (0-4) /hpf Calcium Oxalate Crystal Rare H (None) /hpf Hyaline Casts 4 H (0-2) /lpf Granular Casts 1 (0) /lpf Urine Mucus Few H (None) /hpf Urine Yeast (Budding) Rare H (None) /hpf Influenza Type A (PCR) Not Detected (Not Detectd) Influenza Type B (PCR) Not Detected (Not Detectd) RSV (PCR) Not Detected (Not Detectd) SARS-CoV-2 (PCR) Not Detected (Not Detectd) 01/15/25 01/15/25 01/15/25 Range/Units 22:36 22:36 22:36 WBC (3.8-10.6) k/uL RBC (4.30-5.90) m/uL Hgb (13.0-17.5) gm/dL Hct (39.0-53.0) % MCV (80.0-100.0) fL MCH (25.0-35.0) pg MCHC (31.0-37.0) g/dL RDW (11.5-15.5) % Plt Count (150-450) k/uL MPV Neutrophils % % Lymphocytes % % Monocytes % % Eosinophils % % Basophils % % Neutrophils # (1.3-7.7) k/uL Lymphocytes # (1.0-4.8) k/uL Monocytes # (0-1.0) k/uL Eosinophils # (0-0.7) k/uL Basophils # (0-0.2) k/uL D-Dimer (<0.60) mg/L FEU Sodium 135 L (137-145) mmol/L Potassium 4.0 (3.5-5.1) mmol/L Chloride 98 (98-107) mmol/L Carbon Dioxide 25 (22-30) mmol/L Anion Gap 12 mmol/L BUN 11 (9-20) mg/dL Creatinine 0.87 (0.66-1.25) mg/dL Est GFR (CKD-EPI)AfAm >90 (>60 ml/min/1.73 sqM) Est GFR (CKD-EPI)NonAf >90 (>60 ml/min/1.73 sqM) Glucose 142 H (74-99) mg/dL Plasma Lactic Acid Gaetano 1.8 (0.7-2.0) mmol/L Calcium 9.0 (8.4-10.2) mg/dL Total Bilirubin 0.7 (0.2-1.3) mg/dL AST 24 (17-59) U/L ALT 32 (4-49) U/L Alkaline Phosphatase 133 H (38-126) U/L Troponin I <0.012 (0.000-0.034) ng/mL Total Protein 7.1 (6.3-8.2) g/dL Albumin 4.1 (3.5-5.0) g/dL Lipase 55 (23-300) U/L Urine Color Urine Appearance (Clear) Urine pH (5.0-8.0) Ur Specific [place] (1.001-1.035) Urine Protein (Negative) Urine Glucose (UA) (Negative) Urine Ketones (Negative) Urine Blood (Negative) Urine Nitrite (Negative) Urine Bilirubin (Negative) Urine Urobilinogen (<2.0) mg/dL Ur Leukocyte Esterase (Negative) Urine RBC (0-5) /hpf Urine WBC (0-5) /hpf Urine WBC Clumps (None) /hpf Ur Squamous Epith Cells (0-4) /hpf Calcium Oxalate Crystal (None) /hpf Hyaline Casts (0-2) /lpf Granular Casts (0) /lpf Urine Mucus (None) /hpf Urine Yeast (Budding) (None) /hpf Influenza Type A (PCR) (Not Detectd) Influenza Type B (PCR) (Not Detectd) RSV (PCR) (Not Detectd) SARS-CoV-2 (PCR) (Not Detectd) 01/16/25 01/16/25 Range/Units 01:06 03:00 WBC (3.8-10.6) k/uL RBC (4.30-5.90) m/uL Hgb (13.0-17.5) gm/dL Hct (39.0-53.0) % MCV (80.0-100.0) fL MCH (25.0-35.0) pg MCHC (31.0-37.0) g/dL RDW (11.5-15.5) % Plt Count (150-450) k/uL MPV Neutrophils % % Lymphocytes % % Monocytes % % Eosinophils % % Basophils % % Neutrophils # (1.3-7.7) k/uL Lymphocytes # (1.0-4.8) k/uL Monocytes # (0-1.0) k/uL Eosinophils # (0-0.7) k/uL Basophils # (0-0.2) k/uL D-Dimer 1.00 H (<0.60) mg/L FEU Sodium 134 L (137-145) mmol/L Potassium 3.6 (3.5-5.1) mmol/L Chloride 101 (98-107) mmol/L Carbon Dioxide 26 (22-30) mmol/L Anion Gap 7 mmol/L BUN 12 (9-20) mg/dL Creatinine 0.79 (0.66-1.25) mg/dL Est GFR (CKD-EPI)AfAm >90 (>60 ml/min/1.73 sqM) Est GFR (CKD-EPI)NonAf >90 (>60 ml/min/1.73 sqM) Glucose 133 H (74-99) mg/dL Plasma Lactic Acid Gaetano (0.7-2.0) mmol/L Calcium 8.1 L (8.4-10.2) mg/dL Total Bilirubin (0.2-1.3) mg/dL AST (17-59) U/L ALT (4-49) U/L Alkaline Phosphatase (38-126) U/L Troponin I (0.000-0.034) ng/mL Total Protein (6.3-8.2) g/dL Albumin (3.5-5.0) g/dL Lipase (23-300) U/L Urine Color Urine Appearance (Clear) Urine pH (5.0-8.0) Ur Specific [place] (1.001-1.035) Urine Protein (Negative) Urine Glucose (UA) (Negative) Urine Ketones (Negative) Urine Blood (Negative) Urine Nitrite (Negative) Urine Bilirubin (Negative) Urine Urobilinogen (<2.0) mg/dL Ur Leukocyte Esterase (Negative) Urine RBC (0-5) /hpf Urine WBC (0-5) /hpf Urine WBC Clumps (None) /hpf Ur Squamous Epith Cells (0-4) /hpf Calcium Oxalate Crystal (None) /hpf Hyaline Casts (0-2) /lpf Granular Casts (0) /lpf Urine Mucus (None) /hpf Urine Yeast (Budding) (None) /hpf Influenza Type A (PCR) (Not Detectd) Influenza Type B (PCR) (Not Detectd) RSV (PCR) (Not Detectd) SARS-CoV-2 (PCR) (Not Detectd) - EKG Data EKG Comments: EKG reveals normal sinus rhythm with S1Q3T3. Ventricular rate 93 bpm, KS interval 132, QRS duration 98, QT/QTc 380/431 (Starr Ybarra) Disposition <Starr Ybarra - Last Filed: 01/16/25 03:25> Is patient prescribed a controlled substance at d/c from ED?: No Time of Disposition: 06:02 <Rod Saleem - Last Filed: 01/16/25 06:03> Clinical Impression: Abdominal pain, Pneumonia Disposition: HOME SELF-CARE Condition: Fair Instructions (If sedation given, give patient instructions): Abdominal Pain (ED) Prescriptions: Azithromycin [Zithromax Z Pack] 1 tab PO DIRECTED #6 tab Referrals: Jose Hassan MD [Primary Care Provider] - 1-2 days
[2025-01-15] MEDS: ONDANSETRON 4 MG/2 ML VIAL IVP STA (22:46)
[2025-01-15] MEDS: SODIUM CHLORIDE 0.9% 1,000 ML IV STA ×2 (22:46)
[2025-01-15] MEDS: KETOROLAC 15 MG/ML 1 ML VIAL IVP STA (22:47)
[2025-01-15] MEDS: ACETAMINOPHEN IV (For NPO) 1,000 MG in EMPTY BAG 1 BAG IVPB STA (22:48)
[2025-01-15 22:50] LABS: Basophils % (A) 0 %; Eosinophils # (A) 0.1 k/uL (0-0.7); Eosinophils % (A) 1 %; HCT 41.5 % (39.0-53.0); HGB 13.8 gm/dL (13.0-17.5); Lymphocytes # (A) 2.2 k/uL (1.0-4.8); Lymphocytes % (A) 18 %; MCH 29.3 pg (25.0-35.0); MCHC 33.2 g/dL (31.0-37.0); MCV 88.1 fL (80.0-100.0); Mean Platelet Volume 8.9; Monocytes # (A) 0.4 k/uL (0-1.0); Monocytes % (A) 3 %; Neutrophils # (A) 9.5 k/uL (1.3-7.7); Neutrophils % (A) 77 %; Platelet Count 254 k/uL (150-450); RBC 4.71 m/uL (4.30-5.90); WBC 12.2 k/uL (3.8-10.6)
[2025-01-15 23:05] LABS: Appearance,Urine Clear (Clear); Bilirubin,Urine Negative (Negative); Blood,Urine Negative (Negative); Budding Yeast,Urine Rare /hpf; Calcium Oxalate Crystals,Urine Rare /hpf; Color,Urine Yellow; Glucose,Urine (UA) Negative (Negative); Granular Casts,Urine 1 /lpf (0); Hyaline Casts,Urine 4 /lpf (0-2); Ketones,Urine Negative (Negative); Leukocyte Esterase,Urine Trace (Negative); Mucus,Urine Few /hpf; Nitrite,Urine Negative (Negative); PH, Urine 5.5 (5.0-8.0); Protein,Urine 1+ (Negative); RBC,Urine 2 /hpf (0-5); Specific Gravity,Urine 1.029 (1.001-1.035); Squamous Epithelial Cell,Urine 1 /hpf (0-4); Urobilinogen,Urine <2.0 mg/dL (<2.0); WBC,Urine 9 /hpf (0-5)
[2025-01-15 23:14] LABS: ALT 32 U/L (4-49); AST 24 U/L (17-59); African American GFR (CKD) >90 (>60 ml/min/1.73 sqM); Albumin 4.1 g/dL (3.5-5.0); Alkaline Phosphatase 133 U/L (38-126); Anion Gap 12 mmol/L; Blood Urea Nitrogen 11 mg/dL (9-20); Carbon Dioxide 25 mmol/L (22-30); Chloride 98 mmol/L (98-107); Glucose 142 mg/dL (74-99); Lipase 55 U/L (23-300); Non-African American GFR(CKD) >90 (>60 ml/min/1.73 sqM); Sodium 135 mmol/L (137-145); Total Bilirubin 0.7 mg/dL (0.2-1.3); Total Protein 7.1 g/dL (6.3-8.2)
--- NOTE | 2025-01-16 00:14 | XR ---
EXAM: XR Chest, 2 Views CLINICAL HISTORY: ITS.REASON XR Reason: cough, fever TECHNIQUE: Frontal and lateral views of the chest. COMPARISON: 10/19/22 FINDINGS: Lungs: Bibasilar subsegmental atelectasis. No consolidation. Pleural space: Unremarkable. No pleural effusion or pneumothorax. Heart: No cardiomegaly or pulmonary vascular congestion. Bones/joints: No acute fracture. No dislocation. IMPRESSION: No acute findings in the chest.
--- NOTE | 2025-01-16 00:42 | CT ---
EXAM: CT Abdomen and Pelvis With Intravenous Contrast CLINICAL HISTORY: ITS.REASON CT Reason: epigastric pain TECHNIQUE: Axial computed tomography images of the abdomen and pelvis with intravenous contrast. CTDI is 85.5 mGy and DLP is 4489.9 mGy-cm. This CT exam was performed using one or more of the following dose reduction techniques: automated exposure control, adjustment of the mA and/or kV according to patient size, and/or use of iterative reconstruction technique. COMPARISON: 12/07/23 FINDINGS: Lung bases: Unremarkable. ABDOMEN: Liver: Hepatic steatosis. Gallbladder and bile ducts: Cholecystectomy. No ductal dilation. Pancreas: Unremarkable. No mass. No ductal dilation. Spleen: Unremarkable. No splenomegaly. Adrenals: Unremarkable. No mass. Kidneys and ureters: Small simple left kidney cyst; no follow-up indicated. Symmetric renal enhancement. No hydronephrosis. Stomach and bowel: Postoperative change of the sigmoid colon. No bowel obstruction. No mucosal thickening. PELVIS: Appendix: Normal appendix. Bladder: Unremarkable. No mass. Reproductive: Unremarkable as visualized. ABDOMEN and PELVIS: Intraperitoneal space: Unremarkable. No free air, significant free fluid, or fluid collection. Bones/joints: No acute fracture. No dislocation. Soft tissues: Small fat-containing periumbilical hernia. Vasculature: Minor atherosclerosis of the aorta. No abdominal aortic aneurysm. Lymph nodes: Unremarkable. No enlarged lymph nodes. IMPRESSION: No acute findings in the abdomen or pelvis.
[2025-01-16] MEDS: KETOROLAC 15 MG/ML 1 ML VIAL IVP STA (01:08)
[2025-01-16] MEDS: SODIUM CHLORIDE 0.9% 1,000 ML IV STA (02:57)
[2025-01-16 03:47] LABS: African American GFR (CKD) >90 (>60 ml/min/1.73 sqM); Anion Gap 7 mmol/L; Blood Urea Nitrogen 12 mg/dL (9-20); Calcium 8.1 mg/dL (8.4-10.2); Carbon Dioxide 26 mmol/L (22-30); Chloride 101 mmol/L (98-107); Glucose 133 mg/dL (74-99); Non-African American GFR(CKD) >90 (>60 ml/min/1.73 sqM); Potassium 3.6 mmol/L (3.5-5.1); Sodium 134 mmol/L (137-145)
--- NOTE | 2025-01-16 05:58 | CT ---
EXAMINATION TYPE: CT angio chest DATE OF EXAM: 01/16/2025 COMPARISON: NONE HISTORY: Shortness of breath, elevated d-dimer CT DLP: 1654 mGycm. Automated Exposure Control for Dose Reduction was Utilized. CONTRAST: CTA scan of the thorax is performed with IV Contrast, patient injected with 180 mL of Isovue 300, pul monary embolism protocol. MIP Images are created on CT scanner and reviewed. FINDINGS: LUNGS: Dependent consolidation and/or atelectasis is seen bilaterally. No pleural effusion or pneumot horax is seen. MEDIASTINUM: Suboptimal study with most dense contrast in SVC but no convincing CT evidence for acut e pulmonary embolism. Some Enhancement of the aorta without aneurysm or dissection. There is a bovine type arch which is normal variant. Mild cardiomegaly. No pericardial effusion is seen. OTHER: Visualized liver is heterogeneously hypodense consistent with diffuse fatty infiltrative hepat ocellular disease. IMPRESSION: 1. Suboptimal study without acute pulmonary embolism. 2. Mild cardiomegaly with bilateral dependent consolidation and/or atelectasis. Correlate clinically. [facility], , 01/16/2025 5:55 AM
[2025-01-16 06:32] VITALS: BP 129/76; PULSE 79; RESP 20; TEMP 97.9
== END 2025-01-16 06:56 | disposition home or self-care (01) ==
LOC: SUPCPDRO 19:29 → EC 19:29
DX: R10.13 Epigastric pain (principal); J18.9 Pneumonia, unspecified organism; Z87.891 Personal history of nicotine dependence; Z88.0 Allergy status to penicillin; Z88.1 Allergy status to other antibiotic agents; Z88.8 Allergy status to other drugs, medicaments and biological substances
CPT/HCPCS: 36415 ×2; 93005; 85379; 80053; 80048; 83605; 83690; 84484; 85025; 81001; 87636; 71046; 71275; 74177; 99285; 96365; 96375 ×2; 96361; 96376; J2405; J0131; J1885 ×2; Q9967 ×2